=== PATIENT | female | born 1960 | race Caucasian/White ===

== ENCOUNTER 2022-07-25 07:58 | Outpatient (OUT) | payer OTHER, SELFPAY ==
--- NOTE | 2022-07-25 08:00 | VEIN_ITS ---
Patient: CLAIRE ZEE Exam Date: 07/25/2022 : 1960 Gender:F Ordering : DR NICK ARIZA . Admission #: [id number] Family : Order #: [id number] CLICK HERE TO VIEW EXAM RADIOLOGY REPORT PROCEDURE: VC EXT VENOUS REFLUX TIFFANIE LMTD COMPARISON: None. INDICATIONS: Pain due to varicose veins of bilateral legs I83.813 TECHNIQUE: Duplex imaging of the lower extremity to assess the deep and superficial venous system for the presence of deep or superficial venous incompetence and to document the location and severity of disease. The study includes evaluation of the great saphenous vein (GSV), anterior accessory saphenous vein (AASV) and small saphenous vein (SSV). Patient scanned in reverse Trendelenburg and standing. FINDINGS: RIGHT LOWER EXTREMITY: Saphenofemoral Junction Reflux: Yes 10.3mm sec GSV: Diam (mm) Reflux/ Time (sec) Proximal Thigh 5.1 Yes 0.5 Mid Thigh 3.8 No Distal Thigh 4.0 No Prox Calf 3.1 Yes 1.0 Mid Calf 2.9 No Saphenopopliteal Junction Reflux: 2.2mm No SSV: Proximal Calf 1.9 Yes 0.7 Mid Calf 1.0 No AASV: Proximal Thigh 3.7 No Mid Thigh 2.8 No Distal Thigh Thrombi: No acute or chronic thrombus visualized Compressibility: Normal Flow: Normal Preforator: Dist/med calf 1.9mm with 0s reflux. Tech Note: Multiple small varicose veins visualized. Patent varicose vein Prox/med calf 2.3mm with 0s reflux. Patent varicose vein Prox/med calf 3.2mm with 0s reflux. Patent varicose vein dist/med thigh 2.5mm with 0.6s reflux. 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 Patent varicose vein medial knee 3.0mm with 0s reflux. Patent varicose vein 3.6mm with 1.5s reflux. CONCLUSION: 1. Minimal bilateral great and small saphenous vein venous insufficiency without dilatation. 2. Mild bilateral incompetent varicose veins. Dictated by: Jeremy Smith MD on 07/25/2022 at 08:58 Approved by: Jeremy Smith MD on 07/25/2022 at 09:00
== END 2022-07-25 07:59 ==
LOC: VC 07:59
PROVIDERS: PCP Family Medicine; Visit Provider Family Medicine
DX: I86.8 Varicose veins of other specified sites (principal)
CPT/HCPCS: 93970

== ENCOUNTER 2022-08-16 12:37 | Outpatient (RCR) | payer OTHER, SELFPAY | END 2023-02-09 08:10 | disposition home or self-care (01) | LOC: OT 12:37 | PROVIDERS: PCP Family Medicine; Visit Provider Family Medicine | DX: I89.0 Lymphedema, not elsewhere classified (principal) | CPT/HCPCS: 97140; 97166; 97530 ==

== ENCOUNTER 2022-10-03 16:42 | Outpatient (OUT) | payer OTHER, SELFPAY ==
[2022-10-03 16:57] LABS: Basophils Percent Auto 0.4 % (0.2-2.0); Eosinophils Absolute Auto 0.1 10^3/uL (0.0-0.7); Eosinophils Percent Auto 1.6 % (0.9-7.0); Hematocrit 44.1 % (36.0-48.0); Hemoglobin 14.9 g/dL (12.0-16.0); Immature Granulocytes Abs Auto 0.02 10^3/uL (0.00-0.03); Immature Granulocytes Pct Auto 0.3 % (0.0-0.5); Lymphocytes Absolute Auto 2.3 10^3/uL (1.2-3.8); Lymphocytes Percent Auto 30.9 % (20.5-60.0); Mean Corpuscular HGB Conc 33.8 g/dL (29.9-35.2); Mean Corpuscular Hemoglobin 31.4 pg (26.7-34.0); Monocytes Absolute Auto 0.5 10^3/uL (0.3-0.8); Monocytes Percent Auto 6.6 % (1.7-12.0); Neutrophils Absolute Auto 4.5 10^3/uL (1.4-6.5); Neutrophils Percent Auto 60.2 % (43.0-75.0); Platelet Count 222 10^3/uL (150-450); Red Blood Count 4.74 10^6/uL (4.20-5.40); Red Cell Distribution Width 12.7 % (11.0-15.0); White Blood Count 7.5 10^3/uL (4.0-11.0)
[2022-10-03 17:25] LABS: Estimated Average Glucose 114 mg/dL; Glycohemoglobin A1C 5.6 % (4.5-6.2)
[2022-10-03 17:37] LABS: Alanine Aminotransferase 24 U/L (14-59); Albumin Globulin Ratio 1.1; Alkaline Phosphatase 67 U/L (46-116); Anion Gap 13.9; Aspartate Amino Transferase 17 U/L (15-37); BUN Creatinine Ratio 28.4; Bilirubin Total 0.7 mg/dL (0.2-1.0); Calcium 8.8 mg/dL (8.5-10.1); Carbon Dioxide 29.2 mmol/L (21.0-32.0); Chloride 107 mmol/L (98-107); Chol HDL Ratio 3.1; Cholesterol 177 mg/dL (<=200); Estimated GFR (African America >60 (>=60); Estimated GFR (Non-African Ame >60 (>=60); Free T3 2.73 pg/mL (2.18-3.98); Globulin 3.5 g/dL; Glucose 98 mg/dL (74-106); HDL Cholesterol 57 mg/dL (40-60); LDL Cholesterol Calculated 111.6 mg/dL; Potassium 4.1 mmol/L (3.5-5.1); Sodium 146 mmol/L (136-145); Thyroid Stimulating Hormone 2.606 uIU/mL (0.358-3.740); Total Protein 7.5 g/dL (6.4-8.2); Triglycerides 42 mg/dL (<=150); VLDL CHOLESTEROL 8.4 mg/dL
[2022-10-07 18:07] LABS: Occult Blood Positive
== END 2022-10-03 16:43 | disposition home or self-care (01) ==
PROVIDERS: PCP Family Medicine; Visit Provider Family Medicine
DX: Z00.00 Encounter for general adult medical examination without abnormal findings (principal)
CPT/HCPCS: 36415; 80053; 80061; 83036; 84436; 84443; 84481; 85025; G0328

== ENCOUNTER 2022-11-18 15:22 | Outpatient (OUT) | payer OTHER, SELFPAY | END 2022-11-18 15:23 | disposition home or self-care (01) | LOC: PST 15:22 | PROVIDERS: PCP Family Medicine; Visit Provider Surgery | DX: Z01.818 Encounter for other preprocedural examination (principal); R19.5 Other fecal abnormalities ==

== ENCOUNTER 2022-11-27 07:01 | Day surgery (SDC) | payer OTHER, SELFPAY ==
--- NOTE | 2022-11-27 | OP_ITS ---
OPERATION DATE: ??11/27/2022 PREOPERATIVE DIAGNOSIS:? Positive fecal occult blood. POSTOPERATIVE DIAGNOSIS:? Normal colonoscopy to cecum. PROCEDURE:? Colonoscopy to cecum. SURGEON:? Jason Claire M.D. ANESTHESIA:? Monitored anesthesia care. ESTIMATED BLOOD LOSS:? Zero. INDICATIONS AND CONSENT:? Patient is a 61-year-old female presents for evaluation of positive fecal occult blood.? Indications, risks, benefits, alternatives of proceeding with colonoscopy were explained extensively to the patient, including the risks of bleeding, colon perforation or anesthetic complications.? All of her questions were answered.? Informed consent was obtained. PROCEDURE:? Patient brought to the operating room, placed in the left lateral decubitus position.? Monitored anesthesia care was provided.? Rectal exam was performed which showed no masses or blood.? The scope was inserted into the anal canal.? Under direct visualization was advanced.? With the aid of abdominal compression, it was advanced to the cecum where cecal markings were clearly identified.? Upon withdrawal of the scope, mucosal surfaces were carefully examined.? There were no mass lesions or polyps.? No inflammatory changes or ulcerations.? No significant diverticulosis.? The scope was retroflexed in the anal canal.? There was no significant hemorrhoidal disease.? Scope was then withdrawn.? Patient tolerated procedure well, was sent to recovery room in good condition.f/u colonoscopy in 10 years CC:? James Bhandari
[2022-11-27 07:10] VITALS: BP 107/78; PULSE 90; RESP 20; TEMP 36.6; O2SAT 98; BMI 26.0
[2022-11-27] MEDS: LACTATED RINGER'S SOLUTION 1,000 ML 50 ML IV (07:40)
[2022-11-27 09:41] VITALS: BP 113/67; PULSE 66; RESP 16; TEMP 36.9; O2SAT 98
[2022-11-27 09:56] VITALS: BP 143/67; PULSE 68; RESP 16; O2SAT 96
[2022-11-27 10:11] VITALS: BP 141/81; PULSE 61; RESP 18; O2SAT 98
== END 2022-11-27 10:13 | disposition home or self-care (01) ==
PROVIDERS: PCP Family Medicine; Visit Provider Surgery
PROC: (CPT 45378; principal; 2022-11-27 08:30)
DX: R19.5 Other fecal abnormalities (principal); M79.7 Fibromyalgia; K21.9 Gastro-esophageal reflux disease without esophagitis; I10 Essential (primary) hypertension; E03.9 Hypothyroidism, unspecified; M15.9 Polyosteoarthritis, unspecified; G25.81 Restless legs syndrome; G47.33 Obstructive sleep apnea (adult) (pediatric); Z98.51 Tubal ligation status; Z79.82 Long term (current) use of aspirin; Z79.899 Other long term (current) drug therapy
CPT/HCPCS: 45378; J2704

== ENCOUNTER 2022-12-03 20:10 | Outpatient (REF) | payer OTHER, SELFPAY ==
[2022-12-11 11:10] LABS: Age Gdln ACOG Testing Note (.); HPV Aptima Negative (Negative); IGP, Aptima HPV, rfx 16/18,45 Note (.)
== END 2022-12-03 20:11 | disposition home or self-care (01) ==
LOC: LAB 20:10
PROVIDERS: PCP Family Medicine; Visit Provider Nurse Practitioner Family
DX: Z01.419 Encounter for gynecological examination (general) (routine) without abnormal findings (principal)
CPT/HCPCS: 87624; G0145

== ENCOUNTER 2022-12-13 09:28 | Outpatient (OUT) | payer OTHER, SELFPAY ==
--- NOTE | 2022-12-13 | MM_ITS ---
Patient: CLAIRE ZEE Exam Date: 12/13/2022 : 1960 Gender:F Ordering : MAULIK STANLEY [facility] Admission #: [id number] Family : DR Winston Flores . Order #: [id number] CLICK HERE TO VIEW EXAM RADIOLOGY REPORT PROCEDURE: MM TOMOSYNTHESIS SCREENING BI COMPARISON: MG MAMM SCREEN 3D TIFFANIE CAD, 11/30/2020. MG MAMM SCREEN 3D TIFFANIE CAD, 12/14/2021. INDICATIONS: Screening Calculator Name NCI Breast Cancer Risk Assessment Tool 5 Year Breast Cancer Risk 1.30% Lifetime Breast Cancer Risk 5.50% Personal Breast Cancer No Personal Ovarian Cancer No Treatments None Family Cancers Mother with leukemia cancer at age 84; Father with lung cancer at age 74. LOCATION: [facility] BREAST COMPOSITION: Extremely dense, which lowers the sensitivity of mammography. FINDINGS: DIAGNOSTIC CATEGORY 2--BENIGN FINDING. NO CHANGE FROM COMPARISON. Scattered benign-appearing nodules are present. Scattered benign-appearing lymph nodes are present. RIGHT BREAST: No significant suspicious finding. LEFT BREAST: No significant suspicious finding. RECOMMENDATIONS: ROUTINE MAMMOGRAM AND CLINICAL EVALUATION IN 12 MONTHS. PLEASE NOTE: A NORMAL MAMMOGRAM DOES NOT EXCLUDE THE POSSIBILITY OF BREAST CANCER. A CLINICALLY SUSPICIOUS PALPABLE LUMP SHOULD BE BIOPSIED. Dictated by: Jeremy Smith MD on 12/13/2022 at 13:20 Approved by: Jeremy Smith MD on 12/13/2022 at 13:21
== END 2022-12-13 09:29 | disposition home or self-care (01) ==
LOC: MAMMO 09:28
PROVIDERS: PCP Family Medicine; Visit Provider Nurse Practitioner Family
DX: Z12.31 Encounter for screening mammogram for malignant neoplasm of breast (principal); Z80.6 Family history of leukemia; Z80.1 Family history of malignant neoplasm of trachea, bronchus and lung
CPT/HCPCS: 77063; 77067

== ENCOUNTER 2022-12-24 06:52 | Outpatient (OUT) | payer OTHER, SELFPAY | END 2022-12-24 06:53 | disposition home or self-care (01) | LOC: SLEEP 06:52 | PROVIDERS: PCP Family Medicine; Visit Provider Family Medicine | DX: G47.33 Obstructive sleep apnea (adult) (pediatric) (principal); G25.81 Restless legs syndrome | CPT/HCPCS: 95811 ==

== ENCOUNTER 2023-08-08 16:35 | Outpatient (OUT) | payer OTHER, SELFPAY ==
--- OUTSIDE RECORDS SUMMARY | 2023-08-08 16:41 | XMS_ITS | CCD ---
Author Organization [facility] Care Team Providers Care Master Control Supervisor Name Role Phone Kristine Chavez Unavailable [phone] HOY ., DR ROMERO Primary Care Unavailable CHELSEA ., DEREK Attending Unavailable CHELSEA ., DEREK Consulting Unavailable CHELSEA ., DEREK Admitting Unavailable HOY ., DR ROMERO Primary Care Unavailable CHELSEA ., DEREK Attending Unavailable CHELSEA ., DEREK Consulting Unavailable CHELSEA ., DEREK Admitting Unavailable CHELSEA ., DEREK Attending Unavailable CHELSEA ., DEREK Consulting Unavailable CHELSEA ., DEREK Admitting Unavailable HOY ., DR ROMERO Primary Care Unavailable HOY ., DR ROMERO Primary Care Unavailable CHELSEA ., DEREK Attending Unavailable CHELSEA ., DEREK Admitting Unavailable NAZARIO, DR CARMONA Attending Unavailable HOY ., DR ROMERO Primary Care Unavailable MANSI, DR CARMONA Admitting Unavailable HOY ., DR ROMERO Consulting Unavailable HOY ., DR ROMERO Primary Care Unavailable HOY ., DR ROMERO Admitting Unavailable HOY ., DR ROMERO Attending Unavailable CARRIE, DR JAMIE York Consulting Unavailable HOY ., DR ROMERO Consulting Unavailable HOY ., DR ROMERO Primary Care Unavailable HOY ., DR ROMERO Admyancy Unavailable HOY ., DR ROMERO Attending Unavailable LUKE, DR ARLET Santiago Consulting Unavailable HOY ., DR ROMERO Consulting Unavailable HOY ., DR ROMERO Primary Care Unavailable HOY ., DR ROMERO Admyancy Unavailable HOY ., DR ROMERO Attending Unavailable HOY ., DR ROMERO Primary Care Unavailable HOY ., DR ROMERO Admitting Unavailable HOY ., DR ROMERO Attending Unavailable HOY ., DR ROMERO Consulting Unavailable MAULIK STANLEY Attending Unavailable HOY ., DR NICK Primary Care Unavailable MAULIK STANLEY Consulting Unavailable MAULIK STANLEY Admitting Unavailable DEREK VERGARA Attending Unavailable DEREK VERGARA Admitting Unavailable DR NICK CORONA Primary Care Unavailable MIGDALIA CORONADO Attending Unavailable STEVE SHAVER Referring Unavailable KACEY HARPER Attending Unavailable Nick Flores Referring Unavailable Jason LUNA Attending Unavailable Jason LUNA Attending Unavailable Jason LUNA Attending Unavailable Allergies Allergy Classification Reported Allergen(s) Allergy Type Date of Onset Reaction(s) Facility (2 sources) Ciprofloxacin Drug Allergy Unknown Doximity Other (2 sources) Promethazine Drug Allergy Unknown Doximity Other (2 sources) Ciprofloxacin; Translations: [Cipro] Drug Allergy 0 [facility] Repository (3 sources) Levamisole; Translations: [Phenergan] Drug Allergy 4 [facility] Repository Medications Current Medications Medication Drug Class(es) Dates Sig (Normalized) Sig (Original) Grisel Allergy 180 MG (2 sources) take 1 tablet by mouth once daily as needed Grisel Allergy 180 MG 1 tablet as needed Orally Once a day prn Active aspirin 325 mg oral tablet (2 sources) Platelet Aggregation Inhibitor, Nonsteroidal Anti-inflammatory Drug take 1 tablet by mouth once daily Aspirin Adult 325 MG 1 tablet Orally Once a day Active azelastine hydrochloride 0.137 mg/actuat metered dose nasal spray (4 sources) Histamine-1 Receptor Antagonist Start: 01-27-2019 take 2 spray(s) nasal route twice daily Azelastine HCl 137 MCG/SPRAY 2 sprays Nasally Twice a day for 90 Days Jan, Active Start: 05-25-2018 take 2 spray(s) nasa l route twice daily Azelastine HCl 0.15 % 2 spray in each nostril Nasally Twice a day for 365 Days May, Not-Taking Calcium (2 sources) Phosphate Binder, Calcium Calcium Active CPAP Machine (2 sources) CPAP Machine Act kavon esomeprazole 20 mg delayed release oral capsule (2 sources) Proton Pump Inhibitor take 1 capsule by mouth every twenty-four hours NexIUM 20 MG 1 capsule Orally Once a day Active Fish Oils (2 sources) Fish Oil Active gabapentin 300 mg oral capsule (2 sources) Anti-epileptic Agent Gabapentin 300 MG TK 2 CS PO QHS Oral for 90 Active ibuprofen 800 mg oral tablet (2 sources) Nonsteroidal Anti-inflammatory Drug take 1 tablet by mouth three times daily at mealtime as needed Ibuprofen 800 MG 1 tablet with food or milk as needed Orally Three times a day Active levothyroxine sodium 0.05 mg oral tablet (2 sources) l-Thyroxine Levothyroxine So dium 50 MCG TK 1 T PO Q DAY Oral for 90 Active meclizine hydrochloride 25 mg oral tablet (2 sources) Antiemetic take 1 tablet by mouth three times daily as needed Meclizine HCl 25 MG TAKE 1 TABLET BY MOUTH 3 TIMES A DAY NEEDED FOR VERTIGO Oral for 10 prn Active metoprolol tartrate 25 mg oral tablet (2 sources) beta-Adrenergic Scottie Metoprolol Tartrate 25 MG TK 1 T PO BID Oral for 90 Active omeprazole 20 mg oral tablet (2 sources) Proton Pump Inhibitor take 1 tablet by mouth once daily PriLOSEC OTC 20 MG 1 tablet Orally Once a day Active pantoprazole 20 mg delayed release oral tablet (2 sources) Proton Pump Inhibitor take 1 tablet by mouth every twenty-four hours Pantoprazole Sodium 20 MG 1 tablet Orally Once a day Active pramipexole dihydrochloride 0.5 mg oral tablet (2 sources) Nonergot Dopamine Agonist take 1 tablet by mouth every twenty-four hours Pramipexole Dihydrochloride 0.5 MG 1 tablet Orally Once a day Active tiZANidine 4 mg oral tablet (2 sources) Central alpha-2 Adrenergic Agonist take 1 tablet by mouth once daily at bedtime tiZANidine HCl 4 MG TAKE 1 TABLET BY MOUTH EVERYDAY AT BEDTIME Oral for 30 Active Completed/Discontinued Medications Medication Drug Class(es) Dates Sig (Normalized) Sig (Original) diazePAM 2 mg oral tablet (2 sources) Benzodiazepine take 1 tablet by mouth twice daily as needed diazePAM 2 MG (Schedule IV Drug) TAKE 1 TABLET BY MOUTH TWICE A DAY NEEDED FOR VERTIGO Oral for 14 Not-Taking montelukast 10 mg oral tablet (2 sources) Leukotriene Receptor Antagonist Start: 01-27-2019 take 1 tablet by mouth every twenty-four hours Montelukast Sodium 10 MG 1 tablet Orally Once a day for 12 months Jan, Not-Taking Problems Active Problems Problem Classification Problem Date Documented Da te Episodic/Chronic Other nervous system disorders (2 sources) Carpal tunnel syndrome; Translations: [Carpal tunnel syndrome, bilateral upper limbs] Chronic Other upper respiratory disease (2 sources) Chronic rhinitis; Translations: [Chronic rhinitis] Chronic Spondylosis; intervertebral disc disorders; other back problems (9 sources) Cervical spondylosis without myelopathy; Translations: [Spondylosis without myelopathy or radiculopathy, cervical region] Onset: 06-13-2021 Chronic Unclassified (4 sources) LOW BACK PAIN, UNSPECIFIED; Translations: [LOW BACK PAIN, UNSPECIFIED] Onset: 06-14-2021 Past or Other Problems Problem Classification Problem Date Documented Date Episodic/Chronic Acute bronchitis (2 sources) Acute bronchitis; Translations: [Acute bronchitis] Episodic Conditions associated with dizziness or vertigo (2 sources) Dizziness and giddiness Onset: 02-19-2021 Resolved: 03-05-2021 Episodic Deficiency and other anemia (1 source) Anemia, unspecified; Translations: [ANEMIA UNSPECIFIED] Onset: 10-16-2021 Episodic Diabetes mellitus without complication (1 source) Other abnormal glucose; Translations: [OTHER ABNORMAL GLUCOSE] Onset: 10-16-2021 Episodic Other connective tissue disease (2 sources) Fibromyalgia; Translations: [Fibromyalgia] Episodic Other ear and sense organ disorders (2 sources) Otalgia; Translations: [Otalgia, bilateral] Episodic Other nervous system disorders (2 sources) Nervous system symptoms; Translations: [Other abnormalities of gait and mobility] Episodic Other screening for suspected conditions (not mental disorders or infectious disease) (12 sources) Encounter for screening mammogram for malignant neoplasm of breast; Translations: [Encounter for screening for malignant neoplasm of cervix] Onset: 10-18-2021 Episodic Other upper respiratory infections (2 sources) Acute frontal sinusitis; Translations: [Acute recurrent frontal sinusitis] Episodic Otitis media and related conditions (2 sources) Otitis media; Translations: [Otitis media, unspecified, unspecified ear] Episodic Residual codes; unclassified (1 source) Family history of leukemia; Translations: [FAMILY HISTORY OF LEUKEMIA] Onset: 12-17-2021 Episodic Residual codes; unclassified (1 source) Family history of malignant neoplasm of trachea, bronchus and lung; Translations: [FAM HX MALIG NEOPLSM TRACH BRON LNG] Onset: 12-17-2021 Episodic Residual codes; unclassified (4 sources) Other amnesia; Translations: [OTHER AMNESIA] Onset: 10-23-2021 Episodic Spondylosis; intervertebral disc disorders; other back problems (5 sources) Sacrococcygeal disorders, not elsewhere classified; Translations: [SACROCOCCYGEAL DISORDERS NEC] Onset: 06-01-2021 Episodic Unclassified (1 source) LOW BACK PAIN, UNSPECIFIED; Translations: [LOW BACK PAIN, UNSPECIFIED] Onset: 07-06-2021 Results Test Name Value Interpretation Reference Range Facility Physician Referralon 024 Physician Referral [id number] [facility] Reminderson 07-28-2023 Reminders - From: Nurys Boone LPN To: [facility] - Clinical; Sent: 07/28/2023 11:21:37 EDT Show up: 10/28/2032 07:00:00 EDT Subject: colonoscopy recall Due Date/Time: 2032 07:00:00 EDT Reminder/Recall Patient due for screening colonoscopy 2032. [facility] Outside Colonoscopyon 2022 Outside Colonoscopy [id number] [facility] Insurance Correspondenceon 0 11-07-2022 Insurance Correspondence [id number]:127 [facility] Consultation Noteon 11-07-19 Consultation Note [id number]:127 [facility] Ambulatory Visit Summaryon 0 11-05-2022 Ambulatory Visit Summary JEANNA ZEE :1960 Visit Date:11/05/2022 Ambulatory Visit Instructions Your Diagnosis Fecal occult blood test positive Your Care Team Attending Physician - CHERYL TAPIA, Jason Santiago Primary Care Physician - Nick Flores MD This Is Your Medications List Contact prescribing physician if questions or concerns aspirin (aspirin 325 mg Oral EC Tab) azelastine nasal celecoxib (Celebrex 50 mg oral capsule) dantrolene (dantrolene 25 mg oral capsule) gabapentin (gabapentin 300 mg Cap) levothyroxine (levothyroxine 75 mcg (0.075 mg) Tab) meclizine (meclizine 25 mg Tab) montelukast (montelukast 10 mg Tab) pantoprazole (Pantoprazole [address] Tab) pramipexole (pramipexole 0.5 mg oral tablet) valacyclovir (valacyclovir 1 g Tab) Procedures Performed EGD - Esophagogastroduodenoscopy (07/21/2019), Cystourethroscopy with dilation of urethral stricture (02/18/2019), Colonoscopy (05/14/2013), Caesarean section, Carpal tunnel release, section, Endometrial biopsy, neck surgery ablation, Repair of left inguinal hernia, Sling procedure of bladder neck, Trigger finger, Tubal ligation. Discharge Vitals Heart Rate (Peripheral) 76 Respiratory Rate 16 Blood Pressure 126/84 Height 162.5 cm Height 64 in Weight 69 kg Weight 151.8 lb BMI 26.13 Medications What How Much When Instructions Unchanged aspirin (aspirin 325 mg Oral EC Tab) 1 Tablets By Mouth Every day Contact prescribing physician if questions or concerns Unchanged azelastine nasal Nasal Inhalation 2 times a day Contact prescribing physician if questions or concerns Unchanged celecoxib (Celebrex 50 mg oral capsule) 1 Capsules By Mouth Every day Contact prescribing physician if questions or concerns Unchanged dantrolene (dantrolene 25 mg oral capsule) 1 Capsules By Mouth At bedtime Contact prescribing physician if questions or concerns Unchanged gabapentin (gabapentin 300 mg Cap) 1 Capsules By Mouth Every day Contact prescribing physician if questions or concerns Unchanged levothyroxine (levothyroxine 75 mcg (0.075 mg) Tab) 1 Tablets By Mouth Every day Contact prescribing physician if questions or concerns Unchanged meclizine (meclizine 25 mg Tab) 1 Tablets By Mouth 4 times a day as needed for Dizziness Contact prescribing physician if questions or concerns Unchanged montelukast (montelukast 10 mg Tab) 1 Tablets By Mouth Every day Contact prescribing physician if questions or concerns Unchanged pantoprazole (Pantoprazole [address] Tab) 1 Tablets By Mouth Every day Contact prescribing physician if questions or concerns Unchanged pramipexole (pramipexole 0.5 mg oral tablet) 2 Tablets By Mouth At bedtime Contact prescribing physician if questions or concerns Unchanged valacyclovir (valacyclovir 1 g Tab) 1 Tablets By Mouth Every day Contact prescribing physician if questions or concerns Allergies Cipro (Unknown) Phenergan (Spasm) Problems Ongoing - Any problem that you are currently receiving treatment for. Antral gastritis Antral ulcer Autonomic neuropathy in diseases classified elsewhere BMI 26.0-26.9,adult Carpal tunnel syndrome Fecal occult blood test positive Fibromyalgia Gastroesophageal reflux disease Hypertension Hypothyroidism Microscopic hematuria Mixed incontinence Nocturia Overweight Primary generalized (osteo)arthritis Raised antibody titer Restless legs Sleep apnea Urethral stricture Urge incontinence Urinary frequency Urinary urgency Historical - Any problem that you are no longer receiving treatment for. Antiplatelet or antithrombotic long-term use Pain in unspecified joint Normal [facility] Physician Referralon 023 Physician Referral [id number]:127 Normal [facility] MG MAMM SCREEN 3D TIFFANIE CADon 12-14-2021 MG MAMM SCREEN 3D TIFFANIE CAD Patient: JEANNA ZEE Exam Date: 12/14/2021 : 1960 Gender:F Ordering : DR NICK FLORES . Admission #: [id number] Family : Order #: [id number] CLICK HERE TO VIEW EXAM RADIOLOGY REPORT PROCEDURE: MAMMOGRAM SCREENING 3D BILATERAL CAD COMPARISON: MG MAMM SCREEN TIFFANIE W CAD, 11/22/2019. MG MAMM SCREEN 3D TIFFANIE CAD, 11/30/2020. INDICATIONS: Screening mammography Calculator Name NCI Breast Cancer Risk Assessment Tool 5 Year Breast Cancer Risk 1.20% Lifetime Breast Cancer Risk 5.70% Personal Breast Cancer No Personal Ovarian Cancer No Treatments None Family Cancers Mother with leukemia cancer at age 84; Father with lung cancer at age 74. LOCATION: [facility] BREAST COMPOSITION: Extremely dense, which lowers the sensitivity of mammography. FINDINGS: DIAGNOSTIC CATEGORY 2--BENIGN FINDING. NO CHANGE FROM COMPARISON. Scattered benign-appearing nodules are present. Scattered benign-appearing calcifications are present. Scattered benign-appearing lymph nodes are present. RIGHT BREAST: No significant suspicious finding. LEFT BREAST: No significant suspicious finding. RECOMMENDATIONS: ROUTINE MAMMOGRAM AND CLINICAL EVALUATION IN 12 MONTHS. PLEASE NOTE: A NORMAL MAMMOGRAM DOES NOT EXCLUDE THE POSSIBILITY OF BREAST CANCER. A CLINICALLY SUSPICIOUS PALPABLE LUMP SHOULD BE BIOPSIED. Dictated by: Jamie Smith MD on 12/14/2021 at 07:59 Approved by: Jamie Smith MD on 12/14/2021 at 08:02 Normal [facility] PAP ACOG PANEL 2: 30 to 65on 12-14-2021 . . Normal [facility] Comment on above: Result Comment: Perf ormed at: WB Performed By: #### [id number] #### [facility] [address] [place] [address] Dr. Daly Gordon Age Gdln ACOG Testing 30-65 Normal [facility] Comment on above: Performed By: #### [id number] #### [facility] [address] [place] [address] Dr. Daly Gordon DIAGNOSIS: Comment Normal [facility] Comment on above: Result Comment: NEGA TIVE FOR INTRAEPITHELIAL LESION OR MALIGNANCY. CELLULAR CHANGES ASSOCIATED WITH ATROPHY ARE PRESENT. Performed at: WB Performed By: #### [id number] #### [facility] [address] [place] [address] Dr. Daly Gordon HPV Aptima Negative Normal Negative [facility] Comment on above: Result Comment: This nucleic acid amplification test detects fourteen high-risk HPV types (16,18,31,33,35,39,45,51,52,56,58,59,66,68) without differentiation. Performed at: =G Performed By: #### [id number] #### [facility] [address] [place] [address] Dr. Daly Gordon HPV Genotype Reflex Comment Normal [facility] Comment on above: Result Comment: Crit eria not met, HPV Genotype not performed. Performed at: WB Performed By: #### [id number] #### [facility] [address] [place] [address] Dr. Daly Gordon Methodology: Comment Normal [facility] Comment on above: Result Comment: This liquid based ThinPrep(R) pap test was screened with the use of an image guided system. Performed at: WB Performed By: #### [id number] #### [facility] [address] [address] [address] Daly Gordon Note: Comment Normal [facility] Comment on above: Result Comment: The Pap smear is a screening test designed to aid in the detection of premalignant and malignant conditions of the uterine cervix. It is not a diagnostic procedure and should not be used as the sole means of detecting cervical cancer. Both false-positive and false-negative reports do occur. . Performed at: WB Performed By: #### [id number] #### [facility] [address] [address] [address] Daly Gordon Performed by: Comment Normal [facility] Comment on above: Result Comment: Radha Marrero, Internet Marketing Strategist Performed at: WB Performed By: #### [id number] #### [facility] [address] [place] [address] Dr. Daly Gordon Specimen adequacy: Comment Normal [facility] Comment on above: Result Comment: Sati sfactory for evaluation. Endocervical component may not be distinguished in cases of atrophy. Performed at: WB Performed By: #### [id number] #### [facility] [address] [place] [address] Dr. Daly Gordon MRI BRAIN WO W CONon 09-14-2 022 MRI BRAIN WO W CON EXAMINATION: MRI BRA IN WO W CON HISTORY: Amnesia COMPARISON: MRI brain 11/29/2020 TECHNIQUE: A variety of imaging planes and parameters were utilized for visualization of suspected pathology. Images were performed without and with ml Dotarem contrast. FINDINGS: CEREBRUM: No edema, hemorrhage, mass, acute infarction, or inappropriate atrophy. CEREBELLUM: No edema, hemorrhage, mass, acute infarction, or inappropriate atrophy. BRAINSTEM: No edema, hemorrhage, mass, acute infarction, or inappropriate atrophy. CSF SPACES: Ventricles, cisterns, and sulci are appropriate for age. No hydrocephalus, subarachnoid hemorrhage, or mass. SKULL: No mass or other significant visible lesion. SINUSES: Limited views demonstrate no significant mucosal thickening or fluid. ORBITS: Limited views are unremarkable. OTHER: Absent versus markedly diminutive right vertebral artery; unchanged. No abnormal meningeal or parenchymal enhancement. IMPRESSION: 1. No suspicious findings to account for patient's symptoms. 2. Minimal, but age consistent chronic changes. Electronically authenticated by: ARLET BUTLER Date: 2021-10-24 07:26 Normal [facility] OCC BLD IMMUNO SCREENon OCCULT BLOOD Negative Normal NEGATIVE [facility] Comment on above: Performed By: #### O BSCRN #### [facility] [address] [address] [address] Daly Gordon INSULINon 10-17-2021 Insulin 16.8 uIU/mL Normal 2.6-24.9 [facility] Comment on above: Performed By: #### I NSULIN #### [facility] [address] [address] [address] Daly Gordon T4, T3U, FTI [facility]on 10-17 Free Thyroxine Index 3.0 Normal 1.2-4.9 [facility] Comment on above: Performed By: #### T HYLC #### [facility] [address] [address] [address] Daly Gordon T3 Uptake 41 % Critically high 24-39 [facility] Comment on above: Performed By: #### T HYLC #### [facility] [address] [address] [address] Daly Gordon T4 [Mass/Vol] 7.4 ug/dL Normal 4.5-12.0 [facility] Comment on above: Performed By: #### T HYLC #### [facility] [address] [address] [address] Daly Gordon VIT D 25-OH LABCORPon 2021 Vitamin D, 25-Hydroxy 42.7 ng/mL Normal 30.0-100.0 [facility] Comment on above: Result Comment: Ofelia min D deficiency has been defined by the [place] of Medicine and an Endocrine Society practice guideline as a level of serum 25-OH vitamin D less than 20 ng/mL (1,2). The Endocrine Society went on to further define vitamin D insufficiency as a level between 21 and 29 ng/mL (2). 1. IOM ([place] of Medicine). 2010. Dietary reference intakes for calcium and D. [place]: The National Academies Press. 2. Red ROONEY, Dae TAI, Demetrice AKERS, et al. Evaluation, treatment, and prevention of vitamin D deficiency: an Endocrine Society clinical practice guideline. JCEM. 2010; 96(7):1911-30. Performed By: #### V ITADLC #### [facility] [address] [place], [place] [address] Dr. Daly Gordon CBC AUTO DIFFon 10-13-2021 BASO # 0.1 103/ul Normal 0.0-0.1 [facility] Comment on above: Performed By: #### C BC ####[facility] [address] [id number]. Daly Gordon Basophils/100 WBC (Bld) 0.7 % Normal 0.2-2.0 [facility] Comment on above: Performed By: #### C BC ####[facility] [address] [id number] Gordon EO # 0.2 103/ul Normal 0.0-0.7 [facility] Comment on above: Performed By: #### C BC ####[facility] [address] [id number] Gordon Eosinophils/100 WBC (Bld) 2.6 % Normal 0.9-7.0 [facility] Comment on above: Performed By: #### C BC ####[facility] [address] [id number] Gordon Erythrocyte distribution width (RBC) [Ratio] 12.5 % Normal 11.0-15.0 [facility] Comment on above: Performed By: #### C BC ####[facility] [address] [id number] Gordon Hematocrit (Bld) [Volume fraction] 42.4 % Normal 36.0-48.0 [facility] Comment on above: Performed By: #### C BC ####[facility] [address] [id number] Gordon Hemoglobin (Bld) [Mass/Vol] 13.9 g/dL Normal 12.0-16.0 [facility] Comment on above: Performed By: #### C BC ####[facility] [address] [address]Dr. Daly Gordon IG # 0.01 10e3/ul Normal 0.00-0.03 [facility] Comment on above: Performed By: #### C BC ####[facility] [address] [address]Dr. Daly Gordon IG % 0.1 % Normal 0.0-0.5 [facility] Comment on above: Performed By: #### C BC ####[facility] [address] [address]Dr. Daly Gordon LYMPH # 2.2 103/ul Normal 1.2-3.8 [facility] Comment on above: Performed By: #### C BC ####[facility] [address] [place], [place] [address]Dr. Candicesharmila Gordon Lymphocytes/100 WBC (Bld) 29.4 % Normal 20.5-60.0 [facility] Comment on above: Performed By: #### C BC ####[facility] [address] [address]Dr. Daly Gordon MANUAL DIFF REQ NO Normal [facility] Comment on above: Performed By: #### C BC ####[facility] [address] [place], [place] [address]Dr. Daly Gordon MCH (RBC) [Entitic mass] 30.1 pg Normal 26.7-34.0 [facility] Comment on above: Performed By: #### C BC ####[facility] [address] [place], [place] [address]Dr. Daly Gordon MCHC (RBC) [Mass/Vol] 32.8 g/dL Normal 29.9-35.2 [facility] Comment on above: Performed By: #### C BC ####[facility] [id number] [address] [place], [place] [address]Dr. Daly Gordon MCV (RBC) [Entitic vol] 91.8 fL Normal 81.0-99.0 [facility] Comment on above: Performed By: #### C BC ####[facility] [address] [id number]. Daly Gordon MONO # 0.5 103/ul Normal 0.3-0.8 [facility] Comment on above: Performed By: #### C BC ####[facility] [address] [id number]. Daly Gordon Monocytes/100 WBC (Bld) 6.6 % Normal 1.7-12.0 [facility] Comment on above: Performed By: #### C BC ####[facility] [address] [id number]. Daly Gordon NEUT # 4.5 103/ul Normal 1.4-6.5 [facility] Comment on above: Performed By: #### C BC ####[facility] [address] [place], [place] [address]Dr. Daly Gordon Neutrophils/100 WBC (Bld) 60.6 % Normal 43.0-75.0 [facility] Comment on above: Performed By: #### C BC ####[facility] [address] [place] [address]Dr. Daly Gordon Platelet mean volume (Bld) [Entitic vol] 9.1 fL Critically low 9.5-13.5 [facility] Comment on above: Performed By: #### C BC ####[facility] [address] [place] [address]Dr. Daly Gordon PLT 236 103/ul Normal 150-450 [facility] Comment on above: Performed By: #### C BC ####[facility] [address] [place], [place] [address]Dr. Daly Gordon RBC 4.62 106/ul Normal 4.20-5.40 [facility] Comment on above: Performed By: #### C BC ####[facility] [address] [place] [address]Dr. Daly Gordon WBC 7.4 103/ul Normal 4.0-11.0 [facility] Comment on above: Performed By: #### C BC ####[facility] [address] [place] [address]Dr. Daly Gordon GLYCOHEMOGLOBIN A1Con 2021 ADA RECOMMENDATION SEE BELOW Normal [facility] Comment on above: Result Comment: ADA RECOMMENDED LIMIT 4.0 - 6.0 ADA THERAPEUTIC TARGET < 7.0 ACTION SUGGESTED > 7.0 Performed By: #### A 1C #### [facility] [address] [address] [address] Daly Gordon Glucose [Mass/Vol] 128 mg/dL Normal [facility] Comment on above: Performed By: #### A 1C #### [facility] [address] [address] [address] Daly Gordon HbA1c (Bld) [Mass fraction] 6.1 % Normal 4.5-6.2 [facility] Comment on above: Performed By: #### A 1C #### [facility] [address] [place] [address] Dr. Daly Gordon IRONon 10-13-2021 Iron [Mass/Vol] 89.0 ug/dL Normal 50.0-170.0 [facility] Comment on above: Performed By: #### B 12FOL, IRON #### [facility] [address] [address] [address] Daly Gordon LIPID PROFILEon 10-13-2021 CHOL-HDL RATIO NORM SEE BELOW Normal [facility] Comment on above: Result Comment: 3.3 - 4.4 LOW RISK 4.4 - 7.1 AVERAGE RISK 7.1 - 11.0 MODERATE RISK >11.0 HIGH RISK Performed By: #### L IPID, TSH, CMP ####[facility] [address] [place] [address]DrShea Gordon Cholesterol [Mass/Vol] 176 mg/dL Normal <=200 [facility] Comment on above: Performed By: #### L IPID, TSH, CMP ####[facility] [address] [id number] Gordon Cholesterol in HDL [Mass/Vol] 58 mg/dL Normal 40-60 [facility] Comment on above: Performed By: #### L IPID, TSH, CMP ####[facility] [address] [id number]. Daly Gordon Cholesterol in LDL [Mass/Vol] 110.4 mg/dL Normal [facility] Comment on above: Performed By: #### L IPID, TSH, CMP ####[facility] [address] [id number]. Daly Gordon Cholesterol.total/C holesterol in HDL [Mass ratio] 3.0 {ratio} Normal [facility] Comment on above: Performed By: #### L IPID, TSH, CMP ####[facility] [address] [place] [address]Dr. Daly Gordon HDL NORMAL > or = 60 mg/dl - LO W CARDIOVASCULAR RISK <40 mg/dl - HIGH CARDIOVASCULAR RISK Normal [facility] Comment on above: Performed By: #### L IPID TSH, CMP ####[facility] [address] [address]Dr. Daly Gordon LDL CALC NORMAL SEE BELOW Normal [facility] Comment on above: Result Comment: <100 mg/dl OPTIMAL 100 - 129 mg/dl NEAR OR ABOVE OPTIMAL 130 - 159 mg/dl BORDERLINE HIGH 160 - 189 mg/dl HIGH >190 mg/dl VERY HIGH Performed By: #### L IPID TSH, CMP ####[facility] [address] [place] [address]Dr. Daly Gordon Triglyceride [Mass/Vol] 38 mg/dL Normal <=150 [facility] Comment on above: Performed By: #### L IPID TSH, CMP ####[facility] [address] [place] [id number]. Daly Gordon VLDL CALC 7.6 mg/dL Normal [facility] Comment on above: Performed By: #### L IPID TSH, CMP ####[facility] [address] [place] [address]Dr. Daly Gordon PROF 14(COMP METB)on 022 Albumin [Mass/Vol] 3.7 g/dL Normal 3.4-5.0 [facility] Comment on above: Performed By: #### L IPID, TSH, CMP ####[facility] [address] [address]Dr. Candicesharmila Gordon Albumin/Globulin [Mass ratio] 1.2 {ratio} Normal [facility] Comment on above: Performed By: #### L IPID, TSH, CMP ####[facility] [address] [address]Dr. Candicesharmila Gordon ALP [Catalytic activity/Vol] 56 U/L Normal 46-116 [facility] Comment on above: Performed By: #### L IPID, TSH, CMP ####[facility] [address] [place] [address]Dr. Daly Gordon ALT [Catalytic activity/Vol] 29 U/L Normal 14-59 [facility] Comment on above: Performed By: #### L IPID, TSH, CMP ####[facility] [address] [place] [address]Dr. Daly Gordon Anion gap [Moles/Vol] 11.6 mmol/L Normal [facility] Comment on above: Performed By: #### L IPID, TSH, CMP ####[facility] [address] [place], [place] [address]Dr. Daly Gordon AST [Catalytic activity/Vol] 17 U/L Normal 15-37 [facility] Comment on above: Performed By: #### L IPID, TSH, CMP ####[facility] [address] [place], [place] [address]Dr. Daly Gordon Bilirubin [Mass/Vol] 0.4 mg/dL Normal 0.2-1.0 [facility] Comment on above: Performed By: #### L IPID, TSH, CMP ####[facility] [address] [place] [address]Dr. Daly Gordon Calcium [Mass/Vol] 8.6 mg/dL Normal 8.5-10.1 [facility] Comment on above: Performed By: #### L IPID, TSH, CMP ####[facility] [address] [place] [address]Dr. Daly Gordon Chloride [Moles/Vol] 105 mmol/L Normal 98-107 [facility] Comment on above: Performed By: #### L IPID, TSH, CMP ####[facility] [address] [place] [address]Dr. Daly Gordon CO2 [Moles/Vol] 29.6 mmol/L Normal 21.0-32.0 [facility] Comment on above: Performed By: #### L IPID, TSH, CMP ####[facility] [address] [place], [place] [address]Dr. Candicesharmila Gordon Creatinine [Mass/Vol] 0.72 mg/dL Normal 0.55-1.02 [facility] Comment on above: Performed By: #### L IPID, TSH, CMP ####[facility] [address] [place], [place] [address]Dr. Daly Gordon EGFR-AF DOMINICAN >60 Normal >=60 [facility] Comment on above: Performed By: #### L IPID, TSH, CMP ####[facility] [address] [place], [place] [address]Dr. Daly Gordon EGFR-NON AF DOMINICAN >60 Normal >=60 [facility] Comment on above: Performed By: #### L IPID, TSH, CMP ####[facility] [address] [place], [place] [address]Dr. Daly Gordon Globulin (S) [Mass/Vol] 3.2 g/dL Normal [facility] Comment on above: Performed By: #### L IPID, TSH, CMP ####[facility] [address] [place], [place] [address]Dr. Daly Gordon Glucose [Mass/Vol] 101 mg/dL Normal 74-106 [facility] Comment on above: Performed By: #### L IPID, TSH, CMP ####[facility] [address] [place], [place] [address]Dr. Daly Gordon Potassium [Moles/Vol] 4.2 mmol/L Normal 3.5-5.1 [facility] Comment on above: Performed By: #### L IPID, TSH, CMP ####[facility] [address] [place], [place] [address]Dr. Daly Gordon Protein [Mass/Vol] 6.9 g/dL Normal 6.4-8.2 [facility] Comment on above: Performed By: #### L IPID, TSH, CMP ####[facility] [address] [address]Dr. Daly Gordon Sodium [Moles/Vol] 142 mmol/L Normal 136-145 [facility] Comment on above: Performed By: #### L IPID, TSH, CMP ####[facility] [address] [address]Dr. Daly Gordon Urea nitrogen [Mass/Vol] 21.0 mg/dL Critically high 7.0-18.0 [facility] Comment on above: Performed By: #### L IPID, TSH, CMP ####[facility] [address] [address]Dr. Daly Gordon Urea nitrogen/Creatinine [Mass ratio] 29.2 mg/mg Normal [facility] Comment on above: Performed By: #### L IPID, TSH, CMP ####[facility] [address] [place] [address]Dr. Daly Gordon TSHon 10-13-2021 TSH 2.311 uIU/mL Normal 0.358-3.740 [facility] Comment on above: Performed By: #### L IPID, TSH, CMP ####[facility] [address] [place] [address]Dr. Daly Gordon VIT B12 AND FOLATEon 022 Cobalamin (Vitamin B12) [Mass/Vol] 602.0 pg/mL Normal 193.0-986.0 [facility] Comment on above: Performed By: #### B 12FOL, IRON #### [facility] [address] [address] [address] Daly Gordon FOLATE 18.70 ng/mL Normal 8.60-58.90 [facility] Comment on above: Performed By: #### B 12FOL, IRON #### [facility] [address] [address] [address] Daly Gordon US carotid doppler BIon US carotid doppler BI [facility] [place] [address] Ultrasound Report Signed Patient: Jeanna Zee MR#: [id number] : 1960 Acct:[id number] Age/Sex: 60 / F ADM Date: 03/05/21 Loc: [facility] Room: Type: [facility] Attending Dr: Kristine Chavez MD Ordering Provider: Kristine Chavez MD Date of Service: 03/05/21 US/US carotid doppler BI: [id number] Copies to: Kristine Chavez MD CAROTID DUPLEX INDICATION: Screening study after abnormal MRI interpretation PROCEDURE: Color-flow duplex scanning is used to interrogate the extracranial carotid arterial system, as well as both vertebral arteries. The proximal right internal carotid artery shows a highest peak systolic velocity of 131 cm/s with an end-diastolic velocity of 37.3 cm/s . The mid internal carotid artery measures 118 cm/s peak systolic with an end-diastolic velocity of 41.3 cm/s . The distal segment measures 76.6 cm/s peak systolic with an end diastolic velocity of 28.5 cm/s . The velocities of the right common carotid artery are 141 cm/s peak systolic and 22 cm/s end- diastolic proximally and 130 cm/s peak systolic and 29.9 cm/s end-diastolic distally. The peak systolic velocity ratio of the internal to the common carotid artery is 0.93 . The right external carotid artery measures 164 cm/s peak systolic. The right vertebral artery is patent at 55 cm/s peak systolic and with antegrade flow. The proximal left internal carotid artery shows a highest peak systolic velocity of 84.4 cm/s with an end-diastolic velocity of 30.5 cm/s . The mid internal carotid artery measures 97.3 cm/s peak systolic with an end-diastolic velocity of 32.2 cm/s . The distal segment measures 63.6 cm/s peak systolic with an end diastolic velocity of 24.4 cm/s . The velocities of the left common carotid artery are 130 cm/s peak systolic and 30.4 cm/s end-diastolic proximally and 113 cm/s peak systolic and 31.1 cm/s end-diastolic distally. The peak systolic velocity ratio of the internal to the common carotid artery is 0.75 . The left external carotid artery measures 110 cm/s peak systolic. The left vertebral artery is patent at 70.4 cm/s peak systolic with antegrade flow. US/US carotid doppler BI IMPRESSION: NO HEMODYNAMICALLY SIGNIFICANT STENOSIS OF EITHER EXTRACRANIAL INTERNAL CAROTID ARTERY. BOTH VERTEBRAL ARTERIES ARE PATENT WITH ANTEGRADE FLOW. Both of the distal internal carotid arteries were tortuous. Impression dictated by: Kristine Chavez MD03/08/2021 5:35 PM [facility]: Albina Wilcox Transcribed By: TERRY 03/08/211734 Dictated By: Kristine Chavez MD 03/08/211733 Signed By: 03/08/211734 [facility] Vital Signs Date Time Vital Sign Value Performing Clinician Facility 03-05-2021 16:30-0500 Body height 162.56 cm Kristine Chavez Other [facility] Other 03-05-2021 16:30-0500 Body mass index (BMI) [Ratio] 27.46 kg/m2 Kristine Chavez Other [facility] Other 03-05-2021 16:30-0500 Body temperature 97.3 [degF] Kristine Chavez Other [facility] Other 03-05-2021 16:30-0500 Body weight 72.58 kg Kristine Chavez Other [facility] Other 03-05-2021 16:30-0500 Diastolic blood pressure 70 mm[Hg] Kristine Chavez Other [facility] Other 03-05-2021 16:30-0500 SaO2% (BldA) [Mass fraction] 98 % Kristine Chavez Other [facility] Other 03-05-2021 16:30-0500 Systolic blood pressure 110 mm[Hg] Kristine Samsraúl Other [facility] Other 02-19-2021 16:15-0500 Body height 162.56 cm Kristine Samsraúl Other [facility] Other 02-19-2021 16:15-0500 Body mass index (BMI) [Ratio] 27.46 kg/m2 Kristine Samsraúl Other [facility] Other 02-19-2021 16:15-0500 Body weight 72.58 kg Kristine Samsraúl Other [facility] Other 02-19-2021 16:15-0500 Respiratory rate 18 /min Kristine Scott Other [facility] Other 02-19-2021 16:15-0500 SaO2% (BldA) [Mass fraction] 98 % Kristine Samsraúl Other [facility] Other Encounters Encounter Date Encounter Type Care Provider Facility Start: 08-12-2023 ambulatory Nick Flores Facility:[facility] Start: 07-23-2023 End: 07-23-2023 ambulatory KACEY HARPER Not Available Start: 02-06-2023 End: 02-06-2023 ambulatory MIGDALIA CORONADO Not Available Start: 2022 End: 2022 ambulatory Jason LUNA Facility:CD:[id number] Start: 11-05-2022 End: 11-05-2022 ambulatory Jason LUNA Facility:[facility] Start: 05-17-[address] KRISTINE Bhat ity:[facility] Start: 12-14-2021 End: 12-15-[address] NICK FLORES . Facility:[facility] Start: 12-06-2021 End: 12-10-2021 ambulatory MAULIK STANLEY Facility:[facility] Start: 11-02-[address] NICK FLORES . Facili ty:[facility] Start: 10-23-2021 End: 10-24-[address] NICK FLORES . Facility:[facility] Start: 10-18-2021 End: 10-18-[address] NICK FLORES . Facility:[facility] Start: 10-13-2021 End: 10-14-[address] NCIK FLORES . Facility:[facility] Start: 07-06-2021 End: 07-07-[address] NICK FLORES . Facility:[facility] Start: 06-22-2021 End: 06-22-[address] NICK FLORES . Facility:[facility] Start: 06-13-2021 End: 08-04-2021 ambulatory DEREK TRAN . Facility:[facility] Start: 06-01-2021 End: 06-02-2021 ambulatory DEREK TRAN . Facility:[facility] Start: 03-05-2021 End: 03-05-2021 ambulatory Kristine Chavez Other [facility] Other Start: 03-05-2021 Office outpatient visit 15 minutes Kristine Chavez [facility] Start: 02-19-2021 End: 02-19-2021 ambulatory Kristine Chavez Other [facility] Other Start: 02-19-2021 Office outpatient ne w 30 minutes Kristine Chavez [facility] Payers Date Payer Category Payer Unknown [id number] 1960 Unknown [id number] 2.16.84 [id number] 1960 Unknown [id number] 2.16.84 [id number] 1960 Unknown [id number] 2.16.84 0.1.444663.3.579.2.593 1960 Unknown [id number] 2.16.84 0.1.589399.3.579.2.593 1959 Unknown [id number] 2.16.84 0.1.407738.3.579.2.593 1960 Unknown [id number] 2.16.84 0.1.287866.3.579.2.593 1960 Unknown [id number] 2.16.84 0.1.250893.3.579.2.593 1959 Unknown [id number] 2.16.84 0.1.691004.3.579.2.593 1960 Unknown [id number] 2.16.84 0.1.188090.3.579.2.593 1959 Unknown [id number] 2.16.84 0.1.655547.3.579.2.593 1960 Unknown [id number] 2.16.84 0.1.811773.3.579.2.593 1959 Unknown [id number] 2.16.84 0.1.039762.3.579.2.1259 1959 Unknown [id number] 2.16.840 .1.559718.3.579.2.1259 1959 Unknown [id number] 2.16.8 40.1.738314.3.579.2.727 1960 Unknown [id number] 2.16.8 40.1.860344.3.579.2.727 1960 Unknown [id number] 2.16.8 40.1.470750.3.579.2.727 1960 Self-pay [id number] 1960 Unknown [id number] 2.16. [id number] Social History Date Type Detail Facility Sex Assigned At [facility] Other Clinical Note 11-05-2022 Note Date & Type Note Facility 11-05-2022 Note Chief Complaint consultation for positive occult stool HPI Staff 61 year old female presents on consultation from Dr. Flores for positive occult stool. Denies abdominal or rectal pain. Denies noting rectal bleeding or blood in stools. Reports approximately one month history of fecal urgency and loose stools. Long standing history of fecal incontinence. Denies nausea or vomiting. No unexplained weight loss. Last colonoscopy completed 05/2013 with small internal hemorrhoids. No known family history of colon cancer. History of Present Illness 61 yo female with h/o htn, hypothyroidism, fibromyalgia, LYNDON, referred for positive fecal occult blood; denies change in bms or gross blood in stools, no abd complaints; last colonoscopy 2013 with internal hemorrhoids; abd operations significant for x 2; LIHR; on regular asa daily, no NSAID use, no SBE prophylaxis, no fmhx of GI malignancy or IBD; no tobacco use. Review of Systems PHQ Score Initial Depression Screen Score: 0 ROS - Provider Constitutional: no fever, no sweats, no weight loss. Eyes: no glasses, no blurred vision, no visual loss. ENMT: no dentures, no hoarseness, no swallowing difficulties, no hearing loss, no ear infection(s), no nose bleeds. Cardiovascular: normal blood pressure, no chest pain, regular heartbeat, no heart murmur. Respiratory: no shortness of breath, no cough, no asthma, no wheezing. Gastrointestinal: no nausea, no vomiting, no diarrhea, no constipation, no blood in stool, no change in bowel habits, no abdominal pain, no hepatitis. Genitourinary: no kidney stones, no urine infection, no dysuria. Musculoskeletal: no pain, no weakness. Skin: no changing moles, no rash, no skin lumps. Neurologic: no seizures, no epilepsy, no headache. Psychiatric: no emotional or psychiatric problem. Heme/Lymph: no bleeding problems, no anemia, no blood clots, no transfusions. Allergy/Immunologic: no swollen lymph nodes/glands, no IV drug abuse. Other: Additional ROS info: Except as noted in the above Review of Systems and in the History of Present Illness, all other systems have been reviewed and are negative or noncontributory. Physical Exam Vitals & Measurements HR: 76(Peripheral) RR: 16 BP: 126/84 HT: 64 in HT: 162.5 cm WT: 69 kg WT: 151.8 lb BMI: 26.13 HEENT: normal conjunctiva, sclera clear, no scleral icterus, EOM intact, PERRLA, oral mucosa moist without lesions. Neck: trachea midline, no mass, symmetric, no thyromegaly or nodules, no adenopathy Respiratory: lungs CTA, respirations non labored. Cardiovascular: regular rate and rhythm, no murmur, no pedal edema or varicosities. Gastrointestinal: soft, non distended, no tenderness, no masses, no palpable hernias, diastasis recti no, no hepatosplenomegaly; normal bs Lymphatic: no cervical adenopathy, no supraclavicular adenopathy. Musculoskeletal: normal gait, digits and nails without infection, nodes, cyanosis, clubbing. Skin: no rashes, no lesions, no ulcers, no subcutaneous nodules, induration. Psychiatric/Neuro: oriented to time, place, person, judgement normal, affect appropriate for age, insight intact, no focal deficits. Tests: labs reviewed, review of old records completed, Discussed surgical options, risks, and possible complications with patient. Assessment/Plan 1. Fecal occult blood test positive (R19.5: Other fecal abnormalities) plan colonoscopy under anesthesia, informed consent obtained. Follow-up No qualifying data available Problem List/Past Medical History Ongoing Antral gastritis Antral ulcer Autonomic neuropathy in diseases classified elsewhere BMI 26.0-26.9,adult Carpal tunnel syndrome Fecal occult blood test positive Fibromyalgia Gastroesophageal reflux disease Hypertension Hypothyroidism Microscopic hematuria Mixed incontinence Nocturia Overweight Primary generalized (osteo)arthritis Raised antibody titer Restless legs Sleep apnea Urethral stricture Urge incontinence Urinary frequency Urinary urgency Historical Antiplatelet or antithrombotic long-term use Pain in unspecified joint Procedure/Surgical History EGD - Esophagogastroduodenoscopy (07/21/2019), Cystourethroscopy with dilation of urethral stricture (02/18/2019), Colonoscopy (05/14/2013), Caesarean section, Carpal tunnel release, section, Endometrial biopsy, neck surgery ablation, Repair of left inguinal hernia, Sling procedure of bladder neck, Trigger finger, Tubal ligation. Medications aspirin 325 mg Oral EC Tab, 325 mg= 1 tab(s), Oral, Daily azelastine nasal, Nasal, BID Celebrex 50 mg oral capsule, 50 mg= 1 cap(s), Oral, Daily dantrolene 25 mg oral capsule, 25 mg= 1 cap(s), Oral, Bedtime gabapentin 300 mg Cap, 300 mg= 1 cap(s), Oral, Daily levothyroxine 75 mcg (0.075 mg) Tab, 75 mcg= 1 tab(s), Oral, Daily meclizine 25 mg Tab, 25 mg= 1 tab(s), Oral, QID, PRN montelukast 10 mg Tab, 10 mg= 1 tab(s), Oral, Daily Pantoprazole [address] Tab, 40 mg= 1 (more content not included)... [facility] Comment on above: Result Comment: Elec tronically Signed By: CHERYL TAPIA, Jason Guzman\Date and Time Signed: 11/05/22 15:49 EDT Evaluation note 03-05-2021 Note Date & Type Note Facility 03-05-2021 Evaluation note Encounter Date Diagnosis Assessment Notes Feb, Dizziness (ICD-10 - R42) I did review the carotid duplex with the patient today. The results were normal. There is no disease identified whatsoever. I explained to the patient that an MRI is not usually utilized to evaluate arteries. An MRA could be used for arterial evaluation but not MRI. Therefore, I feel confident that her symptoms of dizziness are not related to extracranial cerebrovascular disease. I suggest that she get a second opinion from ENT. We will help arrange this for her. [facility] Other Evaluation note 02-19-2021 Note Date & Type Note Facility 02-19-2021 Evaluation note Encounter Date Diagnosis Assessment Notes Feb, Dizziness (ICD-10 - R42) Patient's primary complaint is dizziness for the last 4 years. She states that she has been thoroughly worked up. She denies ever having had a carotid duplex in the past. Recent MRI did suggest a vertebral abnormality. Therefore I am recommending we start with a carotid duplex study. We will schedule this and see her back and go over the results. She understands agrees the plan. I did caution her that only 1% of my patients end up having a surgically correctable cause of dizziness due to vertebral artery stenoses. I did not want to falsely elevate her hopes. She understands and wishes to proceed. [facility] Other History general Narrative - Reported Note Date & Type Note Facility History general Narrative - Reported Type Medical History arthritis Medical History Ear pain, bilateral Medical History Idiopathic periphera l autonomic neuropathy Medical History Cervical spondylosis with myelopathy Medical History Acute recurrent frontal sinusiti s Medical History Hypothyroidism Medical History GERD (gastroesophage al reflux disease) Medical History Obstructive sleep apnea Medical History vertigo Medical History Hypertension Medical History Depression Medical History Otitis media Medical History Pneumonia Medical History thyroid Surgical History x 2 1982, Surgical History hernia repair 1995 Surgical History carpal tunnel release 2010 Surgical History trigger finger release 2011 Surgical History bladder sling 2010 Hospitalization History see sx hx Doximity Other Summary Purpose Family History No Family History Records FoundNo Family History Records FoundNo Family History Records FoundNo Family History Records Found Advance Directives No Advanced Directives Records FoundNo Advanced Directives Records FoundNo Advanced Directives Records FoundNo Advanced Directives Records Found Additional Source Comments INFORMATION SOURCE (unrecogn ized section and content) DATE CREATED AUTHOR 03/26/2021 [facility] DATE CREATED AUTHOR AUTHOR'S ORGANIZ ATION 05/18/2022 [facility] DATE CREATED AUTHOR AUTHOR'S ORGANIZ ATION 07/25/2023 [facility] EPIC DATE CREATED AUTHOR AUTHOR'S ORGANIZ ATION 07/30/2023 [facility] REASON FOR VISIT (unrecogniz ed section and content) REF BY DR FLORES FOR ABNORMAL M RI OF HEADVASC 2 WK FOLLOW UP; CAROTID DUPLEX 3P FOR RECORDS PERTAINING TO PATIENTS WHO ARE OR HAVE BEEN ENROLLED IN A CHEMICAL DEPENDENCY/SUBSTANCEABUSE PROGRAM, SOME INFORMATION MAY BE OMITTED. This clinical summary was aggregated from multiple sources. Caution should be exercised in using it in the provision of clinical care. This summary normalizes information from multiple sources, and as a consequence, information in this document may materially change the coding, format and clinical context of patient data. In addition, data may be omitted in some cases. CLINICAL DECISIONS SHOULD BE BASED ON THE PRIMARY CLINICAL RECORDS. [employer] provides no warranty or guarantee of the accuracy or completeness of information in this document.
[2023-08-08 16:52] LABS: Basophils Percent Auto 0.5 % (0.2-2.0); Eosinophils Absolute Auto 0.2 10^3/uL (0.0-0.7); Eosinophils Percent Auto 2.4 % (0.9-7.0); Hematocrit 40.1 % (36.0-48.0); Hemoglobin 13.7 g/dL (12.0-16.0); Immature Granulocytes Abs Auto 0.01 10^3/uL (0.00-0.03); Immature Granulocytes Pct Auto 0.2 % (0.0-0.5); Lymphocytes Absolute Auto 2.1 10^3/uL (1.2-3.8); Lymphocytes Percent Auto 33.6 % (20.5-60.0); Mean Corpuscular HGB Conc 34.2 g/dL (29.9-35.2); Mean Corpuscular Hemoglobin 31.6 pg (26.7-34.0); Mean Corpuscular Volume 92.6 fL (81.0-99.0); Mean Platelet Volume 9.6 fL (9.5-13.5); Monocytes Absolute Auto 0.5 10^3/uL (0.3-0.8); Monocytes Percent Auto 7.2 % (1.7-12.0); Neutrophils Absolute Auto 3.5 10^3/uL (1.4-6.5); Neutrophils Percent Auto 56.1 % (43.0-75.0); Platelet Count 219 10^3/uL (150-450); Red Blood Count 4.33 10^6/uL (4.20-5.40); Red Cell Distribution Width 11.9 % (11.0-15.0); White Blood Count 6.3 10^3/uL (4.0-11.0)
[2023-08-08 18:00] LABS: Alanine Aminotransferase 28 U/L (14-59); Albumin Globulin Ratio 1.1; Albumin Level 3.6 g/dL (3.4-5.0); Alkaline Phosphatase 66 U/L (46-116); Anion Gap 10.2; Aspartate Amino Transferase 20 U/L (15-37); BUN Creatinine Ratio 25.8; Bilirubin Total 0.8 mg/dL (0.2-1.0); Calcium 8.4 mg/dL (8.5-10.1); Carbon Dioxide 29.4 mmol/L (21.0-32.0); Chloride 107 mmol/L (98-107); Estimated GFR (African America >60 (>=60); Estimated GFR (Non-African Ame >60 (>=60); Globulin 3.3 g/dL; Glucose 91 mg/dL (74-106); Magnesium 2.2 mg/dL (1.8-2.4); Potassium 3.6 mmol/L (3.5-5.1); Sodium 143 mmol/L (136-145); Total Protein 6.9 g/dL (6.4-8.2)
== END 2023-08-08 16:36 | disposition home or self-care (01) ==
LOC: LAB 16:39
PROVIDERS: PCP Family Medicine; Visit Provider Family Medicine
DX: Z00.00 Encounter for general adult medical examination without abnormal findings (principal)
CPT/HCPCS: 36415; 80053; 83540; 83735; 84439; 84443; 85025

== ENCOUNTER 2023-11-25 07:34 | Outpatient (OUT) | payer OTHER, SELFPAY ==
--- NOTE | 2023-11-25 | XR_ITS ---
The [address] [address] Patient Name: CLAIRE ZEE MRN: [id number] date: 1960 Sex: F Assigned Patient Location: [facility] Current Patient Location: Accession/Order Number: [id number] Exam Date: 11/25/2023 07:51 Report Date: 11/26/2023 07:15 At the request of: VARSHA HAQUE Procedure: XR foot RT min 3V PROCEDURE: XR foot RT min 3V COMPARISON: 03/22/2020 HISTORY: RIGHT FOOT PAIN FINDINGS: BONES:No acute fracture or dislocation. Mild hallux valgus. Mild degenerative changes with joint space narrowing and marginal osteophyte formation. SOFT TISSUES:Negative. No visible soft tissue swelling. EFFUSION:None visible. OTHER: Negative. XR/XR foot RT min 3V IMPRESSION: Osteoarthritis Mild hallux valgus Electronically authenticated by: JAMIE BUTLER Date: 11/26/2023 07:15
--- OUTSIDE RECORDS SUMMARY | 2023-11-25 07:36 | XMS_ITS | CCD ---
Author Organization [facility] Care Team Providers Care Horticultural Services Supervisor Name Role Phone Kristine Chavez Unavailable HOY ., DR ROMERO Primary Care [...] HOY ., DR ROMERO Primary Care Unavailable NAZARIO, DR CARMONA Admitting Unavailable HOY ., DR ROMERO Consulting Unavailable HOY ., DR ROMERO Primary Care Unavailable HOY ., DR ROMERO Admitting Unavailable HOY ., DR ROMERO Attending Unavailable FERNANDINA BEACH, DR JAMIE [place] Consulting Unavailable HOY ., [...] DR ROMERO Attending Unavailable HOY ., DR ROMEOR Primary Care Unavailable HOY ., DR ROMERO Admyancy Unavailable HOY ., DR ROMERO Attending Unavailable HOY ., DR ROMERO Consulting Unavailable MAULIK STANLEY Attending Unavailable HOY ., DR ROMERO Primary Care Unavailable JADEN, MAULIK Consulting Unavailable MAULIK STANLEY Admitting Unavailable DEREK VERGARA Attending Unavailable DEREK VERGARA Admitting Unavailable DR NICK CORONA Primary Care Unavailable MIGDALIA JOYCE Attending Unavailable STEVE SHAVER Referring Unavailable KACEY HARPER Attending Unavailable Nick Flores Primary Care Physician [phone] Jason LUNA Attending Unavailable Nick Flores Referring Unavailable Jason LUNA Attending Unavailable Jason LUNA Attending Unavailable Nick Flores MD Primary Care Provider Kell Del Cid DO Unavailable Allergies Allergy Classification Reported Allergen(s) Allergy Type Date of Onset Reaction(s) Facility Promethazine (1 source) Promethazine; Translations: [promethazine] Drug Allergy Spasm (finding) [facility] [place] Quinolones (antibiotic) (1 source) Ciprofloxacin; Translations: [ciprofloxacin] Drug Allergy Unknown (qualifier value) [facility] (3 sources) Ciprofloxacin Drug Allergy 3 Unknown [facility] (3 sources) Promethazine Drug Allergy 4 Unknown [facility] (2 sources) Ciprofloxacin; Translations: [Cipro] Drug Allergy 0 [facility] Repository (3 sources) Levamisole; Translations: [Phenergan] Drug Allergy 4 [facility] Repository Medications Current Medications Medication Drug Class(es) Dates Sig (Normalized) Sig (Original) Grisel Allergy 180 MG (2 sources) take 1 tablet by mouth once daily as needed Grisel Allergy 180 MG 1 tablet as needed Orally Once a day prn Active aspirin 81 mg delayed release oral tablet (3 sources) Platelet Aggregation Inhibitor, Nonsteroidal Anti-inflammatory Drug take 1 tablet by mouth in the morning aspirin 81 MG EC tablet Take 81 mg by mouth in the morning. Active take 1 tablet by mouth once gurdeep y Aspirin Adult 325 MG 1 tablet Orally Once a day Active azelastine hydrochloride 0.137 mg/actuat metered dose nasal spray (6 sources) Histamine-1 Receptor Antagonist Start: 09-09-2022 take 1 spray(s) nasal route twice daily Azelastine HCl 137 MCG/SPRAY solution Indications: Chronic rhinitis SPRAY ONE SPRAY IN EACH NOSTRIL TWICE DAILY 30 mL 11 09/09/2022 Active Start: 02-09-2019 azelastine bee al Nasal, BID, Refill(s) 0 Start Date: 02/09/19 Status: Ordered Start: 01-27-2019 take 2 spray(s) nasa l route twice daily Azelastine HCl 137 MCG/SPRAY 2 sprays Nasally Twice a day for 90 Days Jan, Active Start: 05-25-2018 take 2 spray(s) nasa l route twice daily Azelastine HCl 0.15 % 2 spray in each nostril Nasally Twice a day for 365 Days May, Not-Taking Calcium (2 sources) Phosphate Binder, Calcium Calcium Active celecoxib 50 mg oral capsule (2 sources) Nonsteroidal Anti-inflammatory Drug Start: 3 take 1 capsule by mouth once daily as needed for pain Celebrex 50 mg oral capsule 50 mg = 1 cap(s), Oral, Daily, PRN as needed for pain, Refills(s) 0 Start Date: 10/28/22 Status: Ordered CPAP Machine (2 sources) CPAP Machine Active esomeprazole 20 mg delayed release oral capsule (2 sources) Proton Pump Inhibitor take 1 capsule by mouth every twenty-four hours NexIUM 20 MG 1 capsule Orally Once a day Active Fish Oils (2 sources) Fish Oil Active gabapentin 300 mg oral capsule (4 sources) Anti-epileptic Agent Start: 9 take 1 capsule by mouth once daily gabapentin 300 mg Cap 300 mg = 1 cap(s), Oral, Daily Start Date: 02/09/19 Status: Ordered Gabapentin 300 M G TK 2 CS PO QHS Oral for 90 Active ibuprofen 800 mg oral tablet (3 sources) Nonsteroidal Anti-inflammatory Drug ibuprofen 800 MG tab let Take 400 mg by mouth every 6 (six) hours if needed for mild pain. Active take 1 tablet by sabiha th three times daily at mealtime as needed Ibuprofen 800 MG 1 tablet with food or milk as needed Orally Three times a day Active Magnesium glycinate (1 source) Start: 07-28-2023 take 1 tablet by mouth twice daily magnesium glycinate = 1 tab(s), Oral, BID, Refills(s) 0 Start Date: 07/28/23 Status: Ordered meclizine hydrochloride 25 mg oral tablet (4 sources) Antiemetic Start: 10-28-2022 take 1 tablet by mouth four times daily as needed for dizziness meclizine 25 mg Tab 25 mg = 1 tab(s), Oral, QID, PRN Dizziness, Refills(s) 0 Start Date: 10/28/22 Status: Ordered take 1 tablet by sabiha th three times daily as needed for dizziness meclizine (Antivert) 25 MG tablet Take 2 5 mg by mouth 3 (three) times a day as needed for dizziness. Active metoprolol tartrate 25 mg oral tablet (2 sources) beta-Adrenergic Scottie Metoprol ol Tartrate 25 MG TK 1 T PO BID Oral for 90 Active montelukast 10 mg oral tablet (3 sources) Leukotriene Receptor Antagonist Start: 01-28-20 take 1 tablet by mouth once daily montelukast 10 mg Tab 10 mg = 1 tab(s), Oral, Daily Start Date: 02/09/19 Status: Ordered omeprazole 20 mg oral tablet (2 sources) Proton Pump Inhibitor take 1 tablet by mouth once daily PriLOSEC OTC 20 MG 1 tablet Orally Once a day Active pantoprazole 40 mg delayed release oral tablet (4 sources) Proton Pump Inhibitor Start: 04-13-19 take 1 tablet by mouth once daily Pantoprazole [address] Tab 40 mg = 1 tab(s), Oral, Daily Start Date: 04/13/19 Status: Ordered take 1 tablet by sabiha th every twenty-four hours Pantoprazole Sodium 20 MG 1 tablet Orall y Once a day Active pramipexole dihydrochloride 0.5 mg oral tablet (4 sources) Nonergot Dopamine Agonist Start: 10-28-2022 take 3 tablets by mouth at bedtime pramipexole 0.5 mg oral tablet 1.5 mg = 3 tab(s), Oral, Bedtime, Refills(s) 0 Start Date: 10/28/22 Status: Ordered take 1 tablet by sabiha th in the morning, then take 1 tablet by mouth in the evening, then take 1 tablet by mouth at bedtime pramipexole (Mirapex) 0.5 MG tablet Take 0.5 mg by mouth in the morning and 0.5 mg in the evening and 0.5 mg before bedtime. Active tiZANidine 4 mg oral tablet (3 sources) Central alpha-2 Adrenergic Agonist Start: 07-28-2023 tiZANidine 4 mg Tab as directed, Refills(s) 0 Start Date: 07/28/23 Status: Ordered take 1 tablet by sabiha th once daily at bedtime tiZANidine HCl 4 MG TAKE 1 TABLET BY SABIHA TH EVERYDAY AT BEDTIME Oral for 30 Active traMADol hydrochloride 50 mg oral tablet (1 source) Opioid Agonist traMADol (Ultram ) 50 MG tablet Take by mouth. Active valACYclovir 1000 mg oral tablet (2 sources) Herpesvirus Nucleoside Analog DNA Polymerase Inhibitor, Herpes Simplex Virus Nucleoside Analog DNA Polymerase Inhibitor, Herpes Zoster Virus Nucleoside Analog DNA Polymerase Inhibitor Start: 3 take 1 tablet by mouth once daily valacyclovir 1 g Tab 1 gm = 1 tab(s), Oral, Daily, Refills(s) 0 Start Date: 10/28/22 Status: Ordered valACYclovir (Va ltrex) 500 MG tablet Take by mouth. Active Completed/Discontinued Medications Medication Drug Class(es) Dates Sig (Normalized) Sig (Original) diazePAM 2 mg oral tablet (2 sources) Benzodiazepine take 1 tablet by mouth twice daily as needed diazePAM 2 MG (Schedule IV Drug) TAKE 1 TABLET BY MOUTH TWICE A DAY NEEDED FOR VERTIGO Oral for 14 Not-Taking levothyroxine sodium 0.075 mg oral tablet (4 sources) l-Thyroxine Start: 02-09-2019 take 1 tablet by mouth once daily levothyroxine 75 mcg (0.075 mg) Tab 75 microgram = 1 tab(s), Oral, Daily Start Date: 02/09/19 Status: Ordered levothyroxine (S ynthroid, Levoxyl) 75 MCG tablet Take by mouth Daily before meals. Active Levothyroxine So dium 50 MCG TK 1 T PO Q DAY Oral for 90 Active Problems Active Problems Problem Classification Problem Date Documented Da te Episodic/Chronic Esophageal disorders (2 sources) Gastroesophageal reflux disease; Translations: [Gastro-esophageal reflux disease without esophagitis] Onset: 4 06-24-2019 Chronic Essential hypertension (1 source) Hypertensive disorder 02-09-2019 Chronic Gastritis and duodenitis (1 source) Gastritis 07-29-2019 Episodic Gastroduodenal ulcer (except hemorrhage) (1 source) Antral ulcer 07-29-2019 Chronic Genitourinary symptoms and ill-defined conditions (2 sources) Incontinence; Translations: [Urge incontinence of urine] 01-20-2020 Chronic Genitourinary symptoms and ill-defined conditions (4 sources) Increased frequency of urination; Translations: [Microscopic hematuria] 11-23-2019 Episodic Immunizations and screening for infectious disease (1 source) High antibody titer 02-09-2019 Episodic Mood disorders (1 source) Depressive disorder 07-28-2023 Chronic Osteoarthritis (1 source) Osteoarthritis 02-09-2019 Chronic Other connective tissue disease (3 sources) Fibromyalgia; Translations: [Fibromyalgia] 10-28-2022 Episodic Other diseases of bladder and urethra (1 source) 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-20-2020 Episodic Other gastrointestinal disorders (1 source) Occult blood in stools 11-05-2022 Episodic Other hereditary and degenerative nervous system conditions (2 sources) Restless legs; Translations: [Restless legs syndrome] Onset: 4 10-28-2022 Chronic Other nervous system disorders (3 sources) Carpal tunnel syndrome; Translations: [Carpal tunnel syndrome, bilateral upper limbs] 02-09-2019 Chronic Other nervous system disorders (1 source) Autonomic neuropathy 02-09-2019 Chronic Other nervous system disorders (1 source) 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 type; Translations: [Circadian rhythm sleep disorder, shift work type] Onset: 4 07-23-2023 Chronic Other non-traumatic joint disorders (1 source) Joint pain 10-28-2022 Episodic Other nutritional; endocrine; and metabolic disorders (1 source) Overweight 11-05-2022 Episodic Other nutritional; endocrine; and metabolic disorders (1 source) Overweight in adulthood with body mass index of 25 or more but less than 30 11-05-2022 Episodic Other skin disorders (1 source) Disorder of skin; Translations: [Disorder of the skin and subcutaneous tissue, unspecified] Onset: 4 Episodic Other skin disorders (1 source) Skin lesion 08-12-2023 Episodic Other upper respiratory disease (3 sources) Chronic rhinitis; Translations: [Chronic rhinitis] 11-06-2023 Chronic Other upper respiratory disease (1 source) Vasomotor rhinitis; Translations: [Vasomotor rhinitis] Onset: 3 09-09-2022 Chronic Residual codes; unclassified (1 source) Sleep apnea 02-09-2019 Chronic Residual codes; unclassified (1 source) Obstructive sleep apnea syndrome; Translations: [Obstructive sleep apnea (adult) (pediatric)] Onset: 4 07-23-2023 Chronic Residual codes; unclassified (1 source) Daytime somnolence; Translations: [Other hypersomnia] Onset: 4 07-23-2023 Chronic Spondylosis; intervertebral disc disorders; other back problems (9 sources) Cervical spondylosis without myelopathy; Translations: [Spondylosis without myelopathy or radiculopathy, cervical region] Onset: 2 Chronic Spondylosis; intervertebral disc disorders; other back problems (6 sources) Sacrococcygeal disorders, not elsewhere classified; Translations: [Lumbar radiculopathy] Onset: 2 Episodic Thyroid disorders (1 source) Hypothyroidism 02-09-2019 Chronic Unclassified (4 sources) LOW BACK PAIN, UNSPECIFIED; Translations: [LOW BACK PAIN, UNSPECIFIED] Onset: 2 Past or Other Problems Problem Classification Problem [...] [OTHER ABNORMAL GLUCOSE] Onset: 10-16-2021 Episodic Other ear and sense organ disorders (2 sources) Otalgia; Translations: [Otalgia, bilateral] Episodic Other lower respiratory disease (1 source) Snoring; Translations: [Snoring] Onset: 07-23-2023 07-23-2023 Episodic Other nervous system disorders (2 sources) [...] amnesia; Translations: [OTHER AMNESIA] Onset: 10-23-2021 Episodic Residual codes; unclassified (1 source) Insomnia; Translations: [Insomnia, unspecified] Onset: 07-23-2023 07-23-2023 Episodic Unclassified (1 source) LOW BACK PAIN, UNSPECIFIED; Translations: [LOW BACK PAIN, UNSPECIFIED] Onset: 07-06-2021 Unclassified (1 source) Patient encounter status 11-05-2022 Results Test Name Value Interpretation Reference Range Facility Ambulatory Visit Summaryon 0 08-12-2023 Ambulatory Visit Summary Ambulatory Visit Summary JEANNA ZEE :1960 Visit Date:08/12/2023 Ambulatory Visit Instructions Your Care Team Attending Physician - Jason LUNA MD Primary Care Physician - Nick Flores MD Referring Physician - Nick Flores MD This Is Your Medications List azelastine nasal celecoxib (Celebrex 50 mg oral capsule) gabapentin (gabapentin 300 mg Cap) levothyroxine (levothyroxine 75 mcg (0.075 mg) Tab) magnesium glycinate meclizine (meclizine 25 mg Tab) montelukast (montelukast 10 mg Tab) pantoprazole (Pantoprazole [address] Tab) pramipexole (pramipexole 0.5 mg oral tablet) tizanidine (tiZANidine 4 mg Tab) valacyclovir (valacyclovir 1 g Tab) Procedures Performed Colonoscopy (2022), EGD - Esophagogastroduodenoscopy (07/21/2019), Cystourethroscopy with dilation of urethral stricture (02/18/2019), Colonoscopy (05/14/2013), Caesarean section, Carpal tunnel release, section, Endometrial biopsy, neck surgery ablation, Repair of left inguinal hernia, Sling procedure of bladder neck, Trigger finger, Tubal ligation. Discharge Vitals Heart Rate (Peripheral) 72 Respiratory Rate 16 Blood Pressure 114/72 Height 162.5 cm Height 64 in Weight 69 kg Weight 151.8 lb BMI 26.13 Medications What How Much When Instructions Unchanged azelastine nasal Nasal Inhalation 2 times a day Unchanged celecoxib (Celebrex 50 mg oral capsule) 1 Capsules By Mouth Every day as needed for as needed for pain Unchanged gabapentin (gabapentin 300 mg Cap) 1 Capsules By Mouth Every day Unchanged levothyroxine (levothyroxine 75 mcg (0.075 mg) Tab) 1 Tablets By Mouth Every day Unchanged magnesium glycinate 1 Tablets By Mouth 2 times a day Unchanged meclizine (meclizine 25 mg Tab) 1 Tablets By Mouth 4 times a day as needed for Dizziness Unchanged montelukast (montelukast 10 mg Tab) 1 Tablets By Mouth Every day Unchanged pantoprazole (Pantoprazole [address] Tab) 1 Tablets By Mouth Every day Unchanged pramipexole (pramipexole 0.5 mg oral tablet) 3 Tablets By Mouth At bedtime Unchanged tizanidine (tiZANidine 4 mg Tab) as directed Unchanged valacyclovir (valacyclovir 1 g Tab) 1 Tablets By Mouth Every day Allergies Cipro (Unknown) Phenergan (Spasm) Problems Ongoing - Any problem that you are currently receiving treatment for. Antral gastritis Antral ulcer Autonomic neuropathy in diseases classified elsewhere BMI 26.0-26.9,adult Carpal tunnel syndrome Depression Fecal occult blood test positive Fibromyalgia Gastroesophageal reflux disease Hypertension Hypothyroidism Lumbar radiculopathy Microscopic hematuria Mixed incontinence Nocturia Overweight Primary generalized (osteo)arthritis Raised antibody titer Restless legs Sleep apnea Urethral stricture Urge incontinence Urinary frequency Urinary urgency Historical - Any problem that you are no longer receiving treatment for. Antiplatelet or antithrombotic long-term use Pain in unspecified joint Patient Survey You may receive a survey via text or e-mail asking about your office visit. Please share your experience with us by completing your survey. We appreciate your feedback and thank you for choosing us for your care. [facility] Physician Referralon 024 Physician Referral [id number] [facility] Reminderson 07-28-2023 Reminders - From: Nurys Boone LPN To: N - Clinical; Sent: 07/28/2023 11:21:37 EDT Show up: 10/28/2032 07:00:00 EDT Subject: colonoscopy recall Due Date/Time: 2032 07:00:00 EDT Reminder/Recall Patient due for screening colonoscopy 2032. Normal [facility] Outside Colonoscopyon 2022 Outside Colonoscopy [id number] [facility] Insurance Correspondenceon 0 11-07-2022 Insurance Correspondence [id number]:127 [facility] Consultation Noteon 11-07-19 Consultation Note [id number]:127 [facility] Ambulatory Visit Summaryon 0 11-05-2022 Ambulatory Visit [...] long-term use Pain in unspecified joint Normal [facility] Physician Referralon 023 Physician Referral [id number]:127 Normal [facility] MG MAMM SCREEN 3D TIFFANIE CADon 12-14-2021 MG MAMM SCREEN 3D TIFFANIE CAD Patient: JEANNA ZEE Exam Date: 12/14/2021 : 1960 Gender:F Ordering : DR NICK FLORES . Admission #: [id number] Family : Order #: [id number] CLICK HERE TO VIEW EXAM RADIOLOGY REPORT [...] lung cancer at age 73. LOCATION: [facility] BREAST COMPOSITION: Extremely dense, which lowers the [...] Smith MD on 12/14/2021 at 08:02 Normal [facility] PAP ACOG PANEL 2: 30 to 65on 12-14-2021 . . Normal [facility] Comment on above: Result Comment: Perf ormed at: WB Performed By: #### [id number] #### [facility] Laboratory [address] [place] [address] Dr. Daly Gordon Age Gdln ACOG Testing 30-65 Normal [facility] Comment on above: Performed By: #### [id number] #### [facility] [address] [place] [address] Dr. Daly Gordon DIAGNOSIS: Comment Normal [facility] Comment on above: Result Comment: NEGA TIVE FOR INTRAEPITHELIAL LESION OR MALIGNANCY. CELLULAR CHANGES ASSOCIATED WITH ATROPHY ARE PRESENT. Performed at: WB Performed By: #### [id number] #### [facility] [address] [place] [address] Dr. Daly Gordon HPV Aptima Negative Normal Negative [facility] Comment on above: Result Comment: This nucleic acid amplification test detects fourteen high-risk HPV types (16,18,31,33,35,39,45,51,52,56,58,59,66,68) without differentiation. Performed at: =G Performed By: #### [id number] #### [facility] [address] [place] [address] Dr. Daly Gordon HPV Genotype Reflex Comment Normal [facility] Comment on above: Result Comment: Crit eria not met, HPV Genotype not performed. Performed at: WB Performed By: #### [id number] #### [facility] [address] [place] [address] Dr. Daly Gordon Methodology: Comment Normal [facility] Comment on above: Result Comment: This liquid based ThinPrep(R) pap test was screened with the use of an image guided system. Performed at: WB Performed By: #### [id number] #### [facility] [address] [place] [address] Dr. Daly Gordon Note: Comment Normal [facility] Comment on above: Result Comment: The Pap smear is a screening test designed to aid in the detection of premalignant and malignant conditions of the uterine cervix. It is not a diagnostic procedure and should not be used as the sole means of detecting cervical cancer. Both false-positive and false-negative reports do occur. . Performed at: WB Performed By: #### [id number] #### [facility] [address] [place] [address] Dr. Daly Gordon Performed by: Comment Normal [facility] Comment on above: Result Comment: Radha Marrero, Wheel Assembler Performed at: WB Performed By: #### [id number] #### [facility] [address] [address] [address] Daly Gordon Specimen adequacy: Comment Normal [facility] Comment on above: Result Comment: Sati sfactory for evaluation. Endocervical component may not be distinguished in cases of atrophy. Performed at: WB Performed By: #### [id number] #### [facility] [address] [address] [address] Daly Gordon MRI BRAIN WO W CONon 022 MRI BRAIN WO W CON EXAMINATION: [...] ARLET BUTLER Date: 2021-10-24 07:26 Normal [facility] OCC BLD IMMUNO SCREENon -0 OCCULT BLOOD Negative Normal NEGATIVE [facility] Comment on above: Performed By: #### O BSCRN #### [facility] [id number] Daly Gordon INSULINon 10-17-2021 Insulin 16.8 uIU/mL Normal 2.6-24.9 [facility] Comment on above: Performed By: #### I NSULIN #### [facility] [address] [id number] Daly Gordon T4, T3U, FTI [facility] 10-17 Free Thyroxine Index 3.0 Normal 1.2-4.9 [facility] Comment on above: Performed By: #### T HYLC #### [facility] [address] [address] [address] Daly Gordon T3 Uptake 41 % Critically high 24-39 [facility] Comment on above: Performed By: #### T HYLC #### [facility] [id number] Daly Gordon T4 [Mass/Vol] 7.4 ug/dL Normal 4.5-12.0 [facility] Comment on above: Performed By: #### T HYLC #### [facility] [address] [address] [address] Daly Gordon VIT D 25-OH [facility] 2021 Vitamin D, 25-Hydroxy 42.7 ng/mL Normal 30.0-100.0 [facility] Comment on above: Result Comment: Ofelia min D deficiency has been defined by the [place] [employer] and an Endocrine Society practice guideline as a level of serum 25-OH vitamin D less than 20 ng/mL (1,2). The Endocrine Society went on to further define vitamin D insufficiency as a level between 21 and 29 ng/mL (2). 1. IOM ([place] [employer]). 2010. Dietary reference intakes for calcium and D. [place]: The National Academies Press. 2. Red MF, Dae NC, Demetrice AKERS, et al. Evaluation, treatment, and prevention of vitamin D deficiency: an Endocrine Society clinical practice guideline. JCEM. 2010; 96(7):1911-30. Performed By: #### V ITADLC #### [facility] [id number] Daly Gordon CBC AUTO DIFFon 10-13-2021 BASO # 0.1 103/ul Normal 0.0-0.1 [facility] Comment on above: Performed By: #### C BC ####[facility] [id number] [place], [place] [address]IoDr. Daly Gordon Basophils/100 WBC (Bld) 0.7 % Normal 0.2-2.0 [facility] Comment on above: Performed By: #### C BC ####[facility] [id number] [place], [place] [address]Dr. Daly Gordon EO # 0.2 103/ul Normal 0.0-0.7 [facility] Comment on above: Performed By: #### C BC ####[facility] [id number] [place], [place] [address]Dr. Candicesharmila Gordon Eosinophils/100 WBC (Bld) 2.6 % Normal 0.9-7.0 [facility] Comment on above: Performed By: #### C BC ####[facility] [id number] [place], [place] [address]Dr. Candicesahrmila Gordon Erythrocyte distribution width (RBC) [Ratio] 12.5 % Normal 11.0-15.0 [facility] Comment on above: Performed By: #### C BC ####[facility] [address] [place], [place] [address]DrShea Candicesharmila Gordon Hematocrit (Bld) [Volume fraction] 42.4 % Normal 36.0-48.0 [facility] Comment on above: Performed By: #### C BC ####[facility] [address] [place], [place] [address]Dr. Daly Gordon Hemoglobin (Bld) [Mass/Vol] 13.9 g/dL Normal 12.0-16.0 [facility] Comment on above: Performed By: #### C BC ####[facility] Zw[address]yz[address] [place], [place] [address]Dr. Candicesharmila Gordon IG # 0.01 10e3/ul Normal 0.00-0.03 [facility] Comment on above: Performed By: #### C BC ####[facility] [address] [place], [place] [address]Dr. Candicesharmila Gordon IG % 0.1 % Normal 0.0-0.5 [facility] Comment on above: Performed By: #### C BC ####[facility] K[address] [place], [place] [address]DrShea Gordon LYMPH # 2.2 103/ul Normal 1.2-3.8 [facility] Comment on above: Performed By: #### C BC ####[facility] [address] [place] [address]Dr. Daly Gordon Lymphocytes/100 WBC (Bld) 29.4 % Normal 20.5-60.0 [facility] Comment on above: Performed By: #### C BC ####[facility] [address] [place] [phone] Gordon MANUAL DIFF REQ NO Normal The [facility] Comment on above: Performed By: #### C BC ####[facility] [address]drncy[address] [place] [phone]. Daly Gordon MCH (RBC) [Entitic mass] 30.1 pg Normal 26.7-34.0 [facility] Comment on above: Performed By: #### C BC ####[facility] Idxbexglhx[address] [place], [place] [address]Dr. Daly Gordon MCHC (RBC) [Mass/Vol] 32.8 g/dL Normal 29.9-35.2 [facility] Comment on above: Performed By: #### C BC ####[facility] [address] [place], [place] [id number] Gordon MCV (RBC) [Entitic vol] 91.8 fL Normal 81.0-99.0 [facility] Comment on above: Performed By: #### C BC ####[facility] Md[address] [place], [place] [address]Dr. Daly Gordon MONO # 0.5 103/ul Normal 0.3-0.8 [facility] Comment on above: Performed By: #### C BC ####[facility] [address] [place], [place] [id number] Gordon Monocytes/100 WBC (Bld) 6.6 % Normal 1.7-12.0 [facility] Comment on above: Performed By: #### C BC ####[facility] [address] [place], [place] [phone] Gordon NEUT # 4.5 103/ul Normal 1.4-6.5 [facility] Comment on above: Performed By: #### C BC ####[facility] [address] [place] [phone]. Daly Gordon Neutrophils/100 WBC (Bld) 60.6 % Normal 43.0-75.0 [facility] Comment on above: Performed By: #### C BC ####[facility] [address] [place] [phone] Gordon Platelet mean volume (Bld) [Entitic vol] 9.1 fL Critically low 9.5-13.5 [facility] Comment on above: Performed By: #### C BC ####[facility] [address] [place] [phone]. Daly Gordon PLT 236 103/ul Normal 150-450 [facility] Comment on above: Performed By: #### C BC ####[facility] [address] [place] [phone]. Daly Gordon RBC 4.62 106/ul Normal 4.20-5.40 [facility] Comment on above: Performed By: #### C BC ####[facility] [address] [place] [phone] Gordon WBC 7.4 103/ul Normal 4.0-11.0 [facility] Comment on above: Performed By: #### C BC ####[facility] [address]alcim[address] [place] [phone] Gordon GLYCOHEMOGLOBIN A1Con 2021 ADA RECOMMENDATION SEE BELOW Normal The [facility] Comment on above: Result Comment: ADA RECOMMENDED LIMIT 4.0 - 6.0 ADA THERAPEUTIC TARGET < 7.0 ACTION SUGGESTED > 7.0 Performed By: #### A 1C #### [facility] Laboratory [address] [address] [address] Daly Gordon Glucose [Mass/Vol] 128 mg/dL Normal [facility] Comment on above: Performed By: #### A 1C #### [facility] Laboratory [address] [address] [address] Daly Gordon HbA1c (Bld) [Mass fraction] 6.1 % Normal 4.5-6.2 [facility] Comment on above: Performed By: #### A 1C #### [facility] Laboratory [address] [address] [address] Daly Gordon IRONon 10-13-2021 Iron [Mass/Vol] 89.0 ug/dL Normal 50.0-170.0 [facility] Comment on above: Performed By: #### B 12FOL, IRON #### [facility] Laboratory [address] [phone] Daly Gordon LIPID PROFILEon 10-13-2021 CHOL-HDL RATIO NORM SEE BELOW Normal [facility] Comment on above: Result Comment: 3.3 - 4.4 LOW RISK 4.4 - 7.1 AVERAGE RISK 7.1 - 11.0 MODERATE RISK >11.0 HIGH RISK Performed By: #### L IPID, TSH, CMP ####[facility] [address] [place] [phone]. Daly Gordon Cholesterol [Mass/Vol] 176 mg/dL Normal <=200 [facility] Comment on above: Performed By: #### L IPID, TSH, CMP ####[facility] [address]whrc[address] [place] [phone] Gordon Cholesterol in HDL [Mass/Vol] 58 mg/dL Normal 40-60 [facility] Comment on above: Performed By: #### L IPID, TSH, CMP ####[facility] [address] [place] [phone]. Daly Gordon Cholesterol in LDL [Mass/Vol] 110.4 mg/dL Normal The [facility] Comment on above: Performed By: #### L IPID, TSH, CMP ####[facility] [address] [place] [phone] Gordon Cholesterol.total/C holesterol in HDL [Mass ratio] 3.0 {ratio} Normal [facility] Comment on above: Performed By: #### L IPID, TSH, CMP ####[facility] [address] [place] [phone]. Daly Gordon HDL NORMAL > or = 60 mg/dl - LO W CARDIOVASCULAR RISK <40 mg/dl - HIGH CARDIOVASCULAR RISK Normal The [facility] Comment on above: Performed By: #### L IPID, TSH, CMP ####[facility] [address]apone[address] [place] [address]Dr. Daly Gordon LDL CALC NORMAL SEE BELOW Normal [facility] Comment on above: Result Comment: <100 mg/dl OPTIMAL 100 - 129 mg/dl NEAR OR ABOVE OPTIMAL 130 - 159 mg/dl BORDERLINE HIGH 160 - 189 mg/dl HIGH >190 mg/dl VERY HIGH Performed By: #### L IPID, TSH, CMP ####[facility] [address] [place] [address]Dr. Daly Gordon Triglyceride [Mass/Vol] 38 mg/dL Normal <=150 The [facility] Comment on above: Performed By: #### L IPID, TSH, CMP ####[facility] [address] [place] [address]Dr. Daly Gordon VLDL CALC 7.6 mg/dL Normal The [facility] Comment on above: Performed By: #### L IPID, TSH, CMP ####[facility] [address] [place] [address]Dr. Daly Gordon PROF 14(COMP METB)on 022 Albumin [Mass/Vol] 3.7 g/dL Normal 3.4-5.0 [facility] Comment on above: Performed By: #### L IPID, TSH, CMP ####[facility] [address] [place] [address]Dr. Daly Gordon Albumin/Globulin [Mass ratio] 1.2 {ratio} Normal The [facility] Comment on above: Performed By: #### L IPID, TSH, CMP ####[facility] [address] [place] [address]Dr. Daly Gordon ALP [Catalytic activity/Vol] 56 U/L Normal 46-116 [facility] Comment on above: Performed By: #### L IPID, TSH, CMP ####[facility] [address] [place] [address]Dr. Daly Gordon ALT [Catalytic activity/Vol] 29 U/L Normal 14-59 [facility] Comment on above: Performed By: #### L IPID, TSH, CMP ####[facility] [address]hm[address] [place] [address]Dr. Daly Gordon Anion gap [Moles/Vol] 11.6 mmol/L Normal [facility] Comment on above: Performed By: #### L IPID, TSH, CMP ####[facility] [address] [place], [place] [address]Dr. Daly Gordon AST [Catalytic activity/Vol] 17 U/L Normal 15-37 [facility] Comment on above: Performed By: #### L IPID, TSH, CMP ####[facility] W[address]fkgtms[address] [place], [place] [address]Dr. Daly Gordon Bilirubin [Mass/Vol] 0.4 mg/dL Normal 0.2-1.0 [facility] Comment on above: Performed By: #### L IPID, TSH, CMP ####[facility] Z[address] [place], [place] [address]Dr. Daly Gordon Calcium [Mass/Vol] 8.6 mg/dL Normal 8.5-10.1 [facility] Comment on above: Performed By: #### L IPID, TSH, CMP ####[facility] F[address]zz[address] [place], [place] [address]Dr. Daly Gordon Chloride [Moles/Vol] 105 mmol/L Normal 98-107 The [facility] Comment on above: Performed By: #### L IPID, TSH, CMP ####[facility] [address] [place], [place] [address]Dr. Daly Gordon CO2 [Moles/Vol] 29.6 mmol/L Normal 21.0-32.0 [facility] Comment on above: Performed By: #### L IPID, TSH, CMP ####[facility] [address]pg[address] [place], [place] [address]Dr. Daly Gordon Creatinine [Mass/Vol] 0.72 mg/dL Normal 0.55-1.02 [facility] Comment on above: Performed By: #### L IPID, TSH, CMP ####[facility] [address]lp[address] [place] [phone]. Daly Gordon EGFR-AF MEXICAN >60 Normal >=60 The [facility] Comment on above: Performed By: #### L IPID, TSH, CMP ####[facility] [address]xsbsvn[address] [place] [phone]. Daly Gordon EGFR-NON AF MEXICAN >60 Normal >=60 The [facility] Comment on above: Performed By: #### L IPID, TSH, CMP ####[facility] K[address]jhw[address] [place] [address]Dr. Daly Gordon Globulin (S) [Mass/Vol] 3.2 g/dL Normal The [facility] Comment on above: Performed By: #### L IPID, TSH, CMP ####[facility] K[address]jlq[address] [place] [address]Dr. Daly Gordon Glucose [Mass/Vol] 101 mg/dL Normal 74-106 [facility] Comment on above: Performed By: #### L IPID, TSH, CMP ####[facility] I[address]kyhof[address] [place], [place] [address]Dr. Daly Gordon Potassium [Moles/Vol] 4.2 mmol/L Normal 3.5-5.1 [facility] Comment on above: Performed By: #### L IPID, TSH, CMP ####[facility] [address] [place] [address]Dr. Candicelan Gordon Protein [Mass/Vol] 6.9 g/dL Normal 6.4-8.2 [facility] Comment on above: Performed By: #### L IPID, TSH, CMP ####[facility] [address] [place] [address]Dr. Candicelan Gordon Sodium [Moles/Vol] 142 mmol/L Normal 136-145 [facility] Comment on above: Performed By: #### L IPID, TSH, CMP ####[facility] [address]kl[address] [place] [address]Dr. Candicelan Gordon Urea nitrogen [Mass/Vol] 21.0 mg/dL Critically high 7.0-18.0 The [facility] Comment on above: Performed By: #### L IPID, TSH, CMP ####[facility] [address] [place] [phone]. Daly Gordon Urea nitrogen/Creatinine [Mass ratio] 29.2 mg/mg Normal [facility] Comment on above: Performed By: #### L IPID, TSH, CMP ####[facility] [address] [place] [phone] Gordon TSHon 10-13-2021 TSH 2.311 uIU/mL Normal 0.358-3.740 [facility] Comment on above: Performed By: #### L IPID, TSH, CMP ####[facility] [address] [place] [phone] Gordon VIT B12 AND FOLATEon 022 Cobalamin (Vitamin B12) [Mass/Vol] 602.0 pg/mL Normal 193.0-986.0 [facility] Comment on above: Performed By: #### B 12FOL, IRON #### [facility] Laboratory [address] [address] [address] Daly Gordon FOLATE 18.70 ng/mL Normal 8.60-58.90 [facility] Comment on above: Performed By: #### B 12FOL, IRON #### [facility] Laboratory [address] [address] [address] Daly Gordon US carotid doppler BIon 02-11 US carotid doppler BI [facility] [place] [address] [place] [address] Ultrasound Report Signed Patient: Jeanna Zee MR#: [id number] : 1960 Acct:[id number] Age/Sex: 60 / F ADM Date: 03/05/21 Loc: [facility] Room: Type: [facility] CLI Attending Dr: Kristine Chavez MD Ordering Provider: [...] Kristine Chavez MD03/08/2021 5:35 PM Dictation Location: [place] [address] Tech: Albina Wilcox Transcribed By: TERRY 03/08/211734 Dictated By: Kristine Chavez MD 03/08/211733 Signed By: 03/08/21 1731 [facility] Vital Signs Date Time Vital Sign Value Performing Clinician Facility 08-12-2023 15:52-0400 Blood Pressure Location Jason CLARKL [employer] [facility] 08-12-2023 15:52-0400 Diastolic blood pressure 72 mm[Hg] Jason CLARKL [employer] [facility] 08-12-2023 15:52-0400 Heart rate 72 /min [facility] 08-12-2023 15:52-0400 Respiratory rate 16 /min Jason CL[facility]Starteed [facility] 08-12-2023 15:52-0400 Systolic blood pressure 114 mm[Hg] Jason CLARKStarteed [facility] 03-05-2021 16:30-0500 Body height 162.56 cm Kristine Chavez Other [facility] Other 03-05-2021 16:30-0500 Body mass index (BMI) [Ratio] 27.46 kg/m2 Kristine Chavez Other [facility] Other 03-05-2021 16:30-0500 Body temperature 97.3 [degF] Kristine Chavez Other [facility] Other 03-05-2021 16:30-0500 Body weight 72.58 kg Kristine Chavez Other [facility] Other 03-05-2021 16:30-0500 Diastolic blood pressure 70 mm[Hg] Kristine Chavez Other [facility] Other 03-05-2021 16:30-0500 SaO2% (BldA) [Mass fraction] 98 % Kristine Samsraúl Other [facility] Other 03-05-2021 16:30-0500 Systolic blood pressure 110 mm[Hg] Kristine Samsraúl Other [facility] Other 02-19-2021 16:15-0500 Body height 162.56 cm Kristine Samsraúl Other [facility] Other 02-19-2021 16:15-0500 Body mass index (BMI) [Ratio] 27.46 kg/m2 Kristine Samsraúl Other [facility] Other 02-19-2021 16:15-0500 Body weight 72.58 kg Kristine Samsraúl Other [facility] Other 02-19-2021 16:15-0500 Respiratory rate 18 /min Kristine Samsrúal Other [facility] Other 02-19-2021 16:15-0500 SaO2% (BldA) [Mass fraction] 98 % Kristine Samsraúl Other [facility] Other Encounters Encounter Date Encounter Type Care Provider Facility Start: 11-06-2023 End: 11-12-2023 Praful Gomez MD Work Phone: [facility] Comment on above: Chronic rhinitis Start: 08-12-2023 End: 08-12-2023 ambulatory Jason LUNA Facility:[facility] Start: 08-12-2023 End: 08-12-2023 Patient encounter procedure Jason ULNA [facility] [place] Start: 07-23-2023 End: 07-23-2023 ambulatory KACEY HARPER Not Available Start: 02-06-2023 End: 02-06-2023 ambulatory MIGDALIA JOYCE Not Available Start: 2022 End: 2022 ambulatory Jason Santiago CHERYL Facility:CD:[id number] Start: 11-05-2022 End: 11-05-2022 ambulatory Jason Santiago CHERYL Facility:[facility] Start: 05-17-[address] KRISTINE NAZARIO Facil ity:[facility] Start: 12-14-2021 End: 12-15-[address] NICK FLORES . Facility:[facility] Start: 12-06-2021 End: 12-10-2021 ambulatory MAULIK STANLEY Facility:[facility] Start: 11-02-[address] NICK FLORES . Facili ty:[facility] Start: 10-23-2021 End: 10-24-[address] NICK FLORES . Facility:[facility] Start: 10-18-2021 End: 10-18-[address] NICK FLORES . Facility:[facility] Start: 10-13-2021 End: 10-14-[address] NICK FLORES . Facility:[facility] Start: 07-06-2021 End: 07-07-[address] NICK FLORES . Facility:[facility] Start: 06-22-2021 End: 06-22-[address] NICK FLORES . Facility:[facility] Start: 06-13-2021 End: 08-04-2021 ambulatory DEREK TRAN . Facility:[facility] Start: 06-01-2021 End: 06-02-2021 ambulatory DEREK TRAN . Facility:[facility] Start: 03-05-2021 End: 03-05-2021 ambulatory Kristine Chavez Other [facility] Other Start: 03-05-2021 Office outpatient visit 15 minutes Kristine Chavez [facility] Start: 02-19-2021 End: 02-19-2021 ambulatory Kristine Chavez Other [facility] Other Start: 02-19-2021 Office outpatient ne w 30 minutes Kristine Chavez [facility] Procedures Date Procedure Procedure Detail Performing Clinician Start: 2022 Colonoscopy Byron Gomez MD Work Phone: Start: 2022 Colonoscopy Jason CLARKL Start: 07-21-2019 Esophagogastroduodenoscopy Jason NILL Start: 02-18-2019 Cystourethroscopy with dilation of urethral stricture Jason NILL Start: 05-14-2013 Colonoscopy Jason NILL Acquired trigger finger (disorder) Jason NILL Comment on above: right section Jason NIL L section Jason NIL L Decompression of median nerve Jason NILL Endometrial biopsy Jason JOINER Ligation of fallopian tube Luz CLARKL neck surgery ablation Rosalio sexton NILL Repair of left inguinal hernia Jason LCARKNitza Repair of stress inc ontinence by suprapubic sling Jason LUNA Plan of Treatment Date Care Activity Detail Author Start: 2032 Screening for malign ant neoplasm of colon [facility] Start: 2023 End: 2023 Patient encounter procedure 2023 8:15 AM EDT Consult [facility] [address] [place] [address] Migdalia Joyce MD [address] [place] [address] [facility] Start: 10-12-2023 Influenza vaccination Influenza Vacc ine (#1) [facility] Start: 1999 Screening for malign ant neoplasm of breast Mammogram [facility] Start: 11-26-1989 Screening for malign ant neoplasm of cervix [facility] Start: 11-26-1980 Screening for malign ant neoplasm of cervix Pap Smear [facility] Start: 1959 Screening for malign ant neoplasm of colon [facility] Immunizations Immunization Date Immunization Notes Care Provider Khurram tamez 02-07-2022 SARS-CoV-2 (COVID-19 ) [id number] Jason LUNA [facility] 12-07-2021 influenza virus vaccine, unspecified formulation Byron Gomez MD Work Phone: [facility] 01-03-2021 SARS-CoV-2 (COVID-19 ) mRNA-1273 vaccine Jason CLARKL [facility] Comment on above: Result Comment: 2022: [id number] 05-26-2020 SARS-CoV-2 (COVID-19 ) mRNA-1273 vaccine Jason CLARKL [facility] 04-28-2020 SARS-CoV-2 (COVID-19 ) mRNA-1273 vaccine Jason CLARKL [facility] 11-10-2018 influenza virus vaccine, live, attenuated, for intranasal use Jason LUNA [facility] Payers Date Payer Category Payer Unknown [employer] [id number] 2022-Present [phone] [address] [address] [place] [address] [id number] 2022 Unknown [id number] 1960 Unknown [id number] 2.16.840.1.320579.3.579.2.59 3 1959 Unknown [id number] 2.16.840.1.940660.3.579.2.59 3 1959 Unknown [id number] 2.16.840.1.238603.3.579.2.59 3 1959 Unknown [id number] 2.16.840.1.812941.3.579.2.59 3 1959 Unknown [id number] 2.16.840.1.933099.3.579.2.59 3 1959 Unknown [id number] 2.16.840.1.435796.3.579.2.59 3 1959 Unknown [id number] 2.16.840.1.258025.3.579.2.59 3 1959 Unknown [id number] 2.16.840.1.249506.3.579.2.59 3 1959 Unknown [id number] 2.16.840.1.085291.3.579.2.59 3 1959 Unknown [id number] 2.16.840.1.191040.3.579.2.59 3 1959 Unknown [id number] 2.16.840.1.714422.3.579.2.59 3 1959 Unknown [id number] 2.16.840.1.016275.3.579.2.12 59 1959 Unknown [id number] 2.16.840.1.935148.3.579.2.12 59 1959 Unknown [id number] 2.16.840.1.361142.3.579.2.72 7 1959 Unknown [id number] 2.16.840.1.679665.3.579.2.72 7 1959 Unknown [id number] 2.16.840.1.695315.3.579.2.72 7 1960 Self-pay [id number] 1960 Unknown [id number] 2.16.840.1.646969.19 Social History Date Type Detail Facility Start: 07-23-2023 Sex Assigned At [facility] Start: 09-09-2022 End: 08-12-2023 Tobacco smoking status Never smoked tobacco (finding) [facility] Start: 09-09-2022 Tobacco use and exposure Smokeless tobacco non-user [facility] Start: 07-23-2023 Alcoholic beverage intake Lifetime non-drinker (finding) [facility] Start: 07-23-2023 History of Social function [facility] Start: 09-09-2022 Alcohol Comment Caffeine intak e: 1-2 cups per day [facility] Healthcare Start: 1960 Sex assigned at Not on file N [facility] Functional Status Date Assessment Result Facility 08-12-2023 Functional Status N/A [facility] Clinical Notes 02-19-2021 to 11-12-2023 Telephone Encounter - Theodore Das - 11/12/2023 9:26 AM EDTTelephone Encounter - Theodoremitul Das - 11/12/2023 9:26 AM EDTTelephone Encounter - Byron Gomez MD - 11/10/2023 4:57 PM EDT Note Date & Type Note Facility 11-12-2023 Telephone encounter Note L/m again for pt to make an appt 11/12/23 [facility] 11-12-2023 Miscellaneous Notes L/m again for pt to make an appt 11/12/23 Needs appt documented in this encounter [facility] 11-10-2023 Telephone encounter Note Needs appt [facility] 08-12-2023 Note General Surgery Offi ce/Clinic Note Chief Complaint consultation for nevus HPI Staff 62 year old female presents on consultation from Dr. Flores for nonhealing lesion x posterior neck. Reports lesions have been present for 2-3 months. Reports intermittent soreness. Denies bleeding or drainage. History of Present Illness 62 yo female with h/o htn, hypothyroidism, osteoarthritis, fibromyalgia, GERD, lumbar radiculopathy, referred by Dr Flores for posterior neck skin lesion, initially raised and red, though it was a bug bite; no drainage; decreased in size, then formed a scab; no scab is gone, has been using healing Band-aids on the area. Review of Systems PHQ Score Initial Depression Screen Score: 0 SCORE ROS - Provider Constitutional: no fever, no [...] weakness. Skin: no changing moles, no rash, yes skin lumps. Neurologic: no seizures, no epilepsy, [...] noncontributory. Physical Exam Vitals & Measurements HR: 72(Peripheral) RR: 16 BP: 114/72 HT: 64 in HT: 162.5 cm WT: 69 kg WT: 151.8 lb BMI: 26.13 skin: 2 mm red scar, no scab or open areas; no drainage or fluctuance, nontender; no raised component. Assessment/Plan 1. Skin lesion of neck (L98.9: Disorder of the skin and subcutaneous tissue, unspecified) resolved, just small scar; call if recurs, or with problems/questions. Follow-up No qualifying data available Problem List/Past Medical History Ongoing Antral gastritis Antral ulcer Autonomic neuropathy in diseases classified elsewhere BMI 26.0-26.9,adult Carpal tunnel syndrome Depression Fecal occult blood test positive Fibromyalgia Gastroesophageal reflux disease Hypertension Hypothyroidism Lumbar radiculopathy Microscopic hematuria Mixed incontinence Nocturia Overweight Primary generalized (osteo)arthritis Raised antibody titer Restless legs Skin lesion of neck Sleep apnea Urethral stricture Urge incontinence Urinary frequency Urinary urgency Historical Antiplatelet or antithrombotic long-term use Pain in unspecified joint Procedure/Surgical History Colonoscopy (2022), EGD - Esophagogastroduodenoscopy (07/21/2019), Cystourethroscopy with dilation of urethral stricture (02/18/2019), Colonoscopy (05/14/2013), Caesarean section, Carpal tunnel release, section, Endometrial biopsy, neck surgery ablation, Repair of left inguinal hernia, Sling procedure of bladder neck, Trigger finger, Tubal ligation. Medications azelastine nasal, Nasal, BID Celebrex 50 mg oral capsule, 50 mg= 1 cap(s), Oral, Daily, PRN gabapentin 300 mg Cap, 300 mg= 1 cap(s), Oral, Daily levothyroxine 75 mcg (0.075 mg) Tab, 75 mcg= 1 tab(s), Oral, Daily magnesium glycinate, 1 tab(s), Oral, BID meclizine 25 mg Tab, 25 mg= 1 tab(s), Oral, QID, PRN montelukast 10 mg Tab, 10 mg= 1 tab(s), Oral, Daily Pantoprazole [address] Tab, 40 mg= 1 tab(s), Oral, Daily pramipexole 0.5 mg oral tablet, 1.5 mg= 3 tab(s), Oral, Bedtime tiZANidine 4 mg Tab valacyclovir 1 g Tab, 1 gm= 1 tab(s), Oral, Daily Allergies Cipro (Unknown) Phenergan (Spasm) Social History Alcohol - Denies Alcohol Use, 04/13/2019 Substance Abuse - Denies Substance Abuse, 06/24/2019 Tobacco Never (less than 100 in lifetime) Tobacco Use:. Never Smokeless Tobacco Use:., 08/12/2023 Family History Heart disease: Mother. Hodgkin's disease: Negative: Mother. Hypertension: Mother and Father. Leukemia: Mother. Lymphoma: Brother. Primary malignant neoplasm of lung: Father. Varicose veins: Mother. Immunizations Vaccine Date Status Comments SARS-CoV-2 (COVID-19) [id number] 02/07/2022 Recorded SARS-CoV-2 (COVID-19) mRNA-1273 vaccine 01/03/2021 Recorded 2022-10-28: [id number] SARS-CoV-2 (COVID-19) mRNA-1273 vaccine 05/26/2020 Recorded SARS-CoV-2 (COVID-19) mRNA-1273 vaccine 04/28/2020 Recorded influenza virus vaccine, live, trivalent 11/10/2018 Recorded [facility] Comment on above: Result Comment: Elec tronically Signed By: CHERYL TAPIA, Jason Guzman\Date and Time Signed: 08/12/23 16:36 EDT 11-05-2022 Note Chief Complaint consultation for positive [...] 40 mg= 1 (more content not included)... [facility] Comment on above: Result Comment: Elec tronically Signed By: CHERYL TAPIA, Jason Guzman\Date and Time Signed: 11/05/22 15:49 EDT 03-05-2021 Evaluation note Encounter Date Diagnosis Assessment [...] We will help arrange this for her. [employer] Other 01-10-2022 Evaluation note* Encounter Date Diagnosis Assessment Notes Treatment Notes Treatment Clinical Notes Feb, Dizziness (ICD-10 - R42) Patient's [...] hopes. She understands and wishes to proceed. [employer] Other Evaluation + Plan note No data available for this section [facility] [employer] Evaluation note* Diagnosis Chronic rhinitis documented in this encounter [facility] N[facility] - Reported* Type Description Date Medical History arthritis Medical History Ear pain, bilateral Medical History Idiopathic peripheral autonomic neuropathy Medical History Cervical spondylosis with myelop athy Medical History Acute recurrent frontal sinusiti s Medical History Hypothyroidism Medical History GERD (gastroesophageal reflux di sease) Medical History Obstructive sleep apnea Medical History vertigo Medical History Hypertension Medical History Depression Medical History Otitis media Medical History Pneumonia Medical History thyroid Surgical History x 2 1982, Surgical History hernia repair 1995 Surgical History carpal tunnel release 2010 Surgical History trigger finger release 2011 Surgical History bladder sling 2010 Hospitalization History see sx hx [employer] Other Hospital Discharge instructions No data available for this section [facility] [employer] note No data available for this section [facility] [employer] Summary Purpose Family History No Family History Records FoundNo Family History Records FoundNo Family History Records Found No data available for this section No Family History Records Found Advance Directives No Advanced Directives Records FoundNo Advanced Directives Records FoundNo Advanced Directives Records FoundNo Advanced Directives Records Found Additional Source Comments INFORMATION SOURCE (unrecogn ized section and content) DATE CREATED AUTHOR 03/26/2021 [facility] DATE CREATED AUTHOR AUTHOR'S ORGANIZ ATION 05/18/2022 [facility] DATE CREATED AUTHOR AUTHOR'S ORGANIZ ATION 07/25/2023 [facility] EPIC DATE CREATED AUTHOR AUTHOR'S ORGANIZ ATION 08/14/2023 [facility] REASON FOR VISIT (unrecogniz ed section and content) Reason Comments Med Refill Patient Care team informatio n (unrecognized section and content) [employer] Supervisor Relationship Specialty Start Date End Date Nick Flores MD [address] [place] [address] PCP - General Family Medicine 02/06/23 Kell Del Cid DO [address] [place], [place] [id number] Referring Physician Neurology 04/30/23 FOR RECORDS PERTAINING TO PATIENTS WHO ARE [...] BE BASED ON THE PRIMARY CLINICAL RECORDS. [facility] [employer] [facility] provides no warranty or guarantee of the accuracy or completeness of information in this document.
== END 2023-11-25 07:35 | disposition home or self-care (01) ==
LOC: RAD 07:34
PROVIDERS: PCP Family Medicine; Visit Provider Podiatrist Foot & Ankle Surgery
DX: M79.671 Pain in right foot (principal); M19.071 Primary osteoarthritis, right ankle and foot; M20.11 Hallux valgus (acquired), right foot
CPT/HCPCS: 73630

== ENCOUNTER 2023-12-04 11:56 | Outpatient (REF) | payer OTHER, SELFPAY ==
--- OUTSIDE RECORDS SUMMARY | 2023-12-04 11:59 | XMS_ITS | CCD ---
Author Organization [facility] Care Team Providers Care Paper Cone Machine Tender Name Role Phone Kristine Chavez Unavailable [phone] HOY ., DR ROMERO Primary Care [...] Unavailable HOY ., DR ROMERO Attending Unavailable [place], DR JAMIE York Consulting Unavailable HOY ., [...] STANLEY Admitting Unavailable DEREK VERGARA Attending Unavailable CHELSEA .DEREK Admitting Unavailable DR NICK CORONA Primary Care Unavailable Nick Flores Primary Care Physician Jason LUNA Attending Unavailable Nick Flores Referring Unavailable Jason LUNA Attending Unavailable Jason LUNA Attending Unavailable Nick Flores MD Primary Care Provider [phone] Kell Del Cid DO Unavailable MIGDALIA JOYCE Attending Unavailable STEVE BALLESTEROS Referring Unavailable KACEY HARPER Attending Unavailable MIGDALIA JOYCE Attending Unavailable Allergies Allergy Classification Reported Allergen(s) Allergy Type Date of Onset Reaction(s) Facility Promethazine (1 source) Promethazine; Translations: [promethazine] Drug Allergy Spasm (finding) [facility] Sod Quinolones (antibiotic) (1 source) Ciprofloxacin; Translations: [ciprofloxacin] Drug Allergy Unknown (qualifier value) [facility] (5 sources) Ciprofloxacin Drug Allergy 3 Unknown [facility] (5 sources) Promethazine Drug Allergy 4 Unknown [facility] (2 sources) Ciprofloxacin; Translations: [Cipro] Drug Allergy 0 [facility] (3 sources) Levamisole; Translations: [Phenergan] Drug Allergy 4 [facility] Medications Current Medications Medication Drug Class(es) Dates Sig (Normalized) Sig (Original) Grisel Allergy 180 MG (2 sources) take 1 tablet by mouth once daily as needed Grisel Allergy 180 MG 1 tablet as needed Orally Once a day prn Active aspirin 81 mg delayed release oral tablet (5 sources) Platelet Aggregation Inhibitor, Nonsteroidal Anti-inflammatory Drug take 1 tablet by mouth in the morning aspirin 81 MG EC tablet Take 81 mg by mouth in the morning. Active take 1 tablet by mouth once gurdeep y Aspirin Adult 325 MG 1 tablet Orally Once a day Active azelastine hydrochloride 0.137 mg/actuat metered dose nasal spray (8 sources) Histamine-1 Receptor Antagonist Start: 09-09-2022 take [...] Calcium Active celecoxib 50 mg oral capsule (4 sources) Nonsteroidal Anti-inflammatory Drug Start: 3 take [...] Oil Active gabapentin 300 mg oral capsule (6 sources) Anti-epileptic Agent Start: 9 take 1 capsule by mouth once daily gabapentin 300 mg Cap 300 mg = 1 cap(s), Oral, Daily Start Date: 02/09/19 Status: Ordered Gabapentin 300 M G TK 2 CS PO QHS Oral for 90 Active ibuprofen 800 mg oral tablet (5 sources) Nonsteroidal Anti-inflammatory Drug ibuprofen 800 MG [...] Ordered meclizine hydrochloride 25 mg oral tablet (6 sources) Antiemetic Start: 10-28-2022 take 1 tablet [...] 90 Active montelukast 10 mg oral tablet (5 sources) Leukotriene Receptor Antagonist Start: 01-28-20 19 take 1 tablet by mouth at bedtime montelukast (Singulair) 10 MG tablet Indications: Chronic rhinitis Take 1 tablet (10 mg) by mouth at bedtime. 30 tablet 11 09/09/2022 Active omeprazole 20 mg oral tablet (2 sources) Proton Pump Inhibitor take 1 tablet by mouth once daily PriLOSEC OTC 20 MG 1 tablet Orally Once a day Active pantoprazole 40 mg delayed release oral tablet (6 sources) Proton Pump Inhibitor Start: 04-13-19 20 take 1 tablet by mouth once daily Pantoprazole [address] Tab 40 mg = 1 tab(s), Oral, Daily Start Date: 04/13/19 Status: Ordered take 1 tablet by sabiha th every twenty-four hours Pantoprazole Sodium 20 MG 1 tablet Orall y Once a day Active pramipexole dihydrochloride 0.5 mg oral tablet (6 sources) Nonergot Dopamine Agonist Start: 10-28-2022 take [...] Active traMADol hydrochloride 50 mg oral tablet (3 sources) Opioid Agonist traMADol (Ultram ) 50 MG tablet Take by mouth. Active valACYclovir 1000 mg oral tablet (4 sources) Herpesvirus Nucleoside Analog DNA Polymerase Inhibitor, [...] Not-Taking levothyroxine sodium 0.075 mg oral tablet (6 sources) l-Thyroxine Start: 02-09-2019 take 1 tablet [...] Classification Problem Date Documented Da te Episodic/Chronic Blindness and vision defects (1 source) Visual field defect; Translations: [Unspecified visual field defects] 2023 Episodic Cataract (1 source) Bilateral cortical age-related cataract eyes; Translations: [Cortical age-related cataract, bilateral] 2023 Chronic Esophageal disorders (4 sources) Gastroesophageal reflux disease; Translations: [Gastro-esophageal reflux [...] source) 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-20-2020 Episodic Other eye disorders (1 source) Ptosis of eyebrow; Translations: [Brow ptosis, unspecified] 2023 Episodic Other gastrointestinal disorders (1 source) Occult blood in stools 11-05-2022 Episodic Other hereditary and degenerative nervous system conditions (4 sources) Restless legs; Translations: [Restless legs syndrome] Onset: 4 10-28-2022 Chronic Other nervous system disorders (3 sources) Carpal tunnel syndrome; Translations: [Carpal tunnel syndrome, bilateral upper limbs] 02-09-2019 Chronic Other nervous system disorders (1 source) Autonomic neuropathy 02-09-2019 Chronic Other nervous system disorders (3 sources) 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 [...] rhinitis] 11-06-2023 Chronic Other upper respiratory disease (3 sources) Vasomotor rhinitis; Translations: [Vasomotor rhinitis] Onset: 3 09-09-2022 Chronic Residual codes; unclassified (1 source) Sleep apnea 02-09-2019 Chronic Residual codes; unclassified (3 sources) Obstructive sleep apnea syndrome; Translations: [Obstructive sleep apnea (adult) (pediatric)] Onset: 4 07-23-2023 Chronic Residual codes; unclassified (3 sources) Daytime somnolence; Translations: [Other hypersomnia] Onset: 4 [...] [Otalgia, bilateral] Episodic Other lower respiratory disease (3 sources) Snoring; Translations: [Snoring] Onset: 07-23-2023 07-23-2023 Episodic [...] AMNESIA] Onset: 10-23-2021 Episodic Residual codes; unclassified (3 sources) Insomnia; Translations: [Insomnia, unspecified] Onset: 07-23-2023 07-23-2023 Episodic Unclassified (1 source) LOW BACK PAIN, UNSPECIFIED; Translations: [LOW BACK PAIN, UNSPECIFIED] Onset: 07-06-2021 Unclassified (1 source) Patient encounter status 11-05-2022 Results Test Name Value Interpretation Reference Range Facility Ambulatory Visit Summaryon 0 08-12-2023 Ambulatory Visit Summary Ambulatory Visit Summary JEANNA ZEE :1960 Visit Date:08/12/2023 Ambulatory Visit Instructions Your Care Team Attending Physician - CHERYL TAPIA, Jason Santiago Primary Care Physician - Sandra TAPIA, Nick Referring Physician - Nick Flores MD This [...] you for choosing us for your care. [facility] Physician Referralon 024 Physician Referral [id number] [facility] Reminderson 07-28-2023 Reminders - From: Nurys Boone LPN To: [facility] - Clinical; Sent: 07/28/2023 11:21:37 EDT Show up: 10/28/2032 07:00:00 EDT Subject: colonoscopy recall Due Date/Time: 2032 07:00:00 EDT Reminder/Recall Patient due for screening colonoscopy 2032. [facility] Outside Colonoscopyon 2022 Outside Colonoscopy [id number]#[id number] [facility] Insurance Correspondenceon 0 11-07-2022 Insurance Correspondence [id number]:127 [facility] Consultation Noteon 11-07-19 Consultation Note [id number]:127 [facility] Ambulatory Visit Summaryon 0 11-05-2022 Ambulatory Visit [...] long-term use Pain in unspecified joint Normal [facility] Physician Referralon 023 Physician Referral [id number]:127 Normal [facility] MG MAMM SCREEN 3D TIFFANIE CADon 12-14-2021 MG MAMM SCREEN 3D TIFFANIE CAD Patient: JEANNA ZEE Exam Date: 12/14/2021 : 1960 Gender:F Ordering : DR NICK FLORES . Admission #: [id number] Family : Order #: [id number] CLICK HERE TO VIEW EXAM RADIOLOGY REPORT [...] lung cancer at age 73. LOCATION: [facility] BREAST COMPOSITION: Extremely dense, which lowers the [...] Smith MD on 12/14/2021 at 08:02 Normal [facility] PAP ACOG PANEL 2: 30 to 65on 12-14-2021 . . Normal [facility] Comment on above: Result Comment: Perf ormed at: WB Performed By: #### [id number] #### [facility] [address] [address] [address] Daly Gordon Age Gdln ACOG Testing 30-65 Normal [facility] Comment on above: Performed By: #### 4 [id number] #### [facility] [address] [address] [address] Daly Gordon DIAGNOSIS: Comment Normal [facility] Comment on above: Result Comment: NEGA TIVE FOR INTRAEPITHELIAL LESION OR MALIGNANCY. CELLULAR CHANGES ASSOCIATED WITH ATROPHY ARE PRESENT. Performed at: WB Performed By: #### 4 [id number] #### [facility] [address] [address] [address] Daly Gordon HPV Aptima Negative Normal Negative [facility] Comment on above: Result Comment: This nucleic acid amplification test detects fourteen high-risk HPV types (16,18,31,33,35,39,45,51,52,56,58,59,66,68) without differentiation. Performed at: =G Performed By: #### 4 [id number] #### [facility] [address] [address] [address] Daly Gordon HPV Genotype Reflex Comment Normal [facility] Comment on above: Result Comment: Crit eria not met, HPV Genotype not performed. Performed at: WB Performed By: #### 4 [id number] #### [facility] [address] [address] [address] Daly Gordon Methodology: Comment Normal [facility] Comment on above: Result Comment: This liquid based ThinPrep(R) pap test was screened with the use of an image guided system. Performed at: WB Performed By: #### 4 [id number] #### [facility] [address] [place] [address] Dr. Daly Gordon Note: Comment Normal [facility] Comment on above: Result Comment: The Pap smear is a screening test designed to aid in the detection of premalignant and malignant conditions of the uterine cervix. It is not a diagnostic procedure and should not be used as the sole means of detecting cervical cancer. Both false-positive and false-negative reports do occur. . Performed at: WB Performed By: #### 4 [id number] #### [facility] [address] [place] [address] Dr. Daly Gordon Performed by: Comment Normal [facility] Comment on above: Result Comment: Radha Marrero, Police Officer Performed at: WB Performed By: #### 4 [id number] #### [facility] [address] [place] [address] Dr. Daly Gordon Specimen adequacy: Comment Normal [facility] Comment on above: Result Comment: Sati sfactory for evaluation. Endocervical component may not be distinguished in cases of atrophy. Performed at: WB Performed By: #### 4 [id number] #### [facility] [address] [place] [address] Dr. Daly Gordon MRI BRAIN WO W [...] ARLET BUTLER Date: 2021-10-24 07:26 Normal [facility] OCC BLD IMMUNO SCREENon 09-0 OCCULT BLOOD Negative Normal NEGATIVE [facility] Comment on above: Performed By: #### O BSCRN #### [facility] [address] [address] [address] Daly Gordon INSULINon 10-17-2021 Insulin 16.8 uIU/mL Normal 2.6-24.9 [facility] Comment on above: Performed By: #### I NSULIN #### [facility] [address] [address] [address] Daly Gordon T4, T3U, FTI [facility]on 10-17 Free Thyroxine Index 3.0 Normal 1.2-4.9 [facility] Comment on above: Performed By: #### T HYLC #### [facility] [address] [address] [address] Daly Gordon T3 Uptake 41 % Critically high 24-39 [facility] Comment on above: Performed By: #### T HYLC #### [facility] [address] [address] [address] Daly Gordon T4 [Mass/Vol] 7.4 ug/dL Normal 4.5-12.0 [facility] Comment on above: Performed By: #### T HYLC #### [facility] [address] [address] [address] Daly Gordon VIT D 25-OH LABCORPon 2021 Vitamin D, 25-Hydroxy 42.7 ng/mL Normal 30.0-100.0 [facility] Comment on above: Result Comment: [place] min D deficiency has been defined by the [place] of [employer] and an Endocrine Society practice guideline as a level of serum 25-OH vitamin D less than 20 ng/mL (1,2). The Endocrine Society went on to further define vitamin D insufficiency as a level between 21 and 29 ng/mL (2). 1. IOM ([place] of [employer]). 2010. Dietary reference intakes for calcium and D. [place]: The National Academies Press. 2. Red ROONEY, Dae TAI, Demetrice AKERS, et al. Evaluation, treatment, and prevention of vitamin D deficiency: an Endocrine Society clinical practice guideline. JCEM. 2010; 96(7):1911-30. Performed By: #### V ITADLC #### [facility] [address] [id number] [address]Shea Gordon CBC AUTO DIFFon 10-13-2021 BASO # 0.1 103/ul Normal 0.0-0.1 [facility] Comment on above: Performed By: #### C BC ####[facility] [address] [id number]. Daly Gordon Basophils/100 WBC (Bld) 0.7 % Normal 0.2-2.0 [facility] Comment on above: Performed By: #### C BC ####[facility] [address] [address]Dr. Daly Gordon EO # 0.2 103/ul Normal 0.0-0.7 [facility] Comment on above: Performed By: #### C BC ####[facility] [address] [place], [place] [address]Dr. Daly Gordon Eosinophils/100 WBC (Bld) 2.6 % Normal 0.9-7.0 [facility] Comment on above: Performed By: #### C BC ####[facility] [address] [place], [place] [address]Dr. Daly Gordon Erythrocyte distribution width (RBC) [Ratio] 12.5 % Normal 11.0-15.0 [facility] Comment on above: Performed By: #### C BC ####[facility] [address] [place], [place] [address]Dr. Daly Gordon Hematocrit (Bld) [Volume fraction] 42.4 % Normal 36.0-48.0 [facility] Comment on above: Performed By: #### C BC ####[facility] [address] [place], [place] [address]Dr. Daly Gordon Hemoglobin (Bld) [Mass/Vol] 13.9 g/dL Normal 12.0-16.0 [facility] Comment on above: Performed By: #### C BC ####[facility] [address] [place], [place] [address]DrShea Gordon IG # 0.01 10e3/ul Normal 0.00-0.03 [facility] Comment on above: Performed By: #### C BC ####[facility] [address] [address]Dr. Daly Gordon IG % 0.1 % Normal 0.0-0.5 [facility] Comment on above: Performed By: #### C BC ####[facility] [address] [address]Dr. Daly Gordon LYMPH # 2.2 103/ul Normal 1.2-3.8 [facility] Comment on above: Performed By: #### C BC ####[facility] [address] [place], [place] [address]Dr. Daly Evan Lymphocytes/100 WBC (Bld) 29.4 % Normal 20.5-60.0 [facility] Comment on above: Performed By: #### C BC ####[facility] [address] [place], [place] [address]Dr. Daly Gordon MANUAL DIFF REQ NO Normal [facility] Comment on above: Performed By: #### C BC ####[facility] [address] [place], [place] [address]Dr. Daly Gordon MCH (RBC) [Entitic mass] 30.1 pg Normal 26.7-34.0 [facility] Comment on above: Performed By: #### C BC ####[facility] [address] [place], [place] [address]Dr. Daly Gordon MCHC (RBC) [Mass/Vol] 32.8 g/dL Normal 29.9-35.2 [facility] Comment on above: Performed By: #### C BC ####[facility] [address] [place], [place] [address]Dr. Daly Gordon MCV (RBC) [Entitic vol] 91.8 fL Normal 81.0-99.0 [facility] Comment on above: Performed By: #### C BC ####[facility] [address] [place], [place] [address]Dr. Daly Evan MONO # 0.5 103/ul Normal 0.3-0.8 [facility] Comment on above: Performed By: #### C BC ####[facility] [address] [address]Dr. Daly Gordon Monocytes/100 WBC (Bld) 6.6 % Normal 1.7-12.0 [facility] Comment on above: Performed By: #### C BC ####[facility] [address] [address]Dr. Daly Gordon NEUT # 4.5 103/ul Normal 1.4-6.5 [facility] Comment on above: Performed By: #### C BC ####[facility] [address] [address]Dr. Daly Gordon Neutrophils/100 WBC (Bld) 60.6 % Normal 43.0-75.0 [facility] Comment on above: Performed By: #### C BC ####[facility] [address] [address]Dr. Daly Gordon Platelet mean volume (Bld) [Entitic vol] 9.1 fL Critically low 9.5-13.5 [facility] Comment on above: Performed By: #### C BC ####[facility] [address] [address]Dr. Daly Gordon PLT 236 103/ul Normal 150-450 [facility] Comment on above: Performed By: #### C BC ####[facility] [address] [address]Dr. Daly Gordon RBC 4.62 106/ul Normal 4.20-5.40 [facility] Comment on above: Performed By: #### C BC ####[facility] [address] [address]Dr. Daly Gordon WBC 7.4 103/ul Normal 4.0-11.0 [facility] Comment on above: Performed By: #### C BC ####[facility] [address] [address]Dr. Daly Gordon GLYCOHEMOGLOBIN A1Con 2021 ADA RECOMMENDATION SEE BELOW Normal [facility] Comment on above: Result Comment: ADA RECOMMENDED LIMIT 4.0 - 6.0 ADA THERAPEUTIC TARGET < 7.0 ACTION SUGGESTED > 7.0 Performed By: #### A 1C #### [facility] [address] [address] [address] Daly Gordon Glucose [Mass/Vol] 128 mg/dL Normal [facility] Comment on above: Performed By: #### A 1C #### [facility] [address] [address] [address] Daly Gordon HbA1c (Bld) [Mass fraction] 6.1 % Normal 4.5-6.2 [facility] Comment on above: Performed By: #### A 1C #### [facility] [address] [address] [address] Daly Gordon IRONon 10-13-2021 Iron [Mass/Vol] 89.0 ug/dL Normal 50.0-170.0 [facility] Comment on above: Performed By: #### B 12FOL, IRON #### [facility] [address] [address] [address] Daly Gordon LIPID PROFILEon 10-13-2021 CHOL-HDL RATIO NORM SEE BELOW Normal [facility] Comment on above: Result Comment: 3.3 - 4.4 LOW RISK 4.4 - 7.1 AVERAGE RISK 7.1 - 11.0 MODERATE RISK >11.0 HIGH RISK Performed By: #### L IPID, TSH, CMP ####[facility] [address] [address]DrShea Gordon Cholesterol [Mass/Vol] 176 mg/dL Normal <=200 [facility] Comment on above: Performed By: #### L IPID, TSH, CMP ####[facility] [address] [address]DrShea Gordon Cholesterol in HDL [Mass/Vol] 58 mg/dL Normal 40-60 [facility] Comment on above: Performed By: #### L IPID, TSH, CMP ####[facility] [address] [address]DrShea Gordon Cholesterol in LDL [Mass/Vol] 110.4 mg/dL Normal [facility] Comment on above: Performed By: #### L IPID, TSH, CMP ####[facility] [address] [address]Dr. Daly Gordon Cholesterol.total/C holesterol in HDL [Mass ratio] 3.0 {ratio} Normal [facility] Comment on above: Performed By: #### L IPID, TSH, CMP ####[facility] [address] [address]Dr. Daly Gordon HDL NORMAL > or = 60 mg/dl - LO W CARDIOVASCULAR RISK <40 mg/dl - HIGH CARDIOVASCULAR RISK Normal [facility] Comment on above: Performed By: #### L IPID, TSH, CMP ####[facility] [address] [place], [place] [address]Dr. Daly Gordon LDL CALC NORMAL SEE BELOW Normal [facility] Comment on above: Result Comment: <100 mg/dl OPTIMAL 100 - 129 mg/dl NEAR OR ABOVE OPTIMAL 130 - 159 mg/dl BORDERLINE HIGH 160 - 189 mg/dl HIGH >190 mg/dl VERY HIGH Performed By: #### L IPID, TSH, CMP ####[facility] [address] [place], [place] [address]Dr. Daly Gordon Triglyceride [Mass/Vol] 38 mg/dL Normal <=150 [facility] Comment on above: Performed By: #### L IPID, TSH, CMP ####[facility] [address] [place], [place] [address]Dr. Daly Gordon VLDL CALC 7.6 mg/dL Normal [facility] Comment on above: Performed By: #### L IPID, TSH, CMP ####[facility] [address] [place], [place] [address]Dr. Daly Gordon PROF 14(COMP METB)on 022 Albumin [Mass/Vol] 3.7 g/dL Normal 3.4-5.0 [facility] Comment on above: Performed By: #### L IPID, TSH, CMP ####[facility] [address] [place], [place] [address]Dr. Daly Gordon Albumin/Globulin [Mass ratio] 1.2 {ratio} Normal [facility] Comment on above: Performed By: #### L IPID, TSH, CMP ####[facility] [address] [address]Dr. Daly Gordon ALP [Catalytic activity/Vol] 56 U/L Normal 46-116 [facility] Comment on above: Performed By: #### L IPID, TSH, CMP ####[facility] [address] [address]Dr. Daly Gordon ALT [Catalytic activity/Vol] 29 U/L Normal 14-59 [facility] Comment on above: Performed By: #### L IPID, TSH, CMP ####[facility] [address] [place], [place] [address]Dr. Daly Gordon Anion gap [Moles/Vol] 11.6 mmol/L Normal [facility] Comment on above: Performed By: #### L IPID, TSH, CMP ####[facility] [address] [place], [place] [address]Dr. Daly Gordon AST [Catalytic activity/Vol] 17 U/L Normal 15-37 [facility] Comment on above: Performed By: #### L IPID, TSH, CMP ####[facility] [address] [place], [place] [address]Dr. Daly Gordon Bilirubin [Mass/Vol] 0.4 mg/dL Normal 0.2-1.0 [facility] Comment on above: Performed By: #### L IPID, TSH, CMP ####[facility] [address] [place], [place] [address]Dr. Daly Gordon Calcium [Mass/Vol] 8.6 mg/dL Normal 8.5-10.1 [facility] Comment on above: Performed By: #### L IPID, TSH, CMP ####[facility] [address] [place], [place] [address]Dr. Daly Gordon Chloride [Moles/Vol] 105 mmol/L Normal 98-107 [facility] Comment on above: Performed By: #### L IPID, TSH, CMP ####[facility] [address] [place], [place] [address]Dr. Daly Gordon CO2 [Moles/Vol] 29.6 mmol/L Normal 21.0-32.0 [facility] Comment on above: Performed By: #### L IPID, TSH, CMP ####[facility] [address] [address]Dr. Daly Gordon Creatinine [Mass/Vol] 0.72 mg/dL Normal 0.55-1.02 [facility] Comment on above: Performed By: #### L IPID, TSH, CMP ####[facility] [address] [address]Dr. Daly Gordon EGFR-AF TOGOLESE >60 Normal >=60 [facility] Comment on above: Performed By: #### L IPID, TSH, CMP ####[facility] [address] [place], [place] [address]Dr. Daly Evan EGFR-NON AF TOGOLESE >60 Normal >=60 [facility] Comment on above: Performed By: #### L IPID, TSH, CMP ####[facility] [address] [place], [place] [address]Dr. Daly Evan Globulin (S) [Mass/Vol] 3.2 g/dL Normal [facility] Comment on above: Performed By: #### L IPID, TSH, CMP ####[facility] [address] [place], [place] [address]Dr. Daly Evan Glucose [Mass/Vol] 101 mg/dL Normal 74-106 [facility] Comment on above: Performed By: #### L IPID, TSH, CMP ####[facility] [address] [address]Dr. Daly Gordon Potassium [Moles/Vol] 4.2 mmol/L Normal 3.5-5.1 [facility] Comment on above: Performed By: #### L IPID, TSH, CMP ####[facility] [address] [place], [place] [address]Dr. Candicesharmila Gordon Protein [Mass/Vol] 6.9 g/dL Normal 6.4-8.2 [facility] Comment on above: Performed By: #### L IPID, TSH, CMP ####[facility] [address] [id number]. Daly Gordon Sodium [Moles/Vol] 142 mmol/L Normal 136-145 [facility] Comment on above: Performed By: #### L IPID, TSH, CMP ####[facility] [address] [id number]. Daly Gordon Urea nitrogen [Mass/Vol] 21.0 mg/dL Critically high 7.0-18.0 [facility] Comment on above: Performed By: #### L IPID, TSH, CMP ####[facility] [address] [id number]. Daly Gordon Urea nitrogen/Creatinine [Mass ratio] 29.2 mg/mg Normal [facility] Comment on above: Performed By: #### L IPID, TSH, CMP ####[facility] [address] [id number]. Daly Gordon TSHon 10-13-2021 TSH 2.311 uIU/mL Normal 0.358-3.740 [facility] Comment on above: Performed By: #### L IPID, TSH, CMP ####[facility] [address] [address]Dr. Daly Gordon VIT B12 AND FOLATEon 022 Cobalamin (Vitamin B12) [Mass/Vol] 602.0 pg/mL Normal 193.0-986.0 [facility] Comment on above: Performed By: #### B 12FOL, IRON #### [facility] [address] [address] [address] Daly Gordon FOLATE 18.70 ng/mL Normal 8.60-58.90 [facility] Comment on above: Performed By: #### B 12FONitza, IRON #### [facility] [id number] Daly Gordon US carotid doppler BIon - US carotid doppler [facility] [place] [address] Ultrasound Report Signed Patient: Jeanna Zee MR#: [id number] : 1960 Acct:[id number] Age/Sex: 60 / F ADM Date: 03/05/21 Loc: [facility] Room: Type: [facility] Attending Dr: Kristine Chavez MD Ordering Provider: [...] Kristine Chavez MD03/08/2021 5:35 PM [facility]ation [facility] Tech: Albina Brenden Transcribed By: [facility] 03/08/211734 Dictated By: Kristine Chavez MD 03/08/211733 Signed By: 03/08/211734 [facility] Vital Signs Date Time Vital Sign Value Performing Clinician Facility 08-12-2023 15:52-0400 Blood Pressure Location [facility] 08-12-2023 15:52-0400 Diastolic blood pressure 72 mm[Hg] [facility] 08-12-2023 15:52-0400 Heart rate 72 /min [facility] 08-12-2023 15:52-0400 Respiratory rate 16 /min [facility] 08-12-2023 15:52-0400 Systolic blood pressure 114 mm[Hg] [facility] 03-05-2021 16:30-0500 Body height 162.56 cm Kristine Chavez Other [facility] Other 03-05-2021 16:30-0500 Body mass index (BMI) [Ratio] 27.46 kg/m2 Kristine Chavez Other [facility] Other 03-05-2021 16:30-0500 Body temperature 97.3 [degF] Kristine Chavez Other [facility] Other 03-05-2021 16:30-0500 Body weight 72.58 kg Kristine Chavez Other [facility] Other 03-05-2021 16:30-0500 Diastolic blood pressure 70 mm[Hg] Kristine Chavez Other [facility] Other 03-05-2021 16:30-0500 SaO2% (BldA) [Mass fraction] 98 % Kristine Chavez Other [facility] Other 03-05-2021 16:30-0500 Systolic blood pressure 110 mm[Hg] Kristine Chavez Other [facility] Other 02-19-2021 16:15-0500 Body height 162.56 cm Kristine Chavez Other [facility] Other 02-19-2021 16:15-0500 Body mass index (BMI) [Ratio] 27.46 kg/m2 Kristine Chavez Other [facility] Other 02-19-2021 16:15-0500 Body weight 72.58 kg Kristine Chavez Other [facility] Other 02-19-2021 16:15-0500 Respiratory rate 18 /min Kristine Chavez Other [facility] Other 02-19-2021 16:15-0500 SaO2% (BldA) [Mass fraction] 98 % Kristine Chavez Other [facility] Other Encounters Encounter Date Encounter Type Care Provider Facility Start: 2023 End: 2023 Sumeet Joyce MD Work Phone: [facility] Start: 2023 End: 2023 Bamboo flowsheet Migdalia Joyce MD Work Phone: [facility] Start: 2023 End: 2023 Office outpatient visit 25 minutes Migdalia Joyce MD Work Phone: [facility] Comment on above: Brow ptosis (Primary Dx); Visual field loss; Cortical age-related cataract of both eyes Start: 2023 End: 2023 ambulatory MIGDALIA JOYCE Not Available Start: 11-06-2023 End: 11-12-2023 Refill Byron Gomez MD Work Phone: [facility] Comment on above: Chronic rhinitis Start: 08-12-2023 End: 08-12-2023 ambulatory Jason LUNA Facility:[facility] Start: 08-12-2023 End: 08-12-2023 Patient encounter procedure Jason LUNA [facility] [place] Start: 07-23-2023 End: 07-23-2023 ambulatory KACEY MEREDITH Not Available Start: 02-06-2023 End: 02-06-2023 ambulatory MIGDALIA JOYCE Not Available Start: 2022 End: 2022 ambulatory Jason LUNA Facility:CD:[id number] Start: 11-05-2022 End: 11-05-2022 ambulatory Jason LUNA Facility:[facility] Start: 05-17-[address] KRISTINE NAZARIO Facil ity:[facility] Start: 12-14-2021 End: 12-15-[address] NICK FLORES . Facility:[facility] Start: 12-06-2021 End: 12-10-2021 ambulatory MAULIK STANLEY Facility:[facility] Start: 11-02-[address] NICK Valdivia Facili ty:[facility] Start: 10-23-2021 End: 10-24-[address] NICK FLORES . Facility:[facility] Start: 10-18-2021 End: 10-18-[address] NICK FLORES . Facility:[facility] Start: 10-13-2021 End: 10-14-[address] NICK FLORES . Facility:[facility] Start: 07-06-2021 End: 07-07-[address] NICK FLORES . Facility:[facility] Start: 06-22-2021 End: 06-22-[address] NICK FLORES . Facility:[facility] Start: 06-13-2021 End: 08-04-2021 ambulatory DEREK CHELSEA . Facility:[facility] Start: 06-01-2021 End: 06-02-2021 ambulatory DEREK CHELSEA . Facility:[facility] Start: 03-05-2021 End: 03-05-2021 ambulatory Kristine Chavez Other [facility] Other Start: 03-05-2021 Office outpatient visit 15 minutes Kristine Chavez [facility] Start: 02-19-2021 End: 02-19-2021 ambulatory Kristien Chavez Other [facility] Other Start: 02-19-2021 Office outpatient ne w 30 minutes Kristine Chavez [facility] Procedures Date Procedure Procedure Detail Performing Clinician Start: 2022 Colonoscopy Byron Gomez MD Work Phone: Start: 2022 Colonoscopy Jason LUNA Start: 07-21-2019 Esophagogastroduodenoscopy Jason LUNA Start: 02-18-2019 Cystourethroscopy with dilation of urethral stricture Jason LUNA Start: 05-14-2013 Colonoscopy Jason LUNA Acquired trigger finger (disorder) Jason LUNA Comment on above: right section Jason Sexton section Jason Sexton Decompression of median nerve Jason LUNA Endometrial biopsy Jason JOINER Ligation of fallopian tube Luz LUNA neck surgery ablation Rosalio sexton AMBERL Repair of left inguinal hernia Jason CHERYL Repair of stress inc ontinence by suprapubic sling Jason CHERYL Plan of Treatment Date Care Activity Detail Author Start: 2032 Screening for malign ant neoplasm of colon [facility] Start: 2023 End: 2023 Patient encounter procedure [facility] Comment on above: Arrived Start: 10-12-2023 Influenza vaccination Influenza Vacc ine (#1) [facility] Start: 1999 Screening for malign ant neoplasm of breast Mammogram [facility] Start: 11-26-1989 Screening for malign ant neoplasm of cervix [facility] Start: 11-26-1980 Screening for malign ant neoplasm of cervix Pap Smear [facility] Start: 1959 Screening for malign ant neoplasm of colon [facility] Immunizations Immunization Date Immunization Notes Care Provider Fa [facility] 02-07-2022 SARS-CoV-2 (COVID-19 ) [id number] Jason CHERYL [facility] 12-07-2021 influenza virus vaccine, unspecified formulation Byron Gomez MD Work Phone: [facility] 01-03-2021 SARS-CoV-2 (COVID-19 ) mRNA-1273 vaccine Jason LUNA [facility] Comment on above: Result Comment: 2022: [id number] 05-26-2020 SARS-CoV-2 (COVID-19 ) mRNA-1273 vaccine Jason AMBERL [facility] 04-28-2020 SARS-CoV-2 (COVID-19 ) mRNA-1273 vaccine Jason CLARKL [facility] 11-10-2018 influenza virus vaccine, live, attenuated, for intranasal use Jason LUNA [facility] Payers Date Payer Category Payer Private Health Insurance [employer] [id number] 2022 Unknown [employer] [id number] 2022-Present [phone] [address] [address] [place] [address] [id number] 2022 Unknown [id number] 1960 Unknown [id number] 2.16.840.1.479386.3.579. 2.593 1959 Unknown [id number] 2.16.840.1.848788.3.579. 2.593 1959 Unknown [id number] 2.16.840.1.549341.3.579. 2.593 1959 Unknown [id number] 2.16.840.1.091084.3.579. 2.593 1959 Unknown [id number] 2.16.840.1.558383.3.579. 2.593 1959 Unknown [id number] 2.16.840.1.277355.3.579. 2.593 1959 Unknown [id number] 2.16.840.1.042347.3.579. 2.593 1959 Unknown [id number] 2.16.840.1.279602.3.579. 2.593 1959 Unknown [id number] 2.16.840.1.361402.3.579. 2.593 1959 Unknown [id number] 2.16.840.1.875222.3.579. 2.593 1959 Unknown [id number] 2.16.840.1.739377.3.579. 2.593 1959 Unknown [id number] 2.16.840.1.892392.3.579. 2.727 1959 Unknown [id number] 2.16.840.1.066259.3.579. 2.727 1959 Unknown [id number] 2.16.840.1.340716.3.579. 2.727 1959 Unknown [id number] 2.16.840.1.558465.3.579. 2.1259 1959 Unknown [id number] 2.16.840.1.593287.3.579. 2.1259 1959 Unknown [id number] 2.16.840.1.338368.3.579. 2.1259 1960 Self-pay [id number] 1960 Unknown [id number] 2.16.840.1.990151.19 Social History Date Type Detail Facility Start: 07-23-2023 Sex Assigned At [facility] Start: 09-09-2022 End: 08-12-2023 Tobacco smoking status [facility] smoked tobacco (finding) [facility] Tobacco smoking status Never [facility] Start: 09-09-2022 Tobacco use and exposure Smokeless tobacco non-user [facility] Start: 07-23-2023 Alcoholic beverage intake Lifetime non-drinker (finding) [facility] Start: 07-23-2023 History of Social function [facility] Start: 09-09-2022 Alcohol Comment Caffeine intak e: 1-2 cups per day [facility] Start: 1960 Sex assigned at Not on file [facility] Functional Status Date Assessment Result Facility 08-12-2023 Functional Status N/A [facility] [place] Clinical Notes 02-19-2021 to 2023 Migdalia Joyce MD - 2023 8:15 AM EDTTelephone Encounter - Theodore Das - 11/12/2023 9:26 AM EDTTelephone Encounter - Theodore Das - 11/12/2023 9:26 AM EDT Note Date & Type Note Facility 2023 History of Present illness Narrative Assessment/Plan brow ptosis od Symptomatic Rba explained including scarring Visually Significant Cataract, OU: I discussed the risks, benefits, alternatives, and expectations of cataract surgery. A complete ophthalmic exam was performed and it was determined that the cataracts were a primary source of vision decline, affecting activities of daily living, necessitating removal. Limited vision post-surgery may occur with pre-existing conditions affecting other areas of the eye or the brain was explained and the patient displayed an understanding. The overall objective is to improve ADLs, not eliminate glasses or restore vision to 20/20. Tests were reviewed - the different lens options were explained including the axp-xj-ulsela fees for any upgrades. Intraocular lens (IOL) selection may be altered either prior to or during the procedure based on the doctor's discretion including reverting to a traditional intraocular lens (IOL). They understood that there will exist the potential of glasses prescription need post surgery for near, distance or possibly both. The patient stated a full understanding and a desire to proceed with the procedure. The patient received cataract measurements and had any additional questions answered. - A complete exam was performed including a physical exam: General: AAOx3 and NAD, Lungs: Clear, Heart: RRR, Abdomen: S/NT/ND, Extremities: no pitting edema. documented in this encounter [facility] 11-12-2023 Telephone encounter Note L/m again for pt to make an appt 11/12/23 [facility] 11-12-2023 Miscellaneous Notes L/m again for pt to make an appt 11/12/23 Needs appt documented in this encounter [facility] 11-10-2023 Telephone encounter Note Needs appt [facility] 08-12-2023 Note General Surgery Offi ce/Clinic Note [...] Immunizations Vaccine Date Status Comments SARS-CoV-2 (COVID-19) mRNAMUL.[id number] 02/07/2022 Recorded SARS-CoV-2 (COVID-19) mRNA-1273 vaccine 01/03/2021 Recorded 2022-10-28: [id number] SARS-CoV-2 (COVID-19) mRNA-1273 vaccine 05/26/2020 Recorded SARS-CoV-2 (COVID-19) mRNA-1273 vaccine 04/28/2020 Recorded influenza virus vaccine, live, trivalent 11/10/2018 Recorded [facility] Comment on above: Result Comment: Elec tronically [...] 40 mg= 1 (more content not included)... [facility] Comment on above: Result Comment: Elec tronically [...] We will help arrange this for her. [facility] Other 01-10-2022 Evaluation note* Encounter Date Diagnosis [...] hopes. She understands and wishes to proceed. [facility] Other Evaluation + Plan note No data available for this section [facility] [place] Evaluation note* Diagnosis Chronic rhinitis [facility] Brow ptosis- Primary Visual field loss Cortical age-related cataract of both eyes [facility] this [facility] [...] History thyroid Surgical History x 2 1982, 84 Surgical History hernia repair 1995 Surgical History carpal tunnel release 2010 Surgical History trigger finger release 2011 Surgical History bladder sling 2010 Hospitalization History see sx hx [facility] Other Hospital Discharge instructions No data available for this section [facility] [place] Progress note No data available for this section [facility] [place] Summary Purpose Family History No Family History Records FoundNo Family History Records Found No data available for this section No Family History Records FoundNo Family History Records Found Advance Directives No Advanced Directives Records FoundNo Advanced Directives Records FoundNo Advanced Directives Records FoundNo Advanced Directives Records Found Additional Source Comments INFORMATION SOURCE (unrecogn ized section and content) DATE CREATED AUTHOR 03/26/2021 [facility] DATE CREATED AUTHOR AUTHOR'S ORGANIZ ATION 05/18/2022 [facility] [place] DATE CREATED AUTHOR AUTHOR'S ORGANIZ ATION 08/14/2023 [facility] DATE CREATED AUTHOR AUTHOR'S ORGANIZ ATION 11/29/2023 [facility] d[facility] Specialists EPIC REASON FOR VISIT (unrecogniz ed section and content) Reason Comments Med Refill Reason Comments Ptosis Blurred Vision Patient Care team informatio n (unrecognized section and content) [employer] Relationship Specialty Start Date End Date Nick Flores MD [address] [place] [address] PCP - General Family Medicine 02/06/23 Kell Del Cid DO [address] [place] [address] Referring Physician Neurology 04/30/23 [employer] Relationship Specialty Start Date End Date Nick Flores MD [address] [place] [id number] PCP - General Family Medicine 02/06/23 Kell Del Cid DO [address] [place] [address] Referring Physician Neurology 04/30/23 [employer] Relationship Specialty Start Date End Date Nick Flores MD [address] [facility] [place] [address] PCP - General Family Medicine 02/06/23 Kell Del Cid DO [address] [place] [address] Referring Physician Neurology 04/30/23 FOR RECORDS PERTAINING [...] BE BASED ON THE PRIMARY CLINICAL RECORDS. [employer] [facility]. provides no warranty or guarantee of the accuracy or completeness of information in this document.
[2023-12-11 16:10] LABS: Age Gdln ACOG Testing Note (.); HPV Aptima Negative (Negative); IGP, Aptima HPV, rfx 16/18,45 Note (.)
== END 2023-12-04 11:57 | disposition home or self-care (01) ==
LOC: LAB 11:56
PROVIDERS: PCP Family Medicine; Visit Provider Nurse Practitioner Family
DX: Z01.419 Encounter for gynecological examination (general) (routine) without abnormal findings (principal)
CPT/HCPCS: 87624; 88175

== ENCOUNTER 2023-12-19 08:53 | Outpatient (OUT) | payer OTHER, SELFPAY ==
--- NOTE | 2023-12-19 09:00 | MM_ITS ---
Patient Name: CLAIRE ZEE MR#: [id number] : 1960 Exam Date: 12/19/2023 Ordering Doctor: MAULIK STANLEY CNP RADIOLOGY REPORT PROCEDURE: MM TOMOSYNTHESIS SCREENING BI COMPARISON: MM TOMOSYNTHESIS SCREENING BI, 12/13/2022. MG MAMM SCREEN 3D TIFFANIE CAD, 12/14/2021. MG MAMM SCREEN 3D TIFFANIE CAD, 11/30/2020. MG MAMM TIFFANIE SCRN W CAD DIG, 12/01/2012. INDICATIONS: Screening Calculator Name NCI Breast Cancer Risk Assessment Tool 5 Year Breast Cancer Risk 1.30% Lifetime Breast Cancer Risk 5.30% Personal Breast Cancer No Personal Ovarian Cancer No Treatments None Family Cancers Mother with leukemia cancer at age 84; Father with lung cancer at age 74. LOCATION: [facility] BREAST COMPOSITION: The breasts are extremely dense, which lowers the sensitivity of mammography. FINDINGS: DIAGNOSTIC CATEGORY 1--NEGATIVE. RIGHT BREAST: No significant suspicious finding. No significant change has occurred. LEFT BREAST: No significant suspicious finding. No significant change has occurred. RECOMMENDATIONS: ROUTINE MAMMOGRAM AND CLINICAL EVALUATION IN 12 MONTHS. PLEASE NOTE: A NORMAL MAMMOGRAM DOES NOT EXCLUDE THE POSSIBILITY OF BREAST CANCER. A CLINICALLY SUSPICIOUS PALPABLE LUMP SHOULD BE BIOPSIED. Dictated by: Tenzin Coe M.D. on 12/19/2023 at 12:02 Approved by: Tenzin Coe M.D. on 12/19/2023 at 12:04
--- OUTSIDE RECORDS SUMMARY | 2023-12-19 09:10 | XMS_ITS | CCD ---
Author Organization [facility] Care Team Providers Care Outsole Rounder Name Role Phone Kristine Chavez Unavailable HOY [...] Unavailable HOY ., DR ROMERO Attending Unavailable [place], DR JAMIE York Consulting Unavailable HOY ., [...] MAULIK Consulting Unavailable MAULIK STANLEY Admitting Unavailable CHELSEA .DEREK Attending Unavailable CHELSEA .DEREK Admitting Unavailable SANDRA .DR ROMERO Primary Care Unavailable Nick Flores Primary Care Physician Jason LUNA Attending Unavailable Nick Flores Referring Unavailable Jason LUNA Attending Unavailable Jason LUNA Attending Unavailable Nick Flores MD Primary Care Provider [phone] Nehemias SCHMID Kell Unavailable MIGDALIA JOYCE Attending Unavailable STEVE BALLESTEROS Referring Unavailable KACEY HARPER Attending Unavailable MIGDALIA JOYCE Attending Unavailable PHOEBE CEE Attending Unavailable Allergies Allergy Classification Reported Allergen(s) Allergy Type Date of Onset Reaction(s) Facility Promethazine (1 source) Promethazine; Translations: [promethazine] Drug Allergy Spasm (finding) [facility] Quinolones (antibiotic) (1 source) Ciprofloxacin; Translations: [ciprofloxacin] Drug Allergy Unknown (qualifier value) [facility] (7 sources) Ciprofloxacin Drug Allergy 3 Unknown [facility] (7 sources) Promethazine Drug Allergy 4 Unknown [facility] (2 sources) Ciprofloxacin; Translations: [Cipro] Drug Allergy 0 [facility] (3 sources) Levamisole; Translations: [Phenergan] Drug Allergy 4 [facility] Medications Current Medications Medication Drug Class(es) Dates Sig (Normalized) Sig (Original) Grisel Allergy 180 MG (2 sources) take 1 tablet by mouth once daily as needed Grisel Allergy 180 MG 1 tablet as needed Orally Once a day prn Active amoxicillin 875 mg / clavulanate 125 mg oral tablet (2 sources) Penicillin-class Antibacterial Start: 12-16-2023 End: 12-26-2023 take 1 tablet by mouth in the morning amoxicillin-clav ulanate (Augmentin) 875-125 MG tablet Indications: Dog bite of right lower leg, initial encounter Take 1 tablet (875 mg) by mouth in the morning and 1 tablet (875 mg) before bedtime. Do all this for 10 days. 20 tablet 12/16/2023 12/26/2023 Active aspirin 81 mg delayed release oral tablet (7 sources) Platelet Aggregation Inhibitor, Nonsteroidal Anti-inflammatory Drug take 1 tablet by mouth in the morning aspirin 81 MG EC tablet Take 81 mg by mouth in the morning. Active take 1 tablet by mouth once gurdeep y Aspirin Adult 325 MG 1 tablet Orally Once a day Active azelastine hydrochloride 0.137 mg/actuat metered dose nasal spray (10 sources) Histamine-1 Receptor Antagonist Start: 09-09-2022 take [...] Calcium Active celecoxib 50 mg oral capsule (6 sources) Nonsteroidal Anti-inflammatory Drug Start: 3 take [...] Oil Active gabapentin 300 mg oral capsule (8 sources) Anti-epileptic Agent Start: 9 take 1 capsule by mouth once daily gabapentin 300 mg Cap 300 mg = 1 cap(s), Oral, Daily Start Date: 02/09/19 Status: Ordered Gabapentin 300 M G TK 2 CS PO QHS Oral for 90 Active Magnesium glycinate (1 source) Start: 07-28-2023 take 1 tablet by mouth twice daily magnesium glycinate = 1 tab(s), Oral, BID, Refills(s) 0 Start Date: 07/28/23 Status: Ordered meclizine hydrochloride 25 mg oral tablet (8 sources) Antiemetic Start: 10-28-2022 take 1 tablet [...] 90 Active montelukast 10 mg oral tablet (7 sources) Leukotriene Receptor Antagonist Start: 01-28-20 19 [...] pantoprazole 40 mg delayed release oral tablet (8 sources) Proton Pump Inhibitor Start: 04-13-19 20 take 1 tablet by mouth once daily Pantoprazole [address] Tab 40 mg = 1 tab(s), Oral, Daily Start Date: 04/13/19 Status: Ordered take 1 tablet by sabiha th every twenty-four hours Pantoprazole Sodium 20 MG 1 tablet Orall y Once a day Active pramipexole dihydrochloride 0.5 mg oral tablet (8 sources) Nonergot Dopamine Agonist Start: 10-28-2022 take [...] bedtime. Active tiZANidine 4 mg oral tablet (5 sources) Central alpha-2 Adrenergic Agonist Start: 07-28-2023 tiZANidine 4 mg Tab as directed, Refills(s) 0 Start Date: 07/28/23 Status: Ordered take 1 capsule by mo ut in the morning, then take 1 capsule by mouth in the evening, then take 1 capsule by mouth at bedtime tiZANidine (Zanaflex) 4 MG capsule Take 4 mg by mouth in the morning and 4 mg in the evening and 4 mg before bedtime. Active take 1 tablet by sabiha th once daily at bedtime tiZANidine HCl 4 MG TAKE 1 TABLET BY SABIHA TH EVERYDAY AT BEDTIME Oral for 30 Active valACYclovir 1000 mg oral tablet (8 sources) Herpesvirus Nucleoside Analog DNA Polymerase Inhibitor, Herpes Simplex Virus Nucleoside Analog DNA Polymerase Inhibitor, Herpes Zoster Virus Nucleoside Analog DNA Polymerase Inhibitor Start: 11-28-2023 valACYclovir (Valtr ex) 1 g tablet 11/28/2023 Active Start: 10-28-2022 take 1 tablet by sabiha th once daily valacyclovir 1 g Tab 1 [...] NEEDED FOR VERTIGO Oral for 14 Not-Taking ibuprofen 800 mg oral tablet (7 sources) Nonsteroidal Anti-inflammatory Drug End: 12-16-2023 ibuprofen 800 MG tablet Take 400 mg by mouth every 6 (six) hours if needed for mild pain. 12/16/2023 Discontinued take 1 tablet by sabiha th three times daily at mealtime as needed Ibuprofen 800 MG 1 tablet with food or milk as needed Orally Three times a day Active levothyroxine sodium 0.075 mg oral tablet (10 sources) l-Thyroxine Start: 02-09-2019 take 1 tablet by mouth once daily levothyroxine 75 mcg (0.075 mg) Tab 75 microgram = 1 tab(s), Oral, Daily Start Date: 02/09/19 Status: Ordered take 1 tablet by mouth before me altime levothyroxine (Synthroid, Levoxyl) 100 MCG tablet Take 100 mcg by mouth in the morning. Take before meals. Active levothyroxine (S ynthroid, Levoxyl) 75 MCG tablet Take by mouth Daily before meals. Active Levothyroxine So dium 50 MCG TK 1 T PO Q DAY Oral for 90 Active traMADol hydrochloride 50 mg oral tablet (5 sources) Opioid Agonist End: 12-16-2023 traMADol (Ultram) 50 MG tablet Take by mouth. 12/16/2023 Discontinued Problems Active Problems Problem Classification Problem Date Documented Da te Episodic/Chronic Blindness and vision defects (1 source) Visual field defect; Translations: [Unspecified visual field defects] 2023 Episodic Cataract (1 source) Bilateral cortical age-related cataract eyes; Translations: [Cortical age-related cataract, bilateral] 2023 Chronic Esophageal disorders (6 sources) Gastroesophageal reflux disease; Translations: [Gastro-esophageal reflux [...] disorders (1 source) Depressive disorder 07-28-2023 Chronic Open wounds of extremities (2 sources) Dog bite of lower leg; Translations: [Open bite, right lower leg, initial encounter] 12-16-2023 Episodic Osteoarthritis (1 source) Osteoarthritis 02-09-2019 Chronic Other connective tissue disease (3 sources) Fibromyalgia; Translations: [Fibromyalgia] 10-28-2022 Episodic Other diseases of bladder and urethra (1 source) 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-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 Episodic Other eye disorders (1 source) Ptosis of eyebrow; Translations: [Brow ptosis, unspecified] 2023 Episodic Other gastrointestinal disorders (1 source) Occult blood in stools 11-05-2022 Episodic Other hereditary and degenerative nervous system conditions (6 sources) Restless legs; Translations: [Restless legs syndrome] Onset: 4 10-28-2022 Chronic Other nervous system disorders (3 sources) Carpal tunnel syndrome; Translations: [Carpal tunnel syndrome, bilateral upper limbs] 02-09-2019 Chronic Other nervous system disorders (1 source) Autonomic neuropathy 02-09-2019 Chronic Other nervous system disorders (5 sources) Circadian rhythm sleep disorder of shift [...] rhinitis] 11-06-2023 Chronic Other upper respiratory disease (5 sources) Vasomotor rhinitis; Translations: [Vasomotor rhinitis] Onset: 3 09-09-2022 Chronic Residual codes; unclassified (1 source) Sleep apnea 02-09-2019 Chronic Residual codes; unclassified (5 sources) Obstructive sleep apnea syndrome; Translations: [Obstructive sleep apnea (adult) (pediatric)] Onset: 4 07-23-2023 Chronic Residual codes; unclassified (5 sources) Daytime somnolence; Translations: [Other hypersomnia] Onset: [...] [Otalgia, bilateral] Episodic Other lower respiratory disease (5 sources) Snoring; Translations: [Snoring] Onset: 07-23-2023 07-23-2023 [...] AMNESIA] Onset: 10-23-2021 Episodic Residual codes; unclassified (5 sources) Insomnia; Translations: [Insomnia, unspecified] Onset: 07-23-2023 [...] you for choosing us for your care. [facility] Physician Referralon 024 Physician Referral [id number] [facility] Reminderson 07-28-2023 Reminders - From: uNrys Boone LPN To: N - Clinical; Sent: 07/28/2023 11:21:37 EDT Show up: 10/28/2032 07:00:00 EDT Subject: colonoscopy recall Due Date/Time: 2032 07:00:00 EDT Reminder/Recall Patient due for screening colonoscopy 2032. [facility] Outside Colonoscopyon 2022 Outside Colonoscopy [id number] [facility] Insurance Correspondenceon 0 11-07-2022 Insurance Correspondence [id number]:127 [facility] Consultation Noteon 11-07-19 Consultation Note [id number]#[id number]:127 [facility] Ambulatory Visit Summaryon 0 11-05-2022 Ambulatory [...] long-term use Pain in unspecified joint Normal [facility] Physician Referralon 023 Physician Referral [id number]:127 Normal [facility] MG MAMM SCREEN 3D TIFFANIE CADon 12-14-2021 MG MAMM SCREEN 3D TIFFANIE CAD Patient: JEANNA ZEE Exam Date: 12/14/2021 : 1960 Gender:F Ordering : DR NICK FLORES . Admission #: [id number] Family : Order #: [id number] CLICK HERE TO VIEW EXAM RADIOLOGY REPORT [...] lung cancer at age 73. LOCATION: [facility] BREAST COMPOSITION: Extremely dense, which lowers the [...] Jamie Smith MD on 12/14/2021 at 08:02 [facility] PAP ACOG PANEL 2: 30 to 65on 12-14-2021 . . Normal [facility] Comment on above: Result Comment: Perf ormed at: WB Performed By: #### [id number] #### [facility] [address] [address] [address] Daly Gordon Age Gdln ACOG Testing 30-65 Normal [facility] Comment on above: Performed By: #### 4 [id number] #### [facility] [address] [address] [address] Daly Gordon DIAGNOSIS: Comment Normal [facility] Comment on above: Result Comment: NEGA TIVE FOR INTRAEPITHELIAL LESION OR MALIGNANCY. CELLULAR CHANGES ASSOCIATED WITH ATROPHY ARE PRESENT. Performed at: WB Performed By: #### 4 [id number] #### [facility] [address] [place] [address] Dr. Daly Gordon HPV Aptima Negative Normal Negative [facility] Comment on above: Result Comment: This nucleic acid amplification test detects fourteen high-risk HPV types (16,18,31,33,35,39,45,51,52,56,58,59,66,68) without differentiation. Performed at: =G Performed By: #### 4 [id number] #### [facility] [address] [place] [address] Dr. Daly Gordon HPV Genotype Reflex Comment Normal [facility] Comment on above: Result Comment: Crit eria not met, HPV Genotype not performed. Performed at: WB Performed By: #### 4 [id number] #### [facility] [address] [place] [address] Dr. Daly Gordon Methodology: Comment Normal [facility] Comment on above: Result Comment: This liquid based ThinPrep(R) pap test was screened with the use of an image guided system. Performed at: WB Performed By: #### 4 [id number] #### [facility] [address] [place] [address] Dr. Daly Gordon Note: Comment Normal [facility] Comment on above: Result Comment: The Pap smear is a screening test designed to aid in the detection of premalignant and malignant conditions of the uterine cervix. It is not a diagnostic procedure and should not be used as the sole means of detecting cervical cancer. Both false-positive and false-negative reports do occur. . Performed at: WB Performed By: #### 4 [id number] #### [facility] [address] [place] [address] Dr. Daly Gordon Performed by: Comment Normal [facility] Comment on above: Result Comment: Radha Marrero, Quality Technician Performed at: WB Performed By: #### 4 [id number] #### [facility] [address] [place] [address] Dr. Daly Gordon Specimen adequacy: Comment Normal [facility] Comment on above: Result Comment: Sati sfactory for evaluation. Endocervical component may not be distinguished in cases of atrophy. Performed at: WB Performed By: #### 4 [id number] #### [facility] [address] [address] [address] Daly Gordon MRI BRAIN WO W CONon 022 MRI BRAIN W CON EXAMINATION: MRI BRA IN WO [...] ARLET BUTLER Date: 2021-10-24 07:26 Normal [facility] OCC BLD IMMUNO SCREENon OCCULT BLOOD Negative Normal NEGATIVE [facility] Comment on above: Performed By: #### O BSCRN #### [facility] [address] [address] [address] Daly Gordon INSULINon 10-17-2021 Insulin 16.8 uIU/mL Normal 2.6-24.9 [facility] Comment on above: Performed By: #### I NSULIN #### [facility] [address] [address] [address] Daly Gordon T4, T3U, FTI LABCORPon 10-17 Free Thyroxine Index 3.0 Normal 1.2-4.9 [facility] Comment on above: Performed By: #### T HYLC #### [facility] [address] [address] [address] Daly Gordon T3 Uptake 41 % Critically high 24-39 [facility] Comment on above: Performed By: #### T HYLC #### [facility] [address] [address] [address] Daly Gordon T4 [Mass/Vol] 7.4 ug/dL Normal 4.5-12.0 [facility] Comment on above: Performed By: #### T HYLC #### [facility] [address] [address] [address] Daly Gordon VIT D 25-OH LABCORPon 2021 Vitamin D, 25-Hydroxy 42.7 ng/mL Normal 30.0-100.0 [facility] Comment on above: Result Comment: Ofelia min D deficiency has been defined by the [place] of [employer] and an Endocrine Society practice guideline as a level of serum 25-OH vitamin D less than 20 ng/mL (1,2). The Endocrine Society went on to further define vitamin D insufficiency as a level between 21 and 29 ng/mL (2). 1. IOM ([place] of [employer]). 2010. Dietary reference intakes for calcium and D. [place]: The National Academies Press. 2. Red MF, Dae NC, Demetrice AKERS, et al. Evaluation, treatment, and prevention of vitamin D deficiency: an Endocrine Society clinical practice guideline. JCEM. 2010; 96(7):1911-30. Performed By: #### V ITADLC #### [facility] [address] [address] [address] Daly Gordon CBC AUTO DIFFon 10-13-2021 BASO # 0.1 103/ul Normal 0.0-0.1 [facility] Comment on above: Performed By: #### C BC ####[facility] [address] [address]Dr. Daly Gordon Basophils/100 WBC (Bld) 0.7 % Normal 0.2-2.0 [facility] Comment on above: Performed By: #### C BC ####[facility] [address] [address]DrShea Gordon EO # 0.2 103/ul Normal 0.0-0.7 [facility] Comment on above: Performed By: #### C BC ####[facility] [address] [address]Dr. Daly Gordon Eosinophils/100 WBC (Bld) 2.6 % Normal 0.9-7.0 [facility] Comment on above: Performed By: #### C BC ####[facility] [address] [place], [place] [address]Dr. Daly Gordon Erythrocyte distribution width (RBC) [Ratio] 12.5 % Normal 11.0-15.0 [facility] Comment on above: Performed By: #### C BC ####[facility] [address] [place], [place] [address]Dr. Daly Gordon Hematocrit (Bld) [Volume fraction] 42.4 % Normal 36.0-48.0 [facility] Comment on above: Performed By: #### C BC ####[facility] [address] [place], [place] [address]Dr. Daly Gordon Hemoglobin (Bld) [Mass/Vol] 13.9 g/dL Normal 12.0-16.0 [facility] Comment on above: Performed By: #### C BC ####[facility] [address] [place], [place] [address]Dr. Daly Gordon IG # 0.01 10e3/ul Normal 0.00-0.03 [facility] Comment on above: Performed By: #### C BC ####[facility] [address] [place], [place] [address]Dr. Daly Gordon IG % 0.1 % Normal 0.0-0.5 [facility] Comment on above: Performed By: #### C BC ####[facility] [address] [place], [place] [address]Dr. Daly Gordon LYMPH # 2.2 103/ul Normal 1.2-3.8 [facility] Comment on above: Performed By: #### C BC ####[facility] [address] [place], [place] [address]Dr. Daly Gordon Lymphocytes/100 WBC (Bld) 29.4 % Normal 20.5-60.0 [facility] Comment on above: Performed By: #### C BC ####[facility] [address] [address]Dr. Daly Gordon MANUAL DIFF REQ NO Normal [facility] Comment on above: Performed By: #### C BC ####[facility] [address] [address]Dr. Daly Gordon MCH (RBC) [Entitic mass] 30.1 pg Normal 26.7-34.0 [facility] Comment on above: Performed By: #### C BC ####[facility] [address] [address]Dr. Daly Gordon MCHC (RBC) [Mass/Vol] 32.8 g/dL Normal 29.9-35.2 [facility] Comment on above: Performed By: #### C BC ####[facility] [address] [place], [place] [address]Dr. Daly Gordon MCV (RBC) [Entitic vol] 91.8 fL Normal 81.0-99.0 [facility] Comment on above: Performed By: #### C BC ####[facility] [address] [place], [place] [address]Dr. Daly Gordon MONO # 0.5 103/ul Normal 0.3-0.8 [facility] Comment on above: Performed By: #### C BC ####[facility] [address] [place], [place] [address]Dr. Daly Gordon Monocytes/100 WBC (Bld) 6.6 % Normal 1.7-12.0 [facility] Comment on above: Performed By: #### C BC ####[facility] [address] [place], [place] [address]Dr. Daly Gordon NEUT # 4.5 103/ul Normal 1.4-6.5 [facility] Comment on above: Performed By: #### C BC ####[facility] [address] [place], [place] [address]Dr. Daly Gordon Neutrophils/100 WBC (Bld) 60.6 % Normal 43.0-75.0 [facility] Comment on above: Performed By: #### C BC ####[facility] [address] [address]Dr. Daly Gordon Platelet mean volume (Bld) [Entitic vol] 9.1 fL Critically low 9.5-13.5 [facility] Comment on above: Performed By: #### C BC ####[facility] [address] [address]Dr. Daly Gordon PLT 236 103/ul Normal 150-450 [facility] Comment on above: Performed By: #### C BC ####[facility] [address] [address]Dr. Daly Gordon RBC 4.62 106/ul Normal 4.20-5.40 [facility] Comment on above: Performed By: #### C BC ####[facility] [address] [address]Dr. Daly Gordon WBC 7.4 103/ul Normal 4.0-11.0 [facility] Comment on above: Performed By: #### C BC ####[facility] [address] [address]DrShea Gordon GLYCOHEMOGLOBIN A1Con 2021 ADA RECOMMENDATION SEE BELOW Normal [facility] Comment on above: Result Comment: ADA RECOMMENDED LIMIT 4.0 - 6.0 ADA THERAPEUTIC TARGET < 7.0 ACTION SUGGESTED > 7.0 Performed By: #### A 1C #### [facility] [address] [address] [address] Daly Gordon Glucose [Mass/Vol] 128 mg/dL Normal [facility] Comment on above: Performed By: #### A 1C #### [facility] [address] [address] [address] Daly Gordon HbA1c (Bld) [Mass fraction] 6.1 % Normal 4.5-6.2 [facility] Comment on above: Performed By: #### A 1C #### [facility] [address] [address] [address] Daly Gordon IRONon 10-13-2021 Iron [Mass/Vol] 89.0 ug/dL Normal 50.0-170.0 [facility] Comment on above: Performed By: #### B 12FOL, IRON #### [facility] [address] [place], [place] [address] Dr. Daly Gordon LIPID PROFILEon 10-13-2021 CHOL-HDL RATIO NORM SEE BELOW Normal [facility] Comment on above: Result Comment: 3.3 - 4.4 LOW RISK 4.4 - 7.1 AVERAGE RISK 7.1 - 11.0 MODERATE RISK >11.0 HIGH RISK Performed By: #### L IPID, TSH, CMP ####[facility] [address] [place], [place] [address]Ft. Daly Gordon Cholesterol [Mass/Vol] 176 mg/dL Normal <=200 [facility] Comment on above: Performed By: #### L IPID, TSH, CMP ####[facility] [address] [place], [place] [address]ZvShea Gordon Cholesterol in HDL [Mass/Vol] 58 mg/dL Normal 40-60 [facility] Comment on above: Performed By: #### L IPID, TSH, CMP ####[facility] [address] [place], [place] [address]JiShea Gordon Cholesterol in LDL [Mass/Vol] 110.4 mg/dL Normal [facility] Comment on above: Performed By: #### L IPID, TSH, CMP ####[facility] [address] [place], [place] [address]GiShea Gordon Cholesterol.total/C holesterol in HDL [Mass ratio] 3.0 {ratio} Normal [facility] Comment on above: Performed By: #### L IPID, TSH, CMP ####[facility] [address] [place], [place] [address]Ap. Daly Gordon HDL NORMAL > or = 60 mg/dl - LO W CARDIOVASCULAR RISK <40 mg/dl - HIGH CARDIOVASCULAR RISK Normal [facility] Comment on above: Performed By: #### L IPID, TSH, CMP ####[facility] [address] [place], [place] [address]No. Daly Gordon LDL CALC NORMAL SEE BELOW Normal [facility] Comment on above: Result Comment: <100 mg/dl OPTIMAL 100 - 129 mg/dl NEAR OR ABOVE OPTIMAL 130 - 159 mg/dl BORDERLINE HIGH 160 - 189 mg/dl HIGH >190 mg/dl VERY HIGH Performed By: #### L IPID, TSH, CMP ####[facility] [address] [address]Dr. Daly Gordon Triglyceride [Mass/Vol] 38 mg/dL Normal <=150 [facility] Comment on above: Performed By: #### L IPID, TSH, CMP ####[facility] [address] [address]Dr. Daly Gordon VLDL CALC 7.6 mg/dL Normal [facility] Comment on above: Performed By: #### L IPID, TSH, CMP ####[facility] [address] [address]Dr. Dlay Gordon PROF 14(COMP METB)on 022 Albumin [Mass/Vol] 3.7 g/dL Normal 3.4-5.0 [facility] Comment on above: Performed By: #### L IPID, TSH, CMP ####[facility] [address] [address]Dr. Daly Gordon Albumin/Globulin [Mass ratio] 1.2 {ratio} Normal [facility] Comment on above: Performed By: #### L IPID, TSH, CMP ####[facility] [address] [address]Dr. Daly Gordon ALP [Catalytic activity/Vol] 56 U/L Normal 46-116 [facility] Comment on above: Performed By: #### L IPID, TSH, CMP ####[facility] [address] [address]Dr. Daly Gordon ALT [Catalytic activity/Vol] 29 U/L Normal 14-59 [facility] Comment on above: Performed By: #### L IPID, TSH, CMP ####[facility] [address] [address]Dr. Daly Gordon Anion gap [Moles/Vol] 11.6 mmol/L Normal [facility] Comment on above: Performed By: #### L IPID, TSH, CMP ####[facility] [address] [place], [place] [address]Dr. Daly Gordon AST [Catalytic activity/Vol] 17 U/L Normal 15-37 [facility] Comment on above: Performed By: #### L IPID, TSH, CMP ####[facility] [address] [place], [place] [address]Dr. Daly Gordon Bilirubin [Mass/Vol] 0.4 mg/dL Normal 0.2-1.0 [facility] Comment on above: Performed By: #### L IPID, TSH, CMP ####[facility] [address] [place], [place] [address]Dr. Daly Gordon Calcium [Mass/Vol] 8.6 mg/dL Normal 8.5-10.1 [facility] Comment on above: Performed By: #### L IPID, TSH, CMP ####[facility] [address] [place], [place] [address]Dr. Daly Gordon Chloride [Moles/Vol] 105 mmol/L Normal 98-107 [facility] Comment on above: Performed By: #### L IPID, TSH, CMP ####[facility] [address] [place], [place] [address]Dr. Daly Gordon CO2 [Moles/Vol] 29.6 mmol/L Normal 21.0-32.0 [facility] Comment on above: Performed By: #### L IPID, TSH, CMP ####[facility] [address] [place], [place] [address]Dr. Daly Gordon Creatinine [Mass/Vol] 0.72 mg/dL Normal 0.55-1.02 [facility] Comment on above: Performed By: #### L IPID, TSH, CMP ####[facility] [address] [place], [place] [address]Dr. Daly Gordon EGFR-AF BELIZEAN >60 Normal >=60 [facility] Comment on above: Performed By: #### L IPID, TSH, CMP ####[facility] [address] [place] [address]Dr. Daly Gordon EGFR-NON AF BELIZEAN >60 Normal >=60 [facility] Comment on above: Performed By: #### L IPID, TSH, CMP ####[facility] [address] [place] [address]Dr. Daly Gordon Globulin (S) [Mass/Vol] 3.2 g/dL Normal [facility] Comment on above: Performed By: #### L IPID, TSH, CMP ####[facility] [address] [place] [address]Dr. Daly Gordon Glucose [Mass/Vol] 101 mg/dL Normal 74-106 [facility] Comment on above: Performed By: #### L IPID, TSH, CMP ####[facility] [address] [place], [place] [address]Dr. Daly Gordon Potassium [Moles/Vol] 4.2 mmol/L Normal 3.5-5.1 [facility] Comment on above: Performed By: #### L IPID, TSH, CMP ####[facility] [address] [place], [place] [address]Dr. Daly Gordon Protein [Mass/Vol] 6.9 g/dL Normal 6.4-8.2 [facility] Comment on above: Performed By: #### L IPID, TSH, CMP ####[facility] [address] [place], [place] [address]Dr. Daly Gordon Sodium [Moles/Vol] 142 mmol/L Normal 136-145 [facility] Comment on above: Performed By: #### L IPID, TSH, CMP ####[facility] [address] [place], [place] [address]Dr. Daly Gordon Urea nitrogen [Mass/Vol] 21.0 mg/dL Critically high 7.0-18.0 [facility] Comment on above: Performed By: #### L IPID, TSH, CMP ####[facility] [address] [place] [address]Dr. Daly Gordon Urea nitrogen/Creatinine [Mass ratio] 29.2 mg/mg Normal [facility] Comment on above: Performed By: #### L IPID, TSH, CMP ####[facility] [address] [place], [place] [address]AqDr. Daly Gordon TSHon 10-13-2021 TSH 2.311 uIU/mL Normal 0.358-3.740 [facility] Comment on above: Performed By: #### L IPID, TSH, CMP ####[facility] [address] [place] [id number]. Daly Gordon VIT B12 AND FOLATEon 022 Cobalamin (Vitamin B12) [Mass/Vol] 602.0 pg/mL Normal 193.0-986.0 [facility] Comment on above: Performed By: #### B 12FOL, IRON #### [facility] [address] [place], [place] [address] Dr. Daly Gordon FOLATE 18.70 ng/mL Normal 8.60-58.90 [facility] Comment on above: Performed By: #### B 12FOL, IRON #### [facility] [address] [place], [place] [address] Dr. Daly Gordon US carotid doppler BIon 02-11 US carotid doppler BI [facility] [place] [address] Ultrasound Report Signed Patient: Jeanna Zee MR#: [id number] : 1960 Acct:[id number] Age/Sex: 60 / F ADM Date: 03/05/21 Loc: [facility] Room: Type: [facility] Attending Dr: Kristine Chavez MD Ordering [...] Kristine Chavez MD03/08/2021 5:35 PM Dictation Location: [facility]04 Tech: Albina Wilcox Transcribed By: TERRY 03/08/211734 Dictated By: Kristine Chavez MD 03/08/211733 Signed By: 03/08/211734 [facility] Vital Signs Date Time Vital Sign Value Performing Clinician Facility 12-16-2023 18:29-0500 Body mass index (BMI) [Ratio] 26.09 kg/m2 Phoebe Cee NP Work Phone: [facility] 12-16-2023 18:29-0500 Body temperature 97.39 [degF] Phoebe Neilt NETWORKER Work Phone: [facility] 12-16-2023 18:29-0500 Body weight 68.95 kg Phoebe Neilt NETWORKER Work Phone: [facility] 12-16-2023 18:29-0500 Diastolic blood pressure 80 mm[Hg] Phoebe Pedroepert NETWORKER Work Phone: [facility] 12-16-2023 18:29-0500 Heart rate 81 /min Phoebe Vasquezepert NETWORKER Work Phone: [facility] 12-16-2023 18:29-0500 SaO2% (BldA) [Mass fraction] 95 % Phoebe Neilt NETWORKER Work Phone: [facility] 12-16-2023 18:29-0500 Systolic blood pressure 122 mm[Hg] Phoebe Vasquezepert NETWORKER Work Phone: [facility] 08-12-2023 15:52-0400 Blood Pressure Location Jason NILL [facility] 08-12-2023 15:52-0400 Diastolic blood pressure 72 mm[Hg] Jason NILL [facility] 08-12-2023 15:52-0400 Heart rate 72 /min Jason NILL [facility] 08-12-2023 15:52-0400 Respiratory rate 16 /min Jason NILL [facility] 08-12-2023 15:52-0400 Systolic blood pressure 114 mm[Hg] Jason NILL [facility] 03-05-2021 16:30-0500 Body height 162.56 cm Kristine Chavez Other [employer] Other 03-05-2021 16:30-0500 Body mass index (BMI) [Ratio] 27.46 kg/m2 Kristine Scott Other [employer] Other 03-05-2021 16:30-0500 Body temperature 97.3 [degF] Kristine Scott Other [employer] Other 03-05-2021 16:30-0500 Body weight 72.58 kg Kristine Scott Other [employer] Other 03-05-2021 16:30-0500 Diastolic blood pressure 70 mm[Hg] Kristine Chavez Other [employer] Other 03-05-2021 16:30-0500 SaO2% (BldA) [Mass fraction] 98 % Kristine Chavez Other [employer] Other 03-05-2021 16:30-0500 Systolic blood pressure 110 mm[Hg] Kristine Chavez Other [employer] Other 02-19-2021 16:15-0500 Body height 162.56 cm Kristine Chavez Other [employer] Other 02-19-2021 16:15-0500 Body mass index (BMI) [Ratio] 27.46 kg/m2 Kristine Scott Other [employer] Other 02-19-2021 16:15-0500 Body weight 72.58 kg Kristine Chavez Other [employer] Other 02-19-2021 16:15-0500 Respiratory rate 18 /min Kristine Chavez Other [employer] Other 02-19-2021 16:150500 SaO2% (BldA) [Mass fraction] 98 % Kristine Chavez Other [facility] [employer] Other Encounters Encounter Date Encounter Type Care Provider Facility Start: 12-16-2023 End: 12-16-2023 Office outpatient visit 15 minutes Phoebe A Kiepert NETWORKER Work Phone: [facility] Comment on above: Dog bite of right lo wer leg, initial encounter (Primary Dx) Start: 12-16-2023 End: 12-16-2023 ambulatory PHOEBE A KIEPERT Not Available Start: 2023 End: 2023 Bamboo flowsheet Migdalia [...] 11-12-2023 Refill Byron Gomez MD Work Phone: [facility] Comment on above: Chronic rhinitis Start: 08-12-2023 End: 08-12-2023 ambulatory Jason LUNA Facility:[facility] Start: 08-12-2023 End: 08-12-2023 Patient encounter procedure Jason LUNA [facility] General Surgery Altha Start: 07-23-2023 End: 07-23-2023 ambulatory KACEY HARPER Not Available Start: 02-06-2023 End: 02-06-2023 ambulatory MIGDALIA JOYCE Not Available Start: 2022 End: 2022 ambulatory Jason LUNA Facility:CD:[id number] Start: 11-05-2022 End: 11-05-2022 ambulatory Jason LUNA Facility:[facility] Start: 05-17-[address] KRISTINE [...] 03-05-2021 End: 03-05-2021 ambulatory Kristine Chavez Other [employer] Other Start: 03-05-2021 Office outpatient visit 15 minutes Kristine Chavez [facility] Start: 02-19-2021 End: 02-19-2021 ambulatory Kristine Chavez Other [employer] Other Start: 02-19-2021 Office outpatient ne w 30 minutes Kristine Chavez [facility] Procedures Date Procedure Procedure Detail Performing Clinician Start: 2022 Colonoscopy Byorn Gomez MD Work Phone: Start: 2022 Colonoscopy Jason LUNA Start: 07-21-2019 Esophagogastroduodenoscopy Jason LUNA Start: 02-18-2019 Cystourethroscopy with dilation of urethral stricture Jason LUNA Start: 05-14-2013 Colonoscopy Jason LUNA Acquired trigger finger (disorder) Jason CLARKL Comment on above: right section Jason NIL Nitza section Jason CLARK L Decompression of median nerve Jason NILL Endometrial biopsy Jason JOINER Ligation of fallopian tube Luz LUNA neck surgery ablation Rosalio LUNA Repair of left inguinal hernia Jason LUNA Repair of stress inc ontinence by suprapubic sling Jason LUNA Plan of Treatment Date Care Activity Detail Author Start: 2032 Screening for malign ant neoplasm of colon [facility] Start: 01-22-2024 End: 01-22-2024 Patient encounter procedure 01/22/2024 3:00 PM EST Procedure Visit [facility] [address] [place] [address] Migdalia Joyce MD [address] [place] [address] [facility] Start: 12-25-2023 End: 12-25-2023 Patient encounter procedure 12/25/2023 3:20 PM EST Office Visit [facility] [address] [facility] [address] [place] [address] Cong Zamarripa DPM [address] [facility] [address] [place] [address] [facility] Start: 2023 End: 2023 Patient encounter procedure [facility] Comment on above: Arrived Start: 10-12-2023 Influenza vaccination Influenza Vacc ine (#1) [facility] Start: 1999 Screening for malign ant neoplasm of breast Mammogram [facility] Start: 11-26-1989 Screening for malign ant neoplasm of cervix [facility] Start: 11-26-1980 Screening for malign ant neoplasm of cervix Pap Smear [facility] Start: 1959 Screening for malign ant neoplasm of colon [facility] Immunizations Immunization Date Immunization Notes Care Provider Fa cility 12-16-2023 tetanus toxoid, redu abena diphtheria toxoid, and acellular pertussis vaccine, adsorbed Phoebe Kiepert NETWORKER Work Phone: [facility] 06-29-2022 zoster vaccine recombinant Phoebe Kiepert NETWORKER Work Phone: [facility] 04-27-2022 zoster vaccine recombinant Phoebe Kiepert NETWORKER Work Phone: [facility] 02-07-2022 SARS-CoV-2 (COVID-19 ) mRNAMUL.[id number] Jason LUNA [facility] 12-07-2021 Influenza, injectabl e, Madin Judit Canine Kidney, preservative free, quadrivalent Phoebe Kiepert NETWORKER Work Phone: [facility] 12-07-2021 influenza virus vaccine, unspecified formulation Byron Gomez MD Work Phone: [facility] 01-03-2021 SARS-CoV-2 (COVID-19 ) mRNA-1273 vaccine Jason LUNA [facility] Comment on above: Result Comment: 2022: [id number] 12-21-2020 Influenza, injectabl e, Madin [place] Canine Kidney, preservative free, quadrivalent Phoebe Kiepert NETWORKER Work Phone: [facility] 05-26-2020 SARS-CoV-2 (COVID-19 ) mRNA-1273 vaccine Jason LUNA [facility] 04-28-2020 SARS-CoV-2 (COVID-19 ) mRNA-1273 vaccine Jason LUNA [facility] 11-23-2019 influenza, injectabl e, quadrivalent, preservative free Phoebe Kiepert NETWORKER Work Phone: [facility] 11-10-2018 influenza virus vaccine, live, attenuated, for intranasal use Jason LUNA [facility] 01-31-2014 zoster vaccine, live Phoebe Kiepert NETWORKER Work Phone: [facility] 01-26-2014 zoster vaccine, live Phoebe Kiepert NETWORKER Work Phone: [facility] 03-29-2009 novel [id number], preservative-free, injectable Phoebe Kiepert NETWORKER Work Phone: [facility] Payers Date Payer Category Payer [facility] Health Insurance [facility] [id number] 2022 Unknown [employer] [id number] 2022-Present [phone] [address] [address] [place] [address] [id number] 2022 Unknown [id number] 1960 Unknown [id number] 2.16.840.1.333611.3.579. 2.593 1959 Unknown [id number] 2.16.840.1.593837.3.579. 2.593 1959 Unknown [id number] 2.16.840.1.284066.3.579. 2.593 1959 Unknown [id number] 2.16.840.1.028904.3.579. 2.593 1959 Unknown [id number] 2.16.840.1.858100.3.579. 2.593 1959 Unknown [id number] 2.16.840.1.603851.3.579. 2.593 1959 Unknown [id number] 2.16.840.1.585198.3.579. 2.593 1959 Unknown [id number] 2.16.840.1.163936.3.579. 2.593 1959 Unknown [id number] 2.16.840.1.786607.3.579. 2.593 1959 Unknown [id number] 2.16.840.1.015996.3.579. 2.593 1959 Unknown [id number] 2.16.840.1.709750.3.579. 2.593 1959 Unknown [id number] 2.16.840.1.157523.3.579. 2.727 1959 Unknown [id number] 2.16.840.1.215129.3.579. 2.727 1959 Unknown [id number] 2.16.840.1.235066.3.579. 2.727 1959 Unknown [id number] 2.16.840.1.113559.3.579. 2.1259 1959 Unknown [id number] 2.16.840.1.432757.3.579. 2.1259 1959 Unknown [id number] 2.16.840.1.477878.3.579. 2.1259 1959 Unknown [id number] 2.16.840.1.239231.3.579. 2.1259 1960 Self-pay [id number] 1960 Unknown [id number] 2.16.840.1.336178.19 Social History Date Type Detail Facility Start: 07-23-2023 Sex Assigned At F [facility] Start: 09-09-2022 End: 08-12-2023 Tobacco smoking status Never smoked tobacco (finding) [facility] Tobacco smoking status Never [facility] Start: 09-09-2022 Tobacco use and exposure Smokeless tobacco non-user [facility] Start: 07-23-2023 End: 12-16-2023 Alcoholic beverage intake Lifetime non-drinker (finding) [facility] Start: 07-23-2023 History of Social function [facility] Start: 09-09-2022 Alcohol Comment Caffeine intak e: 1-2 cups per day [facility] Start: 1960 Sex assigned at Not on file [facility] Functional Status Date Assessment Result Facility 08-12-2023 Functional Status N/A [facility] Clinical Notes 02-19-2021 to 12-16-2023 Phoebe Cee NP - 12/16/2023 6:10 PM Ann-Marie Joyce MD - 2023 8:15 AM EDTTelephone Encounter - Theodore Das - 11/12/2023 9:26 AM EDT Note Date & Type Note Facility 12-16-2023 History of Present illness Narrative Historian of HPI: patient Jeanna Zee is a 63 y.o. female who presents today to the Urgent Care with the following complaints and denials which occurred around 4:30- 5pm today C/O Denies Symptom Comments [x] [] Animal bite Caused by: dog [x] [] Location of bite Legs, right [x] [] Pain [x] [] Erythema [x] [] Swelling [] [x] Loss of sensation [x] [] Last Known Tetanus unknown Additional Comments: pt has not taken any OTC medications Physical Exam Vitals and nursing note reviewed. Constitutional: Appearance: Normal appearance. HENT: Head: Normocephalic and atraumatic. Cardiovascular: Pulses: Normal pulses. Heart sounds: Normal heart sounds. Pulmonary: Effort: Pulmonary effort is normal. Breath sounds: Normal breath sounds. Abdominal: General: Bowel sounds are normal. Palpations: Abdomen is soft. Skin: General: Skin is dry. Neurological: Mental Status: She is alert. Psychiatric: Mood and Affect: Mood normal. Skin: Two 1 cm punctures noted on right lower leg. 2.5 cm x 2.5 cm ecchymosis noted. 1. Dog bite of right lower leg, initial encounter (Primary) New medication as directed. Push fluids. Wash area with mild soap and water. Discussed s/s that require immediate evaluation. - amoxicillin-clavulanate (Augmentin) 875-125 MG tablet; Take 1 tablet (875 mg) by mouth in the morning and 1 tablet (875 mg) before bedtime. Do all this for 10 days. Dispense: 20 tablet; Refill: 0 documented in this encounter [facility] 2023 History of Present illness Narrative Assessment/Plan [...] different lens options were explained including the [id number] fees for any upgrades. Intraocular lens (IOL) [...] no pitting edema. documented in this encounter [facility] 11-12-2023 Telephone encounter Note L/m again for pt to make an appt 11/12/23 [facility] 11-12-2023 Miscellaneous Notes L/m again for pt to make an appt 11/12/23 Needs appt documented in this encounter [facility] 11-10-2023 Telephone encounter Note Needs appt [facility] 08-12-2023 Note General Surgery Offi ce/Clinic [...] Immunizations Vaccine Date Status Comments SARS-CoV-2 (COVID-19) mRNAMUL.[id number] 02/07/2022 Recorded SARS-CoV-2 (COVID-19) mRNA-1273 vaccine 01/03/2021 Recorded 2022-10-28: TPV60 SARS-CoV-2 (COVID-19) mRNA-1273 vaccine 05/26/2020 Recorded SARS-CoV-2 (COVID-19) mRNA-1273 vaccine 04/28/2020 Recorded influenza virus vaccine, live, trivalent 11/10/2018 Recorded [facility] Comment on above: Result Comment: Elec brendonally Signed By: CHERYL TAPIA, Jason Guzman\Date and [...] yo female with h/o htn, hypothyroidism, fibromyalgia, LYDNON, referred for positive fecal occult blood; denies [...] 40 mg= 1 (more content not included)... [facility] Comment on above: Result Comment: Elec [...] We will help arrange this for her. [employer] Other 01-10-2022 Evaluation note* Encounter Date Diagnosis [...] hopes. She understands and wishes to proceed. [employer] Other Evaluation + Plan note No data available for this section [facility]* Diagnosis Chronic rhinitis [facility] Diagnosis Brow ptosis- Primary Visual field loss Cortical age-related cataract of both eyes [facility] Diagnosis Dog bite of right lower leg, initial encounter- Primary documented [facility] N[facility]ative - Reported* Type Description [...] sling 2010 Hospitalization History see sx hx [employer] Other Hospital Discharge instructions No data available for this section [facility] Progress note No data available for this section [facility] Summary Purpose Family History No Family History Records FoundNo Family History Records Found No data available for this section No Family History Records FoundNo Family History Records Found Advance Directives No Advanced Directives Records FoundNo Advanced Directives Records FoundNo Advanced Directives Records FoundNo Advanced Directives Records Found Additional Source Comments INFORMATION SOURCE (unrecogn ized section and content) DATE CREATED AUTHOR 03/26/2021 [facility] DATE CREATED AUTHOR AUTHOR'S ORGANIZ ATION 05/18/2022 [facility] DATE CREATED AUTHOR AUTHOR'S ORGANIZ ATION 08/14/2023 [facility] DATE CREATED AUTHOR AUTHOR'S ORGANIZ ATION 12/18/2023 [facility] EPIC REASON FOR VISIT (unrecogniz ed section and content) Reason Comments Med Refill Reason Comments Ptosis Blurred Vision Patient Care team informatio n (unrecognized section and content) Outsole Rounder Relationship Specialty Start Date End Date Nick Flores MD [address] [place] [address] PCP - General Family Medicine 02/06/23 Kell Del Cid DO [address] [place] [address] Referring Physician Neurology 04/30/23 Outsole Rounder Relationship Specialty Start Date End Date Nick Flores MD [address] [place] [address] PCP - General Family Medicine 02/06/23 Kell Del Cid DO [address] [place] [id number] Referring Physician Neurology 04/30/23 Outsole Rounder Relationship Specialty Start Date End Date Nick Flores MD [address] [place] [address] PCP - General Family Medicine 02/06/23 Kell Del Cid DO [address] [place] [address] Referring Physician Neurology 04/30/23 Outsole Rounder Relationship Specialty Start Date End Date Nick Flores MD [address] [place] [address] PCP - General Family Medicine 02/06/23 Kell Del Cid DO [address] [place] [address] Referring Physician Neurology 04/30/23 FOR RECORDS PERTAINING [...] BE BASED ON THE PRIMARY CLINICAL RECORDS. [facility]. provides no warranty or guarantee of the accuracy or completeness of information in this document.
== END 2023-12-19 08:54 | disposition home or self-care (01) ==
LOC: MAMMO 08:53
PROVIDERS: PCP Family Medicine; Visit Provider Nurse Practitioner Family
DX: Z12.31 Encounter for screening mammogram for malignant neoplasm of breast (principal); Z80.6 Family history of leukemia; Z80.1 Family history of malignant neoplasm of trachea, bronchus and lung
CPT/HCPCS: 77063; 77067

== ENCOUNTER 2024-02-02 14:20 | Outpatient (OUT) | payer OTHER, SELFPAY ==
--- NOTE | 2024-02-02 14:28 | ECG_ITS ---
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
[2024-02-02 18:42] LABS: Basophils Absolute Auto 0.1 10^3/uL (0.0-0.1); Basophils Percent Auto 0.8 % (0.2-2.0); Eosinophils Absolute Auto 0.1 10^3/uL (0.0-0.7); Eosinophils Percent Auto 2.3 % (0.9-7.0); Hematocrit 42.5 % (36.0-48.0); Hemoglobin 14.1 g/dL (12.0-16.0); Immature Granulocytes Abs Auto 0.01 10^3/uL (0.00-0.03); Immature Granulocytes Pct Auto 0.2 % (0.0-0.5); Lymphocytes Absolute Auto 1.9 10^3/uL (1.2-3.8); Mean Corpuscular HGB Conc 33.2 g/dL (29.9-35.2); Mean Corpuscular Volume 96.4 fL (81.0-99.0); Mean Platelet Volume 10.8 fL (9.5-13.5); Monocytes Absolute Auto 0.4 10^3/uL (0.3-0.8); Monocytes Percent Auto 6.3 % (1.7-12.0); Neutrophils Absolute Auto 3.6 10^3/uL (1.4-6.5); Neutrophils Percent Auto 59.4 % (43.0-75.0); Platelet Count 224 10^3/uL (150-450); Red Blood Count 4.41 10^6/uL (4.20-5.40)
[2024-02-02 18:57] LABS: Anion Gap 12.1; BUN Creatinine Ratio 23.5; Carbon Dioxide 30.8 mmol/L (21.0-32.0); Chloride 108 mmol/L (98-107); Estimated GFR (African America >60 (>=60 mL/min/1.73m^2); Estimated GFR (Non-African Ame >60 (>=60 mL/min/1.73m^2); Glucose 78 mg/dL (74-106); Potassium 3.9 mmol/L (3.5-5.1); Sodium 147 mmol/L (136-145)
== END 2024-02-02 14:21 | disposition home or self-care (01) ==
LOC: CARD 14:21
PROVIDERS: PCP Family Medicine
DX: Z01.818 Encounter for other preprocedural examination (principal); Z01.810 Encounter for preprocedural cardiovascular examination
CPT/HCPCS: 36415; 80048; 85025; 93005

== ENCOUNTER 2024-06-17 16:26 | Outpatient (OUT) | payer OTHER, SELFPAY ==
--- NOTE | 2024-06-17 16:35 | XR_ITS ---
The [address] [address] Patient Name: CLAIRE ZEE MRN: [id number] date: 1960 Sex: F Assigned Patient Location: [facility] Current Patient Location: Accession/Order Number: [id number] Exam Date: 06/18/2024 09:49 Report Date: 06/18/2024 09:52 At the request of: NICK ARIZA MD Procedure: XR lumbar spine min 4V LUMBAR SPINE - 5 views CLINICAL HISTORY: VERTIGO R42 COMPARISON: None. FINDINGS: Vertebral body and disc space heights appear maintained. Endplate and facet joint degenerative changes. XR/XR lumbar spine min 4V IMPRESSION: ENDPLATE AND FACET JOINT DEGENERATIVE CHANGES. NO SIGNIFICANT DISC HEIGHT LOSS. Impression dictated by: Bassem Dorsey Jr., D.O. 06/18/2024 9:52 AM Dictation Location: [place] [address] Electronically authenticated by: [id number] Y Date: 06/18/2024 09:52
== END 2024-06-17 16:27 | disposition home or self-care (01) ==
LOC: RAD 16:28
PROVIDERS: PCP Family Medicine; Visit Provider Family Medicine
DX: R53.1 Weakness (principal); G25.81 Restless legs syndrome; R42 Dizziness and giddiness; R51.9 Headache, unspecified; M51.369 Other intervertebral disc degeneration, lumbar region without mention of lumbar back pain or lower extremity pain
CPT/HCPCS: 72110

== ENCOUNTER 2024-06-28 06:16 | Emergency (ER) | payer OTHER, SELFPAY ==
[2024-06-28] VITALS (17 sets, daily range): BP systolic 127–160; BP diastolic 70–100; PULSE 70; TEMP 36.6; O2SAT 95–99; BMI 25.7
--- OUTSIDE RECORDS SUMMARY | 2024-06-28 06:27 | XMS_ITS | CCD ---
Author Organization [facility] Care Team Providers Care Geology Technician Name Role Phone Kristine Chavez Unavailable HOY [...] Unavailable HOY ., DR ROMERO Attending Unavailable WARREN, DR JAMIE York Consulting Unavailable HOY ., [...] Consulting Unavailable MAULIK STANLEY Admitting Unavailable CHELSEA ., DEREK Attending Unavailable CHELSEA ., DEREK Admitting Unavailable TO ., DR ROMERO Primary Care Unavailable Nick Flores Primary Care Physician Jason LUNA Attending Unavailable Nick Flores Referring Unavailable Jason LUNA Attending Unavailable Jason LUNA Attending Unavailable Nick Flores MD Primary Care Provider [phone] Kell Del Cid DO Unavailable CONG ZAMARRIPA Attending Unavailable BROWNANUPCONG A Attending Unavailable BROWN, CONG A Referring Unavailable BROWN, CONG A Attending Unavailable BROWN, CONG A Attending Unavailable BROWN, CONG A Attending Unavailable KACEY HARPER Attending Unavailable MIGDALIA JOYCE Attending Unavailable PHOEBE CEE Attending Unavailable DALLIN, CONG A Attending Unavailable DALLIN, CONG A Referring Unavailable ANUP ZAMARRIPAOLAS A Attending Unavailable TAWNY ZAMARRIPAS A Attending Unavailable MIGDALIA JOYCE Attending Unavailable CONG ZAMARRIPA A Attending Unavailable MIGDALIA JOYCE Attending Unavailable DALLIN CONG A Attending Unavailable BROWN CONG A Referring Unavailable Allergies Allergy Classification Reported Allergen(s) Allergy Type Date of Onset Reaction(s) Facility Promethazine (1 source) Promethazine; Translations: [promethazine] Drug Allergy Spasm (finding) [facility] [place] Quinolones (antibiotic) (1 source) Ciprofloxacin; Translations: [ciprofloxacin] Drug Allergy Unknown (qualifier value) [facility] (20 sources) Ciprofloxacin Drug Allergy 3 Unknown [facility] (20 sources) Promethazine Drug Allergy 4 Unknown [facility] (2 sources) Ciprofloxacin; Translations: [Cipro] Drug Allergy 0 [facility] (3 sources) Levamisole; Translations: [Phenergan] Drug Allergy 4 [facility] Medications Current Medications Medication Drug Class(es) Dates Sig (Normalized) Sig (Original) acetaminophen 325 mg / HYDROcodone bitartrate 5 mg oral tablet (6 sources) Opioid Agonist Start: 02-19-2024 End: 02-24-2024 take 1 tablet by mouth every eight hours as needed for pain HYDROcodone-aceta minophen (Lyman) 5-325 MG tablet Indications: Pain Take 1 tablet by mouth every 8 (eight) hours if needed for moderate pain (PRN pain) for up to 5 days 15 tablet 02/19/2024 02/24/2024 Active Start: 01-29-2024 End: 02-03-2024 take 1 tablet by mouth every eight hours as needed for pain HYDROcodone-acetaminophen (Lyman) 5-325 MG tablet Indications: Pain Take 1 tablet by mouth every 8 (eight) hours if needed for moderate pain (PRN pain) for up to 5 days 15 tablet 01/29/2024 02/03/2024 Active Grisel Allergy 180 MG (2 sources) take 1 tablet by mouth once daily as needed Grisel Allergy 180 MG 1 tablet as needed Orally Once a day prn Active amoxicillin 875 mg / clavulanate 125 mg oral tablet (10 sources) Penicillin-class Antibacterial Start: End: take 1 tablet by mouth in the morning amoxicillin-clavul anate (Augmentin) 875-125 MG tablet Indications: Dog bite of right lower leg, initial encounter Take 1 tablet (875 mg) by mouth in the morning and 1 tablet (875 mg) before bedtime. Do all this for 10 days. 20 tablet 12/25/2023 01/04/2024 Active aspirin 81 mg delayed release oral tablet (20 sources) Platelet Aggregation Inhibitor, Nonsteroidal Anti-inflammatory Drug take 1 tablet by mouth in the morning aspirin 81 MG EC tablet Take 81 mg by mouth in the morning. Active take 1 tablet by mouth once gurdeep y Aspirin Adult 325 MG 1 tablet Orally Once a day Active azelastine hydrochloride 0.137 mg/actuat metered dose nasal spray (20 sources) Histamine-1 Receptor Antagonist Start: 09-09-2022 take [...] Calcium Active celecoxib 50 mg oral capsule (20 sources) Nonsteroidal Anti-inflammatory Drug Start: 3 take [...] Oil Active gabapentin 300 mg oral capsule (20 sources) Anti-epileptic Agent Start: 9 take 1 [...] Ordered meclizine hydrochloride 25 mg oral tablet (20 sources) Antiemetic Start: 10-28-2022 take 1 tablet [...] 90 Active montelukast 10 mg oral tablet (20 sources) Leukotriene Receptor Antagonist Start: 01-28-20 19 [...] pantoprazole 40 mg delayed release oral tablet (20 sources) Proton Pump Inhibitor Start: 04-13-19 20 take 1 tablet by mouth once daily Pantoprazole [address] Tab 40 mg = 1 tab(s), Oral, Daily Start Date: 04/13/19 Status: Ordered take 1 tablet by sabiha th every twenty-four hours Pantoprazole Sodium 20 MG 1 tablet Orall y Once a day Active pramipexole dihydrochloride 0.5 mg oral tablet (20 sources) Nonergot Dopamine Agonist Start: 10-28-2022 take [...] bedtime. Active tiZANidine 4 mg oral tablet (20 sources) Central alpha-2 Adrenergic Agonist Start: 07-28-2023 [...] 30 Active valACYclovir 1000 mg oral tablet (20 sources) Herpesvirus Nucleoside Analog DNA Polymerase Inhibitor, [...] Active levothyroxine sodium 0.075 mg oral tablet (20 sources) l-Thyroxine Start: 02-09-2019 take 1 tablet [...] Classification Problem Date Documented Da te Episodic/Chronic Acquired foot deformities (19 sources) Hallux valgus (acquired), right foot; Translations: [Hallux valgus (acquired)] 01-01-2024 Chronic Acquired foot deformities (19 sources) Acquired deformity of toe of right foot; Translations: [Acquired deformities of toe(s), unspecified, right foot] 01-01-2024 Episodic Blindness and vision defects (1 source) Visual field defect; Translations: [Unspecified visual field defects] 2023 Episodic Cataract (1 source) Bilateral cortical age-related cataract eyes; Translations: [Cortical age-related cataract, bilateral] 2023 Chronic Esophageal disorders (20 sources) Gastroesophageal reflux disease; Translations: [Gastro-esophageal reflux [...] disorder 07-28-2023 Chronic Open wounds of extremities (6 sources) Dog bite of lower leg; Translations: [Open bite, right lower leg, initial encounter] 12-16-2023 Episodic Osteoarthritis (1 source) Osteoarthritis 02-09-2019 Chronic Other acquired deformities (6 sources) Contracture of joint of right ankle; Translations: [Contracture, right ankle] 12-25-2023 Chronic Other acquired deformities (2 sources) Contracture of joint of left ankle; Translations: [Contracture, left ankle] 01-29-2024 Chronic Other aftercare (1 source) Surgical follow-up; Translations: [Encounter for surgical aftercare following surgery on the sense organs] 02-02-2024 Episodic Other connective tissue disease (3 sources) Fibromyalgia; Translations: [Fibromyalgia] 10-28-2022 Episodic Other connective tissue disease (17 sources) Plantar fasciitis; Translations: [Plantar fascial fibromatosis] 12-25-2023 Episodic Other diseases of bladder and urethra (1 source) 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-20-2020 Episodic Other eye disorders (2 sources) Ptosis of eyebrow; Translations: [Brow ptosis, unspecified] 2023 Episodic Other gastrointestinal disorders (1 source) Occult blood in stools 11-05-2022 Episodic Other hereditary and degenerative nervous system conditions (20 sources) Restless legs; Translations: [Restless legs syndrome] Onset: 4 10-28-2022 Chronic Other nervous system disorders (3 sources) Carpal tunnel syndrome; Translations: [Carpal tunnel syndrome, bilateral upper limbs] 02-09-2019 Chronic Other nervous system disorders (1 source) Autonomic neuropathy 02-09-2019 Chronic Other nervous system disorders (20 sources) Circadian rhythm sleep disorder of shift [...] the skin and subcutaneous tissue, unspecified] Onset: Episodic Other skin disorders (1 source) Skin lesion 08-12-2023 Episodic Other upper respiratory disease (3 sources) Chronic rhinitis; Translations: [Chronic rhinitis] 11-06-2023 Chronic Other upper respiratory disease (20 sources) Vasomotor rhinitis; Translations: [Vasomotor rhinitis] Onset: 3 09-09-2022 Chronic Residual codes; unclassified (1 source) Sleep apnea 02-09-2019 Chronic Residual codes; unclassified (20 sources) Obstructive sleep apnea syndrome; Translations: [Obstructive sleep apnea (adult) (pediatric)] Onset: 4 07-23-2023 Chronic Residual codes; unclassified (20 sources) Daytime somnolence; Translations: [Other hypersomnia] Onset: 4 07-23-2023 Chronic Spondylosis; intervertebral disc disorders; other back problems (9 sources) Cervical spondylosis without myelopathy; Translations: [Spondylosis without myelopathy or radiculopathy, cervical region] Onset: 2 Chronic Spondylosis; intervertebral disc disorders; other back problems (6 sources) Sacrococcygeal disorders, not elsewhere classified; Translations: [Lumbar radiculopathy] Onset: 2 Episodic Superficial injury; contusion (6 sources) Hematoma of right lower leg; Translations: [Contusion of right lower leg, initial encounter] 01-01-2024 Episodic Thyroid disorders (1 source) Hypothyroidism 02-09-2019 [...] [Otalgia, bilateral] Episodic Other lower respiratory disease (20 sources) Snoring; Translations: [Snoring] Onset: 07-23-2023 07-23-2023 [...] AMNESIA] Onset: 10-23-2021 Episodic Residual codes; unclassified (20 sources) Insomnia; Translations: [Insomnia, unspecified] Onset: 07-23-2023 07-23-2023 Episodic Unclassified (1 source) LOW BACK PAIN, UNSPECIFIED; Translations: [LOW BACK PAIN, UNSPECIFIED] Onset: 07-06-2021 Unclassified (1 source) Patient encounter status 11-05-2022 Unclassified (2 sources) Hav (hallux abducto valgus), right 01-15-2024 Results Test Name Value Interpretation Reference Range Facility XR Foot - right 3 [facility] Result: Notable screw fixation intact with rectus great toe and negative movement of osteotomy site with good correction noted [facility] Radiology Study observation (narrative) [facility] XR Foot - right 3 [facility] Radiology Study observation (narrative) [facility] Ambulatory Visit Summaryon 0 08-12-2023 Ambulatory Visit [...] you for choosing us for your care. [facility] Physician Referralon 024 Physician Referral [id number] [facility] Reminderson 07-28-2023 Reminders - From: Nurys Boone LPN To: N - Clinical; Sent: 07/28/2023 11:21:37 EDT Show up: 10/28/2032 07:00:00 EDT Subject: colonoscopy recall Due Date/Time: 2032 07:00:00 EDT Reminder/Recall Patient due for screening colonoscopy 2032. [facility] Outside Colonoscopyon 2022 Outside Colonoscopy [id number] [facility] Insurance Correspondenceon 0 11-07-2022 Insurance Correspondence [id number]:127 [facility] Consultation Noteon 11-07-19 Consultation Note [id number]:127 [facility] Ambulatory Visit Summaryon 0 11-05-2022 Ambulatory Visit [...] long-term use Pain in unspecified joint Normal [facility] Physician Referralon 023 Physician Referral [id number]:127 Normal [facility] MG MAMM SCREEN 3D TIFFANIE CADon 12-14-2021 MG MAMM SCREEN 3D TIFFANIE CAD Patient: JEANNA ZEE Exam Date: 12/14/2021 : 1960 Gender:F Ordering : DR NICK FLORES . Admission #: [id number] Family : Order #: [id number] CLICK HERE TO VIEW EXAM RADIOLOGY REPORT [...] lung cancer at age 73. LOCATION: [facility] BREAST COMPOSITION: Extremely dense, which [...] Smith MD on 12/14/2021 at 08:02 Normal [facility] PAP ACOG PANEL 2: 30 to 65on 12-14-2021 . . Normal [facility] Comment on above: Result Comment: Perf ormed at: WB Performed By: #### [id number] #### [facility] [address] [place] [address] Dr. Daly Gordon Age Gdln ACOG Testing 30-65 Normal [facility] Comment on above: Performed By: #### [id number] #### [facility] [address] [place] [address] Dr. Daly Gordon DIAGNOSIS: Comment Normal [facility] Comment on above: Result Comment: NEGA TIVE FOR INTRAEPITHELIAL LESION OR MALIGNANCY. CELLULAR CHANGES ASSOCIATED WITH ATROPHY ARE PRESENT. Performed at: WB Performed By: #### 4 [id number] #### [facility] [address] [place] [address] Dr. Daly Gordon HPV Aptima Negative Normal Negative [facility] Comment on above: Result Comment: This nucleic acid amplification test detects fourteen high-risk HPV types (16,18,31,33,35,39,45,51,52,56,58,59,66,68) without differentiation. Performed at: =G Performed By: #### 4 [id number] #### [facility] [address] [place] [address] Dr. Daly Gordon HPV Genotype Reflex Comment Normal [facility] Comment on above: Result Comment: Crit eria not met, HPV Genotype not performed. Performed at: WB Performed By: #### [id number] #### [facility] [address] [place] [address] Dr. Daly Gordon Methodology: Comment Normal [facility] Comment on above: Result Comment: This liquid based ThinPrep(R) pap test was screened with the use of an image guided system. Performed at: WB Performed By: #### 4 [id number] #### [facility] [address] [place] [address] Dr. Daly Gordon Note: Comment Normal [facility] Comment on above: Result Comment: The Pap smear is a screening test designed to aid in the detection of premalignant and malignant conditions of the uterine cervix. It is not a diagnostic procedure and should not be used as the sole means of detecting cervical cancer. Both false-positive and false-negative reports do occur. . Performed at: WB Performed By: #### 4 [id number] #### [facility] [address] [address] [address] Daly Gordon Performed by: Comment Normal [facility] Comment on above: Result Comment: Radha Marrero, Gambling Box Person Performed at: WB Performed By: #### 4 [id number] #### [facility] [address] [address] [address] Daly Gordon Specimen adequacy: Comment Normal [facility] Comment on above: Result Comment: Sati sfactory for evaluation. Endocervical component may not be distinguished in cases of atrophy. Performed at: WB Performed By: #### 4 [id number] #### [facility] [address] [address] [address] Daly Gordon MRI BRAIN WO W [...] ARLET BUTLER Date: 2021-10-24 07:26 Normal [facility] OCC BLD IMMUNO SCREENon - OCCULT BLOOD Negative Normal NEGATIVE [facility] Comment on above: Performed By: #### O BSCRN #### [facility] [address] [address] [address] Daly Gordon INSULINon 09-07-2022 Insulin 16.8 uIU/mL Normal 2.6-24.9 [facility] Comment on above: Performed By: #### I NSULIN #### [facility] [address] [address] [address] Daly Gordon T4, T3U, FTI [facility] 10-17 Free Thyroxine Index 3.0 Normal 1.2-4.9 [facility] Comment on above: Performed By: #### T HYLC #### [facility] [address] [address] [address] Daly Gordon T3 Uptake 41 % Critically high 24-39 [facility] Comment on above: Performed By: #### T HYLC #### [facility] [address] [address] [address] Daly Gordon T4 [Mass/Vol] 7.4 ug/dL Normal 4.5-12.0 [facility] Comment on above: Performed By: #### T HYLC #### [facility] [address] [address] [address] Daly Gordon VIT D 25-OH [facility]on 2021 Vitamin D, 25-Hydroxy 42.7 ng/mL Normal 30.0-100.0 [facility] Comment on above: Result Comment: Ofelia min D deficiency has been defined by the [place] of Medicine and an Endocrine Society practice guideline as a level of serum 25-OH vitamin D less than 20 ng/mL (1,2). The Endocrine Society went on to further define vitamin D insufficiency as a level between 21 and 29 ng/mL (2). 1. IOM ([place] of Medicine). 2010. Dietary reference intakes for calcium and D. [place]: The National Academies Press. 2. Red MF, Dae NC, Demetrice AKERS, et al. Evaluation, treatment, and prevention of vitamin D deficiency: an Endocrine Society clinical practice guideline. JCEM. 2010; 96(7):1911-30. Performed By: #### V ITADLC #### [facility] [address] [address] [address] Daly Gordon CBC AUTO DIFFon 10-13-2021 BASO # 0.1 103/ul Normal 0.0-0.1 [facility] Comment on above: Performed By: #### C BC ####[facility] [address] [place], [place] [address]Dr. Daly Gordon Basophils/100 WBC (Bld) 0.7 % Normal 0.2-2.0 [facility] Comment on above: Performed By: #### C BC ####[facility] [address] [place], [place] [address]Dr. Daly Gordon EO # 0.2 103/ul Normal 0.0-0.7 [facility] Comment on above: Performed By: #### C BC ####[facility] [address] [place], [place] [address]Dr. Daly Gordon Eosinophils/100 WBC (Bld) 2.6 % Normal 0.9-7.0 [facility] Comment on above: Performed By: #### C BC ####[facility] [address] [place], [place] [address]Dr. Daly Gordon Erythrocyte distribution width (RBC) [Ratio] 12.5 % Normal 11.0-15.0 [facility] Comment on above: Performed By: #### C BC ####[facility] [address] [place], [place] [address]Dr. Daly Gordon Hematocrit (Bld) [Volume fraction] 42.4 % Normal 36.0-48.0 [facility] Comment on above: Performed By: #### C BC ####[facility] [address] [place], [place] [address]Dr. Daly Gordon Hemoglobin (Bld) [Mass/Vol] 13.9 g/dL Normal 12.0-16.0 [facility] Comment on above: Performed By: #### C BC ####[facility] [address] [place], [place] [address]Dr. Daly Gordon IG # 0.01 10e3/ul Normal 0.00-0.03 [facility] Comment on above: Performed By: #### C BC ####[facility] [address] [place], [place] [address]Dr. Daly Gordon IG % 0.1 % Normal 0.0-0.5 [facility] Comment on above: Performed By: #### C BC ####[facility] [address] [address]DrShea Candicesharmila Gordon LYMPH # 2.2 103/ul Normal 1.2-3.8 [facility] Comment on above: Performed By: #### C BC ####[facility] [address] [id number] Candicesharmila Gordon Lymphocytes/100 WBC (Bld) 29.4 % Normal 20.5-60.0 [facility] Comment on above: Performed By: #### C BC ####[facility] [address] [place], [place] [address]DrShea Candicesharmila Gordon MANUAL DIFF REQ NO Normal [facility] Comment on above: Performed By: #### C BC ####[facility] [address] [place], [place] [id number] Candicesharmila Gordon MCH (RBC) [Entitic mass] 30.1 pg Normal 26.7-34.0 [facility] Comment on above: Performed By: #### C BC ####[facility] [address] [place], [place] [id number]. Daly Evan MCHC (RBC) [Mass/Vol] 32.8 g/dL Normal 29.9-35.2 [facility] Comment on above: Performed By: #### C BC ####[facility] [address] [place], [place] [id number] Candicesahrmila Gordon MCV (RBC) [Entitic vol] 91.8 fL Normal 81.0-99.0 [facility] Comment on above: Performed By: #### C BC ####[facility] [address] [place], [place] [id number] Gordon MONO # 0.5 103/ul Normal 0.3-0.8 [facility] Comment on above: Performed By: #### C BC ####[facility] [address] [place], [place] [id number] Gordon Monocytes/100 WBC (Bld) 6.6 % Normal 1.7-12.0 [facility] Comment on above: Performed By: #### C BC ####[facility] [address] [address]Dr. Daly Gordon NEUT # 4.5 103/ul Normal 1.4-6.5 [facility] Comment on above: Performed By: #### C BC ####[facility] [address] [address]Dr. Daly Gordon Neutrophils/100 WBC (Bld) 60.6 % Normal 43.0-75.0 [facility] Comment on above: Performed By: #### C BC ####[facility] [address] [address]DrShea Daly Gordon Platelet mean volume (Bld) [Entitic vol] 9.1 fL Critically low 9.5-13.5 [facility] Comment on above: Performed By: #### C BC ####[facility] [address] [address]Dr. Daly Gordon PLT 236 103/ul Normal 150-450 [facility] Comment on above: Performed By: #### C BC ####[facility] [address] [address]Dr. Daly Gordon RBC 4.62 106/ul Normal 4.20-5.40 [facility] Comment on above: Performed By: #### C BC ####[facility] [address] [id number] Daly Evan WBC 7.4 103/ul Normal 4.0-11.0 [facility] Comment on above: Performed By: #### C BC ####[facility] [address] [id number] Daly Gordon GLYCOHEMOGLOBIN A1Con 2021 ADA RECOMMENDATION SEE BELOW Normal [facility] Comment on above: Result Comment: ADA RECOMMENDED LIMIT 4.0 - 6.0 ADA THERAPEUTIC TARGET < 7.0 ACTION SUGGESTED > 7.0 Performed By: #### A 1C #### [facility] [address] [address] [address] Daly Gordon Glucose [Mass/Vol] 128 mg/dL Normal [facility] Comment on above: Performed By: #### A 1C #### [facility] [address] [address] [address] Daly Gordon HbA1c (Bld) [Mass fraction] 6.1 % Normal 4.5-6.2 [facility] Comment on above: Performed By: #### A 1C #### [facility] [address] [address] [address] Daly Gordon IRONon 10-13-2021 Iron [Mass/Vol] 89.0 ug/dL Normal 50.0-170.0 [facility] Comment on above: Performed By: #### B 12FOL, IRON #### [facility] [address] [address] [address] Daly Gordon LIPID PROFILEon 10-13-2021 CHOL-HDL RATIO NORM SEE BELOW Normal [facility] Comment on above: Result Comment: 3.3 - 4.4 LOW RISK 4.4 - 7.1 AVERAGE RISK 7.1 - 11.0 MODERATE RISK >11.0 HIGH RISK Performed By: #### L IPID, TSH, CMP ####[facility] [address] [address]DrShea Gordon Cholesterol [Mass/Vol] 176 mg/dL Normal <=200 [facility] Comment on above: Performed By: #### L IPID, TSH, CMP ####[facility] [address] [address]DrShea Gordon Cholesterol in HDL [Mass/Vol] 58 mg/dL Normal 40-60 [facility] Comment on above: Performed By: #### L IPID, TSH, CMP ####[facility] [address] [id number] Gordon Cholesterol in LDL [Mass/Vol] 110.4 mg/dL Normal [facility] Comment on above: Performed By: #### L IPID, TSH, CMP ####[facility] [address] [id number] Gordon Cholesterol.total/ Cholesterol in HDL [Mass ratio] 3.0 {ratio} Normal [facility] Comment on above: Performed By: #### L IPID, TSH, CMP ####[facility] [address] [address]Dr. Daly Gordon HDL NORMAL > or = 60 mg/dl - LO W CARDIOVASCULAR RISK <40 mg/dl - HIGH CARDIOVASCULAR RISK Normal [facility] Comment on above: Performed By: #### L IPID, TSH, CMP ####[facility] [address] [place] [address]Dr. Daly Gordon LDL CALC NORMAL SEE BELOW Normal [facility] Comment on above: Result Comment: <100 mg/dl OPTIMAL 100 - 129 mg/dl NEAR OR ABOVE OPTIMAL 130 - 159 mg/dl BORDERLINE HIGH 160 - 189 mg/dl HIGH >190 mg/dl VERY HIGH Performed By: #### L IPID, TSH, CMP ####[facility] [address] [place] [address]Dr. Daly Gordon Triglyceride [Mass/Vol] 38 mg/dL Normal <=150 [facility] Comment on above: Performed By: #### L IPID, TSH, CMP ####[facility] [address] [place], [place] [address]Dr. Daly Gordon VLDL CALC 7.6 mg/dL Normal [facility] Comment on above: Performed By: #### L IPID, TSH, CMP ####[facility] [address] [place] [address]Dr. Daly Gordon PROF 14(COMP METB)on 022 Albumin [Mass/Vol] 3.7 g/dL Normal 3.4-5.0 [facility] Comment on above: Performed By: #### L IPID, TSH, CMP ####[facility] [address] [place] [address]Dr. Daly Gordon Albumin/Globulin [Mass ratio] 1.2 {ratio} Normal [facility] Comment on above: Performed By: #### L IPID, TSH, CMP ####[facility] [address] [place] [address]Dr. Daly Gordon ALP [Catalytic activity/Vol] 56 U/L Normal 46-116 [facility] Comment on above: Performed By: #### L IPID, TSH, CMP ####[facility] [address] [place] [address]Dr. Daly Gordon ALT [Catalytic activity/Vol] 29 U/L Normal 14-59 [facility] Comment on above: Performed By: #### L IPID, TSH, CMP ####[facility] [address] [place] [address]Dr. Daly Gordon Anion gap [Moles/Vol] 11.6 mmol/L Normal [facility] Comment on above: Performed By: #### L IPID, TSH, CMP ####[facility] [address] [place], [place] [address]Dr. Daly Gordon AST [Catalytic activity/Vol] 17 U/L Normal 15-37 [facility] Comment on above: Performed By: #### L IPID, TSH, CMP ####[facility] [address] [place], [place] [address]Dr. Daly Gordon Bilirubin [Mass/Vol] 0.4 mg/dL Normal 0.2-1.0 [facility] Comment on above: Performed By: #### L IPID, TSH, CMP ####[facility] [address] [place], [place] [address]Dr. Daly Gordon Calcium [Mass/Vol] 8.6 mg/dL Normal 8.5-10.1 [facility] Comment on above: Performed By: #### L IPID, TSH, CMP ####[facility] [address] [place], [place] [address]Dr. Daly Gordon Chloride [Moles/Vol] 105 mmol/L Normal 98-107 [facility] Comment on above: Performed By: #### L IPID, TSH, CMP ####[facility] [address] [place] [address]Dr. Daly Gordon CO2 [Moles/Vol] 29.6 mmol/L Normal 21.0-32.0 [facility] Comment on above: Performed By: #### L IPID, TSH, CMP ####[facility] [address] [place] [id number]. Daly Gordon Creatinine [Mass/Vol] 0.72 mg/dL Normal 0.55-1.02 [facility] Comment on above: Performed By: #### L IPID, TSH, CMP ####[facility] [address] [place] [phone]. Daly Gordon EGFR-AF ROMANIAN >60 Normal >=60 [facility] Comment on above: Performed By: #### L IPID, TSH, CMP ####[facility] [address] [place] [phone]. Daly Gordon EGFR-NON AF ROMANIAN >60 Normal >=60 [facility] Comment on above: Performed By: #### L IPID, TSH, CMP ####[facility] [address] [place] [address]Dr. Daly Evan Globulin (S) [Mass/Vol] 3.2 g/dL Normal [facility] Comment on above: Performed By: #### L IPID, TSH, CMP ####[facility] [address] [place] [address]Dr. Daly Gordon Glucose [Mass/Vol] 101 mg/dL Normal 74-106 [facility] Comment on above: Performed By: #### L IPID, TSH, CMP ####[facility] [address] [place], [place] [address]Dr. Daly Gordon Potassium [Moles/Vol] 4.2 mmol/L Normal 3.5-5.1 [facility] Comment on above: Performed By: #### L IPID, TSH, CMP ####[facility] [address] [place] [phone]. Daly Gordon Protein [Mass/Vol] 6.9 g/dL Normal 6.4-8.2 [facility] Comment on above: Performed By: #### L IPID, TSH, CMP ####[facility] [address] [place] [phone]. Daly Gordon Sodium [Moles/Vol] 142 mmol/L Normal 136-145 [facility] Comment on above: Performed By: #### L IPID, TSH, CMP ####[facility] [address] [place] [address]Dr. Daly Gordon Urea nitrogen [Mass/Vol] 21.0 mg/dL Critically high 7.0-18.0 [facility] Comment on above: Performed By: #### L IPID, TSH, CMP ####[facility] [address] [place] [phone]. Daly Gordon Urea nitrogen/Creatinin e [Mass ratio] 29.2 mg/mg Normal [facility] Comment on above: Performed By: #### L IPID, TSH, CMP ####[facility] [address] [place] [address]Dr. Daly Gordon TSHon 10-13-2021 TSH 2.311 uIU/mL Normal 0.358-3.740 [facility] Comment on above: Performed By: #### L IPID, TSH, CMP ####[facility] [address] [place] [address]Dr. Daly Gordon VIT B12 AND FOLATEon 022 Cobalamin (Vitamin B12) [Mass/Vol] 602.0 pg/mL Normal 193.0-986.0 [facility] Comment on above: Performed By: #### B 12FOL, IRON #### [facility] [address] [address] [address] Daly Gordon FOLATE 18.70 ng/mL Normal 8.60-58.90 [facility] Comment on above: Performed By: #### B 12FOL, IRON #### [facility] [address] [address] [address] Daly Gordon US carotid doppler BIon 02-11 US carotid doppler [facility] [place] [address] Ultrasound Report Signed Patient: Jeanna Zee MR#: [id number] : 1960 Acct:[id number] Age/Sex: 60 / F ADM Date: 03/05/21 Loc: [facility] Room: Type: [facility] Attending Dr: Kristine Chavez MD Ordering Provider: [...] Kristine Chavez MD03/08/2021 5:35 PM Dictation Location: [place] [address] Tech: Albina Wilcox Transcribed By: [facility] 03/08/211734 Dictated By: Kristine Chavez MD 03/08/211733 Signed By: 03/08/211734 [facility] Vital Signs Date Time Vital Sign Value Performing Clinician Facility 04-22-2024 09:04-0400 Body height 162.6 cm Cong Brown DPM Work Phone: [facility] 04-22-2024 09:04-0400 Body mass index (BMI) [Ratio] 26.09 kg/m2 Cong Brown DPM Work Phone: [facility] 04-22-2024 09:04-0400 Body weight 68.95 kg Cong Brown DPM Work Phone: [facility] 04-22-2024 09:04-0400 Respiratory rate 18 /min Cong Brown DPM Work Phone: [facility] 04-15-2024 09:28-0500 Body height 162.6 cm Cong Brown DPM Work Phone: [facility] 04-15-2024 09:28-0500 Body mass index (BMI) [Ratio] 26.09 kg/m2 Cong Brown DPM Work Phone: [facility] 04-15-2024 09:28-0500 Body weight 68.95 kg Cong Brown DPM Work Phone: [facility] 04-15-2024 09:28-0500 Respiratory rate 16 /min Cong Brown DPM Work Phone: [facility] 04-01-2024 11:06-0500 Body height 162.6 cm Cong Brown DPM Work Phone: [facility] 04-01-2024 11:06-0500 Body mass index (BMI) [Ratio] 26.09 kg/m2 Cong Brown DPM Work Phone: [facility] 04-01-2024 11:06-0500 Body weight 68.95 kg Cong Brown DPM Work Phone: [facility] 04-01-2024 11:06-0500 Respiratory rate 18 /min Cong Zamarripa DPM Work Phone: [facility] 03-18-2024 11:07-0500 Body height 162.6 cm Cong Dallin DPM Work Phone: [facility] 03-18-2024 11:07-0500 Body mass index (BMI) [Ratio] 26.09 kg/m2 Cong Brown DPM Work Phone: [facility] 03-18-2024 11:07-0500 Body weight 68.95 kg Cong Brown DPM Work Phone: [facility] 03-18-2024 11:07-0500 Diastolic blood pressure 77 mm[Hg] Cong Brown DPM Work Phone: [facility] 03-18-2024 11:07-0500 Heart rate 76 /min Cong Brown DPM Work Phone: [facility] 03-18-2024 11:07-0500 Systolic blood pressure 132 mm[Hg] Cong Brown DPM Work Phone: [facility] 03-04-2024 09:27-0500 Body height 162.6 cm Cong Dallin DPM Work Phone: [facility] 03-04-2024 09:27-0500 Body mass index (BMI) [Ratio] 26.09 kg/m2 Cong Brown DPM Work Phone: [facility] 03-04-2024 09:27-0500 Body weight 68.95 kg Cong Brown DPM Work Phone: [facility] 03-04-2024 09:27-0500 Respiratory rate 18 /min Cong Brown DPM Work Phone: [facility] 02-19-2024 10:55-0500 Body height 162.6 cm Cong Brown DPM Work Phone: [facility] 02-19-2024 10:55-0500 Body mass index (BMI) [Ratio] 26.09 kg/m2 Cong Brown DPM Work Phone: [facility] 02-19-2024 10:55-0500 Body weight 68.95 kg Cong Brown DPM Work Phone: [facility] 02-19-2024 10:55-0500 Respiratory rate 18 /min Cong Brown DPM Work Phone: [facility] 01-29-2024 16:34-0500 Body height 162.6 cm Cong Brown DPM Work Phone: [facility] 01-29-2024 16:34-0500 Body mass index (BMI) [Ratio] 26.09 kg/m2 Cong Brown DPM Work Phone: [facility] 01-29-2024 16:34-0500 Body weight 68.95 kg Cong Brown DPM Work Phone: [facility] 01-29-2024 16:34-0500 Respiratory rate 16 /min Cong Brown DPM Work Phone: [facility] 01-15-2024 16:18-0500 Body height 162.6 cm Cong Brown DPM Work Phone: [facility] 01-15-2024 16:18-0500 Body mass index (BMI) [Ratio] 26.09 kg/m2 Cong Brown DPM Work Phone: [facility] 01-15-2024 16:18-0500 Body weight 68.95 kg Cong Brown DPM Work Phone: [facility] 01-15-2024 16:18-0500 Respiratory rate 18 /min Cong Brown DPM Work Phone: [facility] 01-01-2024 16:36-0500 Body height 162.6 cm Cong Zamarripa DPM Work Phone: [facility] 01-01-2024 16:36-0500 Body mass index (BMI) [Ratio] 26.09 kg/m2 Cong Brown DPM Work Phone: [facility] 01-01-2024 16:36-0500 Body weight 68.95 kg Cong Zamarripa DPM Work Phone: [facility] 01-01-2024 16:36-0500 Respiratory rate 18 /min Cong Zamarripa DPM Work Phone: [facility] 12-25-2023 15:09-0500 Body height 162.6 cm Cong Zamarripa DPM Work Phone: [facility] 12-25-2023 15:09-0500 Body mass index (BMI) [Ratio] 26.09 kg/m2 Cong Zamarripa DPM Work Phone: [facility] 12-25-2023 15:09-0500 Body weight 68.95 kg Cong Zamarripa DPM Work Phone: [facility] 12-25-2023 15:09-0500 Diastolic blood pressure 75 mm[Hg] Cong Zamarripa DPM Work Phone: [facility] 12-25-2023 15:09-0500 Heart rate 83 /min Cong Zamraripa DPM Work Phone: [facility] 12-25-2023 15:09-0500 Systolic blood pressure 131 mm[Hg] Cong Brown DPM Work Phone: [facility] 12-16-2023 18:29-0500 Body mass index (BMI) [Ratio] 26.09 kg/m2 Phoebe Kiepert PILOT Work Phone: [facility] 12-16-2023 18:29-0500 Body temperature 97.39 [degF] Phoebe Kiepert PILOT Work Phone: [facility] 12-16-2023 18:29-0500 Body weight 68.95 kg Phoebe Neilt [facility] Work Phone: [facility] 12-16-2023 18:29-0500 Diastolic blood pressure 80 mm[Hg] Phoebe Pedroepert PILOT Work Phone: [facility] 12-16-2023 18:29-0500 Heart rate 81 /min Phoebe Kiepert PILOT Work Phone: [facility] 12-16-2023 18:29-0500 SaO2% (BldA) [Mass fraction] 95 % Phoebe Vasquezepert PILOT Work Phone: [facility] 12-16-2023 18:29-0500 Systolic blood pressure 122 mm[Hg] Phoebe Vasquezepert PILOT Work Phone: [facility] 08-12-2023 15:52-0400 Blood Pressure Location Jason NILL [facility] 08-12-2023 15:52-0400 Diastolic blood pressure 72 mm[Hg] Jason NILL [facility] 08-12-2023 15:52-0400 Heart rate 72 /min Jason NILL [facility] 08-12-2023 15:52-0400 Respiratory rate 16 /min Jason NILL [facility] 08-12-2023 15:52-0400 Systolic blood pressure 114 mm[Hg] Jason NILL [facility] 03-05-2021 16:30-0500 Body height 162.56 cm Kristine Chavez Other [facility] Other 03-05-2021 16:30-0500 Body mass index (BMI) [Ratio] 27.46 kg/m2 Kristine Chavez Other [facility] Other 03-05-2021 16:30-0500 Body temperature 97.3 [degF] Kristine Scott Other [facility] Other 03-05-2021 16:30-0500 Body weight 72.58 kg Kristine Scott Other [facility] Other 03-05-2021 16:30-0500 Diastolic blood pressure 70 mm[Hg] Kristine Chavez Other [facility] Other 03-05-2021 16:30-0500 SaO2% (BldA) [Mass fraction] 98 % Kristnie Scott Other [facility] Other 03-05-2021 16:30-0500 Systolic blood pressure 110 mm[Hg] Kristine Chavez Other [facility] Other 02-19-2021 16:15-0500 Body height 162.56 cm Kristine Scott Other [facility] Other 02-19-2021 16:15-0500 Body mass index (BMI) [Ratio] 27.46 kg/m2 Kristine Chavez Other [facility] Other 02-19-2021 16:15-0500 Body weight 72.58 kg Kristine Scott Other [facility] Other 02-19-2021 16:15-0500 Respiratory rate 18 /min Kristine Chavez Other [facility] Other 02-19-2021 16:15-0500 SaO2% (BldA) [Mass fraction] 98 % Kristine Chvaez Other [facility] Other Encounters Encounter Date Encounter Type Care Provider Facility Start: 04-22-2024 End: 04-22-2024 Bamboo flowsmilton Zamarripa DPM Work Phone: [facility] Start: 04-22-2024 End: 04-22-2024 Bamboo flowsheet Cong Zamarripa DPM Work Phone: [facility] Start: 04-22-2024 End: 04-22-2024 Postop follow up visit related to original px Cong Esperanza Dallin DPM Work Phone: [facility] Comment on above: Hav (hallux abducto valgus), right (Primary Dx); Acquired deformity of right toe; Plantar fasciitis Start: 04-22-2024 End: 04-22-2024 ambulatory CONG ZAMARRIPA Not Available Start: 04-15-2024 End: 04-15-2024 Bamboo flowsmilton Zamarripa DPM Work Phone: [facility] Start: 04-15-2024 End: 04-15-2024 Bamboo flowsheet Cong Zamarripa DPM Work Phone: [facility] Start: 04-15-2024 End: 04-15-2024 Postop follow up visit related to original px Cong Esperanza Dallin DPM Work Phone: [facility] Comment on above: Hav (hallux abducto valgus), right (Primary Dx); Acquired deformity of right toe; Plantar fasciitis Start: 04-15-2024 End: 04-15-2024 ambulatory CONG ZAMARRIPA Not Available Start: 04-01-2024 End: 04-01-2024 Bamboo flowsmilton Zamarripa DPM Work Phone: [facility] Start: 04-01-2024 End: 04-01-2024 Bamboo flowsheet Cong Zamarripa DPM Work Phone: [facility] Start: 04-01-2024 End: 04-01-2024 Postop follow up visit related to original px Cong Zamarripa DPM Work Phone: [facility] Comment on above: Hav (hallux abducto valgus), right (Primary Dx); Acquired deformity of right toe; Plantar fasciitis Start: 04-01-2024 End: 04-01-2024 ambulatory CONG Mata DALLIN Not Available Start: 03-18-2024 End: 03-18-2024 Bamboo flowsheet Cong Zamarripa DPM Work Phone: [facility] Start: 03-18-2024 End: 03-18-2024 Bamboo flowsheet Cong Zamarripa DPM Work Phone: [facility] Start: 03-18-2024 End: 03-18-2024 ambulatory CONG Esperanza DALLIN Not Available Start: 03-18-2024 End: 03-18-2024 Postop follow up visit related to original px Cong Zamarripa DPM Work Phone: [facility] Comment on above: Hav (hallux abducto valgus), right (Primary Dx); Acquired deformity of right toe; Plantar fasciitis Start: 03-04-2024 End: 03-04-2024 Bamboo flowsheet Cong Zamarripa DPM Work Phone: [facility] Start: 03-04-2024 End: 03-04-2024 Bamboo flowsheet Cong Zamarripa DPM Work Phone: [facility] Start: 03-04-2024 End: 03-04-2024 ambulatory CONG Mata DALLIN Not Available Start: 03-04-2024 End: 03-04-2024 Postop follow up visit related to original px Cong Zamarripa DPM Work Phone: [facility] Comment on above: Hav (hallux abducto valgus), right (Primary Dx); Acquired deformity of right toe; Plantar fasciitis Start: 02-19-2024 End: 02-19-2024 Bamboo flowsheet Cong Zamarripa DPM Work Phone: [facility] Start: 02-19-2024 End: 02-19-2024 Bamboo flowsheet Cong Zamarripa DPM Work Phone: [facility] Start: 02-19-2024 End: 02-19-2024 Postop follow up visit related to original px Cong Esperanza Dallin DPM Work Phone: [facility] Comment on above: Plantar fasciitis; Acquired deformity of right toe; Hav (hallux abducto valgus), right; Contracture of right ankle Start: 02-19-2024 End: 02-19-2024 ambulatory CONG ZAMARRIPA Not Available Start: 02-02-2024 End: 02-02-2024 Bamboo flowsheet Migdalia Joyce MD Work Phone: [facility] Start: 02-02-2024 End: 02-02-2024 Bamboo flowsheet Migdalia Joyce MD Work Phone: [facility] Start: 02-02-2024 End: 02-02-2024 Postop follow up visit related to original px Migdalia Joyce MD Work Phone: [facility] Comment on above: Postoperative care f or cataract (Primary Dx) Start: 02-02-2024 End: 02-02-2024 ambulatory MIGDALIA JOYCE Not Available Start: 01-29-2024 End: 01-29-2024 ambulatory CONG ZAMARRIPA Not Available Start: 01-29-2024 End: 01-29-2024 Office outpatient visit 25 minutes Cong Zamarripa DPM Work Phone: [facility] Comment on above: Plantar fasciitis (P rimary Dx); Contracture of right ankle; Acquired deformity of right toe; Hav (hallux abducto valgus), right; Contracture of left ankle Start: 01-29-2024 End: 01-29-2024 Bamboo flowsheet Cong Zamarripa DPM Work Phone: [facility] Start: 01-29-2024 End: 01-29-2024 Bamboo flowsheet Cong Zamarripa DPM Work Phone: [facility] Start: 01-22-2024 End: 01-22-2024 Patient encounter procedure Migdalia Joyce MD Work Phone: [facility] Comment on above: Brow ptosis (Primary Dx) Start: 01-22-2024 End: 01-22-2024 ambulatory MIGDALIA JOYCE Not Available Start: 01-15-2024 End: 01-15-2024 Office outpatient visit 15 minutes Cong Zamarripa DPM Work Phone: [facility] Comment on above: Plantar fasciitis (P rimary Dx); Hematoma of right lower leg; Hav (hallux abducto valgus), right; Acquired deformity of right toe Start: 01-15-2024 End: 01-15-2024 ambulatory CONG ZAMARRIPA Not Available Start: 01-01-2024 End: 01-01-2024 ambulatory CONG ZAMARRIPA Not Available Start: 01-01-2024 End: 01-01-2024 Office outpatient visit 15 minutes Cong Zamarripa DPM Work Phone: [facility] Comment on above: Hav (hallux abducto valgus), right (Primary Dx); Hematoma of right lower leg; Acquired deformity of right toe; Dog bite of right lower leg, initial encounter Start: 01-01-2024 End: 01-01-2024 Bamboo flowsheet Cong Zamarripa DPM Work Phone: [facility] Start: 01-01-2024 End: 01-01-2024 Bamboo flowsheet Cong Zamarripa DPM Work Phone: [facility] Start: 12-25-2023 End: 12-25-2023 Office outpatient new 60 minutes Cong Zamarripa DPM Work Phone: [facility] Comment on above: Hematoma of right lo wer leg (Primary Dx); Hav (hallux abducto valgus), right; Acquired deformity of right toe; Plantar fasciitis; Contracture of right ankle; Dog bite of right lower leg, initial encounter Start: 12-25-2023 End: 12-25-2023 ambulatory CONG ZAMARRIPA Not Available Start: 12-25-2023 End: 12-25-2023 Bamboo flowsheet Cong Zamarripa DPM Work Phone: [facility] Start: 12-25-2023 End: 12-25-2023 Bamboo flowsheet Cong Zamarripa DPM Work Phone: [facility] Start: 12-16-2023 End: 12-16-2023 Office outpatient visit 15 minutes Phoebe A Kiepert PILOT Work Phone: [facility] Comment on above: Dog bite of right lo wer leg, initial encounter (Primary Dx) Start: 12-16-2023 End: 12-16-2023 ambulatory PHOEBE A KIEPERT Not Available Start: 2023 End: 2023 Bamboo flowsheet Migdalia Joyce MD Work Phone: [facility] Start: 2023 End: 2023 Bamboo flowsheet Migdalia Joyce MD Work Phone: [facility] Start: 2023 End: 2023 Office outpatient visit 25 minutes Migdalia Joyce MD Work Phone: [facility] Comment on above: Brow ptosis (Primary Dx); Visual field loss; Cortical age-related cataract of both eyes Start: 2023 End: 2023 ambulatory MIGDALIA JOYCE Not Available Start: 11-06-2023 End: 11-12-2023 Refill Byron Gomez MD Work Phone: [facility] Comment on above: Chronic rhinitis Start: 08-12-2023 End: 08-12-2023 ambulatory Jason LUNA Facility: [facility] Start: 08-12-2023 End: 08-12-2023 Patient encounter procedure Jason LUNA [facility] [place] Start: 07-23-2023 End: 07-23-2023 ambulatory KACEY HARPER Not Available Start: 2022 End: 2022 ambulatory Jason LUNA Facility:[id number] Start: 11-05-2022 End: 11-05-2022 ambulatory Jason LUNA Facility: [facility] Start: 05-17-[address] KRISTINE NAZARIO [...] 03-05-2021 End: 03-05-2021 ambulatory Kristine Chavez Other [facility] Other Start: 03-05-2021 Office outpatient vi sit 15 minutes Kristine Chavez [facility] Start: 02-19-2021 End: 02-19-2021 ambulatory Kristine Chavez Other [facility] Other Start: 02-19-2021 Office outpatient ne w 30 minutes Kristine Chavez [facility] Procedures Date Procedure Procedure Detail Performing Clinician Start: 03-18-2024 Radex foot complete minimum 3 views Cong Zamarripa DPM Work Phone: Start: 02-19-2024 Radex foot complete minimum 3 views Cong Zamarripa DPM Work Phone: Start: 2022 Colonoscopy Byron Gomez MD Work Phone: Start: 2022 Colonoscopy Jason NILL Start: 07-21-2019 Esophagogastroduodenoscopy Jason NILL Start: 02-18-2019 Cystourethroscopy with dilation of urethral stricture Jason NILL Start: 05-14-2013 Colonoscopy Jason NILL Acquired trigger finger (disorder) Jason NILL Comment on above: right section Jason NIL L section Jason NIL L Decompression of median nerve Jason NILL Endometrial biopsy Jason JOINER Ligation of fallopian tube Luz conde NILL neck surgery ablation Rosalio darshan NILL Repair of left inguinal hernia Jason NILL Repair of stress inc ontinence by suprapubic sling Jason NILL Plan of Treatment Date Care Activity Detail Author Start: 2032 Screening for malign ant neoplasm of colon [facility] Start: 04-22-2024 End: 04-22-2024 Patient encounter procedure 04/22/2024 9:00 AM EDT Office Visit [facility] [address] [place] [address] Cong Zamarripa DPM [address] [address] Hav (hallux abducto valgus), right (Primary Dx); Acquired deformity of right toe; Plantar fasciitis [facility] Comment on above: Hav (hallux abducto valgus), right (Primary Dx); Acquired deformity of right toe; Plantar fasciitis Start: 04-15-2024 End: 04-15-2024 Patient encounter procedure 04/15/2024 9:20 AM EST Office Visit [facility] [address] [address] Cong Zamarripa DPM [address] [address] [facility] Start: 04-01-2024 End: 04-01-2024 Patient encounter procedure [facility] Comment on above: Hav (hallux abducto valgus), right (Primary Dx); Acquired deformity of right toe; Plantar fasciitis Start: 03-18-2024 End: 03-18-2024 Patient encounter procedure 03/18/2024 9:10 AM EST Office Visit [facility] [address] [address] Cong Zamarripa DPM [address] [address] [facility] [facility] Start: 02-19-2024 End: 02-19-2024 Patient encounter procedure [facility] Comment on above: Plantar fasciitis (P rimary Dx); Acquired deformity of right toe; Hav (hallux abducto valgus), right; Contracture of right ankle Start: 02-02-2024 End: 02-02-2024 Patient encounter procedure [facility] Comment on above: Arrived Start: 01-29-2024 End: 01-29-2024 Patient encounter procedure 01/29/2024 4:30 PM EST Office Visit [facility] [address] [place] [address] Cong Zamarripa DPM [address] [address] [facility] Start: 01-23-2024 End: 01-23-2024 ambulatory 01/23/2024 1:00 PM EST Treatment [facility] [address] [place] [address] Parvin Melo, PT [facility] Start: 01-22-2024 End: 01-22-2024 Patient encounter procedure 01/22/2024 3:00 PM EST Procedure Visit [facility] [address] [place] [id number] Migdalia Joyce MD [address] [place] [address] [facility] Start: 01-15-2024 End: 01-15-2024 Patient encounter procedure 01/15/2024 4:00 PM EST Office Visit [facility] [address] [place] [address] Cong Zamarripa DPM [address] [address] [facility] Start: 12-25-2023 End: 12-25-2023 Patient encounter procedure 12/25/2023 3:20 PM EST Office Visit [facility] [address] [place] [address] Cong Zamarripa DPM [address] [address] [facility] Start: 2023 End: 2023 Patient encounter procedure [facility] Comment on above: Arrived Start: 10-12-2023 Influenza vaccination Influenza Vacc ine (#1) [facility] Start: 1999 Screening for malign ant neoplasm of breast Mammogram [facility] Start: 11-26-1989 Screening for malign ant neoplasm of cervix [facility] Start: 11-26-1980 Screening for malign ant neoplasm of cervix Pap Smear [facility] Start: 1959 Screening for malign ant neoplasm of colon [facility] XR Foot - right 3 Views XR foot 3+ views right Imaging Routine Hematoma of right lower leg 12/25/2023 3:56 PM EST [facility] Work Phone: Immunizations Immunization Date Immunization Notes Care Provider Fa [facility] 12-16-2023 tetanus toxoid, redu abena diphtheria toxoid, and acellular pertussis vaccine, adsorbed Phoebe Kiepert PILOT Work Phone: [facility] 06-29-2022 zoster vaccine recombinant Phoebe Kiepert PILOT Work Phone: [facility] 04-27-2022 zoster vaccine recombinant Phoebe Kiepert PILOT Work Phone: [facility] 02-07-2022 SARS-CoV-2 (COVID-19 ) [id number] Jason LUNA [facility] 12-07-2021 Influenza, injectabl e, Madin Judit Canine Kidney, preservative free, quadrivalent Phoebe Kiepert PILOT Work Phone: [facility] 12-07-2021 influenza virus vaccine, unspecified formulation Byron Gomez MD Work Phone: [facility] 01-03-2021 SARS-CoV-2 (COVID-19 ) mRNA-1273 vaccine Jason LUNA [facility] Comment on above: Result Comment: 2022: [id number] 12-21-2020 Influenza, injectabl e, Madin Lima Canine Kidney, preservative free, quadrivalent Phoebe Kiepert PILOT Work Phone: [facility] 05-26-2020 SARS-CoV-2 (COVID-19 ) mRNA-1273 vaccine Jason LUNA [facility] 04-28-2020 SARS-CoV-2 (COVID-19 ) mRNA-1273 vaccine Jason LUNA [facility] 11-23-2019 influenza, injectabl e, quadrivalent, preservative free Phoebe Kiepert PILOT Work Phone: [facility] 11-10-2018 influenza virus vaccine, live, attenuated, for intranasal use Jason LUNA [facility] 01-31-2014 zoster vaccine, live Phoebe Kiepert PILOT Work Phone: [facility] 01-26-2014 zoster vaccine, live Phoebe Kiepert PILOT Work Phone: [facility] 03-29-2009 novel [id number], preservative-free, injectable Phoebe Kiepert PILOT Work Phone: [facility] Payers Date Payer Category Payer Private Health Insurance [facility] [id number] 2022 Unknown [employer] [id number] 2022-Present [phone] [address] [address] [place] [address] [id number] 2022 Unknown [id number] 1959 Unknown [id number] 2.16.840.1.349917.3.579. 2.593 1959 Unknown [id number] 2.16.840.1.026628.3.579. 2.593 1959 Unknown [id number] 2.16.840.1.778256.3.579. 2.593 1959 Unknown [id number] 2.16.840.1.154373.3.579. 2.593 1959 Unknown [id number] 2.16.840.1.734376.3.579. 2.593 1959 Unknown [id number] 2.16.840.1.862987.3.579. 2.593 1959 Unknown [id number] 2.16.840.1.554119.3.579. 2.593 1959 Unknown [id number] 2.16.840.1.928394.3.579. 2.593 1959 Unknown [id number] 2.16.840.1.056698.3.579. 2.593 1959 Unknown [id number] 2.16.840.1.405394.3.579. 2.593 1959 Unknown [id number] 2.16.840.1.749699.3.579. 2.593 1959 Unknown [id number] 2.16.840.1.331702.3.579. 2.727 1959 Unknown [id number] 2.16.840.1.220238.3.579. 2.727 1959 Unknown [id number] 2.16.840.1.719702.3.579. 2.727 1959 Unknown [id number] 2.16.840.1.129898.3.579. 2.1259 1959 Unknown [id number] 2.16.840.1.845771.3.579. 2.9 1959 Unknown [id number] 2.16.840.1.909455.3.579. 2.1258 1959 Unknown [id number] 2.16.840.1.513056.3.579. 2.1258 1959 Unknown [id number] 2.16.840.1.731366.3.579. 2.1258 1959 Unknown [id number] 2.16.840.1.374976.3.579. 2.1258 1959 Unknown [id number] 2.16.840.1.860747.3.579. 2.1258 1959 Unknown [id number] 2.16.840.1.825808.3.579. 2.1258 1959 Unknown [id number] 2.16.840.1.740029.3.579. 2.1258 1959 Unknown [id number] 2.16.840.1.341674.3.579. 2.1258 1959 Unknown [id number] 2.16.840.1.568072.3.579. 2.1258 1959 Unknown [id number] 2.16.840.1.935023.3.579. 2.1258 1959 Unknown [id number] 2.16.840.1.641558.3.579. 2.1258 1959 Unknown [id number] 2.16.840.1.131528.3.579. 2.1258 1959 Unknown [id number] 2.16.840.1.672496.3.579. 2.1258 1959 Unknown [id number] 2.16.840.1.521867.3.579. 2.9 1959 Unknown [id number] 2.16.840.1.479251.3.579. 2.1259 1959 Unknown [id number] 2.16.840.1.178066.3.579. 2.1259 1959 Self-pay [id number] 1959 Unknown [id number] 2.16.840.1.827611.19 Social History Date Type Detail Facility Start: 07-23-2023 End: 04-15-2024 Sex Assigned At [facility] Start: 09-09-2022 End: 08-12-2023 Tobacco smoking status Never smoked tobacco (finding) [facility] Tobacco smoking status Never [facility] Start: 09-09-2022 Tobacco use and exposure Smokeless tobacco non-user [facility] Start: 07-23-2023 End: 04-15-2024 Alcoholic beverage intake Lifetime non-drinker (finding) [facility] Start: 07-23-2023 End: 04-15-2024 History of Social function [facility] Start: 09-09-2022 Alcohol Comment Caffeine intak e: 1-2 cups per day [facility] Start: 1960 Sex assigned at Not on file [facility] Functional Status Date Assessment Result Facility 08-12-2023 Functional Status N/A [facility] Clinical Notes 02-19-2021 to 04-22-2024 Cong Zamarripa, [facility] - 04/22/2024 9:00 AM Sam Zamarripa, [facility] - 04/15/2024 9:20 AM Bri Zamarripa, [facility] - 04/01/2024 11:10 AM Bri Zamarripa, [facility] - 03/18/2024 9:10 AM EST Note Date & Type Note Facility 04-22-2024 History of Present illness Narrative Patient: Jeanna Zee : 1960 PCP: Nick Flores MD SUBJECTIVE This is a 63 y.o. female that presents today 10 wks s/p right Markus bunionectomy with right 2nd hammertoe repair and right plantar fasciotomy Pt denies n/f/v/c and has minimal pain to post op site. Pt states that they have been WB in normal tennis shoe . Pt presents today for follow up. Allergies: Allergies Allergen Reactions Ciprofloxacin Promethazine Unknown Other Reaction(s): jumpy, Spasm Past Medical History: Past Medical History: Diagnosis Date Acute recurrent frontal sinusitis Arthritis Cervical spondylosis with myelopathy Depression (CMS/HCC) Ear pain, bilateral GERD (gastroesophageal reflux disease) History of medical problems TMJ Hypertension (CMS/HCC) Hypothyroidism (CMS/HCC) Idiopathic peripheral autonomic neuropathy Obstructive sleep apnea Otitis media Pneumonia Vertigo Medications: Current Outpatient Medications: aspirin 81 MG EC tablet, Take 81 mg by mouth in the morning., Disp: , Rfl: Azelastine HCl 137 MCG/SPRAY solution, SPRAY ONE SPRAY IN EACH NOSTRIL TWICE DAILY, Disp: 30 mL, Rfl: 11 celecoxib (CeleBREX) 50 MG capsule, Take 50 mg by mouth in the morning and 50 mg before bedtime., Disp: , Rfl: gabapentin (Neurontin) 300 MG capsule, Take 300 mg by mouth in the morning and 300 mg in the evening and 300 mg before bedtime., Disp: , Rfl: levothyroxine (Synthroid, Levoxyl) 100 MCG tablet, Take 100 mcg by mouth in the morning. Take before meals., Disp: , Rfl: levothyroxine (Synthroid, Levoxyl) 75 MCG tablet, Take by mouth Daily before meals., Disp: , Rfl: meclizine (Antivert) 25 MG tablet, Take 25 mg by mouth 3 (three) times a day as needed for dizziness., Disp: , Rfl: montelukast (Singulair) 10 MG tablet, Take 1 tablet (10 mg) by mouth at bedtime., Disp: 30 tablet, Rfl: 11 pantoprazole (ProtoNix) 40 MG EC tablet, Take 40 mg by mouth in the morning. Take before meals. Do not crush, chew, or split. ., Disp: , Rfl: pramipexole (Mirapex) 0.5 MG tablet, Take 0.5 mg by mouth in the morning and 0.5 mg in the evening and 0.5 mg before bedtime., Disp: , Rfl: tiZANidine (Zanaflex) 4 MG capsule, Take 4 mg by mouth in the morning and 4 mg in the evening and 4 mg before bedtime., Disp: , Rfl: valACYclovir (Valtrex) 1 g tablet, , Disp: , Rfl: valACYclovir (Valtrex) 500 MG tablet, Take by mouth., Disp: , Rfl: ROS: General: denies fever, chills, fatigue, malaise OBJECTIVE LE EXAM: Derm: Skin intact to right foot with negative erythema, negative drainage, minimal edema with negative clinical signs of infection. Vascular: Palpable pedal pulses to right foot Neuro: Gross sensation intact to right foot. Musculoskeletal: Negative pain on palpation to right calf. Ortho: Ankle range of motion less than 10 degrees of dorsiflexion at right ankle joint. Rectus hallux with rectus right 2nd digit X-ray: ASSESSMENT 10 wks s/p right Markus bunionectomy with right 2nd hammertoe repair and right plantar fasciotomy 1. Hav (hallux abducto valgus), right 2. Acquired deformity of right toe 3. Plantar fasciitis PLAN Patient to continue with oral anti - inflammatories as needed for pain and recommended OTC medications such as tylenol or Ibuprofen Patient may continue with compression stockings and note for return full work duty today Cong Zamarripa DPM documented in this encounter [facility] 04-15-2024 History of Present illness Narrative Patient: Jeanna Zee : 1960 PCP: Nick Flores MD SUBJECTIVE This is a 63 y.o. female that presents today 9 wks s/p right Markus bunionectomy with right 2nd hammertoe repair and right plantar fasciotomy Pt denies n/f/v/c and has minimal pain to post op site. Pt states that they have been WB in walking boot. Pt presents today for follow up. Allergies: Allergies Allergen Reactions Ciprofloxacin Promethazine Unknown Other Reaction(s): jumpy, Spasm Past Medical History: Past Medical History: Diagnosis Date Acute recurrent frontal sinusitis Arthritis Cervical spondylosis with myelopathy Depression (CMS/HCC) Ear pain, bilateral GERD (gastroesophageal reflux disease) History of medical problems TMJ Hypertension (CMS/HCC) Hypothyroidism (CMS/HCC) Idiopathic peripheral autonomic neuropathy Obstructive sleep apnea Otitis media Pneumonia Vertigo Medications: Current Outpatient Medications: aspirin 81 MG EC tablet, Take 81 mg by mouth in the morning., Disp: , Rfl: Azelastine HCl 137 MCG/SPRAY solution, SPRAY ONE SPRAY IN EACH NOSTRIL TWICE DAILY, Disp: 30 mL, Rfl: 11 celecoxib (CeleBREX) 50 MG capsule, Take 50 mg by mouth in the morning and 50 mg before bedtime., Disp: , Rfl: gabapentin (Neurontin) 300 MG capsule, Take 300 mg by mouth in the morning and 300 mg in the evening and 300 mg before bedtime., Disp: , Rfl: levothyroxine (Synthroid, Levoxyl) 100 MCG tablet, Take 100 mcg by mouth in the morning. Take before meals., Disp: , Rfl: levothyroxine (Synthroid, Levoxyl) 75 MCG tablet, Take by mouth Daily before meals., Disp: , Rfl: meclizine (Antivert) 25 MG tablet, Take 25 mg by mouth 3 (three) times a day as needed for dizziness., Disp: , Rfl: montelukast (Singulair) 10 MG tablet, Take 1 tablet (10 mg) by mouth at bedtime., Disp: 30 tablet, Rfl: 11 pantoprazole (ProtoNix) 40 MG EC tablet, Take 40 mg by mouth in the morning. Take before meals. Do not crush, chew, or split. ., Disp: , Rfl: pramipexole (Mirapex) 0.5 MG tablet, Take 0.5 mg by mouth in the morning and 0.5 mg in the evening and 0.5 mg before bedtime., Disp: , Rfl: tiZANidine (Zanaflex) 4 MG capsule, Take 4 mg by mouth in the morning and 4 mg in the evening and 4 mg before bedtime., Disp: , Rfl: valACYclovir (Valtrex) 1 g tablet, , Disp: , Rfl: valACYclovir (Valtrex) 500 MG tablet, Take by mouth., Disp: , Rfl: ROS: General: denies fever, chills, fatigue, malaise OBJECTIVE LE EXAM: Derm: Skin intact to right foot with negative erythema, negative drainage, minimal edema with negative clinical signs of infection. Vascular: Palpable pedal pulses to right foot Neuro: Gross sensation intact to right foot. Musculoskeletal: Negative pain on palpation to right calf. Ortho: Ankle range of motion less than 10 degrees of dorsiflexion at right ankle joint. Rectus hallux with rectus right 2nd digit X-ray: ASSESSMENT 9 wks s/p right Markus bunionectomy with right 2nd hammertoe repair and right plantar fasciotomy 1. Hav (hallux abducto valgus), right 2. Acquired deformity of right toe 3. Plantar fasciitis PLAN Patient is able to wear tennis shoe although was unable to wear work shoe at this time and is going to try to move into the work shoes over the next week with follow up to reassess Cong Zamarripa DPM documented in this encounter [facility] 04-01-2024 History of Present illness Narrative Patient: Jeanna Zee : 1960 PCP: Nick Flores MD SUBJECTIVE This is a 63 y.o. female that presents today 7 wks s/p right Markus bunionectomy with right 2nd hammertoe repair and right plantar fasciotomy Pt denies n/f/v/c and has minimal pain to post op site. Pt states that they have been WB in walking boot. Pt presents today for follow up. Allergies: Allergies Allergen Reactions Ciprofloxacin Promethazine Unknown Other Reaction(s): jumpy, Spasm Past Medical History: Past Medical History: Diagnosis Date Acute recurrent frontal sinusitis Arthritis Cervical spondylosis with myelopathy Depression (CMS/HCC) Ear pain, bilateral GERD (gastroesophageal reflux disease) History of medical problems TMJ Hypertension (CMS/HCC) Hypothyroidism (CMS/HCC) Idiopathic peripheral autonomic neuropathy Obstructive sleep apnea Otitis media Pneumonia Vertigo Medications: Current Outpatient Medications: aspirin 81 MG EC tablet, Take 81 mg by mouth in the morning., Disp: , Rfl: Azelastine HCl 137 MCG/SPRAY solution, SPRAY ONE SPRAY IN EACH NOSTRIL TWICE DAILY, Disp: 30 mL, Rfl: 11 celecoxib (CeleBREX) 50 MG capsule, Take 50 mg by mouth in the morning and 50 mg before bedtime., Disp: , Rfl: gabapentin (Neurontin) 300 MG capsule, Take 300 mg by mouth in the morning and 300 mg in the evening and 300 mg before bedtime., Disp: , Rfl: levothyroxine (Synthroid, Levoxyl) 100 MCG tablet, Take 100 mcg by mouth in the morning. Take before meals., Disp: , Rfl: levothyroxine (Synthroid, Levoxyl) 75 MCG tablet, Take by mouth Daily before meals., Disp: , Rfl: meclizine (Antivert) 25 MG tablet, Take 25 mg by mouth 3 (three) times a day as needed for dizziness., Disp: , Rfl: montelukast (Singulair) 10 MG tablet, Take 1 tablet (10 mg) by mouth at bedtime., Disp: 30 tablet, Rfl: 11 pantoprazole (ProtoNix) 40 MG EC tablet, Take 40 mg by mouth in the morning. Take before meals. Do not crush, chew, or split. ., Disp: , Rfl: pramipexole (Mirapex) 0.5 MG tablet, Take 0.5 mg by mouth in the morning and 0.5 mg in the evening and 0.5 mg before bedtime., Disp: , Rfl: tiZANidine (Zanaflex) 4 MG capsule, Take 4 mg by mouth in the morning and 4 mg in the evening and 4 mg before bedtime., Disp: , Rfl: valACYclovir (Valtrex) 1 g tablet, , Disp: , Rfl: valACYclovir (Valtrex) 500 MG tablet, Take by mouth., Disp: , Rfl: ROS: General: denies fever, chills, fatigue, malaise OBJECTIVE LE EXAM: Derm: Skin intact to right foot with negative erythema, negative drainage, minimal edema with negative clinical signs of infection. Vascular: Palpable pedal pulses to right foot Neuro: Gross sensation intact to right foot. Musculoskeletal: Negative pain on palpation to right calf. Ortho: Ankle range of motion less than 10 degrees of dorsiflexion at right ankle joint. Rectus hallux with rectus right 2nd digit X-ray: ASSESSMENT 7 wks s/p right Markus bunionectomy with right 2nd hammertoe repair and right plantar fasciotomy 1. Hav (hallux abducto valgus), right 2. Acquired deformity of right toe 3. Plantar fasciitis PLAN Pt to take nsaids as needed PRN pain Patient continue with walking boot for the next week and then progress into shoe gear and have additional week off work Cong Zamarripa DPM documented in this encounter [facility] 03-18-2024 History of Present illness Narrative Patient: Jeanna Zee : 1960 PCP: Nick Flores MD SUBJECTIVE This is a 63 y.o. female that presents today 5 wks s/p right Markus bunionectomy with right 2nd hammertoe repair and right plantar fasciotomy Pt denies n/f/v/c and has minimal pain to post op site. Pt states that they have been WB in walking boot. Pt presents today for follow up. Allergies: Allergies Allergen Reactions Ciprofloxacin Promethazine Unknown Other Reaction(s): jumpy, Spasm Past Medical History: Past Medical History: Diagnosis Date Acute recurrent frontal sinusitis Arthritis Cervical spondylosis with myelopathy Depression (CMS/HCC) Ear pain, bilateral GERD (gastroesophageal reflux disease) History of medical problems TMJ Hypertension (CMS/HCC) Hypothyroidism (CMS/HCC) Idiopathic peripheral autonomic neuropathy Obstructive sleep apnea Otitis media Pneumonia Vertigo Medications: Current Outpatient Medications: aspirin 81 MG EC tablet, Take 81 mg by mouth in the morning., Disp: , Rfl: Azelastine HCl 137 MCG/SPRAY solution, SPRAY ONE SPRAY IN EACH NOSTRIL TWICE DAILY, Disp: 30 mL, Rfl: 11 celecoxib (CeleBREX) 50 MG capsule, Take 50 mg by mouth in the morning and 50 mg before bedtime., Disp: , Rfl: gabapentin (Neurontin) 300 MG capsule, Take 300 mg by mouth in the morning and 300 mg in the evening and 300 mg before bedtime., Disp: , Rfl: levothyroxine (Synthroid, Levoxyl) 100 MCG tablet, Take 100 mcg by mouth in the morning. Take before meals., Disp: , Rfl: levothyroxine (Synthroid, Levoxyl) 75 MCG tablet, Take by mouth Daily before meals., Disp: , Rfl: meclizine (Antivert) 25 MG tablet, Take 25 mg by mouth 3 (three) times a day as needed for dizziness., Disp: , Rfl: montelukast (Singulair) 10 MG tablet, Take 1 tablet (10 mg) by mouth at bedtime., Disp: 30 tablet, Rfl: 11 pantoprazole (ProtoNix) 40 MG EC tablet, Take 40 mg by mouth in the morning. Take before meals. Do not crush, chew, or split. ., Disp: , Rfl: pramipexole (Mirapex) 0.5 MG tablet, Take 0.5 mg by mouth in the morning and 0.5 mg in the evening and 0.5 mg before bedtime., Disp: , Rfl: tiZANidine (Zanaflex) 4 MG capsule, Take 4 mg by mouth in the morning and 4 mg in the evening and 4 mg before bedtime., Disp: , Rfl: valACYclovir (Valtrex) 1 g tablet, , Disp: , Rfl: valACYclovir (Valtrex) 500 MG tablet, Take by mouth., Disp: , Rfl: ROS: General: denies fever, chills, fatigue, malaise OBJECTIVE LE EXAM: Derm: Skin intact to right foot with negative erythema, negative drainage, minimal edema with negative clinical signs of infection. Vascular: Palpable pedal pulses to right foot Neuro: Gross sensation intact to right foot. Musculoskeletal: Negative pain on palpation to right calf. Ortho: Ankle range of motion less than 10 degrees of dorsiflexion at right ankle joint. Rectus hallux with rectus right 2nd digit X-ray: XR foot 3+ views right Imaging Result: Notable screw fixation intact with rectus great toe and negative movement of osteotomy site with good correction noted ASSESSMENT 5 wks s/p right Markus bunionectomy with right 2nd hammertoe repair and right plantar fasciotomy 1. Hav (hallux abducto valgus), right 2. Acquired deformity of right toe 3. Plantar fasciitis PLAN Pt to take nsaids as needed PRN pain Continue with walking boot. Recommended to apply ice to affected areas for 20 minutes, twice daily. Ice should not be applied directly to skin. Continue with compression wrap as needed p.r.n. Cong Zamarripa DPM documented in this encounter [facility] 03-04-2024 History of Present illness Narrative Patient: Jeanna Zee : 1960 PCP: Nick Flores MD SUBJECTIVE This is a 63 y.o. female that presents today 23 days s/p right Markus bunionectomy with right 2nd hammertoe repair with K-wire and right plantar fasciotomy Pt denies n/f/v/c and has minimal pain to post op site. Pt states that they have been keeping dressing dry and intact and have been mostly non weightbearing to post op foot with walking boot Pt presents today for follow up. Allergies: Allergies Allergen Reactions Ciprofloxacin Promethazine Unknown Other Reaction(s): jumpy, Spasm Past Medical History: Past Medical History: Diagnosis Date Acute recurrent frontal sinusitis Arthritis Cervical spondylosis with myelopathy Depression (CMS/HCC) Ear pain, bilateral GERD (gastroesophageal reflux disease) History of medical problems TMJ Hypertension (CMS/HCC) Hypothyroidism (CMS/HCC) Idiopathic peripheral autonomic neuropathy Obstructive sleep apnea Otitis media Pneumonia Vertigo Medications: Current Outpatient Medications: aspirin 81 MG EC tablet, Take 81 mg by mouth in the morning., Disp: , Rfl: Azelastine HCl 137 MCG/SPRAY solution, SPRAY ONE SPRAY IN EACH NOSTRIL TWICE DAILY, Disp: 30 mL, Rfl: 11 celecoxib (CeleBREX) 50 MG capsule, Take 50 mg by mouth in the morning and 50 mg before bedtime., Disp: , Rfl: gabapentin (Neurontin) 300 MG capsule, Take 300 mg by mouth in the morning and 300 mg in the evening and 300 mg before bedtime., Disp: , Rfl: levothyroxine (Synthroid, Levoxyl) 100 MCG tablet, Take 100 mcg by mouth in the morning. Take before meals., Disp: , Rfl: levothyroxine (Synthroid, Levoxyl) 75 MCG tablet, Take by mouth Daily before meals., Disp: , Rfl: meclizine (Antivert) 25 MG tablet, Take 25 mg by mouth 3 (three) times a day as needed for dizziness., Disp: , Rfl: montelukast (Singulair) 10 MG tablet, Take 1 tablet (10 mg) by mouth at bedtime., Disp: 30 tablet, Rfl: 11 pantoprazole (ProtoNix) 40 MG EC tablet, Take 40 mg by mouth in the morning. Take before meals. Do not crush, chew, or split. ., Disp: , Rfl: pramipexole (Mirapex) 0.5 MG tablet, Take 0.5 mg by mouth in the morning and 0.5 mg in the evening and 0.5 mg before bedtime., Disp: , Rfl: tiZANidine (Zanaflex) 4 MG capsule, Take 4 mg by mouth in the morning and 4 mg in the evening and 4 mg before bedtime., Disp: , Rfl: valACYclovir (Valtrex) 1 g tablet, , Disp: , Rfl: valACYclovir (Valtrex) 500 MG tablet, Take by mouth., Disp: , Rfl: ROS: General: denies fever, chills, fatigue, malaise OBJECTIVE LE EXAM: Derm: Sutures intact to right foot with negative erythema, negative drainage, minimal edema with negative clinical signs of infection. K-wire intact to right 2nd digit Vascular: Palpable pedal pulses to right foot Neuro: Gross sensation intact to right foot. Musculoskeletal: Negative pain on palpation to right calf. Ortho: Ankle range of motion less than 10 degrees of dorsiflexion at right ankle joint. Rectus hallux with rectus right 2nd digit X-ray: ASSESSMENT 23 days s/p right Markus bunionectomy with right 2nd hammertoe repair with K-wire and right plantar fasciotomy 1. Hav (hallux abducto valgus), right 2. Acquired deformity of right toe 3. Plantar fasciitis PLAN Removal K-wire today under sterile conditions Sutures were removed today to the foot and patient in now able to get foot wet. Continue with walking boot daily Cong Zamarripa DPM documented in this encounter [facility] 02-19-2024 Note Imaging Result: Notable Freedman arthroplasty bunionectomy procedure to the right foot with notable 2nd hammertoe repair with K-wire intact [facility] 02-19-2024 History of Present illness Narrative Patient: Jeanna Zee : 1960 PCP: Nick Flores MD SUBJECTIVE This is a 63 y.o. female that presents today 9 days s/p right Markus bunionectomy with right 2nd hammertoe repair with K-wire and right plantar fasciotomy Pt denies n/f/v/c and has minimal pain to post op site. Pt states that they have been keeping dressing dry and intact and have been nonweightbearing to post op foot Pt presents today for follow up. Allergies: Allergies Allergen Reactions Ciprofloxacin Promethazine Unknown Other Reaction(s): jumpy, Spasm Past Medical History: Past Medical History: Diagnosis Date Acute recurrent frontal sinusitis Arthritis Cervical spondylosis with myelopathy Depression (CMS/HCC) Ear pain, bilateral GERD (gastroesophageal reflux disease) History of medical problems TMJ Hypertension (CMS/HCC) Hypothyroidism (CMS/HCC) Idiopathic peripheral autonomic neuropathy Obstructive sleep apnea Otitis media Pneumonia Vertigo Medications: Current Outpatient Medications: aspirin 81 MG EC tablet, Take 81 mg by mouth in the morning., Disp: , Rfl: Azelastine HCl 137 MCG/SPRAY solution, SPRAY ONE SPRAY IN EACH NOSTRIL TWICE DAILY, Disp: 30 mL, Rfl: 11 celecoxib (CeleBREX) 50 MG capsule, Take 50 mg by mouth in the morning and 50 mg before bedtime., Disp: , Rfl: gabapentin (Neurontin) 300 MG capsule, Take 300 mg by mouth in the morning and 300 mg in the evening and 300 mg before bedtime., Disp: , Rfl: levothyroxine (Synthroid, Levoxyl) 100 MCG tablet, Take 100 mcg by mouth in the morning. Take before meals., Disp: , Rfl: levothyroxine (Synthroid, Levoxyl) 75 MCG tablet, Take by mouth Daily before meals., Disp: , Rfl: meclizine (Antivert) 25 MG tablet, Take 25 mg by mouth 3 (three) times a day as needed for dizziness., Disp: , Rfl: montelukast (Singulair) 10 MG tablet, Take 1 tablet (10 mg) by mouth at bedtime., Disp: 30 tablet, Rfl: 11 pantoprazole (ProtoNix) 40 MG EC tablet, Take 40 mg by mouth in the morning. Take before meals. Do not crush, chew, or split. ., Disp: , Rfl: pramipexole (Mirapex) 0.5 MG tablet, Take 0.5 mg by mouth in the morning and 0.5 mg in the evening and 0.5 mg before bedtime., Disp: , Rfl: tiZANidine (Zanaflex) 4 MG capsule, Take 4 mg by mouth in the morning and 4 mg in the evening and 4 mg before bedtime., Disp: , Rfl: valACYclovir (Valtrex) 1 g tablet, , Disp: , Rfl: valACYclovir (Valtrex) 500 MG tablet, Take by mouth., Disp: , Rfl: ROS: General: denies fever, chills, fatigue, malaise OBJECTIVE LE EXAM: Derm: Sutures intact to right foot with negative erythema, negative drainage, minimal edema with negative clinical signs of infection. K-wire intact to right 2nd digit Vascular: Palpable pedal pulses to right foot Neuro: Gross sensation intact to right foot. Musculoskeletal: Negative pain on palpation to right calf. Ortho: Ankle range of motion less than 10 degrees of dorsiflexion at right ankle joint. Rectus hallux with rectus right 2nd digit XRAY: XR foot 3+ views right Imaging Result: Notable Freedman arthroplasty bunionectomy procedure to the right foot with notable 2nd hammertoe repair with K-wire intact ASSESSMENT 9 days s/p right Markus bunionectomy with right 2nd hammertoe repair with K-wire and right plantar fasciotomy 1. Plantar fasciitis 2. Acquired deformity of right toe 3. Hav (hallux abducto valgus), right 4. Contracture of right ankle PLAN Reviewed x-rays today with patient Patient to keep dry sterile dressing intact and keep dressing dry with partial weightbearing. Patient may take anti-inflammatories as needed for pain. May continue with ice to foot as needed p.r.n. Follow up in 2 weeks Cong Zaamrripa DPM documented in this encounter [facility] 02-02-2024 History of Present illness Narrative Assessment/Plan documented in this encounter [facility] 01-29-2024 History of Present illness Narrative Patient: Jeanna Zee : 1960 PCP: Nick Flores MD SUBJECTIVE This is a 63 y.o. female that presents today for a follow up of right hss . States pain with 1st steps in the morning and sharp in nature with treatments consisting of anti-inflammatories and shoe gear modifications with negative relief and presents today for treatment. 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 She is scheduled for a right markus bunionectomy with right 2nd PIPJ arthrodesis with kwire and right plantar fasciotomy. Allergies: Allergies Allergen Reactions Ciprofloxacin Promethazine Unknown Other Reaction(s): jumpy, Spasm Past Medical History: Past Medical History: Diagnosis Date Acute recurrent frontal sinusitis Arthritis Cervical spondylosis with myelopathy Depression (CMS/HCC) Ear pain, bilateral GERD (gastroesophageal reflux disease) History of medical problems TMJ Hypertension (CMS/HCC) Hypothyroidism (CMS/HCC) Idiopathic peripheral autonomic neuropathy Obstructive sleep apnea Otitis media Pneumonia Vertigo Medications: Current Outpatient Medications: aspirin 81 MG EC tablet, Take 81 mg by mouth in the morning., Disp: , Rfl: Azelastine HCl 137 MCG/SPRAY solution, SPRAY ONE SPRAY IN EACH NOSTRIL TWICE DAILY, Disp: 30 mL, Rfl: 11 celecoxib (CeleBREX) 50 MG capsule, Take 50 mg by mouth in the morning and 50 mg before bedtime., Disp: , Rfl: gabapentin (Neurontin) 300 MG capsule, Take 300 mg by mouth in the morning and 300 mg in the evening and 300 mg before bedtime., Disp: , Rfl: levothyroxine (Synthroid, Levoxyl) 100 MCG tablet, Take 100 mcg by mouth in the morning. Take before meals., Disp: , Rfl: levothyroxine (Synthroid, Levoxyl) 75 MCG tablet, Take by mouth Daily before meals., Disp: , Rfl: meclizine (Antivert) 25 MG tablet, Take 25 mg by mouth 3 (three) times a day as needed for dizziness., Disp: , Rfl: montelukast (Singulair) 10 MG tablet, Take 1 tablet (10 mg) by mouth at bedtime., Disp: 30 tablet, Rfl: 11 pantoprazole (ProtoNix) 40 MG EC tablet, Take 40 mg by mouth in the morning. Take before meals. Do not crush, chew, or split. ., Disp: , Rfl: pramipexole (Mirapex) 0.5 MG tablet, Take 0.5 mg by mouth in the morning and 0.5 mg in the evening and 0.5 mg before bedtime., Disp: , Rfl: tiZANidine (Zanaflex) 4 MG capsule, Take 4 mg by mouth in the morning and 4 mg in the evening and 4 mg before bedtime., Disp: , Rfl: valACYclovir (Valtrex) 1 g tablet, , Disp: , Rfl: valACYclovir (Valtrex) 500 MG tablet, Take by mouth., Disp: , Rfl: Social History: Social History Socioeconomic History Marital status: Spouse name: Not on file Number of children: Not on file Years of education: Not on file Highest education level: Not on file Occupational History Not on file Tobacco Use Smoking status: Never Smokeless tobacco: Never Substance and Sexual Activity Alcohol use: Never Comment: Caffeine intake: 1-2 cups per day Drug use: Not on file Sexual activity: Not on file Other Topics Concern Not on file Social History Narrative Not on file Social Drivers of Health Financial Resource Strain: Not on file Food Insecurity: Not on file Transportation Needs: Not on file Physical Activity: Not on file Stress: Not on file Social Connections: Not on file Intimate Partner Violence: Not on file Housing Stability: Not on file ROS: GI: denies loose or watery stool on antibiotic. Denies abdominal pain or cramping Musculoskeletal: Positive generalized arthritis to joints and denies loss of strength. Positive history of back pain Cardiovascular: denies CP, palpitations, irregular rhythms OBJECTIVE LE EXAM: DERM: Positive hair growth to b/l feet with good skin turgor noted. Negative openings in skin. Rubor to dorsal medial eminence of the 1st metatarsal right as well as PIPJ region of the right 2nd digit lateral right leg with negative erythema negative edema VASC: Palpable pedal pulsed b/l with warm to cool tibia to toes b/l NEURO: Gross sensation intact digits 1-10 and b/l feet ORTHO: 20 degrees inversion and 10 degrees eversion STJ b/l. Ankle ROM less than 10 degrees b/l. Positive pain on palpation to right medial calcaneal tubercle Minimal pain on palpation to the lateral right leg HAV deformity right that is reducible Second digit flexion deformity of right 2nd toe that is non reducible XRAY: Verbal order today for x-rays be taken by staff in past AP/Oblique/Lateral 3 view radiographs today of the right foot demonstrated the following: Notable HAV deformity with intermetatarsal angle of 13 degrees with notable right 2nd digital deformity noted and small calcaneal enthesophyte noted to the right plantar calcaneus ASSESSMENT 1. Plantar fasciitis 2. Contracture of right ankle 3. Acquired deformity of right toe 4. Hav (hallux abducto valgus), right 5. Contracture of left ankle PLAN Pt was fitted for custom made orthotics today. Orthotics were deemed to fit appropriately and patient was informed of proper break in of devices. Patient education on break in of device. ABN signed and in chart if warranted. Pt was dispensed a pneumatic CAM walker ([id number]) today to maintain 90 degree foot to ankle position. Pt informed to only remove walker when at rest or bathing. ABN signed and in chart for device if warranted. The boot was assembled and adjusted liner and straps and pneumatically inflated for proper custom fitting by Cong Zamarripa DPM and staff. A verbal order was given for dispensing of device. The patient is ambulatory and may benefit functionally from this device. It may be used for the following conditions as noted per medical diagnosis. Patient given prescription for pain medication to be taken postoperatively. Decision for surgery today and patient medically cleared from a podiatric standpoint for surgery and to proceed with surgery. Pt to have pre op H/P per PCP for medical clearance for surgery and will be reviewed along with labs prior to surgery. Pt scheduled for a right markus bunionectomy with right 2nd PIPJ arthrodesis with kwire and right plantar fasciotomy. Discussed with the patient the nature of condition and operative vs nonoperative care. The surgical plans, risks, alternatives, benefits, post op complications and intermediate project manager expectations were discussed including but not limited to: infection,bone infection,wound dehiscence hardware failure and irritation,wound dehiscence,delay union/mal union/non union of bone. RSDS,neuroma,duty limitations,DVT/PE, IA,nerve damage, scar, loss of sensation, swelling. Pt understands the proposed sx in detail and has agreed with proposed surgery. No guarantees were given or implied. Pt willingly consents to procedure and to have surgical procedure. Pt also understands risks including COVID-19 current risk in a surgical setting. Pt is a low acceptable risk for outpatient surgery from a podiatric standpoint with an ASA of a 2. Cong Zamarripa DPM, FACFAS H&P up to date and current (date) Date: January 29, 2024 Cong Zamarripa DPM documented in this encounter [facility] 01-22-2024 History of Present illness Narrative Assessment/Plan TSURGEON: Migdalia Joyce MD PREOPERATIVE BROW PTOSIS POSTOPERATIVE DIAGNOSIS: Same ANESTHESIA: Local PROCEDURE: Brow lift upper lid, right eye The patient was brought to the out-patient operating room and given a local anesthetic injection of 2% lidocaine with epinephrine. Approximately 1.5cc was injected across the breadth of the lid at the level of the superior tarsal margin AND into the superior orbital notch. 15 minutes was allowed to elapse for hemostasis purposes. The eyes were then prepped and draped in the usual sterile fashion. A curvilinear angela was placed 6mm superior to the lid margin. The excess skin was measured using forceps and this was also marked. A number 15 blade was then used to open the skin and orbicularis muscle. A skin muscle flap was developed and using sharp dissection technique the flap was cut away from the underlying tissue. The brow ptosis was addressed by dissecting superiorly above the orbital rim bluntly with first a cotton tip swab then cutting bovie to the level of the occipito-frontalis fascia. A 4-0 mersilene suture was then anchored through the fascia and attached to the orbicularis to elevate the lateral brow. Complete hemostasis was achieved with bipolar cauterization. The skin and orbicularis muscle were then closed using running 6-0 prolene suture. A ice compress was applied for ten minutes. The patient left the OR in good condition with instruction to rest at home the remainder of the day with intermittant icing of the wound. Migdalia Joyce MD documented in this encounter [facility] 01-15-2024 History of Present illness Narrative Patient: Jeanna Zee : 1960 PCP: Nick Flores MD SUBJECTIVE This is a 63 y.o. female that presents today for a follow up of right hss . States pain with 1st steps in the morning and sharp in nature with treatments consisting of anti-inflammatories and shoe gear modifications with negative relief and presents today for treatment. 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 Patient denies n/f/v/c. Patient also has complaints of the right 2nd digital deformity that is rubbing against her 2nd toe and also her shoes and is painful with ambulation has tried different shoes with minimal improvement with notable bunion deformity that is painful in shoe gear and presents today for possible treatment options Allergies: Allergies Allergen Reactions Ciprofloxacin Promethazine Unknown Other Reaction(s): jumpy, Spasm Past Medical History: Past Medical History: Diagnosis Date Acute recurrent frontal sinusitis Arthritis Cervical spondylosis with myelopathy Depression (CMS/HCC) Ear pain, bilateral GERD (gastroesophageal reflux disease) History of medical problems TMJ Hypertension (CMS/HCC) Hypothyroidism (CMS/HCC) Idiopathic peripheral autonomic neuropathy Obstructive sleep apnea Otitis media Pneumonia Vertigo Medications: Current Outpatient Medications: aspirin 81 MG EC tablet, Take 81 mg by mouth in the morning., Disp: , Rfl: Azelastine HCl 137 MCG/SPRAY solution, SPRAY ONE SPRAY IN EACH NOSTRIL TWICE DAILY, Disp: 30 mL, Rfl: 11 celecoxib (CeleBREX) 50 MG capsule, Take 50 mg by mouth in the morning and 50 mg before bedtime., Disp: , Rfl: gabapentin (Neurontin) 300 MG capsule, Take 300 mg by mouth in the morning and 300 mg in the evening and 300 mg before bedtime., Disp: , Rfl: levothyroxine (Synthroid, Levoxyl) 100 MCG tablet, Take 100 mcg by mouth in the morning. Take before meals., Disp: , Rfl: levothyroxine (Synthroid, Levoxyl) 75 MCG tablet, Take by mouth Daily before meals., Disp: , Rfl: meclizine (Antivert) 25 MG tablet, Take 25 mg by mouth 3 (three) times a day as needed for dizziness., Disp: , Rfl: montelukast (Singulair) 10 MG tablet, Take 1 tablet (10 mg) by mouth at bedtime., Disp: 30 tablet, Rfl: 11 pantoprazole (ProtoNix) 40 MG EC tablet, Take 40 mg by mouth in the morning. Take before meals. Do not crush, chew, or split. ., Disp: , Rfl: pramipexole (Mirapex) 0.5 MG tablet, Take 0.5 mg by mouth in the morning and 0.5 mg in the evening and 0.5 mg before bedtime., Disp: , Rfl: tiZANidine (Zanaflex) 4 MG capsule, Take 4 mg by mouth in the morning and 4 mg in the evening and 4 mg before bedtime., Disp: , Rfl: valACYclovir (Valtrex) 1 g tablet, , Disp: , Rfl: valACYclovir (Valtrex) 500 MG tablet, Take by mouth., Disp: , Rfl: Social History: Social History Socioeconomic History Marital status: Spouse name: Not on file Number of children: Not on file Years of education: Not on file Highest education level: Not on file Occupational History Not on file Tobacco Use Smoking status: Never Smokeless tobacco: Never Substance and Sexual Activity Alcohol use: Never Comment: Caffeine intake: 1-2 cups per day Drug use: Not on file Sexual activity: Not on file Other Topics Concern Not on file Social History Narrative Not on file Social Drivers of Health Financial Resource Strain: Not on file Food Insecurity: Not on file Transportation Needs: Not on file Physical Activity: Not on file Stress: Not on file Social Connections: Not on file Intimate Partner Violence: Not on file Housing Stability: Not on file ROS: GI: denies loose or watery stool on antibiotic. Denies abdominal pain or cramping Musculoskeletal: Positive generalized arthritis to joints and denies loss of strength. Positive history of back pain Cardiovascular: denies CP, palpitations, irregular rhythms OBJECTIVE LE EXAM: DERM: Positive hair growth to b/l feet with good skin turgor noted. Negative openings in skin. Rubor to dorsal medial eminence of the 1st metatarsal right as well as PIPJ region of the right 2nd digit Sutures intact to lateral right leg with negative erythema negative edema VASC: Palpable pedal pulsed b/l with warm to cool tibia to toes b/l NEURO: Gross sensation intact digits 1-10 and b/l feet ORTHO: 20 degrees inversion and 10 degrees eversion STJ b/l. Ankle ROM less than 10 degrees b/l. Positive pain on palpation to right medial calcaneal tubercle Minimal pain on palpation to the lateral right leg HAV deformity right that is reducible Second digit flexion deformity of right 2nd toe that is non reducible XRAY: Verbal order today for x-rays be taken by staff in past AP/Oblique/Lateral 3 view radiographs today of the right foot demonstrated the following: Notable HAV deformity with intermetatarsal angle of 13 degrees with notable right 2nd digital deformity noted and small calcaneal enthesophyte noted to the right plantar calcaneus ASSESSMENT 1. Plantar fasciitis 2. Hematoma of right lower leg 3. Hav (hallux abducto valgus), right 4. Acquired deformity of right toe PLAN Patient to continue with oral anti - inflammatories as needed for pain and recommended OTC medications such as tylenol or Ibuprofen Patient is to continue with stretching excercizes daily with patient to continue with night stretching splint or manual stretching. Sutures were removed today to the foot and patient in now able to get foot wet. Also discuss patient may likely will have right Markus bunionectomy in the near future with right 2nd hammertoe repair as well as right plantar fasciotomy and will most likely have preoperative visit in the near future if patient like to have [facility] for postoperative pain and PCP is Dr. Corcoran. Patient like between the [facility] and day time. Will attempt to scheduled for surgery and will schedule preoperative visit in the near future and would like [facility] for postop pain and has crutches and knee crutch trained as well as knee scooter Cong Zamarripa DPM documented in this encounter [facility] 01-01-2024 History of Present illness Narrative Patient: Jeanna Zee : 1960 PCP: Nick Flores MD SUBJECTIVE This is a 63 y.o. female that presents today for a 7d follow up of right hss . States pain with 1st steps in the morning and sharp in nature with treatments consisting of anti-inflammatories and shoe gear modifications with negative relief and presents today for treatment. 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 She has been on Augmentin and states some improvement but still has pain to the area and denies any nausea vomiting chills or drainage from the leg wound. Presents today for follow up of warm compresses and abx due to suspected hematoma and cellulitis. Patient denies n/f/v/c. Patient also has complaints of the right 2nd digital deformity that is rubbing against her 2nd toe and also her shoes and is painful with ambulation has tried different shoes with minimal improvement with notable bunion deformity that is painful in shoe gear and presents today for possible treatment options Allergies: Allergies Allergen Reactions Ciprofloxacin Promethazine Unknown Other Reaction(s): jumpy, Spasm Past Medical History: Past Medical History: Diagnosis Date Acute recurrent frontal sinusitis Arthritis Cervical spondylosis with myelopathy Depression (CMS/HCC) Ear pain, bilateral GERD (gastroesophageal reflux disease) History of medical problems TMJ Hypertension (CMS/HCC) Hypothyroidism (CMS/HCC) Idiopathic peripheral autonomic neuropathy Obstructive sleep apnea Otitis media Pneumonia Vertigo Medications: Current Outpatient Medications: amoxicillin-clavulanate (Augmentin) 875-125 MG tablet, Take 1 tablet (875 mg) by mouth in the morning and 1 tablet (875 mg) before bedtime. Do all this for 10 days., Disp: 20 tablet, Rfl: 0 aspirin 81 MG EC tablet, Take 81 mg by mouth in the morning., Disp: , Rfl: Azelastine HCl 137 MCG/SPRAY solution, SPRAY ONE SPRAY IN EACH NOSTRIL TWICE DAILY, Disp: 30 mL, Rfl: 11 celecoxib (CeleBREX) 50 MG capsule, Take 50 mg by mouth in the morning and 50 mg before bedtime., Disp: , Rfl: gabapentin (Neurontin) 300 MG capsule, Take 300 mg by mouth in the morning and 300 mg in the evening and 300 mg before bedtime., Disp: , Rfl: levothyroxine (Synthroid, Levoxyl) 100 MCG tablet, Take 100 mcg by mouth in the morning. Take before meals., Disp: , Rfl: levothyroxine (Synthroid, Levoxyl) 75 MCG tablet, Take by mouth Daily before meals., Disp: , Rfl: meclizine (Antivert) 25 MG tablet, Take 25 mg by mouth 3 (three) times a day as needed for dizziness., Disp: , Rfl: montelukast (Singulair) 10 MG tablet, Take 1 tablet (10 mg) by mouth at bedtime., Disp: 30 tablet, Rfl: 11 pantoprazole (ProtoNix) 40 MG EC tablet, Take 40 mg by mouth in the morning. Take before meals. Do not crush, chew, or split. ., Disp: , Rfl: pramipexole (Mirapex) 0.5 MG tablet, Take 0.5 mg by mouth in the morning and 0.5 mg in the evening and 0.5 mg before bedtime., Disp: , Rfl: tiZANidine (Zanaflex) 4 MG capsule, Take 4 mg by mouth in the morning and 4 mg in the evening and 4 mg before bedtime., Disp: , Rfl: valACYclovir (Valtrex) 1 g tablet, , Disp: , Rfl: valACYclovir (Valtrex) 500 MG tablet, Take by mouth., Disp: , Rfl: Social History: Social History Socioeconomic History Marital status: Spouse name: Not on file Number of children: Not on file Years of education: Not on file Highest education level: Not on file Occupational History Not on file Tobacco Use Smoking status: Never Smokeless tobacco: Never Substance and Sexual Activity Alcohol use: Never Comment: Caffeine intake: 1-2 cups per day Drug use: Not on file Sexual activity: Not on file Other Topics Concern Not on file Social History Narrative Not on file Social Drivers of Health Financial Resource Strain: Not on file Food Insecurity: Not on file Transportation Needs: Not on file Physical Activity: Not on file Stress: Not on file Social Connections: Not on file Intimate Partner Violence: Not on file Housing Stability: Not on file ROS: GI: denies loose or watery stool on antibiotic Musculoskeletal: Positive generalized arthritis to joints and denies loss of strength. Cardiovascular: denies CP, palpitations, irregular rhythms OBJECTIVE LE EXAM: DERM: Positive hair growth to b/l feet with good skin turgor noted. Negative openings in skin. Rubor to dorsal medial eminence of the 1st metatarsal right as well as PIPJ region of the right 2nd digit Notable fluctuance to the lateral right leg area of bite with negative gross erythema and negative drainage noted VASC: Palpable pedal pulsed b/l with warm to cool tibia to toes b/l NEURO: Gross sensation intact digits 1-10 and b/l feet ORTHO: 20 degrees inversion and 10 degrees eversion STJ b/l. Ankle ROM less than 10 degrees b/l. Positive pain on palpation to right medial calcaneal tubercle Positive pain on palpation to the lateral right leg and area suspected hematoma and cellulitis possible to right leg with negative streaking noted HAV deformity right that is reducible Second digit flexion deformity of right 2nd toe that is non reducible XRAY: Verbal order today for x-rays be taken by staff. AP/Oblique/Lateral 3 view radiographs today of the right foot demonstrated the following: Notable HAV deformity with intermetatarsal angle of 13 degrees with notable right 2nd digital deformity noted and small calcaneal enthesophyte noted to the right plantar calcaneus DIAGNOSTIC ULTRASOUND REPORT: Verbal order for ultrasound today The mass of the right lateral leg was examined with a 12 MHz linear probe in the transverse and sagital planes, concentrating on the mass. Images were obtained. FINDINGS: Ultrasound exam demonstrates a well defined/ multi lobular hypoechoic signal at the right lateral leg on a series of sagittal and transverse images and appears fluid filled. T. IMPRESSION: Ultrasound findings indicated soft tissue mass/most likely hematoma but less likely any abscess. Correlate with clinical findings. ASSESSMENT 1. Hematoma of right lower leg 2. Hav (hallux abducto valgus), right 3. Acquired deformity of right toe 4. Dog bite of right lower leg, initial encounter PLAN Patient to continue with oral anti - inflammatories as needed for pain and recommended OTC medications such as tylenol or Ibuprofen Patient is to continue with stretching excercizes daily with patient to continue with night stretching splint or manual stretching. Reviewed x-rays today with patient Diagnosis: hematoma - Location: Lateral right leg mid calf region lateral aspect Procedure: Incision & drainage with evacuation of hematoma Informed consent: Discussed risks (permanent loss of nail, permanent irregular growth of nail, infection, pain, bleeding, bruising, numbness, and recurrence of the condition) and benefits of the procedure, as well as the alternatives. Informed consent was obtained. Anesthesia: A total of 4 CC 2 percent lidocaine plain Type: total The area was prepared and draped in a standard fashion. The lesion was multiloculated. In his excision of the proximally 1.5 cm was made over the area of he fluctuant hematoma with mass and hemostat was utilized to separate tissue down to area of hematoma with minimal blood loss noted. Notable venous blood was expressed with multiple areas of loculated hematoma was present. Wound was then flushed with normal sterile saline 4-0 Prolene was utilized interrupted suture technique for closure Dry sterile dressing of 4x4s Kerlix and Coban was applied Patient instructed to keep dressing dry and intact to the weekend apply dry sterile dressing and contact Podiatry if any further issues with follow up in 2 weeks Condition was unrelated to prior procedures The patient tolerated the procedure well. The patient was instructed on post-op care. She is to continue with oral antibiotic until finished Also discuss patient may likely will have right Markus bunionectomy in the near future with right 2nd hammertoe repair as well as right plantar fasciotomy and will most likely have preoperative visit in the near future if no improvement Cong Zamarripa DPM documented in this encounter [facility] 12-25-2023 History of Present illness Narrative Patient: Jeanna Zee : 1960 PCP: Nick Flores MD SUBJECTIVE This is a 63 y.o. female that presents today for a CC of right heel pain . States pain with 1st steps in the morning and sharp in nature with treatments consisting of anti-inflammatories and shoe gear modifications with negative relief and presents today for treatment. 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 She has been on Augmentin and states some improvement but still has pain to the area and denies any nausea vomiting chills or drainage from the leg wound Patient also has complaints of the right 2nd digital deformity that is rubbing against her 2nd toe and also her shoes and is painful with ambulation has tried different shoes with minimal improvement with notable bunion deformity that is painful in shoe gear and presents today for possible treatment options Allergies: Allergies Allergen Reactions Ciprofloxacin Promethazine Unknown Other Reaction(s): jumpy, Spasm Past Medical History: Past Medical History: Diagnosis Date Acute recurrent frontal sinusitis Arthritis Cervical spondylosis with myelopathy Depression (CMS/HCC) Ear pain, bilateral GERD (gastroesophageal reflux disease) History of medical problems TMJ Hypertension (CMS/HCC) Hypothyroidism (CMS/HCC) Idiopathic peripheral autonomic neuropathy Obstructive sleep apnea Otitis media Pneumonia Vertigo Medications: Current Outpatient Medications: amoxicillin-clavulanate (Augmentin) 875-125 MG tablet, Take 1 tablet (875 mg) by mouth in the morning and 1 tablet (875 mg) before bedtime. Do all this for 10 days., Disp: 20 tablet, Rfl: 0 aspirin 81 MG EC tablet, Take 81 mg by mouth in the morning., Disp: , Rfl: Azelastine HCl 137 MCG/SPRAY solution, SPRAY ONE SPRAY IN EACH NOSTRIL TWICE DAILY, Disp: 30 mL, Rfl: 11 celecoxib (CeleBREX) 50 MG capsule, Take 50 mg by mouth in the morning and 50 mg before bedtime., Disp: , Rfl: gabapentin (Neurontin) 300 MG capsule, Take 300 mg by mouth in the morning and 300 mg in the evening and 300 mg before bedtime., Disp: , Rfl: levothyroxine (Synthroid, Levoxyl) 100 MCG tablet, Take 100 mcg by mouth in the morning. Take before meals., Disp: , Rfl: levothyroxine (Synthroid, Levoxyl) 75 MCG tablet, Take by mouth Daily before meals., Disp: , Rfl: meclizine (Antivert) 25 MG tablet, Take 25 mg by mouth 3 (three) times a day as needed for dizziness., Disp: , Rfl: montelukast (Singulair) 10 MG tablet, Take 1 tablet (10 mg) by mouth at bedtime., Disp: 30 tablet, Rfl: 11 pantoprazole (ProtoNix) 40 MG EC tablet, Take 40 mg by mouth in the morning. Take before meals. Do not crush, chew, or split. ., Disp: , Rfl: pramipexole (Mirapex) 0.5 MG tablet, Take 0.5 mg by mouth in the morning and 0.5 mg in the evening and 0.5 mg before bedtime., Disp: , Rfl: tiZANidine (Zanaflex) 4 MG capsule, Take 4 mg by mouth in the morning and 4 mg in the evening and 4 mg before bedtime., Disp: , Rfl: valACYclovir (Valtrex) 1 g tablet, , Disp: , Rfl: valACYclovir (Valtrex) 500 MG tablet, Take by mouth., Disp: , Rfl: Social History: Social History Socioeconomic History Marital status: Spouse name: Not on file Number of children: Not on file Years of education: Not on file Highest education level: Not on file Occupational History Not on file Tobacco Use Smoking status: Never Smokeless tobacco: Never Substance and Sexual Activity Alcohol use: Never Comment: Caffeine intake: 1-2 cups per day Drug use: Not on file Sexual activity: Not on file Other Topics Concern Not on file Social History Narrative Not on file Social Drivers of Health Financial Resource Strain: Not on file Food Insecurity: Not on file Transportation Needs: Not on file Physical Activity: Not on file Stress: Not on file Social Connections: Not on file Intimate Partner Violence: Not on file Housing Stability: Not on file ROS: Gastrointestinal: denies abdominal pain, ulcers, or changes in appetite or bowel habits Musculoskeletal: Positive generalized arthritis to joints and denies loss of strength. Cardiovascular: denies CP, palpitations, irregular rhythms OBJECTIVE LE EXAM: DERM: Positive hair growth to b/l feet with good skin turgor noted. Negative openings in skin. Rubor to dorsal medial eminence of the 1st metatarsal right as well as PIPJ region of the right 2nd digit Notable fluctuance to the lateral right leg area of bite with negative gross erythema and negative drainage noted VASC: Palpable pedal pulsed b/l with warm to cool tibia to toes b/l NEURO: Gross sensation intact digits 1-10 and b/l feet ORTHO: 20 degrees inversion and 10 degrees eversion STJ b/l. Ankle ROM less than 10 degrees b/l. Positive pain on palpation to right medial calcaneal tubercle Positive pain on palpation to the lateral right leg and area suspected hematoma and cellulitis possible to right leg with negative streaking noted HAV deformity right that is reducible Second digit flexion deformity of right 2nd toe that is non reducible XRAY: Verbal order today for x-rays be taken by staff. AP/Oblique/Lateral 3 view radiographs today of the right foot demonstrated the following: Notable HAV deformity with intermetatarsal angle of 13 degrees with notable right 2nd digital deformity noted and small calcaneal enthesophyte noted to the right plantar calcaneus US: DIAGNOSTIC US REPORT - Verbal order today for imaging today The plantar arch and heel of the right foot were scanned today using a 12MHz linear probe in the transverse and sagittal planes, concerning the plantar fascia. Images were obtained. FINDINGS - US exam demonstrates hypo-echoic thickening of plantar fascia with its origin at the medial plantar tuberosity of the calcaneus. The area of thickening and inflammation is greater than 4mm (norm = 4 mm). Small enthesophyte noted to the right calcaneus plantarly IMPRESSION - Right heel plantar fasciitis with heel spur right DIAGNOSTIC ULTRASOUND REPORT: Verbal order for ultrasound today The mass of the right lateral leg was examined with a 12 MHz linear probe in the transverse and sagital planes, concentrating on the mass. Images were obtained. FINDINGS: Ultrasound exam demonstrates a well defined/ multi lobular hypoechoic signal at the right lateral leg on a series of sagittal and transverse images and appears fluid filled. T. IMPRESSION: Ultrasound findings indicated soft tissue mass/most likely hematoma but less likely any abscess. Correlate with clinical findings. ASSESSMENT 1. Hematoma of right lower leg 2. Hav (hallux abducto valgus), right 3. Acquired deformity of right toe 4. Plantar fasciitis 5. Contracture of right ankle 6. Dog bite of right lower leg, initial encounter PLAN Patient to continue with oral anti - inflammatories as needed for pain and recommended OTC medications such as tylenol or Ibuprofen Reviewed ultrasounds today with patient Patient is to continue with stretching excercizes daily with patient to continue with night stretching splint or manual stretching. Reviewed x-rays today with patient Pt given steroid injection to right medial calcaneal tubercle under US guidance with visualization of injected fluid into area of concern per imaging. Injection of 1cc kenalog 10 and 2cc xylocaine 2% plain. Informed patient of risks and benefits of injection including non resolution of symptoms,steroid flare, tendon damage or rupture. Pt consents to proceed. 1st injection. Total of 6 in the past Discussed conservative and surgical treatment options for patient today including postoperative time frame and surgical procedure in detail. Patient may continue with conservative treatments including [id number] anti-inflammatories and other treatments suggested today. Patient may want to be scheduled for surgical intervention in the near future. Discussed possible surgical excision of hematoma and evacuation but did advise warm compresses and placed on oral antibiotics for the next 10 days as she is currently running out in the next 24 hours for prophylaxis Discussed possible right Markus bunionectomy with right 2nd digit PIPJ arthro diastasis with K-wire. Did also discuss right instep plantar fasciotomy for chronic plantar fasciitis if no improvement in the near future. Patient to follow up in 1 week for unrelated procedure of steroid injection for the suspected hematoma to the lateral right leg Cong Zamarripa DPM documented in this encounter [facility] 12-16-2023 History of Present illness Narrative Historian [...] tablet; Refill: 0 documented in this encounter [facility] 2023 History of Present illness Narrative Assessment/Plan [...] different lens options were explained including the [id number] fees for any upgrades. Intraocular lens (IOL) [...] no pitting edema. documented in this encounter [facility] 11-12-2023 Telephone encounter Note L/m again for pt to make an appt 11/12/23 [facility] 11-12-2023 Miscellaneous Notes L/m again for pt to make an appt 11/12/23 Needs appt documented in this encounter [facility] 11-10-2023 Telephone encounter Note Needs appt [facility] 08-12-2023 Note General Surgery Offi ce/Clinic [...] Immunizations Vaccine Date Status Comments SARS-CoV-2 (COVID-19) [id number].[id number] 02/07/2022 Recorded SARS-CoV-2 (COVID-19) mRNA-1273 vaccine 01/03/2021 Recorded 2022-10-28: [id number] SARS-CoV-2 (COVID-19) mRNA-1273 vaccine 05/26/2020 Recorded SARS-CoV-2 (COVID-19) mRNA-1273 vaccine 04/28/2020 Recorded influenza virus vaccine, live, trivalent 11/10/2018 Recorded [facility] Comment on above: Result Comment: Elec [...] 40 mg= 1 (more content not included)... [facility] Comment on above: Result Comment: Elec [...] We will help arrange this for her. [facility] Other 01-10-2022 Evaluation note* Encounter Date Diagnosis [...] hopes. She understands and wishes to proceed. [facility] Other Evaluation + Plan note No data available for this section [facility] [place] Evaluation note* Diagnosis Chronic rhinitis [facility] Diagnosis Brow ptosis- Primary Visual field loss Cortical age-related cataract of both eyes [facility] Diagnosis Dog bite of right lower leg, initial encounter- Primary [facility] Diagnosis Hav (hallux abducto valgus), right- Primary Hematoma of right lower leg Acquired deformity of right toe Dog bite of right lower leg, initial encounter [facility] Diagnosis Hematoma of right lower leg- Primary Hav (hallux abducto valgus), right Acquired deformity of right toe Plantar fasciitis Plantar fascial fibromatosis Contracture of right ankle Dog bite of right lower leg, initial encounter [facility] Diagnosis Plantar fasciitis- Primary Plantar fascial fibromatosis Hematoma of right lower leg Hav (hallux abducto valgus), right Acquired deformity of right toe documented in this encounter [facility]* Diagnosis Brow ptosis- Primary documented in this encounter [facility]* Diagnosis Plantar fasciitis- Primary Plantar fascial fibromatosis Contracture of right ankle 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), right Contracture of left ankle documented in this encounter [facility]* Diagnosis Postoperative care for cataract- Primary Follow-up examination, following other surgery documented in this encounter [facility]* Diagnosis Plantar fasciitis Plantar fascial fibromatosis 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), right Contracture of right ankle documented in this encounter [facility]* Diagnosis Hav (hallux abducto valgus), right- Primary Acquired deformity of right toe Plantar fasciitis Plantar fascial fibromatosis documented in this encounter [facility]* Diagnosis Hav (hallux abducto valgus), right- Primary Acquired deformity of right toe Plantar fasciitis Plantar fascial fibromatosis documented in this encounter [facility]* Diagnosis Hav (hallux abducto valgus), right- Primary Acquired deformity of right toe Plantar fasciitis Plantar fascial fibromatosis [facility] - [facility]* Type Description Date [...] sling 2010 Hospitalization History see sx hx [facility] Other Hospital Discharge instructions No data available for this section [facility] Progress note No data available for this section [facility] Summary Purpose Family History No Family History Records FoundNo Family History Records Found No data available for this section No Family History Records FoundNo Family History Records Found Advance Directives No Advanced Directives Records FoundNo Advanced Directives Records FoundNo Advanced Directives Records FoundNo Advanced Directives Records Found Additional Source Comments INFORMATION SOURCE (unrecogn ized section and content) DATE CREATED AUTHOR 03/26/2021 [facility] DATE CREATED AUTHOR AUTHOR'S ORGANIZ ATION 05/18/2022 [facility] DATE CREATED AUTHOR AUTHOR'S ORGANIZ ATION 08/14/[address] [facility] DATE CREATED AUTHOR AUTHOR'S ORGANIZ ATION 04/25/2024 [facility] EPIC REASON FOR VISIT (unrecogniz ed section and content) Reason Comments Med Refill Reason Comments Ptosis Blurred Vision Reason Comments Follow-up Pf inj Reason Comments Hammer Toe Rt ft hammer toe/ bu nion Reason Comments Follow-up 2wk- suture removal Reason Comments Procedure Reason Comments Consent Or Instructions Pre op/ orthotic pick pulling machine tender Reason Comments Follow-up Reason Comments Post-op 9d s/p rt Reason Comments Post-op 23d s/p rt markus bu nionectomyK wire rmovalpfa Reason Comments Foot/ankle Post-op WK 5 post op Reason Comments Post-op RT IGNACIO BUNIONECTO MY Reason Comments Post-op 9wk s/p rt bunionect anson and hammertoe Reason Comments Post-op 9wk s/p Patient Care team informatio n (unrecognized section and content) Geology Technician Relationship Specialty Start Date End Date Nick Flores MD [address] [place] [address] PCP - General Family Medicine 02/06/23 Kell Del Cid DO [address] [place] [address] Referring Physician Neurology 04/30/23 Geology Technician Relationship Specialty Start Date End Date Nick Flores MD [address] [place] [address] PCP - General Family Medicine 02/06/23 Kell Del Cid DO [address] [place] [address] Referring Physician Neurology 04/30/23 Geology Technician Relationship Specialty Start Date End Date Nick Flores MD [address] [place] [address] PCP - General Family Medicine 02/06/23 Kell Del Cid DO [address] [place] [address] Referring Physician Neurology 04/30/23 Geology Technician Relationship Specialty Start Date End Date Nick Flores MD [address] [place] [address] PCP - General Family Medicine 02/06/23 Kell Del Cid DO [address] [place] [address] Referring Physician Neurology 04/30/23 Geology Technician Relationship Specialty Start Date End Date Nick Flores MD [address] [place] [address] PCP - General Family Medicine 02/06/23 Kell Del Cid DO [address] [place] [address] Referring Physician Neurology 04/30/23 Geology Technician Relationship Specialty Start Date End Date Nick Flores MD [address] [place] [address] PCP - General Family Medicine 02/06/23 Kell Del Cid DO [address] [place] [address] Referring Physician Neurology 04/30/23 Geology Technician Relationship Specialty Start Date End Date Nick Flores MD [address] [place] [facility] [place] [address] PCP - General Family Medicine 02/06/23 Kell Del Cid DO [address] [place] [address] Referring Physician Neurology 04/30/23 Geology Technician Relationship Specialty Start Date End Date Nick Flores MD [address] [place] [facility] [place] [address] PCP - General Family Medicine 02/06/23 Kell Del Cid DO [address] [place] [address] Referring Physician Neurology 04/30/23 Geology Technician Relationship Specialty Start Date End Date Nick Flores MD [address] [place] [facility] [place] [address] PCP - General Family Medicine 02/06/23 Kell Del Cid DO [address] [place] [address] Referring Physician Neurology 04/30/23 Geology Technician Relationship Specialty Start Date End Date Nick Flores MD [address] [place] [facility] [place] [address] PCP - General Family Medicine 02/06/23 Kell Del Cid DO [address] [place] [address] Referring Physician Neurology 04/30/23 Geology Technician Relationship Specialty Start Date End Date Nick Flores MD [address] [place] [facility] [place] [address] PCP - General Family Medicine 02/06/23 Kell Del Cid DO [address] [place] [address] Referring Physician Neurology 04/30/23 Geology Technician Relationship Specialty Start Date End Date Nick Flores MD [address] [place] [facility] [place] [address] PCP - General Family Medicine 02/06/23 Kell Del Cid DO [address] [place] [address] Referring Physician Neurology 04/30/23 Geology Technician Relationship Specialty Start Date End Date Nick Flores MD [address] [place] [facility] [place] [address] PCP - General Family Medicine 02/06/23 Kell Del Cid DO [address] [place] [address] Referring Physician Neurology 04/30/23 Geology Technician Relationship Specialty Start Date End Date Nick Flores MD [address] [place] [facility] [place] [address] PCP - General Family Medicine 02/06/23 Kell Del Cid DO [address] [place] [address] Referring Physician Neurology 04/30/23 Geology Technician Relationship Specialty Start Date End Date Nick Flores MD [address] [place] [address] PCP - General Family Medicine 02/06/23 Kell Del Cid DO [address] [facility] [place] [address] Referring Physician Neurology 04/30/23 Geology Technician Relationship Specialty Start Date End Date Nick Flores MD [address] [place] [address] PCP - General Family Medicine 02/06/23 Kell Del Cid DO [address] [place] [address] Referring Physician Neurology 04/30/23 Geology Technician Relationship Specialty Start Date End Date Nick Flores MD [facility] [place] [address] PCP - General Family Medicine 02/06/23 Kell Del Cid DO [address] [place] [address] Referring Physician Neurology 04/30/23 Geology Technician Relationship Specialty Start Date End Date Nick Flores MD [address] [place] [facility] [place] [address] PCP - General Family Medicine 02/06/23 Kell Del Cid DO [address] [place] [address] Referring Physician Neurology 04/30/23 FOR RECORDS PERTAINING [...] BE BASED ON THE PRIMARY CLINICAL RECORDS. [facility]. provides no warranty or guarantee of the accuracy or completeness of information in this document.
--- NOTE | 2024-06-28 06:35 | ED.DIZZY1 ---
Documented by User: Patrick Beltre MD 06/28/24 06:41 HPI - Dizziness General Chief Complaint: Dizziness Stated Complaint: DIZZY, ONGOING VERTIGO Time Seen by Provider: 06/28/24 06:28 Source: patient Mode of arrival: walk-in Limitations: no limitations History of Present Illness HPI Narrative: past history of vertigo for many years. States she can normally takes Antivert and it helps. 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 Vertigo started around 5:30AM this AM. Took antivert without improvement. She now presents for evaluation. Does have a headache which is not something she typically will get with her vertigo. No chest pain or extremity weakness. No fever. She does wearing hearing aids at work Related Data Home Medications ?Medication ?Instructions ?Recorded ?Confirmed aspirin 325 mg capsule 325 mg PO DAILY 11/18/22 06/28/24 azelastine 137 mcg (0.1 %) nasal 2 spray intranasal Q12H 11/18/22 06/28/24 spray gabapentin 300 mg capsule 900 mg PO QPM 11/18/22 06/28/24 levothyroxine 75 mcg tablet 75 mcg PO QDAY 11/18/22 06/28/24 meclizine 25 mg tablet 25 mg PO QID PRN dizziness 11/18/22 06/28/24 montelukast 10 mg tablet 10 mg PO QDAY 11/18/22 06/28/24 pantoprazole 40 mg tablet,delayed 40 mg PO QDAY 11/18/22 06/28/24 release valacyclovir 1 gram tablet 1,000 mg PO QDAY 11/18/22 06/28/24 Allergies Allergy/AdvReac Type Severity Reaction Status Date / Time ciprofloxacin (From Cipro) Allergy Insomnia Verified 11/18/22 15:02 promethazine (From Phenergan) Allergy muscle Verified 11/18/22 15:02 spasm Review of Systems ROS Status of ROS 10 or more systems reviewed and unremarkable except as noted in history and below [facility] Medical History (Updated 06/28/24 @ 06:42 by Patrick Beltre MD) History of endometrial biopsy ?Z92.89 - Personal history of other medical treatment (ICD-10) Urinary urgency ?R39.15 - Urgency of urination (ICD-10) Urinary frequency ?R35.0 - Frequency of micturition (ICD-10) Urge incontinence ?N39.41 - Urge incontinence (ICD-10) Other urethral stricture, female ?N35.82 - Other urethral stricture, female (ICD-10) Sleep apnea ?G47.30 - Sleep apnea, unspecified (ICD-10) RLS (restless legs syndrome) ?G25.81 - Restless legs syndrome (ICD-10) Osteoarthritis ?M19.90 - Unspecified osteoarthritis, unspecified site (ICD-10) Nocturia ?R35.1 - Nocturia (ICD-10) Mixed incontinence ?N39.46 - Mixed incontinence (ICD-10) Microscopic hematuria ?R31.29 - Other microscopic hematuria (ICD-10) Hypothyroid ?E03.9 - Hypothyroidism, unspecified (ICD-10) Hypertension ?I10 - Essential (primary) hypertension (ICD-10) GERD (gastroesophageal reflux disease) ?K21.9 - Gastro-esophageal reflux disease without esophagitis (ICD-10) Fibromyalgia ?M79.7 - Fibromyalgia (ICD-10) Occult blood positive stool ?R19.5 - Other fecal abnormalities (ICD-10) Carpal tunnel syndrome ?G56.00 - Carpal tunnel syndrome, unspecified upper limb (ICD-10) Autonomic neuropathy ?G90.9 - Disorder of the autonomic nervous system, unspecified (ICD-10) Antral ulcer ?K25.9 - Gastric ulcer, unspecified as acute or chronic, without hemorrhage or perforation (ICD-10) Antral gastritis ?K29.50 - Unspecified chronic gastritis without bleeding (ICD-10) Positive colorectal cancer screening using Cologuard test ?R19.5 - Other fecal abnormalities (ICD-10) Surgical History (Updated 11/18/22 @ 14:54 by Maricruz Albright NP) H/O tubal ligation ?Z98.51 - Tubal ligation status (ICD-10) H/O hand surgery ?Z98.890 - Other specified postprocedural states (ICD-10) History of bladder surgery ?Z98.890 - Other specified postprocedural states (ICD-10) H/O inguinal hernia repair ?Z98.890 - Other specified postprocedural states (ICD-10) ?Z87.19 - Personal history of other diseases of the digestive system (ICD-10) H/O cervical spine surgery ?Z98.890 - Other specified postprocedural states (ICD-10) History of carpal tunnel surgery ?Z98.890 - Other specified postprocedural states (ICD-10) H/O colonoscopy ?Z98.890 - Other specified postprocedural states (ICD-10) S/P cystourethroscopy with dilation of urethral stricture ?Z98.890 - Other specified postprocedural states (ICD-10) History of esophagogastroduodenoscopy (EGD) ?Z98.890 - Other specified postprocedural states (ICD-10) Family History (Updated 11/18/22 @ 15:09 by Maricruz Albright NP) Other Family history of heart disease Family history of hypertension Family history of lung cancer Hodgkin disease Leukemia Lymphoma Social History (Updated 11/27/22 @ 07:25 by Daniela Aguilera RN) Within the past year, how often did you have a drink containing alcohol: never Score interpretation: A score less than 3 is consistent with normal alcohol consumption. Smoking status: Never smoker Second hand tobacco smoke exposure: No Non-prescribed substance use: denies use Previous occupational history: [employer] Known occupational exposures/hazards: No Highest level of school completed/degree received: high school graduate Little interest or pleasure in doing things: not at all Feeling down, depressed, or hopeless: not at all Exam Constitutional Vital Signs, click to edit/add: Last Vital Signs Temp 98 F 06/28/24 06:21 Pulse 70 06/28/24 06:21 Resp 16 06/28/24 06:21 BP 143/87 H 06/28/24 08:54 Pulse Ox 98 06/28/24 08:03 O2 Del Method Room Air 06/28/24 06:21 Common normals: no apparent distress, average body habitus, oriented x3, no limitations, healthy appearing, alert and well nourished [facility] Common normals: normocephalic and head/scalp atraumatic Other: left TM obstructed with wax Eye Common normals: PERRL, EOMs intact bilaterally and conjunctivae normal Respiratory Common normals: normal respiratory effort, no retractions, no use of accessory muscles and clear to auscultation bilaterally Cardio Common normals: regular rate, regular rhythm, S1 normal heart sound and S2 normal heart sound GI Common normals: Normal to inspection, nondistended, normoactive bowel sounds present, soft to palpation and non-tender Extremity Common normals: normal to inspection and full ROM Neuro Common normals: oriented x3, CN's II-XII intact bilaterally, moves all extremities and no focal motor deficits Psych Appearance: grossly normal Course Vital Signs Vital signs: Vital Signs Temperature 98 F 06/28/24 06:21 Pulse Rate 70 06/28/24 06:21 Respiratory Rate 16 06/28/24 06:21 Blood Pressure 136/85 06/28/24 06:21 Pulse Oximetry 95 06/28/24 06:21 Oxygen Delivery Method Room Air 06/28/24 06:21 Temperature 98 F 06/28/24 06:21 Pulse Rate 70 06/28/24 06:21 Respiratory Rate 16 06/28/24 06:21 Blood Pressure 143/87 H 06/28/24 08:54 Pulse Oximetry 98 06/28/24 08:03 Oxygen Delivery Method Room Air 06/28/24 06:21 MDM - Dizziness MDM Narrative Medical decision making narrative: patient presents with vertigo. Has a history of vertigo and usually able to improve her symptoms with antivert. Antivert did not work this time. On exam she does have impacted wax left ear and ear irrigation ordered along with Ativan and labs. Care transferred to oncoming physician at change of shift Lab Data Labs: Lab Results 06/28/24 Range/Units 06:50 WBC 8.5 (4.0-11.0) 10^3/uL RBC 4.43 (4.20-5.40) 10^6/uL Hgb 14.3 (12.0-16.0) g/dL Hct 41.7 (36.0-48.0) % MCV 94.1 (81.0-99.0) fL MCH 32.3 (26.7-34.0) pg MCHC 34.3 (29.9-35.2) g/dL RDW 12.0 (11.0-15.0) % Plt Count 223 (150-450) 10^3/uL MPV 9.6 (9.5-13.5) fL Neut % (Auto) 54.2 (43.0-75.0) % Lymph % (Auto) 35.7 (20.5-60.0) % [place] % (Auto) 7.6 (1.7-12.0) % Eos % (Auto) 1.8 (0.9-7.0) % Baso % (Auto) 0.5 (0.2-2.0) % Neut # (Auto) 4.6 (1.4-6.5) 10^3/uL Lymph # (Auto) 3.0 (1.2-3.8) 10^3/uL [place] # (Auto) 0.6 (0.3-0.8) 10^3/uL Eos # (Auto) 0.2 (0.0-0.7) 10^3/uL Baso # (Auto) 0.0 (0.0-0.1) 10^3/uL Abs Immat Gran (auto) 0.02 (0.00-0.03) 10^3/uL Imm/Tot Granulo (auto) 0.2 (0.0-0.5) % Sodium 142 (136-145) mmol/L Potassium 3.7 (3.5-5.1) mmol/L Chloride 104 (98-107) mmol/L Carbon Dioxide 30.2 (21.0-32.0) mmol/L Anion Gap 11.5 BUN 21.0 H (7.0-18.0) mg/dL Creatinine 0.77 (0.55-1.02) mg/dL Est GFR ( Amer) >60 (>=60 mL/min/1.73m^2) Est GFR (Non-Af Amer) >60 (>=60 mL/min/1.73m^2) BUN/Creatinine Ratio 27.3 Glucose 88 (74-106) mg/dL Calcium 8.9 (8.5-10.1) mg/dL Discharge Plan Discharge Chief Complaint: Dizziness Clinical Impression: Benign paroxysmal positional vertigo Patient Disposition: Home, Self-Care Time of Disposition Decision: 08:36 Condition: Good Prescriptions / Home Meds: No Action azelastine 137 mcg (0.1 %) aerosol,spray 2 spray INTRANASAL Q12H gabapentin 300 mg capsule 900 mg PO QPM levothyroxine 75 mcg tablet 75 mcg PO QDAY meclizine 25 mg tablet 25 mg PO QID PRN (Reason: dizziness) montelukast 10 mg tablet 10 mg PO QDAY pantoprazole 40 mg tablet,delayed release (DR/EC) 40 mg PO QDAY valacyclovir 1 gram tablet 1,000 mg PO QDAY aspirin 325 mg capsule 325 mg PO DAILY Print Language: Slovak Instructions: Vertigo (DC) Referrals: Winston Flores MD [Primary Care Provider, Family Practice] - 1 week Discharge Date/Time: 06/28/24 08:55 Documented by User: Nichole Ivey MD 06/28/24 09:36 HPI - Dizziness General Chief Complaint: Dizziness Stated Complaint: DIZZY, ONGOING VERTIGO Time Seen by Provider: 06/28/24 06:28 Related Data Home Medications ?Medication ?Instructions ?Recorded ?Confirmed aspirin 325 mg capsule 325 mg PO DAILY 11/18/22 06/28/24 azelastine 137 mcg (0.1 %) nasal 2 spray intranasal Q12H 11/18/22 06/28/24 spray gabapentin 300 mg capsule 900 mg PO QPM 11/18/22 06/28/24 levothyroxine 75 mcg tablet 75 mcg PO QDAY 11/18/22 06/28/24 meclizine 25 mg tablet 25 mg PO QID PRN dizziness 11/18/22 06/28/24 montelukast 10 mg tablet 10 mg PO QDAY 11/18/22 06/28/24 pantoprazole 40 mg tablet,delayed 40 mg PO QDAY 11/18/22 06/28/24 release valacyclovir 1 gram tablet 1,000 mg PO QDAY 11/18/22 06/28/24 Allergies Allergy/AdvReac Type Severity Reaction Status Date / Time ciprofloxacin (From Cipro) Allergy Insomnia Verified 11/18/22 15:02 promethazine (From Phenergan) Allergy muscle Verified 11/18/22 15:02 spasm [facility] Medical History (Updated 06/28/24 @ 06:42 by Patrick Beltre MD) History of endometrial biopsy ?Z92.89 - Personal history of other medical treatment (ICD-10) Urinary urgency ?R39.15 - Urgency of urination (ICD-10) Urinary frequency ?R35.0 - Frequency of micturition (ICD-10) Urge incontinence ?N39.41 - Urge incontinence (ICD-10) Other urethral stricture, female ?N35.82 - Other urethral stricture, female (ICD-10) Sleep apnea ?G47.30 - Sleep apnea, unspecified (ICD-10) RLS (restless legs syndrome) ?G25.81 - Restless legs syndrome (ICD-10) Osteoarthritis ?M19.90 - Unspecified osteoarthritis, unspecified site (ICD-10) Nocturia ?R35.1 - Nocturia (ICD-10) Mixed incontinence ?N39.46 - Mixed incontinence (ICD-10) Microscopic hematuria ?R31.29 - Other microscopic hematuria (ICD-10) Hypothyroid ?E03.9 - Hypothyroidism, unspecified (ICD-10) Hypertension ?I10 - Essential (primary) hypertension (ICD-10) GERD (gastroesophageal reflux disease) ?K21.9 - Gastro-esophageal reflux disease without esophagitis (ICD-10) Fibromyalgia ?M79.7 - Fibromyalgia (ICD-10) Occult blood positive stool ?R19.5 - Other fecal abnormalities (ICD-10) Carpal tunnel syndrome ?G56.00 - Carpal tunnel syndrome, unspecified upper limb (ICD-10) Autonomic neuropathy ?G90.9 - Disorder of the autonomic nervous system, unspecified (ICD-10) Antral ulcer ?K25.9 - Gastric ulcer, unspecified as acute or chronic, without hemorrhage or perforation (ICD-10) Antral gastritis ?K29.50 - Unspecified chronic gastritis without bleeding (ICD-10) Positive colorectal cancer screening using Cologuard test ?R19.5 - Other fecal abnormalities (ICD-10) Surgical History (Updated 11/18/22 @ 14:54 by Maricruz Albright NP) H/O tubal ligation ?Z98.51 - Tubal ligation status (ICD-10) H/O hand surgery ?Z98.890 - Other specified postprocedural states (ICD-10) History of bladder surgery ?Z98.890 - Other specified postprocedural states (ICD-10) H/O inguinal hernia repair ?Z98.890 - Other specified postprocedural states (ICD-10) ?Z87.19 - Personal history of other diseases of the digestive system (ICD-10) H/O cervical spine surgery ?Z98.890 - Other specified postprocedural states (ICD-10) History of carpal tunnel surgery ?Z98.890 - Other specified postprocedural states (ICD-10) H/O colonoscopy ?Z98.890 - Other specified postprocedural states (ICD-10) S/P cystourethroscopy with dilation of urethral stricture ?Z98.890 - Other specified postprocedural states (ICD-10) History of esophagogastroduodenoscopy (EGD) ?Z98.890 - Other specified postprocedural states (ICD-10) Family History (Updated 11/18/22 @ 15:09 by Maricruz Albright NP) Other Family history of heart disease Family history of hypertension Family history of lung cancer Hodgkin disease Leukemia Lymphoma Social History (Updated 11/27/22 @ 07:25 by Daniela Aguilera RN) Within the past year, how often did you have a drink containing alcohol: never Score interpretation: A score less than 3 is consistent with normal alcohol consumption. Smoking status: Never smoker Second hand tobacco smoke exposure: No Non-prescribed substance use: denies use Previous occupational history: [employer] Known occupational exposures/hazards: No Highest level of school completed/degree received: high school graduate Little interest or pleasure in doing things: not at all Feeling down, depressed, or hopeless: not at all Exam Constitutional Vital Signs, click to edit/add: Last Vital Signs Temp 98 F 06/28/24 06:21 Pulse 70 06/28/24 06:21 Resp 16 06/28/24 06:21 BP 143/87 H 06/28/24 08:54 Pulse Ox 98 06/28/24 08:03 O2 Del Method Room Air 06/28/24 06:21 Course Vital Signs Vital signs: Vital Signs Temperature 98 F 06/28/24 06:21 Pulse Rate 70 06/28/24 06:21 Respiratory Rate 16 06/28/24 06:21 Blood Pressure 136/85 06/28/24 06:21 Pulse Oximetry 95 06/28/24 06:21 Oxygen Delivery Method Room Air 06/28/24 06:21 Temperature 98 F 06/28/24 06:21 Pulse Rate 70 06/28/24 06:21 Respiratory Rate 16 06/28/24 06:21 Blood Pressure 143/87 H 06/28/24 08:54 Pulse Oximetry 98 06/28/24 08:03 Oxygen Delivery Method Room Air 06/28/24 06:21 MDM - Dizziness MDM Narrative Medical decision making narrative: patient presents with vertigo. Has a history of vertigo and usually able to improve her symptoms with antivert. Antivert did not work this time. On exam she does have impacted wax left ear and ear irrigation ordered along with Ativan and labs. Care transferred to oncoming physician at change of shift The patient care transferred to de at 7 AM The patient is feeling much better after initial treatment with Ativan CBC and chemistry showed no acute pathology She will just continue the meclizine at home and resting she was given a work excuse for the next 2 days The patient is to follow up with primary care physician in next 2-3 days or to return to the emergency department should any of the signs or symptoms worsen or new symptoms develop. The patient agrees with the following Diagnosis and Treatment plan and the patient will be discharged home. Lab Data Labs: Lab Results 06/28/24 Range/Units 06:50 WBC 8.5 (4.0-11.0) 10^3/uL RBC 4.43 (4.20-5.40) 10^6/uL Hgb 14.3 (12.0-16.0) g/dL Hct 41.7 (36.0-48.0) % MCV 94.1 (81.0-99.0) fL MCH 32.3 (26.7-34.0) pg MCHC 34.3 (29.9-35.2) g/dL RDW 12.0 (11.0-15.0) % Plt Count 223 (150-450) 10^3/uL MPV 9.6 (9.5-13.5) fL Neut % (Auto) 54.2 (43.0-75.0) % Lymph % (Auto) 35.7 (20.5-60.0) % [place] % (Auto) 7.6 (1.7-12.0) % Eos % (Auto) 1.8 (0.9-7.0) % Baso % (Auto) 0.5 (0.2-2.0) % Neut # (Auto) 4.6 (1.4-6.5) 10^3/uL Lymph # (Auto) 3.0 (1.2-3.8) 10^3/uL [place] # (Auto) 0.6 (0.3-0.8) 10^3/uL Eos # (Auto) 0.2 (0.0-0.7) 10^3/uL Baso # (Auto) 0.0 (0.0-0.1) 10^3/uL Abs Immat Gran (auto) 0.02 (0.00-0.03) 10^3/uL Imm/Tot Granulo (auto) 0.2 (0.0-0.5) % Sodium 142 (136-145) mmol/L Potassium 3.7 (3.5-5.1) mmol/L Chloride 104 (98-107) mmol/L Carbon Dioxide 30.2 (21.0-32.0) mmol/L Anion Gap 11.5 BUN 21.0 H (7.0-18.0) mg/dL Creatinine 0.77 (0.55-1.02) mg/dL Est GFR ( Amer) >60 (>=60 mL/min/1.73m^2) Est GFR (Non-Af Amer) >60 (>=60 mL/min/1.73m^2) BUN/Creatinine Ratio 27.3 Glucose 88 (74-106) mg/dL Calcium 8.9 (8.5-10.1) mg/dL Discharge Plan Discharge Chief Complaint: Dizziness Clinical Impression: Benign paroxysmal positional vertigo Patient Disposition: Home, Self-Care Time of Disposition Decision: 08:36 Condition: Good Prescriptions / Home Meds: No Action azelastine 137 mcg (0.1 %) aerosol,spray 2 spray INTRANASAL Q12H gabapentin 300 mg capsule 900 mg PO QPM levothyroxine 75 mcg tablet 75 mcg PO QDAY meclizine 25 mg tablet 25 mg PO QID PRN (Reason: dizziness) montelukast 10 mg tablet 10 mg PO QDAY pantoprazole 40 mg tablet,delayed release (DR/EC) 40 mg PO QDAY valacyclovir 1 gram tablet 1,000 mg PO QDAY aspirin 325 mg capsule 325 mg PO DAILY Print Language: Slovak Instructions: Vertigo (DC) Referrals: Winston Flores MD [Primary Care Provider, Family Practice] - 1 week Discharge Date/Time: 06/28/24 08:55
[2024-06-28 07:05] LABS: Basophils Percent Auto 0.5 % (0.2-2.0); Eosinophils Absolute Auto 0.2 10^3/uL (0.0-0.7); Eosinophils Percent Auto 1.8 % (0.9-7.0); Hematocrit 41.7 % (36.0-48.0); Hemoglobin 14.3 g/dL (12.0-16.0); Immature Granulocytes Abs Auto 0.02 10^3/uL (0.00-0.03); Immature Granulocytes Pct Auto 0.2 % (0.0-0.5); Lymphocytes Percent Auto 35.7 % (20.5-60.0); Mean Corpuscular HGB Conc 34.3 g/dL (29.9-35.2); Mean Corpuscular Hemoglobin 32.3 pg (26.7-34.0); Mean Corpuscular Volume 94.1 fL (81.0-99.0); Mean Platelet Volume 9.6 fL (9.5-13.5); Monocytes Absolute Auto 0.6 10^3/uL (0.3-0.8); Monocytes Percent Auto 7.6 % (1.7-12.0); Neutrophils Absolute Auto 4.6 10^3/uL (1.4-6.5); Neutrophils Percent Auto 54.2 % (43.0-75.0); Platelet Count 223 10^3/uL (150-450); Red Blood Count 4.43 10^6/uL (4.20-5.40); White Blood Count 8.5 10^3/uL (4.0-11.0)
[2024-06-28 07:16] LABS: Anion Gap 11.5; BUN Creatinine Ratio 27.3; Calcium 8.9 mg/dL (8.5-10.1); Carbon Dioxide 30.2 mmol/L (21.0-32.0); Chloride 104 mmol/L (98-107); Estimated GFR (African America >60 (>=60 mL/min/1.73m^2); Estimated GFR (Non-African Ame >60 (>=60 mL/min/1.73m^2); Glucose 88 mg/dL (74-106); Potassium 3.7 mmol/L (3.5-5.1); Sodium 142 mmol/L (136-145)
[2024-06-28] MEDS: LORAZEPAM 2 MG/ML VIAL 0.5 MG IV (07:19)
[2024-06-28] MEDS: 0.9 % SODIUM CHLORIDE 1,000 ML 999 ML IV (07:19)
== END 2024-06-28 08:55 | disposition home or self-care (01) ==
PROVIDERS: Emergency Provider Internal Medicine; PCP Family Medicine
DX: H81.10 Benign paroxysmal vertigo, unspecified ear (principal); H61.22 Impacted cerumen, left ear; Z98.51 Tubal ligation status
CPT/HCPCS: 36415; 80048; 85025; 96374; 99284; J2060

== ENCOUNTER 2024-07-07 08:36 | Outpatient (RCR) | payer OTHER, SELFPAY | END 2024-08-25 07:49 | disposition home or self-care (01) | LOC: PT 08:36 | PROVIDERS: PCP Family Medicine; Visit Provider Family Medicine | DX: R42 Dizziness and giddiness (principal) | CPT/HCPCS: 97012; 97110; 97140; 97162 ==

== ENCOUNTER 2024-07-08 08:19 | Outpatient (OUT) | payer OTHER, SELFPAY ==
--- OUTSIDE RECORDS SUMMARY | 2024-06-25 05:08 | XMS_ITS ---
Author Organization [facility] [place] Address [address] [place] [address] Care Team Providers Care Roving Can Tender Name Role Phone LAUREL FLORES MD Primary Care Provider Laurel Flores Unavailable [phone] REASON FOR VISIT update Encounters Encounter Location Date Provider Diagnosis [facility] [address] [facility] [place] [address] 06/25/2024 Laurel Flores Plan Of Treatment No Information Progress Notes * Jeanna ZEE SDOB:1960 (63 yo F)Acc No.[id number]:06/25/2024 Patient: Nabor JIMMIE Jeanna Eli :1960 A ge:63 Y S ex:Female Address:[address] [place] [phone] * true * Date: Generated for Rosemaryi sky/Faaramisg/eTransmitting on: 0 07/08/2024 08:21 AM EDT
--- OUTSIDE RECORDS SUMMARY | 2024-06-30 11:30 | XMS_ITS ---
Author Organization [facility] in [place] Address [address] [place] [address] Care Team Providers Care Neck Fitter Name Role Phone LAUREL FLORES MD Primary Care Provider [phone] Laurel Flores Unavailable [phone] Allergies Allergen (clinical drug ingredient) Drug/Non Drug Allergy documented on EMR Reaction Allergy Type Onset Date Status promethazine Phenergan Unknown Drug Allergy Acti ve ciprofloxacin Ciprofloxacin Unknown Drug Allergy Active REASON FOR VISIT f/u hospital vertigo Medications Medication SIG (Take, Route, Frequency, Duration) Notes Start Date End Date Status Meclizine HCl 25 MG TAKE ONE TABLET BY M OUTH FOUR TIMES A DAY NEEDED for 8 days Active rOPINIRole HCl 2 MG 1 tablet 1 to 3 hour s before bedtime Orally Once a day for 30 day(s) 06/17/2024 Active Pantoprazole Sodium 40 MG TAKE 1 TABLET BY MOUTH DAILY for 90 Active Multivitamin - 1 tablet Orally Once a day Active Montelukast Sodium 10 MG 1 tablet Orally Once a day for 30 days 11/12/2023 Active Gabapentin 300 MG TAKE THREE CAPSULES BY MOUTH EVERY NIGHT AT BEDTIME for 30 Active Valium 2 MG 1 tablet as needed Orally tid for 7 days 06/30/2024 Active Magnesium Glycinate BID Active Levothyroxine Sodium 100 MCG 1 tablet in the morning on an empty stomach Orally Once a day for 30 days 12/22/2023 Active Ibuprofen 800 MG 1 tablet with food o r milk as needed Orally every 8 hrs 02/27/2024 Active Azelastine HCl 137 MCG/SPRAY Nasal for 30 Days Active Aspirin 81 81 MG 1 tablet Orally Once a day Active Fish Oil 1000 MG 1 capsule Orally daily Active CeleBREX 50 MG 1 capsule Orally Onc e a day for 30 days 11/12/2023 Active Calcium 600 MG 1 tablet with meals Orally Twice a day 1200mg Active valACYclovir HCl 1 GM TAKE 1 TABLET BY M OUTH DAILY START AFTER SHORT TERM RX IS DONE (7 DAYS) for 30 Active tiZANidine HCl 4 MG 2 tabs Orally qhs fo r 30 days Active Social History Tobacco Use: Social History Observation Description Date Details (start date - stop date) Never Smoker NA - NA Tobacco Use/Smoking Question Answer Notes Patient is a nonsmoker Vital Signs Height 64 in 06/30/2024 Weight 153.0 lbs 06/30/2024 BMI 26.26 kg/m2 06/30/2024 Encounters Encounter Location Date Provider Diagnosis [id number] [place] [address] 06/30/2024 Laurel Flores Vertigo R42 Assessments Encounter Date Diagnosis (ICD Code) Assessment Notes Treatment Notes Treatment Clinical Notes Section Notes 06/30/2024 Vertigo (ICD-10 - R42) Plan Of Treatment Medication Medication Name Sig Start Date Stop Date Notes Valium 2 MG 1 tablet as needed Orally tid for 7 days 06/30 Progress Notes * Jeanna ZEE SDOB:1960 (63 yo F)Acc No.[id number]:06/30/2024 UNLOCKED PROGRESS NOTE Progress Note Patient: Jeanna SALAZAR Provider: Dayday Flores (TTC)MD :1960 A ge:63 Y S ex:Female Date:06/30/2024 Address:[address] [place], [place] [id number] Pcp:LAUREL FLORES MD Check In:03:34 PM ESTCheck O ut:04:22 PM EST Subjective: * Chief Complaints: * 1 . F/u hospital vertigo. * HPI: G eneral: Vertigo def spinning -. * Medical History: L umbar Radiculopathy, Knee Pain, Left, Vertigo, Antral Ulcere, Gastro-esophageal disease without esophagitis, Palpitations. * Surgical History: C olonoscopy , EGD , C Section X 2 , Hernia Repair , Bladder Sling , Carpal Tunnel Release- Right , Trigger Finger- Middle Digit on Right Hand , Colonoscopy- normal- Dr. Claire 2022. * Hospitalization/Major Diagno stic Procedure: D enies Past Hospitalization. * Family History: F ather: 74 yrs, Lung cancer, diagnosed with Other malignant neoplasm of unspecified site. M other: 86 yrs, leukemia, diagnosed with Other malignant neoplasm of unspecified site. B rother(s): , Non Hodgkins lymphoma. S ister(s): alive. S on(s): alive.?4 brother(s) , 3 sister(s) . 2 son(s) - healthy. . Brothers: 1 , 3 Living. * Social History: T obacco Use: T obacco Use/Smoking P atient is a n onsmoker * Medications: T aking Aspirin 81(Aspirin) 81 MG Tablet Delayed Release 1 tablet Orally Once a day , Taking Azelastine HCl 137 MCG/SPRAY Solution Nasal , Taking Calcium 600 MG Tablet 1 tablet with meals Orally Twice a day 1200mg, Taking CeleBREX(Celecoxib) 50 MG Capsule 1 capsule Orally Once a day , Taking Fish Oil 1000 MG Capsule 1 capsule Orally daily , Taking Gabapentin 300 MG Capsule TAKE THREE CAPSULES BY MOUTH EVERY NIGHT AT BEDTIME , Taking Ibuprofen 800 MG Tablet 1 tablet with food or milk as needed Orally every 8 hrs , Taking Levothyroxine Sodium 100 MCG Tablet 1 tablet in the morning on an empty stomach Orally Once a day , Taking Magnesium Glycinate , Notes to Pharmacist: BID, Taking Meclizine HCl 25 MG Tablet TAKE ONE TABLET BY MOUTH FOUR TIMES A DAY NEEDED , Taking Montelukast Sodium 10 MG Tablet 1 tablet Orally Once a day , Taking Multivitamin(Multiple Vitamin) - Tablet 1 tablet Orally Once a day , Taking Pantoprazole Sodium 40 MG Tablet Delayed Release TAKE 1 TABLET BY MOUTH DAILY , Taking rOPINIRole HCl 2 MG Tablet 1 tablet 1 to 3 hours before bedtime Orally Once a day , Taking tiZANidine HCl 4 MG Tablet 2 tabs Orally qhs , Taking valACYclovir HCl 1 GM Tablet TAKE 1 TABLET BY MOUTH DAILY START AFTER SHORT TERM RX IS DONE (7 DAYS) , Medication List reviewed and reconciled with the patient * Allergies: P henergan: Allergy - Criticality High, Ciprofloxacin: Allergy - Criticality High. Objective: * Vitals: W t:153.0lbs, Ht: 64 in, BMI:26.26Index, Ht-cm: 162.56 cm, Wt-k.4 kg. * Examination: A bdomen Exam:: L eft cerumen impaciton + Nystagmus. Assessment: * Assessment: 1. V ertigo - R42 (Primary) Plan: * Treatment: * Preventive Medicine: Screenings/Counseling: B NM ACTION PLAN Above Normal BMI Follow-up D ietary management education, guidance, and counseling * * Electronic signature of Laurel Flores MD, [phone] on 07/08/2024 at 08:21 AM EDT Sign off status: Pending Visit Status: C HK (Check Out) * Provider: Dayday Flores (TTC)MD Date: 0 06/30/2024 Generated for Printi ng/Faaramisg/eTransmitting on: 0 07/08/2024 08:21 AM EDT History and Physical Notes * HPI (History of Present Illness) Category Sub-Category Detail Notes Category Not es General Vertigo def spinning - Examination Category Sub-Category Detail Notes Category Not es Abdomen Exam: Left cerumen impaciton + Nystagmus
--- OUTSIDE RECORDS SUMMARY | 2024-07-01 11:14 | XMS_ITS ---
Author Organization [facility] in [place] Address [address] [place] [address] Care Team Providers Care Insurance Sales Supervisor Name Role Phone LAUREL FLORES MD Primary Care Provider [phone] Laurel Flores Unavailable [phone] Reason For Referral Diagnosis 1 Vertigo (R42) Referral Organization [facility] Referring Provider First Name Laurel Referring Provider Last Name Sandra Referring Provider Speciality Family Med icine Referred Provider TB, Physical Therap y Referred Provider Specialty Physical The rapist Referral Priority Routine REASON FOR VISIT Valium/ PT referral Medications Medication SIG (Take, Route, Frequency, Duration) Notes Start Date End Date Status Valium 2 MG 1 tablet as needed Orally tid for 7 days 07/02/2024 Active Encounters Encounter Location Date Provider Diagnosis [facility] [address] [place] [address] 07/01/2024 Laurel Flores Vertigo R42 Assessments Encounter Date Diagnosis (ICD Code) Assessment Notes Treatment Notes Treatment Clinical Notes Section Notes 07/01/2024 Vertigo (ICD-10 - R42) Plan Of Treatment Medication Medication Name Sig Start Date Stop Date Notes Valium 2 MG 1 tablet as needed Orally tid for 7 days 07/02 Referrals Referral Date Details 07/02/2024 07/02/2024, Physical Therapy [facility] Progress Notes * Jeanna ZEE SDOB:1960 (63 yo F)Acc No.[id number]:07/01/2024 Patient: Nabor Jeanna SAMUEL :1960 A ge:63 Y S ex:Female Address:[address] [place] [id number] * Refills Refill Valium Tablet, 2 MG, Orally, 21 Tablet, 1 tablet as needed, tid, 7 days Subjective: * Chief Complaints: * V alium/ PT referral * Medical History: * Surgical History: * Hospitalization/Major Diagno stic Procedure: * Medications: Objective: * Vitals: * Physical Examination: Assessment: * Assessment: 1. V ertigo - R42 (Primary) Plan: * Treatment: * Procedure Codes: * true * Date: Generated for Emiliano swanson/Makenzie/eTransmitting on: 0 07/08/2024 08:21 AM EDT Consultation Request Notes Referral Date Referring Provider Referred Provider Not es 07/02/2024 Laurel Flores [facility], Physical Therapy
--- OUTSIDE RECORDS SUMMARY | 2024-07-08 08:21 | XMS_ITS | Clinical Summary ---
Author Organization [facility] Address [address] [place] [address] Care Team Providers Care Road Production General Manager Name Role Phone Winston Flores MD Primary Care Provider [phone] Nehemias Kell DO Unavailable [phone] Allergies Active Allergy Reactions Criticality Noted Date Comments Ciprofloxacin 09/09/2022 Promethazine Unknown 07/23/2023 Other Reaction(s): jumpy, Spasm Medications gabapentin (Neurontin) 300 MG capsule Take 300 mg by mouth in the morning and 300 mg in the evening and 300 mg before bedtime. Active levothyroxine (Synthroid, Levoxyl) 75 MCG tablet Take by mouth Daily before meals. Active celecoxib (CeleBREX) 50 MG capsule Take 50 mg by mouth in the morning and 50 mg before bedtime. Active aspirin 81 MG EC tablet Take 81 mg by mouth in the morning. Active valACYclovir (Valtrex) 500 MG tablet Take by mouth. Active pantoprazole (ProtoNix) 40 MG EC tablet Take 40 mg by mouth in the morning. Take before meals. Do not crush, chew, or split. . Active pramipexole (Mirapex) 0.5 MG tablet Take 0.5 mg by mouth in the morning and 0.5 mg in the evening and 0.5 mg before bedtime. Active meclizine (Antivert) 25 MG tablet Take 25 mg by mouth 3 (three) times a day as needed for dizziness. Active Azelastine HCl 137 MCG/SPRAY solutionIndicat ions:Chronic rhinitis SPRAY ONE SPRAY IN EACH NOSTRIL TWICE DAILY 30 mL 11 09/09/2022 Active montelukast (Singulair) 10 MG tabletIndicatio ns:Chronic rhinitis Take 1 tablet (10 mg) by mouth at bedtime. 30 tablet 11 09/09/2022 Active valACYclovir (Valtrex) 1 g tablet 11/28/2023 Active tiZANidine (Zanaflex) 4 MG capsule Take 4 mg by mouth in the morning and 4 mg in the evening and 4 mg before bedtime. Active levothyroxine (Synthroid, Levoxyl) 100 MCG tablet Take 100 mcg by mouth in the morning. Take before meals. Active Active Problems Problem Noted Date Diagnosed Date LYNDON (obstructive sleep apnea) 07/23/2023 Gastroesophageal reflux disease 07/23/2023 Snoring 07/23/2023 Daytime hypersomnolence 07/23/2023 RLS (restless legs syndrome) 07/23/2023 Shift work sleep disorder 07/23/2023 Insomnia 07/23/2023 Vasomotor rhinitis 09/09/2022 Encounters Date Type Department Care Team Description 05/03/2024 Telephone [facility] [address] [place] [address] Ami Allred MA sedgwick question 04/22/2024 9:00 AM EDT Office Visit [facility] [address] [phone] Cong Zamarripa DPM Hav (hallux abducto valgus), right (Primary Dx); Acquired deformity of right toe; Plantar fasciitis 04/22/2024 Bamboo flowsheet [facility] [address] [id number] Cong Zamarripa DPM 04/22/2024 Travel 04/15/2024 9:20 AM EST Office Visit [facility] [address] [phone] Cong Zamarripa DPM Hav (hallux abducto valgus), right (Primary Dx); Acquired deformity of right toe; Plantar fasciitis 04/15/2024 Bamboo flowsheet [facility] [address] [address] [place] [address] Cong Zamarripa DPM 04/15/2024 Travel from Last 3 Months Immunizations Immunization Administration Dates Next Due Influenza, injectable, MDCK, preservative free, quadrivalent 12/07/2021,12/21/2020 Influenza, injectable, quadrivalent, preservativ e free 11/23/2019 Influenza, live, intranasal 11/10/2018 Novel [id number], preservative-free 03/29 Tdap 12/16/2023 Zoster, Recombinant 06/29/2022,04/27/2022 Zoster, live 01/31/2014,01/26/2014 Family History Medical History Relation Name Comments Cancer Father Hypertension Father Diabetes Mother Heart disease Mother Hypertension Mother Relation Name Status Comments Father Mother Son 2, healthy Social History Tobacco Use Types Packs/Day Years Used Date Smoking Tobacco: Never Smokeless Tobacco: Never Tobacco Cessation:Counseling Given: Yes Alcohol Use Standard Drinks/Week Comments Never 0 (1 standard drink = 0.6 oz pure alcohol) Caffeine intake: 1-2 cups per day Comments Unknown Sex and Gender Information Value Date Recorded Sex Assigned at Not on file Legal Sex Female 6:37 PM EDT Gender Identity Not on file Sexual Orientation Not on file Last Filed Vital Signs Vital Sign Reading Time Taken Comments Blood Pressure 132/77 03/18/2024 11:07 AM EST Pulse 76 03/18/2024 11:07 AM EST Temperature 36.3 C (97.4 F) 12/16/2023 6:29 PM EST Respiratory Rate 18 04/22/2024 9:04 AM EDT Oxygen Saturation 95% 12/16/2023 6:29 PM EST Inhaled Oxygen Concentration - - Weight 68.9 kg (152 lb) 04/22/2024 9:04 AM EDT Height 162.6 cm (5' 4 ) 04/22/2024 9:04 AM EDT Body Mass Index 26.09 04/22/2024 9:04 AM EDT Plan of Treatment Health Maintenance Due Date Last Done Comments CT Colonography 1959 FIT-DNA 1959 FIT 1959 FOBT 1960 Sigmoidoscopy 1959 Pap Smear 11/26/1980 Cervical Cancer Screening 11/26/1989 HPV/Cotest 11/26/1989 Mammogram 1999 Influenza Vaccine (Season Ended) 2024 12/07/2021, 12/21/2020, 11/23/2019, Additional history exists Colonoscopy 2032 2022, 05/14/2013 Colorectal Cancer Screening 2032 Insurance [employer] Care Teams Road Production General Manager Relationship Specialty Start Date End Date Winston Flores MD PCP - General Family Medicine 02/06/23 Kell Del Cid DO [address] [place] [address] Referring Physician Neurology 04/30/23
--- OUTSIDE RECORDS SUMMARY | 2024-07-08 08:21 | XMS_ITS | Patient Health Record ---
Author Organization [facility] in [place] Address [address] [place] [address] Care Team Providers Care Messenger Floorperson Name Role Phone LAUREL FLORES MD Primary Care Provider [phone] NICK FLORES Unavailable [phone] Varsha Mcqueen Unavailable [phone] Laurel Flores Unavailable [phone] Renee Stanley Unavailable [phone] Allergies Allergen (clinical drug ingredient) Drug/Non Drug Allergy documented on EMR Reaction Allergy Type Onset Date Status promethazine Phenergan Unknown Drug Allergy Acti ve ciprofloxacin Ciprofloxacin Unknown Drug Allergy Active Results Component Value Reference Range Notes XR Foot RT (3 views) * Reviewed date:02/09/2024 02:22:55 PM Interpretation: Performing Lab: Notes/Report: CBC AUTO DIFF Reviewed date:02/02/2024 07:45:06 PM Interpretation: Performing Lab: Notes/Report: [facility] , White Blood Count 6.0 4.0-11.0 10 3/uL Red Blood Count 4.41 4.20-5.40 10 6/uL Hemoglobin 14.1 12.0-16.0 g/dL Hematocrit 42.5 36.0-48.0 % Mean Corpuscular Volume 96.4 81.0-99.0 fL Mean Corpuscular Hemoglobin 32.0 26.7-34.0 pg Mean Corpuscular HGB Conc 33.2 29.9-35.2 g/dL Red Cell Distribution Width 12.0 11.0-15.0 % Platelet Count 224 150-450 10 3/uL Mean Platelet Volume 10.8 9.5-13.5 fL Neutrophils Percent Auto 59.4 43.0-75.0 % Lymphocytes Percent Auto 31.0 20.5-60.0 % Monocytes Percent Auto 6.3 1.7-12.0 % Eosinophils Percent Auto 2.3 0.9-7.0 % Basophils Percent Auto 0.8 0.2-2.0 % Immature Granulocytes Pct Auto 0.2 0.0-0.5 % Neutrophils Absolute Auto 3.6 1.4-6.5 10 3/uL Lymphocytes Absolute Auto 1.9 1.2-3.8 10 3/uL Monocytes Absolute Auto 0.4 0.3-0.8 10 3/uL Eosinophils Absolute Auto 0.1 0.0-0.7 10 3/uL Basophils Absolute Auto 0.1 0.0-0.1 10 3/uL Immature Granulocytes Abs Auto 0.01 0.00-0.03 10 3/uL Performing Lab: see note ML - [facility] LB ECG 12 lead Reviewed date:02/03/2024 10:02:55 AM Interpretation: Performing Lab: Notes/Report: Source Facility: [place] [address] Electrocardiograph Report Signed Patient: JEANNA ZEE MR#: [id number] : 1960 Acct:[id number] Age/Sex: 63 / F ADM Date: 02/02/24 Loc: CARD Attending Dr: KARI MIRANDA Ordering Physician: KARI MIRANDA Date of Service: 02/02/24 Procedure(s): ECG 12 lead Accession Number(s): [id number] cc: [facility] Test Date: 2024-02-02 Pat Name: JEANNA ZEE Department: Room: - Gender: Female [employer] Layout Drafter: : 1960 Requested By: KARI MIRANDA Order Number: [id number] Reading MD: PJ BUI Measurements Intervals [place] Rate: 77 P: 58 LA: 152 QRS: 53 QRSD: 114 T: 36 QT: 388 QTc: 441 Interpretive Statements SINUS RHYTHM POSSIBLE RIGHT ATRIAL ENLARGEMENT [0.25mV P WAVE] MODERATE INTRAVENTRICULAR CONDUCTION DELAY [110+ ms QRS DURATION] Electronically Signed On 02-02-2024 22:40:17 EST by PJ BUI Dictated By: Pj Bui D.O. Signed By: 02/02/24223902/02/242239 DD/ 1436 TD/TT: Patient Access Coordinator: [place] [address] Electrocardiograph Report Signed Patient: JEANNA ZEE MR#: [id number] : 1960 Acct:[id number] Age/Sex: 63 / F ADM Date: 02/02/24 Loc: CARD Attending Dr: ELI MIRANDA Ordering Physician: KARI MIRANDA Date of Service: 02/02/24 Procedure(s): ECG 12 lead Accession Number(s): [id number] cc: [facility] Test Date: 2024-02-02 Pat Name: JEANNA ZEE Department: 35 Room: - Gender: Female [employer] Design Layout Drafter: : 1960 Requ ested By: KARI MIRANDA Order Number: [id number] Reading MD: PJ BUI Measurements Intervals [place] Rate: 77 P: 58 LA: 152 QRS: 53 QRSD: 114 T: 36 QT: 388 QTc: 441 Interpretive Statements SINUS RHYTHM POSSIBLE RIGHT ATRIA L ENLARGEMENT [0.25mV P WAVE] MODERATE INTRAVENTRI CULAR CONDUCTION DELAY [110+ ms QRS DURATION] Electronically Lorrie d On 02-02-2024 22:40:17 EST by PJ BUI Dictated By: Pj Bui D.O. Signed By: 02/02/24223902/02/242239 DD/ 1436 TD/TT: Patient Access Coordinator: XR lumbar spine min 4V Reviewed date:06/18/2024 12:46:51 PM Interpretation: Performing Lab: Notes/Report: Source Facility: [place] [address] [place] [address] XRay Report Signed Patient: JEANNA ZEE MR#: [id number] : 1960 Acct:[id number] Age/Sex: 63 / F ADM Date: 06/17/24 Loc: RAD Attending Dr: Nick Flores M.D. Ordering Physician: Nick Flores M.D. Date of Service: 06/17/24 Procedure(s): XR lumbar spine min 4V Accession Number(s): [id number] cc: Nick Flores M.D. [address] [address] Patient Name: JEANNA ZEE MRN: [id number] date: 1960 Sex: F Assigned Patient Location: [facility] Current Patient Location: Accession/Order Number: [id number] Exam Date: 06/18/2024 09:49 Report Date: 06/18/2024 09:52 At the request of: NICK FLORES MD Procedure: XR lumbar spine min 4V LUMBAR SPINE - 5 views CLINICAL HISTORY: VERTIGO R42 COMPARISON: None. FINDINGS: Vertebral body and disc space heights appear maintained. Endplate and facet joint degenerative changes. XR/XR lumbar spine min 4V IMPRESSION: ENDPLATE AND FACET JOINT DEGENERATIVE CHANGES. NO SIGNIFICANT DISC HEIGHT LOSS. Impression dictated by: Bassem Dorsey Jr., D.O. 06/18/2024 9:52 AM Dictation Location: [place] [address] Electronically authenticated by: [id number] Y Date: 06/18/2024 09:52 Dictated By: Bassem Dorsey M.D. Signed By: 06/18/2455 DD/ 1 TD/TT: Patient Access Coordinator: [place] [address] XRay Report Signed Patient: JEANNA ZEE MR#: [id number] : 1960 Acct:[id number] Age/Sex: 63 / F ADM Date: 06/17/24 Loc: [facility] Attending Dr: Julio César Flores M.D. Ordering Physician: Nick Flores M.D. Date of Service: 06/17/24 Procedure(s): XR lum bar spine min 4V Accession Number(s): [id number] cc: Nick Flores M.D. [address] [address] Patient Name: JEANNA ZEE MRN: [id number] date: 1960 Sex: F Assigned Patient Location: [facility] Current Patient Location: Accession/Order Numb er: [id number] Exam Date: 06/18/2024 09:49 Report Date: 06/18/2024 09:52 At the request of: NICK FLORES MD Procedure: XR lumbar spine min 4V LUMBAR SPINE - 5 views CLINICAL HISTORY: VE RTIGO R42 COMPARISON: None. FINDINGS: Vertebral body and disc space heights appear maintained. Endplate and facet joint degenerative changes. X R/XR lumbar spine min 4V IMPRESSION: ENDPLATE AND FACET J OINT DEGENERATIVE CHANGES. NO SIGNIFICANT DISC HEIGHT LOSS. Impression dictated by: Bassem Dorsey Jr., DKorey 06/18/2024 9:52 AM Dictation Location: [place] [address] Electronically authenticated by: [id number] Y Date: 06/18/2024 09:52 Dictated By: Bassem Dorsey M.D. Signed By: 06/18/2455 DD/ TD/TT: Patient Access Coordinator: CBC AUTO DIFF Reviewed date:06/28/2024 12:58:15 PM Interpretation: Performing Lab: Notes/Report: [facility] , White Blood Count 8.5 4.0-11.0 10 3/uL Red Blood Count 4.43 4.20-5.40 10 6/uL Hemoglobin 14.3 12.0-16.0 g/dL Hematocrit 41.7 36.0-48.0 % Mean Corpuscular Volume 94.1 81.0-99.0 fL Mean Corpuscular Hemoglobin 32.3 26.7-34.0 pg Mean Corpuscular HGB Conc 34.3 29.9-35.2 g/dL Red Cell Distribution Width 12.0 11.0-15.0 % Platelet Count 223 150-450 10 3/uL Mean Platelet Volume 9.6 9.5-13.5 fL Neutrophils Percent Auto 54.2 43.0-75.0 % Lymphocytes Percent Auto 35.7 20.5-60.0 % Monocytes Percent Auto 7.6 1.7-12.0 % Eosinophils Percent Auto 1.8 0.9-7.0 % Basophils Percent Auto 0.5 0.2-2.0 % Immature Granulocytes Pct Auto 0.2 0.0-0.5 % Neutrophils Absolute Auto 4.6 1.4-6.5 10 3/uL Lymphocytes Absolute Auto 3.0 1.2-3.8 10 3/uL Monocytes Absolute Auto 0.6 0.3-0.8 10 3/uL Eosinophils Absolute Auto 0.2 0.0-0.7 10 3/uL Basophils Absolute Auto 0.0 0.0-0.1 10 3/uL Immature Granulocytes Abs Auto 0.02 0.00-0.03 10 3/uL Performing Lab: see note ML - [facility] LB PROF CHEM 8 (BAS METB) Reviewed date:06/28/2024 12:58:15 PM Interpretation: Performing Lab: Notes/Report: [facility] , Sodium 142 136-145 mmol/L Potassium 3.7 3.5-5.1 mmol/L Chloride 104 98-107 mmol/L Carbon Dioxide 30.2 21.0-32.0 mmol/L Anion Gap 11.5 Glucose 88 74-106 mg/dL Blood Urea Nitrogen 21.0 7.0-18.0 mg/dL Creatinine 0.77 0.55-1.02 mg/dL Estimated GFR ( Tess >60 >=60 mL/min/1.73m 2 Estimated GFR (Non- Ivanna >60 >=60 mL/min/1.73m 2 BUN Creatinine Ratio 27.3 Calcium 8.9 8.5-10.1 mg/dL Performing Lab: see note ML - [facility] LB PROF CHEM 8 ([place] METB) Reviewed date:02/02/2024 07:45:06 PM Interpretation: Performing Lab: Notes/Report: [facility] , Sodium 147 136-145 mmol/L Potassium 3.9 3.5-5.1 mmol/L Chloride 108 98-107 mmol/L Carbon Dioxide 30.8 21.0-32.0 mmol/L Anion Gap 12.1 Glucose 78 74-106 mg/dL Blood Urea Nitrogen 19.0 7.0-18.0 mg/dL Creatinine 0.81 0.55-1.02 mg/dL Estimated GFR ( Tess >60 >=60 mL/min/1.73m 2 Estimated GFR (Non- Ivanna >60 >=60 mL/min/1.73m 2 BUN Creatinine Ratio 23.5 Calcium 9.0 8.5-10.1 mg/dL Performing Lab: see note ML - [facility] LB MM tomosynthesis screening B I Reviewed date:12/19/2023 02:09:50 PM Interpretation: Performing Lab: Notes/Report: Source Facility: [facility] [place] [address] [place] [address] Mammography Report Signed Patient: JEANNA ZEE MR#: [id number] : 1960 Acct:[id number] Age/Sex: 63 / F ADM Date: 12/19/23 Loc: MAMMO Attending Dr: RENEE STANLEY Ordering Physician: RENEE STANLEY Results: Date of Service: 12/19/23 Follow Up: Procedure(s): MM tomosynthesis screening BI Accession Number(s): [id number] cc: RENEE STANLEY ; Nick Flores M.D. Patient Name: JEANNA ZEE MR#: [id number] : 1960 Exam Date: 12/19/2023 Ordering Doctor: RENEE STANLEY [facility] RADIOLOGY REPORT PROCEDURE: MM TOMOSYNTHESIS SCREENING BI COMPARISON: MM TOMOSYNTHESIS SCREENING BI, 12/13/2022. MG MAMM SCREEN 3D TIFFANIE CAD, 12/14/2021. MG MAMM SCREEN 3D TIFFANIE CAD, 11/30/2020. MG MAMM TIFFANIE SCRN W CAD DIG, 12/01/2012. INDICATIONS: Screening Calculator Name NCI Breast Cancer Risk Assessment Tool 5 Year Breast Cancer Risk 1.30% Lifetime Breast Cancer Risk 5.30% Personal Breast Cancer No Personal Ovarian Cancer No Treatments None Family Cancers Mother with leukemia cancer at age 84; Father with lung cancer at age 74. LOCATION: [facility] BREAST COMPOSITION: The breasts are extremely dense, which lowers the sensitivity of mammography. FINDINGS: DIAGNOSTIC CATEGORY 1--NEGATIVE. RIGHT BREAST: No significant suspicious finding. No significant change has occurred. LEFT BREAST: No significant suspicious finding. No significant change has occurred. RECOMMENDATIONS: ROUTINE MAMMOGRAM AND CLINICAL EVALUATION IN 12 MONTHS. PLEASE NOTE: A NORMAL MAMMOGRAM DOES NOT EXCLUDE THE POSSIBILITY OF BREAST CANCER. A CLINICALLY SUSPICIOUS PALPABLE LUMP SHOULD BE BIOPSIED. Dictated by: Tenzin Coe M.D. on 12/19/2023 at 12:02 Approved by: Tenzin Coe M.D. on 12/19/2023 at 12:04 Dictated By: Tenzin Coe M.D. Signed By: 12/19/23 1205 DD/ 1204 TD/TT: Patient Access Coordinator: [place] [address] Mammography Report Signed Patient: JEANNA ZEE MR#: [id number] : 1960 Acct:[id number] Age/Sex: 63 / F ADM Date: 12/19/23 Loc: MAMMO Attending Dr: RENEE STANLEY Ordering Physician: RENEE STANLEY Results: Date of Service: 10/03 Follow Up: Procedure(s): MM tomosynthesis screening BI Accession Number(s): [id number] cc: RENEE STANLEY ; Nick Flores M.D. Patient Name: JEANNA ZEE MR#: [id number] : 1960 Exam Date: 12/19/2023 Ordering Doctor: NELIA STANLEY [facility] RADIOLOGY REPORT PROCEDURE: MM TOMOSYNTHESIS SCREENING BI COMPARISON: MM TOMOSYNTHESIS SCREENING BI, 12/13/2022. MG MAMM SCREEN 3D TIFFANIE CAD, 12/14/2021. MG MAMM SCREEN 3D TIFFANIE CAD, 11/30/2020. MG MAMM TIFFANIE SCRN W CAD DIG, 12/01/2012. INDICATIONS: Screening Calculator Name NCI Breast Cancer Risk Assessment Tool 5 Year Breast Cancer Risk 1.30% Lifetime Breast Canc er Risk 5.30% Personal Breast Cancer No Personal Ovarian Can cer No Treatments None Family Cancers Mothe r with leukemia cancer at age 84; Father with lung cancer at age 74. LOCATION: [facility] BREAST COMPOSITION: The breasts are extremely dense, which lowers the sensitivity of mammography. FINDINGS: DIAGNOSTIC CATEGORY 1--NEGATIVE. RIGHT BREAST: No significant suspicious finding. No significant change has occurred. LEFT BREAST: No significant suspicious finding. No significant change has occurred. RECOMMENDATIONS: ROUTINE MAMMOGRAM AN D CLINICAL EVALUATION IN 12 MONTHS. PLEASE NOTE: A NATALYA L MAMMOGRAM DOES NOT EXCLUDE THE POSSIBILITY OF BREAST CANCER. A CLINICALLY SUSPICIOUS PALPABLE LUMP SHOULD BE BIOPSIED. Dictated by: Tenzin Coe M.D. on 12/19/2023 at 12:02 Approved by: Tenzin Coe M.D. on 12/19/2023 at 12:04 Dictated By: Tenzin Coe M.D. Signed By: 12/19/23 120 DD/ 03 TD/TT: Patient Access Coordinator: IGP,Aptima HPV,Age Gdln Reviewed date:12/11/2023 04:39:47 PM Interpretation: Performing Lab: Notes/Report: BRUSH-ALONE MENOPAUSAL VAGINA [facility] , Age Gdln ACOG Testing Note . Clinician Provided Cytology Information FLAG LEGEND: Other..............Pos t Menopausal Nora Enamorado MD, 01 =G [address] [place] [address] Performed at: TESTS RESULT FLAG UNITS REF RANGE LAB No. of containers..01 ThinPrep Vial <-Panic Low,>-Panic High,A-Abnormal,AA-Cri tical Abnormal Source.............Vag gualberto L-Low Normal,H-High Normal,LL-Alert Low,HH-Alert High Age Algo ACOG Marisel... 30-65 01 IGP, Aptima HPV, rfx 16/18,45 Note . . 02 THIS SPECIMEN WAS RESCREENED PART OF OUR STAFFING ADMINISTRATOR PROGRAM. QC reviewed by: Matthew Su, Financial Service Representative ([facility]) Specimen adequacy: 03 14 [facility] cancer. Both false-positive and false-negative reports do <-Panic Low,>-Panic High,A-Abnormal,AA-Cri tical Abnormal NEGATIVE FOR INTRAEPITHELIAL LESION OR MALIGNANCY. uterine cervix. It is not a diagnostic procedure and Performed at: occur. DIAGNOSIS: Nora Enamorado MD, L-Low Normal,H-High Normal,LL-Alert Low,HH-Alert High the use of an image guided system. This liquid based ThinPrep(R) pap test was screened with CELLULAR CHANGES ASSOCIATED WITH ATROPHY ARE PRESENT. Performed by: 02 Criteria not met, HPV Genotype not performed. detection of premalignant and malignant conditions of the Test Methodology: Note 02 Alicia Gayle, Financial Service Representative ([facility]) should not be used as the sole means of detecting cervical TESTS RESULT FLAG UNITS REF RANGE LAB [address] [place] [address] Satisfactory for evaluation. HPV Genotype Reflex Note 02 Note: Note 02 FLAG LEGEND: The Pap smear is a screening test designed to aid in the HPV Aptima Negative Negative Performed at: =[facility] Grader Meat: Nora Enamorado MD, Phone: [phone] This nucleic acid amplification test detects fourteen high- without differentiation. [address] [facility] [place] [place] [id number] Grader Meat: Nora Enamorado MD, Phone: [phone] Performed at: - [facility] [id number] risk HPV types (16,18,31,33,35,39,45, 51,52,56,58,59,66,68) Performing Lab: see note - [facility] LB XR foot RT min 3V Reviewed date:02/02/2024 07:45:06 PM Interpretation: Performing Lab: Notes/Report: Source Facility: [place] [address] XRay Report Signed Patient: JEANNA ZEE MR#: [id number] : 1960 Acct:[id number] Age/Sex: 62 / F ADM Date: 11/25/23 Loc: RAD Attending Dr: Varsha Mcqueen D.P.M. Ordering Physician: Varsha Mcqueen D.P.M. Date of Service: 11/25/23 Procedure(s): XR foot RT min 3V Accession Number(s): [id number] cc: Varsha Mcqueen D.P.M.; Nick Flores M.D. [place] [address] Patient Name: JEANNA ZEE MRN: [id number] date: 1960 Sex: F Assigned Patient Location: [facility] Current Patient Location: Accession/Order Number: [id number] Exam Date: 11/25/2023 07:51 Report Date: 11/26/2023 07:15 At the request of: VARSHA MCQUEEN Procedure: XR foot RT min 3V PROCEDURE: XR foot RT min 3V COMPARISON: 03/22/2020 HISTORY: RIGHT FOOT PAIN FINDINGS: BONES:No acute fracture or dislocation. Mild hallux valgus. Mild degenerative changes with joint space narrowing and marginal osteophyte formation. SOFT TISSUES:Negative. No visible soft tissue swelling. EFFUSION:None visible. OTHER: Negative. XR/XR foot RT min 3V IMPRESSION: Osteoarthritis Mild hallux valgus Electronically authenticated by: JAMIE BUTLER Date: 11/26/2023 07:15 Dictated By: Jamie Butler M.D. Signed By: 11/26/23716 DD/ 4 TD/TT: Patient Access Coordinator: [place] [address] XRay Report Signed Patient: JEANNA ZEE MR#: [id number] : 1960 Acct:[id number] Age/Sex: 62 / F ADM Date: 11/25/23 Loc: RAD Attending Dr: Varsha Mcqueen D.P.M. Ordering Physician: Varsha Mcqueen D.P.M. Date of Service: 11/25/23 Procedure(s): XR noe t RT min 3V Accession Number(s): [id number] cc: Varsha Mcqueen D.P.M.; Nick Flores M.D. [place] [id number] Patient Name: JEANNA ZEE MRN: [id number] date: 1960 Sex: F Assigned Patient Location: [facility] Current Patient Location: Accession/Order Numb er: [id number] Exam Date: 07:51 Report Date: 11/26/2023 07:15 At the request of: VARSHA MCQUEEN Procedure: XR foot R T min 3V PROCEDURE: XR foot R T min 3V COMPARISON: 03/22/2020 HISTORY: RIGHT FOOT PAIN FINDINGS: BONES:No acute fract ure or dislocation. Mild hallux valgus. Mild degenerative changes with joint s pace narrowing and marginal osteophyte formation. SOFT TISSUES:Negativ e. No visible soft tissue swelling. EFFUSION:None visible. OTHER: Negative. X R/XR foot RT min 3V IMPRESSION: Osteoarthritis Mild hallux valgus Electronically authenticated by: JAMIE BUTLER Date: 11/26/2023 07:15 Dictated By: Rene Butler M.D. Signed By: 11/26/23716 DD/ 4 TD/TT: Patient Access Coordinator: BIJAN Reviewed date:08/11/2023 08:38:14 PM Interpretation: Performing Lab: Notes/Report: [facility] , Thyroid Stimulating Hormone 8.660 0.358-3.740 uIU/mL Performing Lab: see note ML - [facility] LB PROF 14(COMP METB) Reviewed date:08/11/2023 08:38:14 PM Interpretation: Performing Lab: Notes/Report: [facility] , Sodium 143 136-145 mmol/L Potassium 3.6 3.5-5.1 mmol/L Chloride 107 98-107 mmol/L Carbon Dioxide 29.4 21.0-32.0 mmol/L Anion Gap 10.2 Glucose 91 74-106 mg/dL Blood Urea Nitrogen 17.0 7.0-18.0 mg/dL Creatinine 0.66 0.55-1.02 mg/dL Estimated GFR ( Tess >60 >=60 Estimated GFR (Non- Ivanna >60 >=60 BUN Creatinine Ratio 25.8 Calcium 8.4 8.5-10.1 mg/dL Bilirubin Total 0.8 0.2-1.0 mg/dL Aspartate Amino Transferase 20 15-37 U/L Alanine Aminotransferase 28 14-59 U/L Alkaline Phosphatase 66 46-116 U/L Total Protein 6.9 6.4-8.2 g/dL Albumin Level 3.6 3.4-5.0 g/dL Globulin 3.3 Albumin Globulin Ratio 1.1 Performing Lab: see note ML - [facility] LB MAGNESIUM Reviewed date:08/11/2023 08:38:14 PM Interpretation: Performing Lab: Notes/Report: [facility] , Magnesium 2.2 1.8-2.4 mg/dL Performing Lab: see note ML - [facility] LB IRON Reviewed date:08/11/2023 08:38:14 PM Interpretation: Performing Lab: Notes/Report: [facility] , Iron 112.0 50.0-170.0 ug/dL Performing Lab: see note ML - [facility] LB FREE T4 Reviewed date:08/11/2023 08:38:14 PM Interpretation: Performing Lab: Notes/Report: [facility] , Free T4 1.00 0.76-1.46 ng/dL Performing Lab: see note ML - [facility] LB CBC AUTO DIFF Reviewed date:08/11/2023 08:38:14 PM Interpretation: Performing Lab: Notes/Report: [facility] , White Blood Count 6.3 4.0-11.0 10 3/uL Red Blood Count 4.33 4.20-5.40 10 6/uL Hemoglobin 13.7 12.0-16.0 g/dL Hematocrit 40.1 36.0-48.0 % Mean Corpuscular Volume 92.6 81.0-99.0 fL Mean Corpuscular Hemoglobin 31.6 26.7-34.0 pg Mean Corpuscular HGB Conc 34.2 29.9-35.2 g/dL Red Cell Distribution Width 11.9 11.0-15.0 % Platelet Count 219 150-450 10 3/uL Mean Platelet Volume 9.6 9.5-13.5 fL Neutrophils Percent Auto 56.1 43.0-75.0 % Lymphocytes Percent Auto 33.6 20.5-60.0 % Monocytes Percent Auto 7.2 1.7-12.0 % Eosinophils Percent Auto 2.4 0.9-7.0 % Basophils Percent Auto 0.5 0.2-2.0 % Immature Granulocytes Pct Auto 0.2 0.0-0.5 % Neutrophils Absolute Auto 3.5 1.4-6.5 10 3/uL Lymphocytes Absolute Auto 2.1 1.2-3.8 10 3/uL Monocytes Absolute Auto 0.5 0.3-0.8 10 3/uL Eosinophils Absolute Auto 0.2 0.0-0.7 10 3/uL Basophils Absolute Auto 0.0 0.0-0.1 10 3/uL Immature Granulocytes Abs Auto 0.01 0.00-0.03 10 3/uL Performing Lab: see note ML - [facility] LB Reason For Referral Reason possibel basal cell Diagnosis 1 Nevus (D22.9) Referral Organization [facility] Referring Provider First Name NICK Referring Provider Last Name SANDRA Referring Provider Speciality [facility] Med roc Referred Provider Jason Claire Referred Provider Specialty General Surg jorge a Referral Priority Routine Diagnosis 1 Vertigo (R42) Referral Organization [facility] Referring Provider First Name Laurel Referring Provider Last Name Sandra Referring Provider Speciality Family Med icine Referred Provider [facility], Physical Therap y Referred Provider Specialty Physical The rapist Referral Priority Routine Medications Medication SIG (Take, Route, Frequency, Duration) Notes Start Date End Date Status Azelastine HCl 137 MCG/SPRAY Nasal for 30 Days Active Aspirin 81 81 MG 1 tablet Orally Once a day Active Gabapentin 300 MG TAKE THREE CAPSULES BY MOUTH EVERY NIGHT AT BEDTIME for 30 Active Fish Oil 1000 MG 1 capsule Orally daily Active CeleBREX 50 MG 1 capsule Orally Onc e a day for 30 days 11/12/2023 Active Calcium 600 MG 1 tablet with meals Orally Twice a day 1200mg Active Valium 2 MG 1 tablet as needed Orally tid for 7 days 07/02/2024 Active valACYclovir HCl 1 GM TAKE 1 TABLET BY M OUTH DAILY START AFTER SHORT TERM RX IS DONE (7 DAYS) for 30 Active tiZANidine HCl 4 MG 2 tabs Orally qhs fo r 30 days Active Meclizine HCl 25 MG TAKE ONE TABLET BY M OUTH FOUR TIMES A DAY NEEDED for 8 days Active Magnesium Glycinate BID Active Levothyroxine Sodium 100 MCG 1 tablet in the morning on an empty stomach Orally Once a day for 30 days 12/22/2023 Active Ibuprofen 800 MG 1 tablet with food o r milk as needed Orally every 8 hrs 02/27/2024 Active rOPINIRole HCl 2 MG 1 tablet 1 to 3 hour s before bedtime Orally Once a day for 30 day(s) 06/17/2024 Active Pantoprazole Sodium 40 MG TAKE 1 TABLET BY MOUTH DAILY for 90 Active Multivitamin - 1 tablet Orally Once a day Active Montelukast Sodium 10 MG 1 tablet Orally Once a day for 30 days 11/12/2023 Active Social History Tobacco Use: Social History Observation Description Date Details (start date - stop date) Never Smoker NA - NA Tobacco Use/Smoking Question Answer Notes Patient is a nonsmoker Alcohol Screen (Audit-C) Question Answer Notes Did you have a drink containing alcohol in the p ast year? No Points 0 Interpretation Negative AUDIT-C (Standard) Question Answer Notes Did you have a drink containing alcohol in the p ast year? No Points 0 Interpretation Negative Problems Problem Type SNOMED Code ICD Code Onset Dates Problem Status W/U Status Risk Notes Problem 24641494 Essential (primary) hypertension (I10) Active confirmed Problem 289748106 Hypothyroidism, unspecified (E03.9) Active confirmed Problem 14260225 Sleep apnea, unspecified (G47.30) Active confirmed Problem 891287768 Bilateral primar y osteoarthritis of knee (M17.0) Active confirmed Problem 347250244810739 Hallux valgus (acquired), right foot (M20.11) Active confirmed Problem 924466922 Other hammer toe(s) (acquired), right foot (M20.41) Active confirmed Problem 85218132 Spinal stenosis, cervical region (M48.02) Active confirmed Problem 22655555 Other cervical disc degeneration, 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) Active confirmed Problem Fibromyalgia (583345457) Fibromyalgia (M79.7) Active confirmed Problem Nocturia (722316792) Nocturia (R35.1) Active confirmed Problem Weakness (58493816) Weakness (R53.1) Active confirmed Problem Restless legs (31029239) Restless leg (G25.81) Active confirmed Problem Sleep apnea (86087436) Sleep apnea (G47.30) Active confirmed Problem Vertigo (417033280) Vertigo (R42) Active confirmed Problem Pain in right foot ([id number]) Right foot pain (M79.671) Active confirmed Problem Contact dermatitis (12824349) Contact dermatitis (L25.9) Active confirmed Problem Nevus (5845466908) Nevus (D22.9) Active confirm ed Problem [id number] Depression, unspecified (F32.A) Active confirmed Problem Headache (00268867) Headache (R51.9) Active confirmed Vital Signs Heart Rate 79 /min 11/25/2023 Temperature 97.5 degrees Fahrenheit 11/25/2023 Oximetry 99 % 11/25/2023 Blood pressure diastolic 62 mm Hg 06/17/2024 Height 64 in 06/30/2024 Blood pressure systolic 104 mm Hg 06/17/2024 Weight 153.0 lbs 06/30/2024 BMI 26.26 kg/m2 06/30/2024 Encounters Encounter Location Date Provider Diagnosis [facility] [address] [place] [address] 06/18/2024 Laurel Flores [facility] [address] [place] [address] 06/24/2024 Laurel Flores Pre-procedural laboratory examination Z01.812 [facility] [address] [place] [address] 06/25/2024 Laurel Hoy [facility] [address] [place] [address] 07/01/2024 Laurel Hoy Vertigo R42 [facility] [address] [place] [address] 12/11/2023 Renee [facility] [address] [facility] [place] [address] 12/19/2023 Renee [facility] [address] [place] [address] 12/22/2023 Laurel Josephy [facility] ([facility]) [address] [place] [address] [place] [address] 12/30/2023 Varsha [facility] [address] [facility] [place] [place] [address] 01/30/2024 Laurel Jakey [facility] [address] [facility] [place] [place] [address] 02/27/2024 Laurel Hoy Restless legs syndrome G25.81 [facility] [address] [facility] [place] [place] [address] 10/06/2023 Laurel Hoy Restless legs syndrome G25.81 [facility] [address] [place] [address] 10/08/2023 Laurel Hoy [facility] [address] [facility] [place] [place] [address] 10/08/2023 Laurel Hoy [facility] [address] [place] [address] 11/12/2023 Laurel Hoy [facility] [address] [place] [address] 2023 Laurel Hoy Varicose veins I86.8 and Restless legs syndrome G25.81 [facility] [address] [place] [address] [place] [address] 12/08/2023 [facility] [address] [place] [address] 07/10/2023 NICK HOY [facility] [address] [place] [address] 08/11/2023 NICK HOY [facility] [address] [place] [address] 06/30/2024 Laurel Hoy Vertigo R42 [facility] [address] [place] [address] 07/25/2023 NICK HOY Restless legs syndrome G25.81 ; Other cervical disc degeneration, unspecified cervical region M50.30 ; Essential (primary) hypertension I10 and Nevus D22.9 [facility] [address] [place] [address] 09/10/2023 Laurel Hoy Contact dermatitis L25.9 [facility] [address] [place] [address] 12/04/2023 Renee Stanley Encounter for annual routine gynecological examination Z01.419 [facility] [address] [place] [address] 01/30/2024 Laurel Hoy Essential (primary) hypertension I10 and Hallux valgus (acquired), right foot M20.[address] [address] 06/17/2024 Laurel Hoy Vertigo R42 ; Weakness R53.1 ; Headache R51.9 and Restless leg G25.81 [facility]) [address] [place] [address] [place] [address] 11/25/2023 Varsha Mcqueen Hallux valgus (acquired), right foot M20.11 ; Other hammer toe(s) (acquired), right foot M20.41 and Right foot pain M79.671 Assessments Encounter Date Diagnosis (ICD Code) Assessment Notes Treatment Notes Treatment Clinical Notes Section Notes 07/25/2023 Restless legs syndrome (ICD-10 - G25.81) 07/25/2023 Other cervical disc degeneration, unspecified cervical region (ICD-10 - M50.30) 09/10/2023 Contact dermatitis (ICD-10 - L25.9) 11/25/2023 Hallux valgus (acquired), right foot (ICD-10 - M20.11) Patient is a 62-year-old female who presents for second opinion regarding her right first and second toe deformities. She was seen by her local life specialist for the last 1+ year and has had multiple toes spacers and sleeves as well as custom molded orthotics. She has attempted shoe and activity modification as well however has to wear steel toe boots/shoes at work which exacerbates her pain. She has difficulty finding comfortable shoe wear.I had a long discussion with the patient regarding risks and benefits of surgical versus nonsurgical treatment options. Specifically I discussed first MPJ fusion with correction of the second toe possible second metatarsal osteotomy with possible pinning. I outlined the recovery. Patient would like to talk with family and friends as well as work about whether or not she undergo surgery this year or at a later date. 11/25/2023 Other hammer toe(s) (acquired), right foot (ICD-10 - M20.41) 12/04/2023 Encounter for annual routine gynecological examination (ICD-10 - Z01.419) pap obtained patient tolerated well 01/30/2024 Essential (primary) hypertension (ICD-10 - I10) 01/30/2024 Hallux valgus (acquired), right foot (ICD-10 - M20.11) cleared for OR 06/17/2024 Vertigo (ICD-10 - R42) 06/17/2024 Weakness (ICD-10 - R53.1) 06/30/2024 Vertigo (ICD-10 - R42) 10/06/2023 Restless legs syndrome (ICD-10 - G25.81) 2023 Varicose veins (ICD-10 - I86.8) 02/27/2024 Restless legs syndrome (ICD-10 - G25.81) 06/24/2024 Pre-procedural laboratory examination (ICD-10 - Z01.812) 07/01/2024 Vertigo (ICD-10 - R42) 2023 Restless legs syndrome (ICD-10 - G25.81) 06/17/2024 Headache (ICD-10 - R51.9) 11/25/2023 Right foot pain (ICD-10 - M79.671) 07/25/2023 Essential (primary) hypertension (ICD-10 - I10) 07/25/2023 Nevus (ICD-10 - D22.9) 06/17/2024 Restless leg (ICD-10 - G25.81) Plan Of Treatment Pending Test Test Name Order Date CMP (COMPLETE METABOLIC PANEL) 3 HEMOGLOBIN A1C (GLYCO) 09/16/2022 LIPID PANEL (CHOL/TRIG/HDL/LDL) 09/17/19 23 CBC WITH DIFF 09/16/2022 Sleep Study: Retitration BIPAP/CPAP 11/0 04/2022 STOOL OCCULT BLOOD 09/16/2022 CBC AUTO DIFF 07/25/2023 CREATININE 06/24/2024 IRON 07/25/2023 MAGNESIUM 07/25/2023 PROF 14(COMP METB) 07/25/2023 THYROID PROFILE WITH TSH 07/25/2023 MRI BRAIN WO W CON 06/17/2024 MRI LSPINE WO CON 06/17/2024 VC VENOUS REFLUX TIFFANIE LMT 07/12/2022 XR LSPINE MIN 4 VIEWS 06/17/2024 THYROID PANEL (T4/TSH/FREE T3) 3 Insurance Providers Payer Name Payer Address Payer Phone Subscriber Number Group Number Insured Name Patient Relationship to Insured Coverage Start Date Coverage End Date [employer] [address] [address] [place] [address] [id number] Jeanna Zee Self - patient is the insured Medications Administered Medication Instructions Date of Administration Dosage Notes Kenalog-40 09/10/2023 80 mg 80 Ketorolac Tromethamine 08/16/2022 60 mg 60 Orphenadrine Citrate 08/16/2022 60 mg 60 Medical (General) History Medical History History ICD Code Lumbar Radiculopathy Knee Pain, Left Vertigo Antral Ulcere Gastro-esophageal disease without esopha gitis Palpitations Surgical History Surgery Date(Month/Year) Colonoscopy- normal- Dr. Claire 2022 Colonoscopy EGD C Section X 2 Hernia Repair Bladder Sling Carpal Tunnel Release- Right Trigger Finger- Middle Digit on Right Marr nd
--- OUTSIDE RECORDS SUMMARY | 2024-07-08 08:21 | XMS_ITS | Encounter Summary ---
Author Organization [facility] Address [address] [place] [address] Care Team Providers Care Attendance Clerk Name Role Phone Winston Flores MD Primary Care Provider [phone] Kell Del Cid DO Unavailable [phone] Encounter Details Date Type Department Care Team (Late st Contact Info) Description 12/25/2023 Telephone [facility] [address] [facility] [address] [place] [id number] Cong Zamarripa, DPM [address] [facility] [address] [place] [address] Social History Tobacco Use Types Packs/Day Years Used Date Smoking Tobacco: Never Smokeless Tobacco: Never Alcohol Use Standard Drinks/Week Comments Never 0 (1 standard drink = 0.6 oz pure alcohol) Caffeine intake: 1-2 cups per day Comments Unknown Sex and Gender Information Value Date Recorded Sex Assigned at Not on file Legal Sex Female 6:37 PM EDT Gender Identity Not on file Sexual Orientation Not on file documented as of this encounter Miscellaneous Notes * Telephone Encounter - JODEE JARAMILLO - 01/26/2024 1:52 PM EST Orthotics in, pickup scheduled 01/28 * Telephone Encounter - JODEE JARAMILLO - 01/15/2024 4:49 PM EST Scanned and sent 01/14 * Telephone Encounter - Dedra Fink - 01/15/2024 12:58 PM EST Pt is active and covered per Rhoda, ref # [id number] Covered @ 80% after ded DED: $800 met OOP: $3200 $2397.72 applied PA not required, no exclusions, no limits * Telephone Encounter - Cong Zamarripa DPM - 12/25/2023 3:55 PM EST Please precertify for custom orthotics for the diagnosis of plantar fasciitis documented in this encounter Plan of Treatment Not on file documented as of this encounter Visit Diagnoses Not on filedocumented in this encounter Care Teams Attendance Clerk Relationship Specialty Start Date End Date Winston Flores MD PCP - General Family Medicine 02/06/23 Kell Del Cid DO [address] [place] [address] Referring Physician Neurology 04/30/23 documented as of this encounter
--- OUTSIDE RECORDS SUMMARY | 2024-07-08 08:22 | XMS_ITS | Encounter Summary ---
Author Organization [facility] Address [address] [place] [address] Care Team Providers Care Video Manager Name Role Phone Winston Flores MD Primary Care Provider [phone] Kell Del Cid DO Unavailable [phone] Encounter Details Date Type Department Care Team (Late st Contact Info) Description 01/15/2024 Abstract [facility] [address] [place] [address] Cong Zamarripa DPM [address] [address] Social History Tobacco Use Types Packs/Day Years [...] on file documented as of this encounter Plan of Treatment Not on file documented as of this encounter Visit Diagnoses Not on filedocumented in this encounter Care Teams Video Manager Relationship Specialty Start Date End Date Winston Flores MD PCP - General Family Medicine 02/06/23 Kell Del Cid DO [address] [place], [place] [id number] Referring Physician Neurology 04/30/23 documented as of this encounter
--- OUTSIDE RECORDS SUMMARY | 2024-07-08 08:30 | XMS_ITS | CCD ---
Author Organization [facility] Care Team Providers Care Cpr Instructor Name Role Phone Kristine Chavez Unavailable [phone] HOY ., DR ROMERO Primary Care [...] Unavailable HOY ., DR ROMERO Attending Unavailable DONNER, DR JAMIE York Consulting Unavailable HOY ., [...] Unavailable Nick Flores MD Primary Care Provider eKll Del Cid DO Unavailable CONG ZAMARRIPA Attending [...] Promethazine; Translations: [promethazine] Drug Allergy Spasm (finding) [facility] General Surgery Brandon Quinolones (antibiotic) (1 source) Ciprofloxacin; Translations: [ciprofloxacin] Drug Allergy Unknown (qualifier value) [facility] (20 sources) Ciprofloxacin Drug Allergy 3 Unknown [facility] (20 sources) Promethazine Drug Allergy 4 Unknown [facility] (2 sources) Ciprofloxacin; Translations: [Cipro] Drug Allergy 0 [facility] (3 sources) Levamisole; Translations: [Phenergan] Drug Allergy 4 [facility] Medications Current Medications Medication Drug Class(es) Dates Sig (Normalized) Sig (Original) acetaminophen 325 mg / HYDROcodone bitartrate 5 mg oral tablet (6 sources) Opioid Agonist Start: 02-19-2024 End: 02-24-2024 take 1 tablet by mouth every eight hours as needed for pain HYDROcodone-aceta minophen (Buckner) 5-325 MG tablet Indications: Pain Take 1 tablet by mouth every 8 (eight) hours if needed for moderate pain (PRN pain) for up to 5 days 15 tablet 02/19/2024 02/24/2024 Active Start: 01-29-2024 End: 02-03-2024 take 1 tablet by mouth every eight hours as needed for pain HYDROcodone-acetaminophen (Buckner) 5-325 MG tablet Indications: Pain Take 1 [...] of osteotomy site with good correction noted [facility] Radiology Study observation (narrative) [facility] XR Foot - right 3 Viewson [facility] Radiology Study observation (narrative) [facility] Ambulatory Visit Summaryon 0 08-12-2023 Ambulatory Visit [...] you for choosing us for your care. [facility] Physician Referralon 024 Physician Referral [id number]#1.00TIFF [facility] Reminderson 07-28-2023 Reminders - From: Nurys Boone LPN To: N - Clinical; Sent: 07/28/2023 11:21:37 EDT Show up: 10/28/2032 07:00:00 EDT Subject: colonoscopy recall Due Date/Time: 2032 07:00:00 EDT Reminder/Recall Patient due for screening colonoscopy 2032. [facility] Outside Colonoscopyon 2022 Outside Colonoscopy [id number]#1.00TIFF [facility] Insurance Correspondenceon 0 11-07-2022 Insurance Correspondence [id number]#[id number]:127 [facility] Consultation Noteon 11-07-19 Consultation Note [id number]#[id number]:127 [facility] Ambulatory Visit Summaryon 0 11-05-2022 Ambulatory Visit [...] long-term use Pain in unspecified joint Normal [facility] Physician Referralon 023 Physician Referral [id number]#[id number]:127 Normal [facility] MG MAMM SCREEN 3D TIFFANIE CADon 12-14-2021 MG MAMM SCREEN 3D TIFFANIE CAD Patient: JEANNA ZEE Exam Date: 12/14/2021 : 1960 Gender:F Ordering : DR NICK FLORES . Admission #: [id number] Family : Order #: [id number] CLICK HERE TO VIEW EXAM RADIOLOGY REPORT [...] lung cancer at age 73. LOCATION: [facility] BREAST COMPOSITION: Extremely dense, which lowers [...] Smith MD on 12/14/2021 at 08:02 Normal [facility] PAP ACOG PANEL 2: 30 to 65on 12-14-2021 . . Normal [facility] Comment on above: Result Comment: Perf ormed at: WB Performed By: #### 4 [id number] #### [facility] [address] [place] [address] Dr. Daly Gordon Age Gdln ACOG Testing 30-65 Normal [facility] Comment on above: Performed By: #### 4 [id number] #### [facility] [address] [place] [address] Dr. Daly Gordon DIAGNOSIS: Comment Normal [facility] Comment on above: Result Comment: NEGA TIVE FOR INTRAEPITHELIAL LESION OR MALIGNANCY. CELLULAR CHANGES ASSOCIATED WITH ATROPHY ARE PRESENT. Performed at: WB Performed By: #### 4 [id number] #### [facility] [address] [place] [address] Dr. Daly Gordon HPV Aptima Negative Normal Negative [facility] Comment on above: Result Comment: This nucleic acid amplification test detects fourteen high-risk HPV types (16,18,31,33,35,39,45,51,52,56,58,59,66,68) without differentiation. Performed at: =G Performed By: #### 4 [id number] #### [facility] [address] [place] [address] Dr. Daly Gordon HPV Genotype Reflex Comment Normal [facility] Comment on above: Result Comment: Crit eria not met, HPV Genotype not performed. Performed at: WB Performed By: #### 4 [id number] #### [facility] [address] [place] [address] Dr. Daly Gordon Methodology: Comment Normal [facility] Comment on above: Result Comment: This liquid based ThinPrep(R) pap test was screened with the use of an image guided system. Performed at: WB Performed By: #### 4 [id number] #### [facility] [address] [place] [address] Dr. Daly Gordon Note: Comment Normal [facility] Comment on above: Result Comment: The Pap smear is a screening test designed to aid in the detection of premalignant and malignant conditions of the uterine cervix. It is not a diagnostic procedure and should not be used as the sole means of detecting cervical cancer. Both false-positive and false-negative reports do occur. . Performed at: WB Performed By: #### 4 [id number] #### [facility] [address] [address] [address] Daly Gordon Performed by: Comment Normal [facility] Comment on above: Result Comment: Radha Marrero, Senior Web Analyst Performed at: WB Performed By: #### 4 [id number] #### [facility] [address] [address] [address] Daly Gordon Specimen adequacy: Comment Normal [facility] Comment on above: Result Comment: Sati sfactory for evaluation. Endocervical component may not be distinguished in cases of atrophy. Performed at: WB Performed By: #### 4 [id number] #### [facility] [address] [address] [address] Daly oGrdon MRI BRAIN WO W CONon 022 MRI [...] ARLET BUTLER Date: 2021-10-24 07:26 Normal [facility] OCC BLD IMMUNO SCREENon - OCCULT BLOOD Negative Normal NEGATIVE [facility] Comment on above: Performed By: #### O BSCRN #### [facility] [address] [address] [address] Daly Gordon INSULINon 09-07-2022 Insulin 16.8 uIU/mL Normal 2.6-24.9 [facility] Comment on above: Performed By: #### I NSULIN #### [facility] [address] [address] [address] Daly Gordon T4, T3U, FTI LABCORPon 10-17 Free Thyroxine Index 3.0 Normal 1.2-4.9 [facility] Comment on above: Performed By: #### T HYLC #### [facility] [address] [address] [address] Daly Gordon T3 Uptake 41 % Critically high 24-39 The [facility] Comment on above: Performed By: #### T HYLC #### [facility] [address] [address] [address] Daly Gordon T4 [Mass/Vol] 7.4 ug/dL Normal 4.5-12.0 [facility] Comment on above: Performed By: #### T HYLC #### [facility] [address] [address] [address] Daly Gordon VIT D 25-OH LABCORPon 2021 Vitamin D, 25-Hydroxy 42.7 ng/mL Normal 30.0-100.0 [facility] Comment on above: Result Comment: Ofelia min D deficiency has been defined by the [place] of [employer] and an Endocrine Society practice guideline as a level of serum 25-OH vitamin D less than 20 ng/mL (1,2). The Endocrine Society went on to further define vitamin D insufficiency as a level between 21 and 29 ng/mL (2). 1. IOM ([place] of [employer]). 2010. Dietary reference intakes for calcium and D. [place]: The National Academies Press. 2. Red MF, Dae NC, Demetrice AKERS, et al. Evaluation, treatment, and prevention of vitamin D deficiency: an Endocrine Society clinical practice guideline. JCEM. 2010; 96(7):1911-30. Performed By: #### V ITADLC #### [facility] [address] [address] [address] Daly Gordon CBC AUTO DIFFon 10-13-2021 BASO # 0.1 103/ul Normal 0.0-0.1 [facility] Comment on above: Performed By: #### C BC ####[facility] [address] [place], [place] [address]Dr. Daly Gordon Basophils/100 WBC (Bld) 0.7 % Normal 0.2-2.0 [facility] Comment on above: Performed By: #### C BC ####[facility] [address] [place], [place] [address]Dr. Daly Gordon EO # 0.2 103/ul Normal 0.0-0.7 [facility] Comment on above: Performed By: #### C BC ####[facility] [address] [place], [place] [address]Dr. Daly Gordon Eosinophils/100 WBC (Bld) 2.6 % Normal 0.9-7.0 [facility] Comment on above: Performed By: #### C BC ####[facility] [address] [place], [place] [address]Dr. Daly Gordon Erythrocyte distribution width (RBC) [Ratio] 12.5 % Normal 11.0-15.0 [facility] Comment on above: Performed By: #### C BC ####[facility] [address] [place], [place] [address]Dr. Daly Gordon Hematocrit (Bld) [Volume fraction] 42.4 % Normal 36.0-48.0 [facility] Comment on above: Performed By: #### C BC ####[facility] [address] [place], [place] [address]Dr. Daly Gordon Hemoglobin (Bld) [Mass/Vol] 13.9 g/dL Normal 12.0-16.0 [facility] Comment on above: Performed By: #### C BC ####[facility] [address] [place], [place] [address]Dr. Daly Gordon IG # 0.01 10e3/ul Normal 0.00-0.03 [facility] Comment on above: Performed By: #### C BC ####[facility] [address] [place], [place] [address]Dr. Daly Gordon IG % 0.1 % Normal 0.0-0.5 [facility] Comment on above: Performed By: #### C BC ####[facility] [address] [address]DrShea Candicesharmila Gordon LYMPH # 2.2 103/ul Normal 1.2-3.8 [facility] Comment on above: Performed By: #### C BC ####[facility] [address] [id number] Candicesharmila Gordon Lymphocytes/100 WBC (Bld) 29.4 % Normal 20.5-60.0 [facility] Comment on above: Performed By: #### C BC ####[facility] [address] [place], [place] [address]DrShea Candicesharmila Gordon MANUAL DIFF REQ NO Normal [facility] Comment on above: Performed By: #### C BC ####[facility] [address] [place], [place] [address]DrShea Candicesharmila Gordon MCH (RBC) [Entitic mass] 30.1 pg Normal 26.7-34.0 [facility] Comment on above: Performed By: #### C BC ####[facility] [address] [place], [place] [address]Dr. Daly Evan MCHC (RBC) [Mass/Vol] 32.8 g/dL Normal 29.9-35.2 [facility] Comment on above: Performed By: #### C BC ####[facility] [address] [place], [place] [address]DrShea Candicesharmila Gordon MCV (RBC) [Entitic vol] 91.8 fL Normal 81.0-99.0 [facility] Comment on above: Performed By: #### C BC ####[facility] [address] [place], [place] [address]DrShea Gordon MONO # 0.5 103/ul Normal 0.3-0.8 [facility] Comment on above: Performed By: #### C BC ####[facility] [address] [place], [place] [address]DrShea Gordon Monocytes/100 WBC (Bld) 6.6 % Normal 1.7-12.0 [facility] Comment on above: Performed By: #### C BC ####[facility] [address] [address]Dr. Daly Gordon NEUT # 4.5 103/ul Normal 1.4-6.5 [facility] Comment on above: Performed By: #### C BC ####[facility] [address] [address]Dr. Daly Gordon Neutrophils/100 WBC (Bld) 60.6 % Normal 43.0-75.0 [facility] Comment on above: Performed By: #### C BC ####[facility] [address] [address]DrShea Daly Gordon Platelet mean volume (Bld) [Entitic vol] 9.1 fL Critically low 9.5-13.5 [facility] Comment on above: Performed By: #### C BC ####[facility] [address] [address]Dr. Daly Gordon PLT 236 103/ul Normal 150-450 [facility] Comment on above: Performed By: #### C BC ####[facility] [address] [address]Dr. Daly Gordon RBC 4.62 106/ul Normal 4.20-5.40 [facility] Comment on above: Performed By: #### C BC ####[facility] [address] [id number] Daly Evan WBC 7.4 103/ul Normal 4.0-11.0 [facility] Comment on above: Performed By: #### C BC ####[facility] [address] [id number] Daly Gordon GLYCOHEMOGLOBIN A1Con 2021 ADA RECOMMENDATION SEE BELOW Normal [facility] Comment on above: Result Comment: ADA RECOMMENDED LIMIT 4.0 - 6.0 ADA THERAPEUTIC TARGET < 7.0 ACTION SUGGESTED > 7.0 Performed By: #### A 1C #### [facility] [address] [address] [address] Daly Gordon Glucose [Mass/Vol] 128 mg/dL Normal [facility] Comment on above: Performed By: #### A 1C #### [facility] [address] [address] [address] Daly Gordon HbA1c (Bld) [Mass fraction] 6.1 % Normal 4.5-6.2 [facility] Comment on above: Performed By: #### A 1C #### [facility] [address] [address] [address] Daly Gordon IRONon 10-13-2021 Iron [Mass/Vol] 89.0 ug/dL Normal 50.0-170.0 [facility] Comment on above: Performed By: #### B 12FOL, IRON #### [facility] [address] [address] [address] Daly Gordon LIPID PROFILEon 10-13-2021 CHOL-HDL RATIO NORM SEE BELOW Normal [facility] Comment on above: Result Comment: 3.3 - 4.4 LOW RISK 4.4 - 7.1 AVERAGE RISK 7.1 - 11.0 MODERATE RISK >11.0 HIGH RISK Performed By: #### L IPID, TSH, CMP ####[facility] [address] [address]DrShea Gordon Cholesterol [Mass/Vol] 176 mg/dL Normal <=200 [facility] Comment on above: Performed By: #### L IPID, TSH, CMP ####[facility] [address] [address]DrShea Gordon Cholesterol in HDL [Mass/Vol] 58 mg/dL Normal 40-60 [facility] Comment on above: Performed By: #### L IPID, TSH, CMP ####[facility] [address] [id number] Gordon Cholesterol in LDL [Mass/Vol] 110.4 mg/dL Normal [facility] Comment on above: Performed By: #### L IPID, TSH, CMP ####[facility] [address] [id number] Gordon Cholesterol.total/ Cholesterol in HDL [Mass ratio] 3.0 {ratio} Normal [facility] Comment on above: Performed By: #### L IPID, TSH, CMP ####[facility] [address] [address]Dr. Daly Gordon HDL NORMAL > or = 60 mg/dl - LO W CARDIOVASCULAR RISK <40 mg/dl - HIGH CARDIOVASCULAR RISK Normal [facility] Comment on above: Performed By: #### L IPID, TSH, CMP ####[facility] [address] [address]Dr. Daly Gordon LDL CALC NORMAL SEE BELOW Normal [facility] Comment on above: Result Comment: <100 mg/dl OPTIMAL 100 - 129 mg/dl NEAR OR ABOVE OPTIMAL 130 - 159 mg/dl BORDERLINE HIGH 160 - 189 mg/dl HIGH >190 mg/dl VERY HIGH Performed By: #### L IPID, TSH, CMP ####[facility] [address] [address]Dr. Daly Gordon Triglyceride [Mass/Vol] 38 mg/dL Normal <=150 [facility] Comment on above: Performed By: #### L IPID, TSH, CMP ####[facility] [address] [place], [place] [address]Dr. Daly Gordon VLDL CALC 7.6 mg/dL Normal [facility] Comment on above: Performed By: #### L IPID, TSH, CMP ####[facility] [address] [address]Dr. Daly Gordon PROF 14(COMP METB)on 022 Albumin [Mass/Vol] 3.7 g/dL Normal 3.4-5.0 [facility] Comment on above: Performed By: #### L IPID, TSH, CMP ####[facility] [address] [address]Dr. Daly Gordon Albumin/Globulin [Mass ratio] 1.2 {ratio} Normal [facility] Comment on above: Performed By: #### L IPID, TSH, CMP ####[facility] [address] [address]Dr. Daly Gordon ALP [Catalytic activity/Vol] 56 U/L Normal 46-116 [facility] Comment on above: Performed By: #### L IPID, TSH, CMP ####[facility] [address] [address]Dr. Daly Gordon ALT [Catalytic activity/Vol] 29 U/L Normal 14-59 [facility] Comment on above: Performed By: #### L IPID, TSH, CMP ####[facility] [address] [address]Dr. Daly Gordon Anion gap [Moles/Vol] 11.6 mmol/L Normal [facility] Comment on above: Performed By: #### L IPID, TSH, CMP ####[facility] [address] [place], [place] [address]Dr. Daly Gordon AST [Catalytic activity/Vol] 17 U/L Normal 15-37 [facility] Comment on above: Performed By: #### L IPID, TSH, CMP ####[facility] [address] [place], [place] [address]Dr. Daly Gordon Bilirubin [Mass/Vol] 0.4 mg/dL Normal 0.2-1.0 [facility] Comment on above: Performed By: #### L IPID, TSH, CMP ####[facility] [address] [place], [place] [address]Dr. Daly Gordon Calcium [Mass/Vol] 8.6 mg/dL Normal 8.5-10.1 [facility] Comment on above: Performed By: #### L IPID, TSH, CMP ####[facility] [address] [place], [place] [address]Dr. Daly Gordon Chloride [Moles/Vol] 105 mmol/L Normal 98-107 [facility] Comment on above: Performed By: #### L IPID, TSH, CMP ####[facility] [address] [address]Dr. Daly Gordon CO2 [Moles/Vol] 29.6 mmol/L Normal 21.0-32.[address] [facility] Comment on above: Performed By: #### L IPID, TSH, CMP ####[facility] [address] [id number]. Daly Gordon Creatinine [Mass/Vol] 0.72 mg/dL Normal 0.55-1.02 [facility] Comment on above: Performed By: #### L IPID, TSH, CMP ####[facility] [address] [address]Dr. Daly Gordon EGFR-AF ANDORRAN >60 Normal >=[address] [facility] Comment on above: Performed By: #### L IPID, TSH, CMP ####[facility] [address] [address]Dr. Daly Gordon EGFR-NON AF ANDORRAN >60 Normal >=60 [facility] Comment on above: Performed By: #### L IPID, TSH, CMP ####[facility] [address] [address]Dr. Daly Evan Globulin (S) [Mass/Vol] 3.2 g/dL Normal [facility] Comment on above: Performed By: #### L IPID, TSH, CMP ####[facility] [address] [address]Dr. Daly Gordon Glucose [Mass/Vol] 101 mg/dL Normal 74-106 [facility] Comment on above: Performed By: #### L IPID, TSH, CMP ####[facility] [address] [place], [place] [address]Dr. Daly Gordon Potassium [Moles/Vol] 4.2 mmol/L Normal 3.5-5.1 [facility] Comment on above: Performed By: #### L IPID, TSH, CMP ####[facility] [address] [address]Dr. Daly Gordon Protein [Mass/Vol] 6.9 g/dL Normal 6.4-8.2 [facility] Comment on above: Performed By: #### L IPID, TSH, CMP ####[facility] [address] [address]Dr. Daly Gordon Sodium [Moles/Vol] 142 mmol/L Normal 136-145 [facility] Comment on above: Performed By: #### L IPID, TSH, CMP ####[facility] [address] [address]Dr. Daly Gordon Urea nitrogen [Mass/Vol] 21.0 mg/dL Critically high 7.0-18.0 [facility] Comment on above: Performed By: #### L IPID, TSH, CMP ####[facility] [address] [address]Dr. Daly Gordon Urea nitrogen/Creatinin e [Mass ratio] 29.2 mg/mg Normal [facility] Comment on above: Performed By: #### L IPID, TSH, CMP ####[facility] [address] [address]Dr. Daly Gordon TSHon 10-13-2021 TSH 2.311 uIU/mL Normal 0.358-3.740 [facility] Comment on above: Performed By: #### L IPID, TSH, CMP ####[facility] [address] [address]Dr. Daly Gordon VIT B12 AND FOLATEon 022 Cobalamin (Vitamin B12) [Mass/Vol] 602.0 pg/mL Normal 193.0-986.0 [facility] Comment on above: Performed By: #### B 12FOL, IRON #### [facility] [address] [address] [address] Daly Gordon FOLATE 18.70 ng/mL Normal 8.60-58.90 [facility] Comment on above: Performed By: #### B 12FOL, IRON #### [facility] [address] [address] [address] aDly Gordon US carotid doppler BIon 02-11 US carotid doppler [facility] [place] [address] Ultrasound Report Signed Patient: Jeanna Zee MR#: [id number] : 1960 Acct:[id number] Age/Sex: 60 / F ADM Date: 03/05/21 Loc: [facility] Room: Type: [facility] Attending Dr: Kristine Chavez MD Ordering Provider: [...] Kristine Chavez MD03/08/2021 5:35 PM Dictation Location: [place] [address] Tech: Albina Wilcox Transcribed By: [facility] 03/08/211734 Dictated By: Kristine Chavez MD 03/08/211733 Signed By: 03/08/211734 [facility] Vital Signs Date Time Vital Sign Value Performing Clinician Facility 04-22-2024 09:04-0400 Body height 162.6 cm Cong Brown DPM Work Phone: [facility] 04-22-2024 09:04-0400 Body mass index (BMI) [Ratio] 26.09 kg/m2 Cong Brown DPM Work Phone: [facility] 04-22-2024 09:04-0400 Body weight 68.95 kg Cong Brown DPM Work Phone: [facility] 04-22-2024 09:04-0400 Respiratory rate 18 /min Cong Brown DPM Work Phone: [facility] 04-15-2024 09:28-0500 Body height 162.6 cm Cong Brown DPM Work Phone: [facility] 04-15-2024 09:28-0500 Body mass index (BMI) [Ratio] 26.09 kg/m2 Cong Brown DPM Work Phone: [facility] 04-15-2024 09:28-0500 Body weight 68.95 kg Cong Brown DPM Work Phone: [facility] 04-15-2024 09:28-0500 Respiratory rate 16 /min Cong Brown DPM Work Phone: [facility] 04-01-2024 11:06-0500 Body height 162.6 cm Cong Brown DPM Work Phone: [facility] 04-01-2024 11:06-0500 Body mass index (BMI) [Ratio] 26.09 kg/m2 Cong Brown DPM Work Phone: [facility] 04-01-2024 11:06-0500 Body weight 68.95 kg Cong Brown DPM Work Phone: [facility] 04-01-2024 11:06-0500 Respiratory rate 18 /min Cong Zamarripa DPM Work Phone: [facility] 03-18-2024 11:07-0500 Body height 162.6 cm Cong Dallin DPM Work Phone: [facility] 03-18-2024 11:07-0500 Body mass index (BMI) [Ratio] 26.09 kg/m2 Cong Brown DPM Work Phone: [facility] 03-18-2024 11:07-0500 Body weight 68.95 kg Cong Brown DPM Work Phone: [facility] 03-18-2024 11:07-0500 Diastolic blood pressure 77 mm[Hg] Cong Brown DPM Work Phone: [facility] 03-18-2024 11:07-0500 Heart rate 76 /min Cong Brown DPM Work Phone: [facility] 03-18-2024 11:07-0500 Systolic blood pressure 132 mm[Hg] Cong Brown DPM Work Phone: [facility] 03-04-2024 09:27-0500 Body height 162.6 cm Cong Dallin DPM Work Phone: [facility] 03-04-2024 09:27-0500 Body mass index (BMI) [Ratio] 26.09 kg/m2 Cong Brown DPM Work Phone: [facility] 03-04-2024 09:27-0500 Body weight 68.95 kg Cong Brown DPM Work Phone: [facility] 03-04-2024 09:27-0500 Respiratory rate 18 /min Cong Brown DPM Work Phone: [facility] 02-19-2024 10:55-0500 Body height 162.6 cm Cong Brown DPM Work Phone: [facility] 02-19-2024 10:55-0500 Body mass index (BMI) [Ratio] 26.09 kg/m2 Cong Brown DPM Work Phone: [facility] 02-19-2024 10:55-0500 Body weight 68.95 kg Cong Brown DPM Work Phone: [facility] 02-19-2024 10:55-0500 Respiratory rate 18 /min Cong Brown DPM Work Phone: [facility] 01-29-2024 16:34-0500 Body height 162.6 cm Cong Brown DPM Work Phone: [facility] 01-29-2024 16:34-0500 Body mass index (BMI) [Ratio] 26.09 kg/m2 Cong Brown DPM Work Phone: [facility] 01-29-2024 16:34-0500 Body weight 68.95 kg Cong Brown DPM Work Phone: [facility] 01-29-2024 16:34-0500 Respiratory rate 16 /min Cong Brown DPM Work Phone: [facility] 01-15-2024 16:18-0500 Body height 162.6 cm Cong Brown DPM Work Phone: [facility] 01-15-2024 16:18-0500 Body mass index (BMI) [Ratio] 26.09 kg/m2 Cong Brown DPM Work Phone: [facility] 01-15-2024 16:18-0500 Body weight 68.95 kg Cong Brown DPM Work Phone: [facility] 01-15-2024 16:18-0500 Respiratory rate 18 /min Cong Brown DPM Work Phone: [facility] 01-01-2024 16:36-0500 Body height 162.6 cm Cong Zamarripa DPM Work Phone: [facility] 01-01-2024 16:36-0500 Body mass index (BMI) [Ratio] 26.09 kg/m2 Cong Brown DPM Work Phone: [facility] 01-01-2024 16:36-0500 Body weight 68.95 kg Cong Zamarripa DPM Work Phone: [facility] 01-01-2024 16:36-0500 Respiratory rate 18 /min Cong Zamarripa DPM Work Phone: [facility] 12-25-2023 15:09-0500 Body height 162.6 cm Cong Zamarripa DPM Work Phone: [facility] 12-25-2023 15:09-0500 Body mass index (BMI) [Ratio] 26.09 kg/m2 Cong Zamarripa DPM Work Phone: [facility] 12-25-2023 15:09-0500 Body weight 68.95 kg Cong Zamarripa DPM Work Phone: [facility] 12-25-2023 15:09-0500 Diastolic blood pressure 75 mm[Hg] Cong Zamarripa DPM Work Phone: [facility] 12-25-2023 15:09-0500 Heart rate 83 /min Cong Zamarripa DPM Work Phone: [facility] 12-25-2023 15:09-0500 Systolic blood pressure 131 mm[Hg] Cong Brown DPM Work Phone: [facility] 12-16-2023 18:29-0500 Body mass index (BMI) [Ratio] 26.09 kg/m2 Phoebe Kiepert [employer] Work Phone: [facility] 12-16-2023 18:29-0500 Body temperature 97.39 [degF] Phoebe Kiepert [employer] Work Phone: [facility] 12-16-2023 18:29-0500 Body weight 68.95 kg Phoebe Neilt [employer] Work Phone: [facility] 12-16-2023 18:29-0500 Diastolic blood pressure 80 mm[Hg] Phoebe Pedroepert [employer] Work Phone: [facility] 12-16-2023 18:29-0500 Heart rate 81 /min Phoebe Kiepert [employer] Work Phone: [facility] 12-16-2023 18:29-0500 SaO2% (BldA) [Mass fraction] 95 % Phoebe Vasquezepert [employer] Work Phone: [facility] 12-16-2023 18:29-0500 Systolic blood pressure 122 mm[Hg] Phoebe Vasquezepert [employer] Work Phone: [facility] 08-12-2023 15:52-0400 Blood Pressure Location Jason NILL [facility] 08-12-2023 15:52-0400 Diastolic blood pressure 72 mm[Hg] Jason NILL [facility] 08-12-2023 15:52-0400 Heart rate 72 /min Jason NILL [facility] 08-12-2023 15:52-0400 Respiratory rate 16 /min Jason NILL [facility] 08-12-2023 15:52-0400 Systolic blood pressure 114 mm[Hg] Jason NILL [facility] 03-05-2021 16:30-0500 Body height 162.56 cm Kristine Chavez Other [facility] Other 03-05-2021 16:30-0500 Body mass index (BMI) [Ratio] 27.46 kg/m2 Kristine Chavez Other [facility] Other 03-05-2021 16:30-0500 Body temperature 97.3 [degF] Kristine Scott Other [facility] Other 03-05-2021 16:30-0500 Body weight 72.58 kg Kristine Scott Other [facility] Other 03-05-2021 16:30-0500 Diastolic blood pressure 70 mm[Hg] Kristine Chavez Other [facility] Other 03-05-2021 16:30-0500 SaO2% (BldA) [Mass fraction] 98 % Kristine Scott Other [facility] Other 03-05-2021 16:30-0500 Systolic blood pressure 110 mm[Hg] Kristine Chavez Other [facility] Other 02-19-2021 16:15-0500 Body height 162.56 cm Kristine Scott Other [facility] Other 02-19-2021 16:15-0500 Body mass index (BMI) [Ratio] 27.46 kg/m2 Kristine Chavez Other [facility] Other 02-19-2021 16:15-0500 Body weight 72.58 kg Kristine Scott Other [facility] Other 02-19-2021 16:15-0500 Respiratory rate 18 /min Kristine Chavez Other [facility] Other 02-19-2021 16:15-0500 SaO2% (BldA) [Mass fraction] 98 % Kristine Chavez Other [facility] Other Encounters Encounter Date Encounter Type Care [...] original px Cong Zamarripa DPM Work Phone: [facility] Comment on above: Hav (hallux abducto valgus), right (Primary Dx); Acquired deformity of right toe; Plantar fasciitis Start: 04-01-2024 End: 04-01-2024 ambulatory CONG Mata DALLIN Not Available Start: 03-18-2024 End: 03-18-2024 Bamboo flowsheet Cong Zamarripa DPM Work Phone: [facility] Start: 03-18-2024 End: 03-18-2024 Bamboo flowsheet Cong Zamarripa DPM Work Phone: [facility] Start: 03-18-2024 End: 03-18-2024 ambulatory CONG Esperanza DALLIN Not Available Start: 03-18-2024 End: 03-18-2024 Postop follow up visit related to original px Cong Zamarripa DPM Work Phone: [facility] Comment on above: Hav (hallux abducto valgus), right (Primary Dx); Acquired deformity of right toe; Plantar fasciitis Start: 03-04-2024 End: 03-04-2024 Bamboo flowsheet Cong Zamarripa DPM Work Phone: [facility] Start: 03-04-2024 End: 03-04-2024 Bamboo [...] Bamboo flowsheet Cong Zamarripa DPM Work Phone: [facility] Start: 02-19-2024 End: 02-19-2024 Bamboo flowsheet Cong Zamarripa DPM Work Phone: [facility] Start: 02-19-2024 End: 02-19-2024 Postop follow up visit related to original px Cong Esperanza Dallin DPM Work Phone: [facility] Comment on above: Plantar fasciitis; Acquired deformity of right toe; Hav (hallux abducto valgus), right; Contracture of right ankle Start: 02-19-2024 End: 02-19-2024 ambulatory CONG ZAMARRIPA Not Available Start: 02-02-2024 End: 02-02-2024 Bamboo flowsheet Migdalia Joyce MD Work Phone: [facility] Start: 02-02-2024 End: 02-02-2024 Bamboo flowsheet Migdalia Joyce MD Work Phone: [facility] Start: 02-02-2024 End: 02-02-2024 Postop follow up visit related to original px Migdalia Joyce MD Work Phone: [facility] Comment on above: Postoperative care f or cataract (Primary Dx) Start: 02-02-2024 End: 02-02-2024 ambulatory MIGDALIA JOYCE Not Available Start: 01-29-2024 End: 01-29-2024 ambulatory CONG ZAMARRIPA Not Available Start: 01-29-2024 End: 01-29-2024 Office outpatient visit 25 minutes Cong Zmaarripa DPM Work Phone: [facility] Comment on above: Plantar fasciitis (P rimary Dx); Contracture of right ankle; Acquired deformity of right toe; Hav (hallux abducto valgus), right; Contracture of left ankle Start: 01-29-2024 End: 01-29-2024 Bamboo flowsheet Cong Zamarripa DPM Work Phone: [facility] Start: 01-29-2024 End: 01-29-2024 Bamboo flowsheet Cong Zamarripa DPM Work Phone: [facility] Start: 01-22-2024 End: 01-22-2024 Patient encounter procedure Migdalia Joyce MD Work Phone: [facility] Comment on above: Brow ptosis (Primary Dx) Start: 01-22-2024 End: 01-22-2024 ambulatory MIGDALIA JOYCE Not Available Start: 01-15-2024 End: 01-15-2024 Office outpatient visit 15 minutes Cong Zamarripa DPM Work Phone: [facility] Comment on above: Plantar fasciitis (P rimary Dx); Hematoma of right lower leg; Hav (hallux abducto valgus), right; Acquired deformity of right toe Start: 01-15-2024 End: 01-15-2024 ambulatory CONG ZAMARRPIA Not Available Start: 01-01-2024 End: 01-01-2024 ambulatory CONG ZAMARRIPA Not Available Start: 01-01-2024 End: 01-01-2024 Office outpatient visit 15 minutes Cong Zamarripa DPM Work Phone: [facility] Comment on above: Hav (hallux abducto valgus), right (Primary Dx); Hematoma of right lower leg; Acquired deformity of right toe; Dog bite of right lower leg, initial encounter Start: 01-01-2024 End: 01-01-2024 Bamboo flowsheet Cong Zamarripa DPM Work Phone: [facility] Start: 01-01-2024 End: 01-01-2024 Bamboo flowsheet Cong Zamarripa DPM Work Phone: [facility] Start: 12-25-2023 End: 12-25-2023 Office outpatient new 60 minutes Cong Zamarripa DPM Work Phone: [facility] Comment on above: Hematoma of right lo wer leg (Primary Dx); Hav (hallux abducto valgus), right; Acquired deformity of right toe; Plantar fasciitis; Contracture of right ankle; Dog bite of right lower leg, initial encounter Start: 12-25-2023 End: 12-25-2023 ambulatory CONG ZAMARRIPA Not Available Start: 12-25-2023 End: 12-25-2023 Bamboo flowsheet Cong Zamarripa DPM Work Phone: [facility] Start: 12-25-2023 End: 12-25-2023 Bamboo flowsheet Cong Zamarripa DPM Work Phone: [facility] Start: 12-16-2023 End: 12-16-2023 Office outpatient visit 15 minutes Phoebe A Kiepert [employer] Work Phone: [facility] Comment on above: Dog bite of right lo wer leg, initial encounter (Primary Dx) Start: 12-16-2023 End: 12-16-2023 ambulatory PHOEBE A KIEPERT Not Available Start: 2023 End: 2023 Bamboo flowsheet Migdalia Joyce MD Work Phone: [facility] Start: 2023 End: 2023 Bamboo flowsheet Migdalia Joyce MD Work Phone: [facility] Start: 2023 End: 2023 Office outpatient visit 25 minutes Migdalia Joyce MD Work Phone: [facility] Comment on above: Brow ptosis (Primary Dx); Visual field loss; Cortical age-related cataract of both eyes Start: 2023 End: 2023 ambulatory MIGDALIA JOYCE Not Available Start: 11-06-2023 End: 11-12-2023 Refill Byron Gomez MD Work Phone: [facility] Comment on above: Chronic rhinitis Start: 08-12-2023 End: 08-12-2023 ambulatory Jason LUNA Facility: [facility] Start: 08-12-2023 End: 08-12-2023 Patient encounter procedure Jason LUNA [facility] [place] Start: 07-23-2023 End: 07-23-2023 ambulatory KACEY HARPER Not Available Start: 2022 End: 2022 ambulatory Jason LUNA Facility:[id number] Start: 11-05-2022 End: 11-05-2022 ambulatory Jason [...] 03-05-2021 End: 03-05-2021 ambulatory Kristine Chavez Other [facility] Other Start: 03-05-2021 Office outpatient vi sit 15 minutes Kristine Chavez [facility] Start: 02-19-2021 End: 02-19-2021 ambulatory Kristine Chavez Other [facility] [place] Other Start: 02-19-2021 Office outpatient ne w [...] [address] [place] [address] Cong Zamarripa DPM [phone] [address] Hav (hallux abducto valgus), right (Primary Dx); Acquired deformity of right toe; Plantar fasciitis [facility] Comment on above: Hav (hallux abducto valgus), right (Primary Dx); Acquired deformity of right toe; Plantar fasciitis Start: 04-15-2024 End: 04-15-2024 Patient encounter procedure 04/15/2024 9:20 AM EST Office Visit [facility] [address] [address] Cong Zamarripa DPM [phone] [address] [facility] Start: 04-01-2024 End: 04-01-2024 Patient encounter procedure [facility] Comment on above: Hav (hallux abducto valgus), right (Primary Dx); Acquired deformity of right toe; Plantar fasciitis Start: 03-18-2024 End: 03-18-2024 Patient encounter procedure 03/18/2024 9:10 AM EST Office Visit [facility] [address] [address] Cong Zamarripa DPM [address] [address] [facility] Start: 02-19-2024 End: 02-19-2024 [...] PODIATRY [address] [place] [address] Cong Zamarripa DPM [address] [address] [facility] Start: 01-23-2024 End: 01-23-2024 ambulatory 01/23/2024 1:00 PM EST Treatment [facility] [address] [place] [address] Parvin Melo, PT [facility] Start: 01-22-2024 End: 01-22-2024 Patient encounter procedure 01/22/2024 3:00 PM EST Procedure Visit [facility] [address] [place] [id number] Migdalia Joyce MD [address] [place] [address] [facility] Start: 01-15-2024 End: 01-15-2024 Patient encounter procedure 01/15/2024 4:00 PM EST Office Visit [facility] [address] [place] [address] Cong Zamarripa DPM [phone] [address] [facility] Start: 12-25-2023 End: 12-25-2023 Patient encounter procedure 12/25/2023 3:20 PM EST Office Visit [facility] [address] [place] [address] Cong Zamarripa DPM [phone] [address] [facility] Start: 2023 End: 2023 Patient encounter procedure [facility] Comment on above: Arrived Start: 10-12-2023 Influenza vaccination Influenza Vacc ine (#1) [facility] Start: 1999 Screening for malign ant neoplasm of breast Mammogram [facility] Start: 11-26-1989 Screening for malign ant neoplasm of cervix [facility] Start: 11-26-1980 Screening for malign ant neoplasm of cervix Pap Smear [facility] Start: 1959 Screening for malign ant neoplasm of colon [facility] XR Foot - right 3 Views XR foot 3+ views right Imaging Routine Hematoma of right lower leg 12/25/2023 3:56 PM EST [facility] Work Phone: Immunizations Immunization Date Immunization Notes Care Provider Fa [facility] 12-16-2023 tetanus toxoid, redu abena diphtheria toxoid, and acellular pertussis vaccine, adsorbed Phoebe Kiepert [employer] Work Phone: [facility] 06-29-2022 zoster vaccine recombinant Phoebe Kiepert [employer] Work Phone: [facility] 04-27-2022 zoster vaccine recombinant Phoebe Kiepert [employer] Work Phone: [facility] 02-07-2022 SARS-CoV-2 (COVID-19 ) [id number].[id number] Jason LUNA [facility] 12-07-2021 Influenza, injectabl e, Madin Judit Canine Kidney, preservative free, quadrivalent Phoebe Kiepert [employer] Work Phone: [facility] 12-07-2021 influenza virus vaccine, unspecified formulation Byron Gomez MD Work Phone: [facility] 01-03-2021 SARS-CoV-2 (COVID-19 ) mRNA-1273 vaccine Jason LUNA [facility] Comment on above: Result Comment: 2022: [id number] 12-21-2020 Influenza, injectabl e, Madin [place] Canine Kidney, preservative free, quadrivalent Phoebe Kiepert [employer] Work Phone: [facility] 05-26-2020 SARS-CoV-2 (COVID-19 ) mRNA-1273 vaccine Jason LUNA [facility] 04-28-2020 SARS-CoV-2 (COVID-19 ) mRNA-1273 vaccine Jason LUNA [facility] 11-23-2019 influenza, injectabl e, quadrivalent, preservative free Phoebe Kiepert [employer] Work Phone: [facility] 11-10-2018 influenza virus vaccine, live, attenuated, for intranasal use Jason LUNA [facility] 01-31-2014 zoster vaccine, live Phoebe Kiepert [employer] Work Phone: [facility] 01-26-2014 zoster vaccine, live Phoebe Kiepert [employer] Work Phone: [facility] 03-29-2009 novel [id number], preservative-free, injectable Phoebe Kiepert [employer] Work Phone: [facility] Payers Date Payer Category Payer Private Health Insurance [facility] [id number] 2022 Unknown [employer] [id number] 2022-Present [phone] [address] [address] [place] [address] [id number] 2022 Unknown [id number] 1959 Unknown [id number] 2.16.840.1.511941.3.579. 2.593 1959 Unknown [id number] 2.16.840.1.455524.3.579. 2.593 1959 Unknown [id number] 2.16.840.1.533627.3.579. 2.593 1959 Unknown [id number] 2.16.840.1.911895.3.579. 2.593 1959 Unknown [id number] 2.16.840.1.768898.3.579. 2.593 1959 Unknown [id number] 2.16.840.1.621915.3.579. 2.593 1959 Unknown [id number] 2.16.840.1.578385.3.579. 2.593 1959 Unknown [id number] 2.16.840.1.798373.3.579. 2.593 1959 Unknown [id number] 2.16.840.1.533457.3.579. 2.593 1959 Unknown [id number] 2.16.840.1.612604.3.579. 2.593 1959 Unknown [id number] 2.16.840.1.464846.3.579. 2.593 1959 Unknown [id number] 2.16.840.1.706515.3.579. 2.727 1959 Unknown [id number] 2.16.840.1.369272.3.579. 2.727 1959 Unknown [id number] 2.16.840.1.212232.3.579. 2.727 1959 Unknown [id number] 2.16.840.1.443488.3.579. 2.1259 1959 Unknown [id number] 2.16.840.1.647513.3.579. 2.9 1959 Unknown [id number] 2.16.840.1.818284.3.579. 2.1258 1959 Unknown [id number] 2.16.840.1.875705.3.579. 2.1258 1959 Unknown [id number] 2.16.840.1.953955.3.579. 2.1258 1959 Unknown [id number] 2.16.840.1.425566.3.579. 2.1258 1959 Unknown [id number] 2.16.840.1.754135.3.579. 2.1258 1959 Unknown [id number] 2.16.840.1.833489.3.579. 2.1258 1959 Unknown [id number] 2.16.840.1.931893.3.579. 2.1258 1959 Unknown [id number] 2.16.840.1.987682.3.579. 2.1258 1959 Unknown [id number] 2.16.840.1.125226.3.579. 2.1258 1959 Unknown [id number] 2.16.840.1.394343.3.579. 2.1258 1959 Unknown [id number] 2.16.840.1.910514.3.579. 2.1258 1959 Unknown [id number] 2.16.840.1.736857.3.579. 2.1258 1959 Unknown [id number] 2.16.840.1.330372.3.579. 2.1258 1959 Unknown [id number] 2.16.840.1.614440.3.579. 2.9 1959 Unknown [id number] 2.16.840.1.404032.3.579. 2.1259 1959 Unknown [id number] 2.16.840.1.744190.3.579. 2.1259 1959 Self-pay [id number] 1959 Unknown [id number] 2.16.840.1.411675.19 Social History Date Type Detail Facility Start: 07-23-2023 End: 04-15-2024 Sex Assigned At [facility] Start: 09-09-2022 End: 08-12-2023 Tobacco smoking status Never smoked tobacco (finding) [facility] Tobacco smoking status Never [facility] Start: 09-09-2022 Tobacco use and exposure [...] Assessment Result Facility 08-12-2023 Functional Status N/A [facility] Clinical Notes 02-19-2021 to 04-22-2024 Cong Zamarripa, [facility] - 04/22/2024 9:00 AM Sam Zamarripa, [facility] - 04/15/2024 9:20 AM Bri Zamarripa, [...] Cong Zamarripa DPM documented in this encounter [facility] 04-15-2024 History of Present illness Narrative Patient: [...] Cong Zamarripa DPM documented in this encounter [facility] 04-01-2024 History of Present illness Narrative Patient: [...] Cong Zamarripa DPM documented in this encounter [facility] 03-18-2024 History of Present illness Narrative Patient: [...] Cong Zamarripa DPM documented in this encounter [facility] 03-04-2024 History of Present illness Narrative Patient: [...] Cong Zamarripa DPM documented in this encounter [facility] 02-19-2024 Note Imaging Result: Notable Freedman arthroplasty bunionectomy procedure to the right foot with notable 2nd hammertoe repair with K-wire intact [facility] 02-19-2024 History of Present illness Narrative Patient: [...] p.r.n. Follow up in 2 weeks Cong Zamarripa DPM documented in this encounter [facility] 02-02-2024 History of Present illness Narrative Assessment/Plan documented in this encounter [facility] 01-29-2024 History of Present illness Narrative Patient: [...] 1-10 scale a 5 Patient has seen v belt finisher in the past and had a total [...] risks, alternatives, benefits, post op complications and medical terminologist expectations were discussed including but not limited to: infection,bone infection,wound dehiscence hardware failure and irritation,wound dehiscence,delay union/mal union/non union of bone. RSDS,neuroma,duty limitations,DVT/PE, DC,nerve damage, scar, loss of sensation, swelling. Pt [...] Cong Zamarripa DPM documented in this encounter [facility] 01-22-2024 History of Present illness Narrative Assessment/Plan [...] Migdalia Joyce MD documented in this encounter [facility] 01-15-2024 History of Present illness Narrative Patient: [...] 1-10 scale a 5 Patient has seen v belt finisher in the past and had a total [...] near future if patient like to have [facility] for postoperative pain and PCP is Dr. Corcoran. Patient like between the [facility] and day time. Will attempt to scheduled for surgery and will schedule preoperative visit in the near future and would like [facility] for postop pain and has crutches and knee crutch trained as well as knee scooter Cong Zamarripa DPM documented in this encounter [facility] 01-01-2024 History of Present illness Narrative Patient: [...] 1-10 scale a 5 Patient has seen v belt finisher in the past and had a total [...] Cong Zamarripa DPM documented in this encounter [facility] 12-25-2023 History of Present illness Narrative Patient: [...] 1-10 scale a 8 Patient has seen v belt finisher in the past and had a total [...] Patient may continue with conservative treatments including [id number] anti-inflammatories and other treatments suggested today. Patient [...] Cong Zamarripa DPM documented in this encounter [facility] 12-16-2023 History of Present illness Narrative Historian [...] tablet; Refill: 0 documented in this encounter [facility] 2023 History of Present [...] different lens options were explained including the [id number] fees for any upgrades. Intraocular lens (IOL) [...] no pitting edema. documented in this encounter [facility] 11-12-2023 Telephone encounter Note L/m again for pt to make an appt 11/12/23 [facility] 11-12-2023 Miscellaneous Notes L/m again for pt to make an appt 11/12/23 Needs appt documented in this encounter [facility] 11-10-2023 Telephone encounter Note Needs appt [facility] 08-12-2023 Note General Surgery [...] Immunizations Vaccine Date Status Comments SARS-CoV-2 (COVID-19) mRNAMUL.[id number] 02/07/2022 Recorded SARS-CoV-2 (COVID-19) mRNA-1273 vaccine 01/03/2021 Recorded 2022-10-28: [id number] SARS-CoV-2 (COVID-19) mRNA-1273 vaccine 05/26/2020 Recorded SARS-CoV-2 (COVID-19) mRNA-1273 vaccine 04/28/2020 Recorded influenza virus vaccine, live, trivalent 11/10/2018 Recorded [facility] Comment on above: Result Comment: Elec tronically Signed By: CHERYL TAPIA, Jason Guzman\Date and Time Signed: 08/12/23 16:36 EDT 11-05-2022 Note Chief Complaint consultation for positive occult stool HPI Staff 61 year old female presents on consultation from Dr. Folres for positive occult stool. Denies abdominal or [...] 40 mg= 1 (more content not included)... [facility] Comment on above: Result Comment: Elec [...] We will help arrange this for her. [facility] Other 01-10-2022 Evaluation note* Encounter Date Diagnosis [...] hopes. She understands and wishes to proceed. 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), right Contracture of left ankle documented in this encounter [facility] HealthcareEvaluation note* Diagnosis Postoperative care for cataract- Primary Follow-up examination, following other surgery documented in this encounter [facility] HealthcareEvaluation note* Diagnosis Plantar fasciitis Plantar fascial fibromatosis 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), right Contracture of right ankle documented in this encounter [facility] HealthcareEvaluation note* Diagnosis Hav (hallux abducto valgus), right- Primary Acquired deformity of right toe Plantar fasciitis Plantar fascial fibromatosis documented in this encounter [facility] HealthcareEvaluation note* Diagnosis Hav (hallux abducto valgus), right- Primary Acquired deformity of right toe Plantar fasciitis Plantar fascial fibromatosis documented in this encounter [facility] HealthcareEvaluation note* Diagnosis Hav (hallux abducto valgus), right- Primary Acquired deformity of right toe Plantar fasciitis Plantar fascial fibromatosis [facility] - Reported* Type Description Date [...] sling 2010 Hospitalization History see sx hx [facility] Other [facility] Discharge instructions No data available for this section [employer] [facility] [employer] Progress note No data available for this section [employer] [facility] [employer] Summary Purpose Family History No Family History Records FoundNo Family History Records Found No data available for this section No Family History Records FoundNo Family History Records Found Advance Directives No Advanced Directives Records FoundNo Advanced Directives Records FoundNo Advanced Directives Records FoundNo Advanced Directives Records Found Additional Source Comments INFORMATION SOURCE (unrecogn ized section and content) DATE CREATED AUTHOR 03/26/2021 [facility] DATE CREATED AUTHOR AUTHOR'S ORGANIZ ATION 05/18/2022 [facility] DATE CREATED AUTHOR AUTHOR'S ORGANIZ ATION 08/14/2023 Hope Eyad [facility] DATE CREATED AUTHOR AUTHOR'S ORGANIZ ATION 04/25/2024 [facility] EPIC REASON FOR VISIT (unrecogniz ed section and content) Reason Comments Med Refill Reason Comments Ptosis Blurred Vision Reason Comments Follow-up Pf inj Reason Comments Hammer Toe Rt ft hammer toe/ bu nion Reason Comments Follow-up 2wk- suture removal Reason Comments Procedure Reason Comments Consent Or Instructions Pre op/ orthotic belt picker Reason Comments Follow-up Reason Comments Post-op 9d s/p rt Reason Comments Post-op 23d s/p rt markus bu nionectomyK wire rmovalpfa Reason Comments Foot/ankle Post-op WK 5 post op Reason Comments Post-op RT IGNACIO BUNIONECTO MY Reason Comments Post-op 9wk s/p rt bunionect anson and hammertoe Reason Comments Post-op 9wk s/p Patient Care team informatio n (unrecognized section and content) Cpr Instructor Relationship Specialty Start Date End Date Nick Flores MD [address] [place] [address] PCP - General Family Medicine 02/06/23 Kell Del Cid DO [address] [place] [address] Referring Physician Neurology 04/30/23 Cpr Instructor Relationship Specialty Start Date End Date Nick Flores MD [address] [place] [address] PCP - General Family Medicine 02/06/23 Kell Del Cid DO [address] [place] [address] Referring Physician Neurology 04/30/23 Cpr Instructor Relationship Specialty Start Date End Date Nick Flores MD [address] [place] [address] PCP - General Family Medicine 02/06/23 Kell Del Cid DO [address] [place] [address] Referring Physician Neurology 04/30/23 Cpr Instructor Relationship Specialty Start Date End Date Nick Flores MD [address] [place] [address] PCP - General Family Medicine 02/06/23 Kell Del Cid DO [address] [place] [address] Referring Physician Neurology 04/30/23 Cpr Instructor Relationship Specialty Start Date End Date Nick Flores MD [address] [place] [address] PCP - General Family Medicine 02/06/23 Kell Del Cid DO [address] [place] [address] Referring Physician Neurology 04/30/23 Cpr Instructor Relationship Specialty Start Date End Date Nick Flores MD [address] [place] [address] PCP - General Family Medicine 02/06/23 Kell Del Cid DO [address] [place] [address] Referring Physician Neurology 04/30/23 Cpr Instructor Relationship Specialty Start Date End Date Nick Flores MD [address] [facility]], [place] [address] PCP - General Family Medicine 02/06/23 Kell Del Cid DO [address] [place] [address] Referring Physician Neurology 04/30/23 Cpr Instructor Relationship Specialty Start Date End Date Nick Flores MD [address] [facility]], [place] [address] PCP - General Family Medicine 02/06/23 Kell Del Cid DO [address] [place] [address] Referring Physician Neurology 04/30/23 Cpr Instructor Relationship Specialty Start Date End Date Nick Flores MD [address] [facility]], [place] [address] PCP - General Family Medicine 02/06/23 Kell Del Cid DO [address] [place] [address] Referring Physician Neurology 04/30/23 Cpr Instructor Relationship Specialty Start Date End Date Nick Flores MD [address] [facility]], [place] [address] PCP - General Family Medicine 02/06/23 Kell Del Cid DO [address] [place] [address] Referring Physician Neurology 04/30/23 Cpr Instructor Relationship Specialty Start Date End Date Nick Flores MD [address] [facility]], [place] [address] PCP - General Family Medicine 02/06/23 Kell Del Cid DO [address] [place] [address] Referring Physician Neurology 04/30/23 Cpr Instructor Relationship Specialty Start Date End Date Nick Flores MD [address] [facility]], [place] [address] PCP - General Family Medicine 02/06/23 Kell Del Cid DO [address] [place] [address] Referring Physician Neurology 04/30/23 Cpr Instructor Relationship Specialty Start Date End Date Nick Flores MD [address] [facility]], [place] [address] PCP - General Family Medicine 02/06/23 Kell Del Cid DO [address] [place] [address] Referring Physician Neurology 04/30/23 Cpr Instructor Relationship Specialty Start Date End Date Nick Flores MD [address] [facility]], [place] [address] PCP - General Family Medicine 02/06/23 Kell Del Cid DO [address] [place] [address] Referring Physician Neurology 04/30/23 Cpr Instructor Relationship Specialty Start Date End Date Nick Flores MD [address] [place] [address] PCP - General Family Medicine 02/06/23 Kell Del Cid DO [address] [facility] [place] [address] Referring Physician Neurology 04/30/23 Cpr Instructor Relationship Specialty Start Date End Date Nick Flores MD [address] [place] [address] PCP - General Family Medicine 02/06/23 Kell Del Cid DO [address] [place] [address] Referring Physician Neurology 04/30/23 Cpr Instructor Relationship Specialty Start Date End Date Nick Flores MD [facility] [place] [address] PCP - General Family Medicine 02/06/23 Kell Del Cid DO [address] [place] [address] Referring Physician Neurology 04/30/23 Cpr Instructor Relationship Specialty Start Date End Date Nick Flores MD [address] [facility]], [place] [address] PCP - General Family Medicine 02/06/23 Kell Del Cid DO [address] [place] [address] Referring Physician Neurology 04/30/23 FOR RECORDS PERTAINING [...] BE BASED ON THE PRIMARY CLINICAL RECORDS. [facility]. provides no warranty or guarantee of the accuracy or completeness of information in this document.
--- NOTE | 2024-07-08 08:31 | MR_ITS ---
[address] [address] Patient Name: CLAIRE ZEE MRN: [id number] date: 1960 Sex: F Assigned Patient Location: LAB Current Patient Location: LAB Accession/Order Number: [id number] Exam Date: 07/08/2024 10:53 Report Date: 07/08/2024 11:10 At the request of: NICK ARIZA MD Procedure: MR head/brain wo/w con MR head/brain wo/w con 07/08/2024 10:03 AM SIGN AND SYMPTOMS: ^Vertigo, Weakness, Restless Leg, Headache PROTOCOL: Multiplanar multisequence MR images of the brain were obtained with and without IV contrast CONTRAST: 14 mL of intravenous Dotarem COMPARISON: 11/29/2020 FINDINGS: Extra axial spaces: There is mild age-related cortical atrophy. Hemorrhage: None. Ventricular system: Within normal limits. Basal cisterns: Within normal limits and not effaced. Cerebral parenchyma: There are a few foci of nonspecific periventricular white matter T2 and FLAIR hyperintense signal suspicious for mild chronic microvascular ischemic change. No abnormal postcontrast enhancement. Midline shift: None.. Cerebellum: Within normal limits. Brainstem: Within normal limits. OTHER: Calvarium: Normal marrow signal. Vascular system: Satisfactory flow voids within the anterior and posterior circulation. Visualized Paranasal sinuses: Within normal limits. Visualized Orbits: Within normal limits. Visualized upper cervical spine: Within normal limits. Sella and skull base: Within normal limits. MR/MR head/brain wo/w con IMPRESSION: No acute intracranial pathology or abnormal postcontrast enhancement. There are a few foci of nonspecific periventricular white matter T2 and FLAIR hyperintense signal suspicious for mild chronic microvascular ischemic change. There is mild age-related cortical atrophy. Impression dictated by: Manohar Rodriguez M.D. 07/08/2024 11:10 AM Dictation Location: [employer] Electronically authenticated by: [id number] Y Date: 07/08/2024 11:10
--- NOTE | 2024-07-08 08:31 | MR_ITS ---
The [address] [address] Patient Name: CLAIRE ZEE MRN: [id number] date: 1960 Sex: F Assigned Patient Location: LAB Current Patient Location: LAB Accession/Order Number: [id number] Exam Date: 07/08/2024 09:53 Report Date: 07/08/2024 10:10 At the request of: NICK ARIZA MD Procedure: MR lumbar spine wo con MR lumbar spine wo con 07/08/2024 9:27 AM SIGNS AND SYMPTOMS: ^Vertigo, Weakness, back pain, Restless Leg, Headache PROTOCOL: Multiplanar multisequence MR images of the lumbar spine were obtained without IV contrast COMPARISON: 06/17/2024 FINDINGS: There is 2 mm of anterolisthesis of L4 upon L5. The bones are otherwise in anatomic alignment. There is preservation of vertebral body heights. There is disc desiccation and mild disc height loss at T12-L1 and L1-L2. The marrow signal is within normal limits. The conus terminates at the mid L1 vertebral body level. No epidural or paraspinous fluid collection is appreciated. At T12-L1: There is a broad-based disc bulge. There is no significant spinal canal narrowing or neural foraminal stenosis. At L1-L2: There is a normal disc, central canal, and neural foramen. At L2-L3: There is a broad-based disc bulge with facet hypertrophy. There is mild spinal canal narrowing without neural foraminal stenosis. At L3-L4: There is facet hypertrophy without significant spinal canal or neural foraminal narrowing. There is accompanying mild broad-based disc bulge. At L4-L5: There is facet hypertrophy without significant spinal canal or neural foraminal narrowing. There is accompanying mild broad-based disc bulge. At L5-S1: There is right-sided facet hypertrophy with a small right-sided facet effusion. There is no significant spinal canal stenosis. There is mild right neural foraminal narrowing. MR/MR lumbar spine wo con IMPRESSION: Mild degenerative changes are noted in the lumbar spine as above with mild spinal canal and neural foraminal narrowing noted at multiple levels. Please see details above. There is 2 mm of anterolisthesis of L4 upon L5 secondary to facet hypertrophy. Impression dictated by: Manohar Rodriguez M.D. 07/08/2024 10:10 AM Dictation Location: [place] [address] Electronically authenticated by: [id number] Y Date: 07/08/2024 10:10
[2024-07-08 08:39] LABS: Estimated GFR (African America >60 (>=60 mL/min/1.73m^2); Estimated GFR (Non-African Ame >60 (>=60 mL/min/1.73m^2)
== END 2024-07-08 08:20 | disposition home or self-care (01) ==
LOC: LAB 08:19
PROVIDERS: PCP Family Medicine; Visit Provider Family Medicine
DX: Z01.812 Encounter for preprocedural laboratory examination (principal); R42 Dizziness and giddiness; R53.1 Weakness; R51.9 Headache, unspecified; G25.81 Restless legs syndrome; M51.369 Other intervertebral disc degeneration, lumbar region without mention of lumbar back pain or lower extremity pain
CPT/HCPCS: 36415; 70553; 72148; 82565; A9575

== ENCOUNTER 2024-08-11 14:59 | Outpatient (RCR) | payer OTHER, SELFPAY | END 2024-09-22 09:28 | disposition home or self-care (01) | LOC: PT 14:59 | PROVIDERS: PCP Family Medicine; Visit Provider Family Medicine | DX: M62.81 Muscle weakness (generalized) (principal) | CPT/HCPCS: 97012; 97110; 97140; 97163 ==

== ENCOUNTER 2024-11-23 15:34 | Outpatient (REF) | payer OTHER, SELFPAY ==
--- OUTSIDE RECORDS SUMMARY | 2024-11-23 15:39 | XMS_ITS | CCD ---
Author Organization [facility] Care Team Providers Care Rig Builder Helper Name Role Phone Kristine Chavez Unavailable [phone] HOY ., DR ROMERO Primary Care [...] Unavailable HOY ., DR ROMERO Attending Unavailable [place], DR JAMIE York Consulting Unavailable HOY ., [...] Care Provider Kell Del Cid DO Unavailable CONG ZAMARRIPA [...] Promethazine; Translations: [promethazine] Drug Allergy Spasm (finding) [facility] [place] Quinolones (antibiotic) (1 source) Ciprofloxacin; Translations: [ciprofloxacin] Drug Allergy Unknown (qualifier value) [facility] (20 sources) Ciprofloxacin Drug Allergy 3 Unknown [facility] (20 sources) Promethazine Drug Allergy 4 Unknown [facility] (2 sources) Ciprofloxacin; Translations: [Cipro] Drug Allergy 0 [facility] (3 sources) Levamisole; Translations: [Phenergan] Drug Allergy 4 [facility] Medications Current Medications Medication Drug Class(es) Dates Sig (Normalized) Sig (Original) acetaminophen 325 mg / HYDROcodone bitartrate 5 mg oral tablet (6 sources) Opioid Agonist Start: 02-19-2024 End: 02-24-2024 take 1 tablet by mouth every eight hours as needed for pain HYDROcodone-aceta minophen ([place]) 5-325 MG tablet Indications: Pain Take 1 tablet by mouth every 8 (eight) hours if needed for moderate pain (PRN pain) for up to 5 days 15 tablet 02/19/2024 02/24/2024 Active Start: 01-29-2024 End: 02-03-2024 take 1 tablet by mouth every eight hours as needed for pain HYDROcodone-acetaminophen ([place]) 5-325 MG tablet Indications: Pain Take 1 [...] of osteotomy site with good correction noted [facility] Study observation (narrative) [facility] [...] you for choosing us for your care. [facility] Physician Referralon 024 Physician Referral [id number]#[id number] [facility] Reminderson 07-28-2023 Reminders - From: Nurys Boone LPN To: N - Clinical; Sent: 07/28/2023 11:21:37 EDT Show up: 10/28/2032 07:00:00 EDT Subject: colonoscopy recall Due Date/Time: 2032 07:00:00 EDT Reminder/Recall Patient due for screening colonoscopy 2032. [facility] Outside Colonoscopyon 2022 Outside Colonoscopy [id number]#1.00TIFF [facility] Insurance Correspondenceon 0 11-07-2022 Insurance Correspondence [id number]#[id number]:127 [facility] Consultation Noteon 11-07-19 Consultation Note [id number]#[id number]:127 [facility] Ambulatory Visit Summaryon 0 11-05-2022 Ambulatory [...] long-term use Pain in unspecified joint Normal [facility] Physician Referralon 023 Physician Referral [id number]#[id number]:127 Normal [facility] MG MAMM SCREEN 3D TIFFANIE CADon 12-14-2021 MG MAMM SCREEN 3D TIFFANIE CAD Patient: JEANNA ZEE Exam Date: 12/14/2021 : 1960 Gender:F Ordering : DR NICK FLORES . Admission #: [id number] Family : Order #: [id number] CLICK HERE TO VIEW EXAM RADIOLOGY REPORT [...] lung cancer at age 73. LOCATION: [facility] BREAST COMPOSITION: Extremely dense, which [...] Smith MD on 12/14/2021 at 08:02 Normal [facility] PAP ACOG PANEL 2: 30 to 65on 12-14-2021 . . Normal [facility] Comment on above: Result Comment: Perf ormed at: WB Performed By: #### 4 [id number] #### [facility] [address] [place] [address] Dr. Daly Gordon Age Gdln ACOG Testing 30-65 Normal [facility] Comment on above: Performed By: #### 4 [id number] #### [facility] [address] [place] [address] Dr. Daly Gordon DIAGNOSIS: Comment Normal [facility] Comment on above: Result Comment: NEGA TIVE FOR INTRAEPITHELIAL LESION OR MALIGNANCY. CELLULAR CHANGES ASSOCIATED WITH ATROPHY ARE PRESENT. Performed at: WB Performed By: #### 4 [id number] #### [facility] [address] [place] [address] Dr. Daly Gordon HPV Aptima Negative Normal Negative [facility] Comment on above: Result Comment: This nucleic acid amplification test detects fourteen high-risk HPV types (16,18,31,33,35,39,45,51,52,56,58,59,66,68) without differentiation. Performed at: =G Performed By: #### 4 [id number] #### [facility] [address] [place] [address] Dr. Daly Gordon HPV Genotype Reflex Comment Normal [facility] Comment on above: Result Comment: Crit eria not met, HPV Genotype not performed. Performed at: WB Performed By: #### 4 [id number] #### [facility] [address] [place] [address] Dr. Daly Gordon Methodology: Comment Normal [facility] Comment on above: Result Comment: This liquid based ThinPrep(R) pap test was screened with the use of an image guided system. Performed at: WB Performed By: #### 4 [id number] #### [facility] [address] [place] [address] Dr. Daly Gordon Note: Comment Normal [facility] Comment on above: Result Comment: The Pap smear is a screening test designed to aid in the detection of premalignant and malignant conditions of the uterine cervix. It is not a diagnostic procedure and should not be used as the sole means of detecting cervical cancer. Both false-positive and false-negative reports do occur. . Performed at: WB Performed By: #### 4 [id number] #### [facility] [address] [address] [address] Daly Gordon Performed by: Comment Normal [facility] Comment on above: Result Comment: Radha Marrero, Fuel Yard Operator Performed at: WB Performed By: #### 4 [id number] #### [facility] [address] [address] [address] Daly Gordon Specimen adequacy: Comment Normal [facility] Comment on above: Result Comment: Sati sfactory for evaluation. Endocervical component may not be distinguished in cases of atrophy. Performed at: WB Performed By: #### 4 [id number] #### [facility] [address] [address] [address] Daly Gordon MRI BRAIN WO W [...] ARLET BUTLER Date: 2021-10-24 07:26 Normal [facility] OCC BLD IMMUNO SCREENon - OCCULT BLOOD Negative Normal NEGATIVE [facility] Comment on above: Performed By: #### O BSCRN #### [facility] [address] [address] [address] Daly Gordon INSULINon 09-07-2022 Insulin 16.8 uIU/mL Normal 2.6-24.9 [facility] Comment on above: Performed By: #### I NSULIN #### [facility] [address] [address] [address] Daly Gordon T4, T3U, FTI LABCORPon 10-17 Free Thyroxine Index 3.0 Normal 1.2-4.9 [facility] Comment on above: Performed By: #### T HYLC #### [facility] [address] [address] [address] Daly Gordon T3 Uptake 41 % Critically high 24-39 [facility] Comment on above: Performed By: #### T HYLC #### [facility] [address] [address] [address] Daly Gordon T4 [Mass/Vol] 7.4 ug/dL Normal 4.5-12.0 [facility] Comment on above: Performed By: #### T HYLC #### [facility] [address] [address] [address] Daly Gordon VIT D 25-OH LABCORPon 2021 Vitamin D, 25-Hydroxy 42.7 ng/mL Normal 30.0-100.0 [facility] Comment on above: Result Comment: Ofelia min D deficiency has been defined by the Desmet of Medicine and an Endocrine Society practice guideline as a level of serum 25-OH vitamin D less than 20 ng/mL (1,2). The Endocrine Society went on to further define vitamin D insufficiency as a level between 21 and 29 ng/mL (2). 1. IOM (Desmet of Medicine). 2010. Dietary reference intakes for calcium and D. [place]: The National Academies Press. 2. Red MF, Dae NC, Demetrice AKERS, et al. Evaluation, treatment, and prevention of vitamin D deficiency: an Endocrine Society clinical practice guideline. JCEM. 2010; 96(7):1911-30. Performed By: #### V ITADLC #### [facility] [address] [address] [address] Daly Gordon CBC AUTO DIFFon 10-13-2021 BASO # 0.1 103/ul Normal 0.0-0.1 [facility] Comment on above: Performed By: #### C BC ####[facility] [address] [place], [place] [address]Dr. Daly Gordon Basophils/100 WBC (Bld) 0.7 % Normal 0.2-2.0 [facility] Comment on above: Performed By: #### C BC ####[facility] [address] [place], [place] [address]Dr. Daly Gordon EO # 0.2 103/ul Normal 0.0-0.7 [facility] Comment on above: Performed By: #### C BC ####[facility] [address] [place], [place] [address]Dr. Daly Gordon Eosinophils/100 WBC (Bld) 2.6 % Normal 0.9-7.0 [facility] Comment on above: Performed By: #### C BC ####[facility] [address] [place], [place] [address]Dr. Daly Gordon Erythrocyte distribution width (RBC) [Ratio] 12.5 % Normal 11.0-15.0 [facility] Comment on above: Performed By: #### C BC ####[facility] [address] [place], [place] [address]Dr. Daly Gordon Hematocrit (Bld) [Volume fraction] 42.4 % Normal 36.0-48.0 [facility] Comment on above: Performed By: #### C BC ####[facility] [address] [place], [place] [address]Dr. Daly Gordon Hemoglobin (Bld) [Mass/Vol] 13.9 g/dL Normal 12.0-16.0 [facility] Comment on above: Performed By: #### C BC ####[facility] [address] [place], [place] [address]Dr. Daly Gordon IG # 0.01 10e3/ul Normal 0.00-0.03 [facility] Comment on above: Performed By: #### C BC ####[facility] [address] [place], [place] [address]Dr. Daly Gordon IG % 0.1 % Normal 0.0-0.5 [facility] Comment on above: Performed By: #### C BC ####[facility] [address] [address]DrShea Candicesharmila Gordon LYMPH # 2.2 103/ul Normal 1.2-3.8 [facility] Comment on above: Performed By: #### C BC ####[facility] [address] [id number] Candicesharmila Gordon Lymphocytes/100 WBC (Bld) 29.4 % Normal 20.5-60.0 [facility] Comment on above: Performed By: #### C BC ####[facility] [address] [place], [place] [address]DrShea Candicesharmila Gordon MANUAL DIFF REQ NO Normal [facility] Comment on above: Performed By: #### C BC ####[facility] [address] [place], [place] [address]DrShea Candicesharmila Gordon MCH (RBC) [Entitic mass] 30.1 pg Normal 26.7-34.0 [facility] Comment on above: Performed By: #### C BC ####[facility] [address] [place], [place] [address]Dr. Daly Evan MCHC (RBC) [Mass/Vol] 32.8 g/dL Normal 29.9-35.2 [facility] Comment on above: Performed By: #### C BC ####[facility] [address] [place], [place] [address]DrShea Candicesharmila Gordon MCV (RBC) [Entitic vol] 91.8 fL Normal 81.0-99.0 [facility] Comment on above: Performed By: #### C BC ####[facility] [address] [place], [place] [address]DrShea Gordon MONO # 0.5 103/ul Normal 0.3-0.8 [facility] Comment on above: Performed By: #### C BC ####[facility] [address] [place], [place] [address]DrShea Gordon Monocytes/100 WBC (Bld) 6.6 % Normal 1.7-12.0 [facility] Comment on above: Performed By: #### C BC ####[facility] [address] [address]Dr. Daly Gordon NEUT # 4.5 103/ul Normal 1.4-6.5 [facility] Comment on above: Performed By: #### C BC ####[facility] [address] [address]Dr. Daly Gordon Neutrophils/100 WBC (Bld) 60.6 % Normal 43.0-75.0 [facility] Comment on above: Performed By: #### C BC ####[facility] [address] [address]DrShea Daly Gordon Platelet mean volume (Bld) [Entitic vol] 9.1 fL Critically low 9.5-13.5 [facility] Comment on above: Performed By: #### C BC ####[facility] [address] [address]Dr. Daly Gordon PLT 236 103/ul Normal 150-450 [facility] Comment on above: Performed By: #### C BC ####[facility] [address] [address]Dr. Daly Gordon RBC 4.62 106/ul Normal 4.20-5.40 [facility] Comment on above: Performed By: #### C BC ####[facility] [address] [id number] Daly Evan WBC 7.4 103/ul Normal 4.0-11.0 [facility] Comment on above: Performed By: #### C BC ####[facility] [address] [id number] Daly Gordon GLYCOHEMOGLOBIN A1Con 2021 ADA RECOMMENDATION SEE BELOW Normal [facility] Comment on above: Result Comment: ADA RECOMMENDED LIMIT 4.0 - 6.0 ADA THERAPEUTIC TARGET < 7.0 ACTION SUGGESTED > 7.0 Performed By: #### A 1C #### [facility] [address] [address] [address] Daly Gordon Glucose [Mass/Vol] 128 mg/dL Normal [facility] Comment on above: Performed By: #### A 1C #### [facility] [address] [address] [address] Daly Gordon HbA1c (Bld) [Mass fraction] 6.1 % Normal 4.5-6.2 [facility] Comment on above: Performed By: #### A 1C #### [facility] [address] [address] [address] Daly Gordon IRONon 10-13-2021 Iron [Mass/Vol] 89.0 ug/dL Normal 50.0-170.0 [facility] Comment on above: Performed By: #### B 12FOL, IRON #### [facility] [address] [address] [address] Daly Gordon LIPID PROFILEon 10-13-2021 CHOL-HDL RATIO NORM SEE BELOW Normal [facility] Comment on above: Result Comment: 3.3 - 4.4 LOW RISK 4.4 - 7.1 AVERAGE RISK 7.1 - 11.0 MODERATE RISK >11.0 HIGH RISK Performed By: #### L IPID, TSH, CMP ####[facility] [address] [address]DrShea Gordon Cholesterol [Mass/Vol] 176 mg/dL Normal <=200 [facility] Comment on above: Performed By: #### L IPID, TSH, CMP ####[facility] [address] [address]DrShea Gordon Cholesterol in HDL [Mass/Vol] 58 mg/dL Normal 40-60 [facility] Comment on above: Performed By: #### L IPID, TSH, CMP ####[facility] [address] [id number] Gordon Cholesterol in LDL [Mass/Vol] 110.4 mg/dL Normal [facility] Comment on above: Performed By: #### L IPID, TSH, CMP ####[facility] [address] [id number] Gordon Cholesterol.total/ Cholesterol in HDL [Mass ratio] 3.0 {ratio} Normal [facility] Comment on above: Performed By: #### L IPID, TSH, CMP ####[facility] [address] [address]Dr. Daly Gordon HDL NORMAL > or = 60 mg/dl - LO W CARDIOVASCULAR RISK <40 mg/dl - HIGH CARDIOVASCULAR RISK Normal [facility] Comment on above: Performed By: #### L IPID, TSH, CMP ####[facility] [address] [address]Dr. Daly Gordon LDL CALC NORMAL SEE BELOW Normal [facility] Comment on above: Result Comment: <100 mg/dl OPTIMAL 100 - 129 mg/dl NEAR OR ABOVE OPTIMAL 130 - 159 mg/dl BORDERLINE HIGH 160 - 189 mg/dl HIGH >190 mg/dl VERY HIGH Performed By: #### L IPID, TSH, CMP ####[facility] [address] [address]Dr. Daly Gordon Triglyceride [Mass/Vol] 38 mg/dL Normal <=150 [facility] Comment on above: Performed By: #### L IPID, TSH, CMP ####[facility] [address] [place], [place] [address]Dr. Daly Gordon VLDL CALC 7.6 mg/dL Normal [facility] Comment on above: Performed By: #### L IPID, TSH, CMP ####[facility] [address] [address]Dr. Daly Gordon PROF 14(COMP METB)on 022 Albumin [Mass/Vol] 3.7 g/dL Normal 3.4-5.0 [facility] Comment on above: Performed By: #### L IPID, TSH, CMP ####[facility] [address] [address]Dr. Daly Gordon Albumin/Globulin [Mass ratio] 1.2 {ratio} Normal [facility] Comment on above: Performed By: #### L IPID, TSH, CMP ####[facility] [address] [address]Dr. Daly Gordon ALP [Catalytic activity/Vol] 56 U/L Normal 46-116 [facility] Comment on above: Performed By: #### L IPID, TSH, CMP ####[facility] [address] [address]Dr. Daly Gordon ALT [Catalytic activity/Vol] 29 U/L Normal 14-59 [facility] Comment on above: Performed By: #### L IPID, TSH, CMP ####[facility] [address] [address]Dr. Daly Gordon Anion gap [Moles/Vol] 11.6 mmol/L Normal [facility] Comment on above: Performed By: #### L IPID, TSH, CMP ####[facility] [address] [place], [place] [address]Dr. Daly Gordon AST [Catalytic activity/Vol] 17 U/L Normal 15-37 [facility] Comment on above: Performed By: #### L IPID, TSH, CMP ####[facility] [address] [place], [place] [address]Dr. Daly Gordon Bilirubin [Mass/Vol] 0.4 mg/dL Normal 0.2-1.0 [facility] Comment on above: Performed By: #### L IPID, TSH, CMP ####[facility] [address] [place], [place] [address]Dr. Daly Gordon Calcium [Mass/Vol] 8.6 mg/dL Normal 8.5-10.1 [facility] Comment on above: Performed By: #### L IPID, TSH, CMP ####[facility] [address] [place], [place] [address]Dr. Daly Gordon Chloride [Moles/Vol] 105 mmol/L Normal 98-107 [facility] Comment on above: Performed By: #### L IPID, TSH, CMP ####[facility] [address] [address]Dr. Daly Gordon CO2 [Moles/Vol] 29.6 mmol/L Normal 21.0-32.0 [facility] Comment on above: Performed By: #### L IPID, TSH, CMP ####[facility] [address] [id number]. Daly Gordon Creatinine [Mass/Vol] 0.72 mg/dL Normal 0.55-1.02 [facility] Comment on above: Performed By: #### L IPID, TSH, CMP ####[facility] [address] [id number]. Daly Gordon EGFR-AF SALVADOREAN >60 Normal >=60 [facility] Comment on above: Performed By: #### L IPID, TSH, CMP ####[facility] [address] [id number]. Daly Gordon EGFR-NON AF SALVADOREAN >60 Normal >=60 [facility] Comment on above: Performed By: #### L IPID, TSH, CMP ####[facility] [address] [address]Dr. Daly Evan Globulin (S) [Mass/Vol] 3.2 g/dL Normal [facility] Comment on above: Performed By: #### L IPID, TSH, CMP ####[facility] [address] [address]Dr. Daly Gordon Glucose [Mass/Vol] 101 mg/dL Normal 74-106 [facility] Comment on above: Performed By: #### L IPID, TSH, CMP ####[facility] [address] [place], [place] [address]Dr. Daly Gordon Potassium [Moles/Vol] 4.2 mmol/L Normal 3.5-5.1 [facility] Comment on above: Performed By: #### L IPID, TSH, CMP ####[facility] [address] [place] [id number]. Daly Gordon Protein [Mass/Vol] 6.9 g/dL Normal 6.4-8.2 [facility] Comment on above: Performed By: #### L IPID, TSH, CMP ####[facility] [address] [place] [id number]. Daly Gordon Sodium [Moles/Vol] 142 mmol/L Normal 136-145 [facility] Comment on above: Performed By: #### L IPID, TSH, CMP ####[facility] [address] [address]Dr. Daly Gordon Urea nitrogen [Mass/Vol] 21.0 mg/dL Critically high 7.0-18.0 [facility] Comment on above: Performed By: #### L IPID, TSH, CMP ####[facility] [address] [id number]. Daly Gordon Urea nitrogen/Creatinin e [Mass ratio] 29.2 mg/mg Normal [facility] Comment on above: Performed By: #### L IPID, TSH, CMP ####[facility] [address] [address]Dr. Daly Gordon TSHon 10-13-2021 TSH 2.311 uIU/mL Normal 0.358-3.740 [facility] Comment on above: Performed By: #### L IPID, TSH, CMP ####[facility] [address] [address]Dr. Daly Gordon VIT B12 AND FOLATEon 022 Cobalamin (Vitamin B12) [Mass/Vol] 602.0 pg/mL Normal 193.0-986.0 [facility] Comment on above: Performed By: #### B 12FOL, IRON #### [facility] [address] [address] [address] Daly Gordon FOLATE 18.70 ng/mL Normal 8.60-58.90 [facility] Comment on above: Performed By: #### B 12FOL, IRON #### [facility] [address] [address] [address] Daly Gordon US carotid doppler BIon 02-11 US carotid doppler [place] [address] Ultrasound Report Signed Patient: Jeanna Zee MR#: [id number] : 1960 Acct:[id number] Age/Sex: 60 / F ADM Date: 03/05/21 Loc: [facility] Room: Type: [facility] Attending Dr: Kristine Chavez MD Ordering [...] MD03/08/2021 5:35 PM Dictation Location: [place] [address] Tech: Albina Wilcox Transcribed By: [facility] 03/08/211734 Dictated By: Kristine Chavez MD 03/08/211733 Signed By: 03/08/211734 [facility] Vital Signs Date Time Vital Sign [...] 83 /min Cong Zamarripa DPM Work Phone: [facility] 12-25-2023 15:09-0500 Systolic blood pressure 131 mm[Hg] Cong Brown DPM Work Phone: [facility] 12-16-2023 18:29-0500 Body mass index (BMI) [Ratio] 26.09 kg/m2 Phoebe Kiepert PHYSICIAN PRACTICE MARKET MANAGER Work Phone: [facility] 12-16-2023 18:29-0500 Body temperature 97.39 [degF] Phoebe Kiepert PHYSICIAN PRACTICE MARKET MANAGER Work Phone: [facility] 12-16-2023 18:29-0500 Body weight 68.95 kg Phoebe Neilt PHYSICIAN PRACTICE MARKET MANAGER Work Phone: [facility] 12-16-2023 18:29-0500 Diastolic blood pressure 80 mm[Hg] Phoebe Pedroepert PHYSICIAN PRACTICE MARKET MANAGER Work Phone: [facility] 12-16-2023 18:29-0500 Heart rate 81 /min Phoebe Kiepert PHYSICIAN PRACTICE MARKET MANAGER Work Phone: [facility] 12-16-2023 18:29-0500 SaO2% (BldA) [Mass fraction] 95 % Phoebe Vasquezepert PHYSICIAN PRACTICE MARKET MANAGER Work Phone: [facility] 12-16-2023 18:29-0500 Systolic blood pressure 122 mm[Hg] Phoebe Vasquezepert PHYSICIAN PRACTICE MARKET MANAGER Work Phone: [facility] 08-12-2023 15:52-0400 Blood Pressure Location Jason NILL [facility] 08-12-2023 15:52-0400 Diastolic blood pressure 72 mm[Hg] Jason NILL [facility] 08-12-2023 15:52-0400 Heart rate 72 /min Jason NILL [facility] 08-12-2023 15:52-0400 Respiratory rate 16 /min Jason NILL [facility] 08-12-2023 15:52-0400 Systolic blood pressure 114 mm[Hg] Jason NILL [facility] 03-05-2021 16:30-0500 Body height 162.56 cm Kristine Chavez Other [facility] Other 03-05-2021 16:30-0500 Body mass index (BMI) [Ratio] 27.46 kg/m2 Kristine Chavez Other [facility] Other 03-05-2021 16:30-0500 Body temperature 97.3 [degF] Kristine Scott Other [facility] Other 03-05-2021 16:30-0500 Body weight 72.58 kg Kristine Scott Other [facility] Other 03-05-2021 16:30-0500 Diastolic blood pressure 70 mm[Hg] Kristine Chavez Other [facility] Other 03-05-2021 16:30-0500 SaO2% (BldA) [Mass fraction] 98 % Kristine Scott Other [facility] Other 03-05-2021 16:30-0500 Systolic blood pressure 110 mm[Hg] Kristine Chavez Other [facility] Other 02-19-2021 16:15-0500 Body height 162.56 cm Kristine Scott Other [facility] Other 02-19-2021 16:15-0500 Body mass index (BMI) [Ratio] 27.46 kg/m2 Kristine Chavez Other [facility] Other 02-19-2021 16:15-0500 Body weight 72.58 kg Kristine Scott Other [facility] Other 02-19-2021 16:15-0500 Respiratory rate 18 /min Kristine Chavez Other [facility] Other 02-19-2021 16:15-0500 SaO2% (BldA) [Mass fraction] 98 % Kristine Chavez Other [facility] Other Encounters Encounter Date Encounter Type Care [...] original px Cong Zamarripa DPM Work Phone: [facility] Comment on above: Hav (hallux abducto valgus), right (Primary Dx); Acquired deformity of right toe; Plantar fasciitis Start: 04-01-2024 End: 04-01-2024 ambulatory CONG Mata DALLIN Not Available Start: 03-18-2024 End: 03-18-2024 Bamboo flowsheet Cong Zmaarripa DPM Work Phone: [facility] Start: 03-18-2024 End: 03-18-2024 Bamboo flowsheet Cong Zamarripa DPM Work Phone: [facility] Start: 03-18-2024 End: 03-18-2024 ambulatory CONG Esperanza DALLIN Not Available Start: 03-18-2024 End: 03-18-2024 Postop follow up visit related to original px Cong Zamarripa DPM Work Phone: [facility] Comment on above: Hav (hallux abducto valgus), right (Primary Dx); Acquired deformity of right toe; Plantar fasciitis Start: 03-04-2024 End: 03-04-2024 Bamboo flowsheet Cong Zamarripa DPM Work Phone: [facility] Start: 03-04-2024 End: 03-04-2024 [...] Bamboo flowsheet Cong Zamarripa DPM Work Phone: [facility] Start: 02-19-2024 End: 02-19-2024 Bamboo flowsheet Cong Zamarripa DPM Work Phone: [facility] Start: 02-19-2024 End: 02-19-2024 Postop follow up visit related to original px Cong Esperanza Dallin DPM Work Phone: [facility] Comment on above: Plantar fasciitis; Acquired deformity of right toe; Hav (hallux abducto valgus), right; Contracture of right ankle Start: 02-19-2024 End: 02-19-2024 ambulatory CONG ZAMARRIPA Not Available Start: 02-02-2024 End: 02-02-2024 Bamboo flowsheet Migdalia Joyce MD Work Phone: [facility] Start: 02-02-2024 End: 02-02-2024 Bamboo flowsheet Migdalia Joyce MD Work Phone: [facility] Start: 02-02-2024 End: 02-02-2024 Postop follow up visit related to original px Migdalia Joyce MD Work Phone: [facility] Comment on above: Postoperative care f or cataract (Primary Dx) Start: 02-02-2024 End: 02-02-2024 ambulatory MIGDALIA JOYCE Not Available Start: 01-29-2024 End: 01-29-2024 ambulatory CONG ZAMARRIPA Not Available Start: 01-29-2024 End: 01-29-2024 Office outpatient visit 25 minutes Cong Zamarripa DPM Work Phone: [facility] Comment on above: Plantar fasciitis (P rimary Dx); Contracture of right ankle; Acquired deformity of right toe; Hav (hallux abducto valgus), right; Contracture of left ankle Start: 01-29-2024 End: 01-29-2024 Bamboo flowsheet Cong Zamarripa DPM Work Phone: [facility] Start: 01-29-2024 End: 01-29-2024 Bamboo flowsheet Cong Zamarripa DPM Work Phone: [facility] Start: 01-22-2024 End: 01-22-2024 Patient encounter procedure Migdalia Joyce MD Work Phone[facility] Comment on above: Brow ptosis (Primary Dx) Start: 01-22-2024 End: 01-22-2024 ambulatory MIGDALIA JOYCE Not Available Start: 01-15-2024 End: 01-15-2024 Office outpatient visit 15 minutes Cong Zamarripa DPM Work Phone: [facility] Comment on above: Plantar fasciitis (P rimary Dx); Hematoma of right lower leg; Hav (hallux abducto valgus), right; Acquired deformity of right toe Start: 01-15-2024 End: 01-15-2024 ambulatory CONG ZAMARRIPA Not Available Start: 01-01-2024 End: 01-01-2024 ambulatory CONG ZAMARRIPA Not Available Start: 01-01-2024 End: 01-01-2024 Office outpatient visit 15 minutes Cong Zamarripa DPM Work Phone: [facility] Comment on above: Hav (hallux abducto valgus), right (Primary Dx); Hematoma of right lower leg; Acquired deformity of right toe; Dog bite of right lower leg, initial encounter Start: 01-01-2024 End: 01-01-2024 Bamboo flowsheet Cong Zamarripa DPM Work Phone: [facility] Start: 01-01-2024 End: 01-01-2024 Bamboo flowsheet Cong Zamarripa DPM Work Phone: [facility] Start: 12-25-2023 End: 12-25-2023 Office outpatient new 60 minutes Cong Zamarripa DPM Work Phone: [facility] Comment on above: Hematoma of right lo wer leg (Primary Dx); Hav (hallux abducto valgus), right; Acquired deformity of right toe; Plantar fasciitis; Contracture of right ankle; Dog bite of right lower leg, initial encounter Start: 12-25-2023 End: 12-25-2023 ambulatory CONG ZAMARRIPA Not Available Start: 12-25-2023 End: 12-25-2023 Bamboo flowsheet Cong Zamarripa DPM Work Phone: [facility] Start: 12-25-2023 End: 12-25-2023 Bamboo flowsheet Cong Zamarripa DPM Work Phone: [facility] Start: 12-16-2023 End: 12-16-2023 Office outpatient visit 15 minutes Phoebe A Kiepert PHYSICIAN PRACTICE MARKET MANAGER Work Phone: [facility] Comment on above: Dog bite of right lo wer leg, initial encounter (Primary Dx) Start: 12-16-2023 End: 12-16-2023 ambulatory PHOEBE A KIEPERT Not Available Start: 2023 End: 2023 Bamboo flowsheet Migdalia Joyce MD Work Phone: [facility] Start: 2023 End: 2023 Bamboo flowsheet Migdalia Joyce MD Work Phone: [facility] Start: 2023 End: 2023 Office outpatient visit 25 minutes Migdalia Joyce MD Work Phone: [facility] Comment on above: Brow ptosis (Primary Dx); Visual field loss; Cortical age-related cataract of both eyes Start: 2023 End: 2023 ambulatory MIGDALIA JOYCE Not Available Start: 11-06-2023 End: 11-12-2023 Refill Byron Gomez MD Work Phone: [facility] Comment on above: Chronic rhinitis Start: 08-12-2023 End: 08-12-2023 ambulatory Jason LUNA Facility: [facility] Start: 08-12-2023 End: 08-12-2023 Patient encounter procedure Jason LUNA [facility] [place] Start: 07-23-2023 End: 07-23-2023 ambulatory KACEY HARPER Not Available Start: 2022 End: 2022 ambulatory Jason LUNA Facility:[id number] Start: 11-05-2022 End: 11-05-2022 ambulatory Jason LUNA Facility: [facility] Start: 05-17-[address] KRISTINE NAZARIO Facil ity:[facility]1 Start: 12-14-2021 End: 12-15-[address] NICK LFORES . Facility:[facility] Start: 12-06-2021 End: 12-10-2021 ambulatory [...] . Facility:[facility] Start: 06-01-2021 End: 06-02-2021 ambulatory EDREK CHELSEA . Facility:[facility] Start: 03-05-2021 End: 03-05-2021 ambulatory Kristine Chavez Other [facility] Other Start: 03-05-2021 Office outpatient vi sit 15 minutes Kristine Chavez [facility] V[facility] Surgery Start: 02-19-2021 End: 02-19-2021 ambulatory Kristine Chavez Other [facility] [employer] Other Start: 02-19-2021 Office outpatient ne w [...] [address] [place] [address] Cong Zamarripa DPM [address] [address] Hav (hallux abducto valgus), right (Primary Dx); Acquired deformity of right toe; Plantar fasciitis [facility] Comment on above: Hav (hallux abducto valgus), right (Primary Dx); Acquired deformity of right toe; Plantar fasciitis Start: 04-15-2024 End: 04-15-2024 Patient encounter procedure 04/15/2024 9:20 AM EST Office Visit [facility] [address] [address] Cong Zamarripa DPM [address] [address] [facility] Start: 04-01-2024 End: 04-01-2024 Patient encounter procedure [facility] Comment on above: Hav (hallux abducto valgus), right (Primary Dx); Acquired deformity of right toe; Plantar fasciitis Start: 03-18-2024 End: 03-18-2024 Patient encounter procedure 03/18/2024 9:10 AM EST Office Visit [facility] [address] [address] Cong Zamarripa DPM [address] [address] [facility] Start: 02-19-2024 End: 02-19-2024 [...] PODIATRY [address] [place] [address] Cong Zamarripa DPM [address] [address] [facility] Start: 01-23-2024 End: 01-23-2024 ambulatory 01/23/2024 1:00 PM EST Treatment [facility] [address] [place] [address] Parvin Melo, PT [facility] Start: 01-22-2024 End: 01-22-2024 Patient encounter procedure 01/22/2024 3:00 PM EST Procedure Visit [facility] [address] [place] [id number] Migdalia Joyce MD [address] [place] [address] [facility] Start: 01-15-2024 End: 01-15-2024 Patient encounter procedure 01/15/2024 4:00 PM EST Office Visit [facility] [address] [place] [address] Cong Zamarripa DPM [address] [address] [facility] Start: 12-25-2023 End: 12-25-2023 Patient encounter procedure 12/25/2023 3:20 PM EST Office Visit [facility] [address] [place] [address] Cong Zamarripa DPM [address] [address] [facility] Start: 2023 End: 2023 Patient encounter procedure [facility] Comment on above: Arrived Start: [...] Immunization Date Immunization Notes Care Provider [facility] 12-16-2023 tetanus toxoid, redu abena diphtheria toxoid, and acellular pertussis vaccine, adsorbed Phoebe Kiepert PHYSICIAN PRACTICE MARKET MANAGER Work Phone: [facility] 06-29-2022 zoster vaccine recombinant Phoebe Kiepert PHYSICIAN PRACTICE MARKET MANAGER Work Phone: [facility] 04-27-2022 zoster vaccine recombinant Phoebe Kiepert PHYSICIAN PRACTICE MARKET MANAGER Work Phone: [facility] 02-07-2022 SARS-CoV-2 (COVID-19 ) mRNAMUL.ORD![id number] Jason LUNA [facility] 12-07-2021 Influenza, injectabl e, Madin Judit Canine Kidney, preservative free, quadrivalent Phoebe Kiepert PHYSICIAN PRACTICE MARKET MANAGER Work Phone: [facility] 12-07-2021 influenza virus vaccine, unspecified formulation Byron Gomez MD Work Phone: [facility] 01-03-2021 SARS-CoV-2 (COVID-19 ) mRNA-1273 vaccine Jason LUNA [facility] Comment on above: Result Comment: 2022: [id number] 12-21-2020 Influenza, injectabl e, Madin Judit Canine Kidney, preservative free, quadrivalent Phoebe Kiepert PHYSICIAN PRACTICE MARKET MANAGER Work Phone: [facility] 05-26-2020 SARS-CoV-2 (COVID-19 ) mRNA-1273 vaccine Jason LUNA [facility] 04-28-2020 SARS-CoV-2 (COVID-19 ) mRNA-1273 vaccine Jason LUNA [facility] 11-23-2019 influenza, injectabl e, quadrivalent, preservative free Phoebe Kiepert PHYSICIAN PRACTICE MARKET MANAGER Work Phone: [facility] 11-10-2018 influenza virus vaccine, live, attenuated, for intranasal use Jason LUNA [facility] 01-31-2014 zoster vaccine, live Phoebe Kiepert PHYSICIAN PRACTICE MARKET MANAGER Work Phone: [facility] 01-26-2014 zoster vaccine, live Phoebe Kiepert PHYSICIAN PRACTICE MARKET MANAGER Work Phone: [facility] 03-29-2009 novel [id number], preservative-free, injectable Phoebe Kiepert PHYSICIAN PRACTICE MARKET MANAGER Work Phone: [facility] Payers Date Payer Category Payer Private Health Insurance [facility] [id number] 2022 Unknown [employer] [id number] 2022-Present [phone] [address] [address] [place] [address] [id number] 2022 Unknown [id number] 1959 Unknown [id number] 2.16.840.1.405323.3.579. 2.593 1959 Unknown [id number] 2.16.840.1.189726.3.579. 2.593 1959 Unknown [id number] 2.16.840.1.872940.3.579. 2.593 1959 Unknown [id number] 2.16.840.1.332394.3.579. 2.593 1959 Unknown [id number] 2.16.840.1.476261.3.579. 2.593 1959 Unknown [id number] 2.16.840.1.226656.3.579. 2.593 1959 Unknown [id number] 2.16.840.1.546834.3.579. 2.593 1959 Unknown [id number] 2.16.840.1.844305.3.579. 2.593 1959 Unknown [id number] 2.16.840.1.347397.3.579. 2.593 1959 Unknown [id number] 2.16.840.1.158484.3.579. 2.593 1959 Unknown [id number] 2.16.840.1.517192.3.579. 2.593 1959 Unknown [id number] 2.16.840.1.346441.3.579. 2.727 1959 Unknown [id number] 2.16.840.1.560581.3.579. 2.727 1959 Unknown [id number] 2.16.840.1.391205.3.579. 2.727 1959 Unknown [id number] 2.16.840.1.889451.3.579. 2.1259 1959 Unknown [id number] 2.16.840.1.461871.3.579. 2.9 1959 Unknown [id number] 2.16.840.1.703118.3.579. 2.1258 1959 Unknown [id number] 2.16.840.1.681773.3.579. 2.1258 1959 Unknown [id number] 2.16.840.1.773582.3.579. 2.1258 1959 Unknown [id number] 2.16.840.1.602534.3.579. 2.1258 1959 Unknown [id number] 2.16.840.1.523250.3.579. 2.1258 1959 Unknown [id number] 2.16.840.1.210955.3.579. 2.1258 1959 Unknown [id number] 2.16.840.1.383084.3.579. 2.1258 1959 Unknown [id number] 2.16.840.1.224900.3.579. 2.1258 1959 Unknown [id number] 2.16.840.1.434279.3.579. 2.1258 1959 Unknown [id number] 2.16.840.1.659249.3.579. 2.1258 1959 Unknown [id number] 2.16.840.1.607398.3.579. 2.1258 1959 Unknown [id number] 2.16.840.1.590165.3.579. 2.1258 1959 Unknown [id number] 2.16.840.1.994974.3.579. 2.1258 1959 Unknown [id number] 2.16.840.1.747060.3.579. 2.9 1959 Unknown [id number] 2.16.840.1.443969.3.579. 2.1259 1959 Unknown [id number] 2.16.840.1.712357.3.579. 2.1259 1959 Self-pay [id number] 1959 Unknown [id number] 2.16.840.1.993788.19 Social History Date Type Detail Facility Start: 07-23-2023 End: 04-15-2024 Sex Assigned At [facility] Start: 09-09-2022 End: 08-12-2023 Tobacco smoking status Never smoked tobacco (finding) [facility] Tobacco smoking status Never [facility] Start: 09-09-2022 Tobacco use and [...] Assessment Result Facility 08-12-2023 Functional Status N/A [facility] Clinical Notes 02-19-2021 to 04-22-2024 Cong Zamarripa, [facility] - 04/22/2024 9:00 AM Sam Zamarripa, [facility] - 04/15/2024 9:20 AM Bri Zamarripa, [facility] [...] 1-10 scale a 5 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 RSDS,neuroma,duty limitations,DVT/PE, OK,nerve damage, scar, loss of sensation, swelling. 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 Corcoran. Patient like between the [facility] and day time. 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 Patient [...] different lens options were explained including the [id number]-[id number] fees for any upgrades. Intraocular lens (IOL) [...] Immunizations Vaccine Date Status Comments SARS-CoV-2 (COVID-19) mRNAMUL.ORD![id number] 02/07/2022 Recorded SARS-CoV-2 (COVID-19) mRNA-1273 vaccine 01/03/2021 Recorded 2022-10-28: [id number] SARS-CoV-2 (COVID-19) mRNA-1273 vaccine 05/26/2020 Recorded SARS-CoV-2 (COVID-19) mRNA-1273 vaccine 04/28/2020 Recorded influenza virus vaccine, live, trivalent 11/10/2018 Recorded [facility] Comment on above: Result Comment: Elec [...] 40 mg= 1 (more content not included)... [facility] Comment on above: Result Comment: Elec [...] We will help arrange this for her. [facility] Other 01-10-2022 Evaluation note* Encounter Date Diagnosis [...] hopes. She understands and wishes to proceed. 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), right Contracture of left ankle documented in this encounter [facility] Healthcare[facility] note* Diagnosis Postoperative care for cataract- Primary Follow-up examination, following other surgery documented in this encounter [facility]* Diagnosis Plantar fasciitis Plantar fascial fibromatosis 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), right Contracture of right ankle documented in this encounter [facility] note* Diagnosis Hav (hallux abducto valgus), right- Primary Acquired deformity of right toe Plantar fasciitis Plantar fascial fibromatosis documented in this encounter [facility] note* Diagnosis Hav (hallux abducto valgus), right- Primary Acquired deformity of right toe Plantar fasciitis Plantar fascial fibromatosis documented in this encounter [facility]* Diagnosis Hav (hallux abducto [...] sling 2010 Hospitalization History see sx hx [facility] Other Hospital Discharge instructions No data available for this section [facility] Progress note No data available for this section [facility] Summary Purpose Family History No Family History Records FoundNo Family History Records Found No data available for this section No Family History Records FoundNo Family History Records Found Advance Directives No Advanced Directives Records FoundNo Advanced Directives Records FoundNo Advanced Directives Records FoundNo Advanced Directives Records Found Additional Source Comments INFORMATION SOURCE (unrecogn ized section and content) DATE CREATED AUTHOR 03/26/2021 [facility] DATE CREATED AUTHOR AUTHOR'S ORGANIZ ATION 05/18/2022 [facility] DATE CREATED AUTHOR AUTHOR'S ORGANIZ ATION 08/14/2023 Hope Eyad [facility] DATE CREATED AUTHOR AUTHOR'S ORGANIZ ATION 04/25/2024 [facility] dical Specialists EPIC REASON FOR VISIT (unrecogniz ed section and content) Reason Comments Med Refill Reason Comments Ptosis Blurred Vision Reason Comments Follow-up Pf inj Reason Comments Hammer Toe Rt ft hammer toe/ bu nion Reason Comments Follow-up 2wk- suture removal Reason Comments Procedure Reason Comments Consent Or Instructions 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 Reason Comments Follow-up Reason Comments Post-op 9d s/p rt Reason Comments Post-op 23d s/p rt markus bu nionectomyK wire rmovalpfa Reason Comments Foot/ankle Post-op WK 5 post op Reason Comments Post-op RT IGNACIO BUNIONECTO MY Reason Comments Post-op 9wk s/p rt bunionect anson and hammertoe Reason Comments Post-op 9wk s/p Patient Care team informatio n (unrecognized section and content) Rig Builder Helper Relationship Specialty Start Date End Date Nick Flores MD [address] [place] [address] PCP - General Family Medicine 02/06/23 Kell Del Cid DO [address] [place] [address] Referring Physician Neurology 04/30/23 Rig Builder Helper Relationship Specialty Start Date End Date Nick Flores MD [address] [place] [address] PCP - General Family Medicine 02/06/23 Kell Del Cid DO [address] [place] [address] Referring Physician Neurology 04/30/23 Rig Builder Helper Relationship Specialty Start Date End Date Nick Flores MD [address] [place] [address] PCP - General Family Medicine 02/06/23 Kell Del Cid DO [address] [place] [address] Referring Physician Neurology 04/30/23 Rig Builder Helper Relationship Specialty Start Date End Date Nick Flores MD [address] [place] [address] PCP - General Family Medicine 02/06/23 Kell Del Cid DO [address] [place] [address] Referring Physician Neurology 04/30/23 Rig Builder Helper Relationship Specialty Start Date End Date Nick Flores MD [address] [place] [address] PCP - General Family Medicine 02/06/23 Kell Del Cid DO [address] [place] [address] Referring Physician Neurology 04/30/23 Rig Builder Helper Relationship Specialty Start Date End Date Nick Flores MD [address] [place] [address] PCP - General Family Medicine 02/06/23 Kell Del Cid DO [address] [place] [address] Referring Physician Neurology 04/30/23 Rig Builder Helper Relationship Specialty Start Date End Date Nick Flores MD [address] [facility] [place] [address] PCP - General Family Medicine 02/06/23 Kell Del Cid DO [address] [place] [address] Referring Physician Neurology 04/30/23 Rig Builder Helper Relationship Specialty Start Date End Date Nick Flores MD [address] [facility] [place] [address] PCP - General Family Medicine 02/06/23 Kell Del Cid DO [address] [place] [address] Referring Physician Neurology 04/30/23 Rig Builder Helper Relationship Specialty Start Date End Date Nick Flores MD [address] [facility] [place] [address] PCP - General Family Medicine 02/06/23 Kell Del Cid DO [address] [place] [address] Referring Physician Neurology 04/30/23 Rig Builder Helper Relationship Specialty Start Date End Date Nick Flores MD [address] [place] [facility] [place] [address] PCP - General Family Medicine 02/06/23 Kell Del Cid DO [address] [place] [address] Referring Physician Neurology 04/30/23 Rig Builder Helper Relationship Specialty Start Date End Date Nick Flores MD [address] [facility] [place] [facility] [place] [address] PCP - General Family Medicine 02/06/23 Kell Del Cid DO [address] [place] [address] Referring Physician Neurology 04/30/23 Rig Builder Helper Relationship Specialty Start Date End Date Nick Flores MD [address] [facility] [place] [address] PCP - General Family Medicine 02/06/23 Kell Del Cid DO [address] [place] [address] Referring Physician Neurology 04/30/23 Rig Builder Helper Relationship Specialty Start Date End Date Nick Flores MD [address] [place] [facility] [place] [address] PCP - General Family Medicine 02/06/23 Kell Del Cid DO [address] [place] [address] Referring Physician Neurology 04/30/23 Rig Builder Helper Relationship Specialty Start Date End Date Nick Flores MD [address] [facility] [place] [address] PCP - General Family Medicine 02/06/23 Kell Del Cid DO [address] [place] [address] Referring Physician Neurology 04/30/23 Rig Builder Helper Relationship Specialty Start Date End Date Nick Flores MD [address] [place] [address] PCP - General Family Medicine 02/06/23 Kell Del Cid DO [address] [facility] [place] [address] Referring Physician Neurology 04/30/23 Rig Builder Helper Relationship Specialty Start Date End Date Nick Flores MD [address] [place] [address] PCP - General Family Medicine 02/06/23 Kell Del Cid DO [address] [place] [address] Referring Physician Neurology 04/30/23 Rig Builder Helper Relationship Specialty Start Date End Date Nick Flores MD [facility] [place] [address] PCP - General Family Medicine 02/06/23 Kell Del Cid DO [address] [place] [address] Referring Physician Neurology 04/30/23 Rig Builder Helper Relationship Specialty Start Date End Date Nick Flores MD [address] [place] [facility] [place] [address] PCP - General Family Medicine 02/06/23 Kell Del Cid DO [address] [place] [id number] Referring Physician Neurology 04/30/23 FOR RECORDS PERTAINING [...] BE BASED ON THE PRIMARY CLINICAL RECORDS. [facility] provides no warranty or guarantee of the accuracy or completeness of information in this document.
[2024-11-27 10:08] LABS: Age Gdln ACOG Testing Note (.); Chlamydia, NAA Negative (Negative); Gonococcus, NAA Negative (Negative); IGP,CtNg,AptimaHPV,rfx16/18,45 Note (.)
== END 2024-11-23 15:35 | disposition home or self-care (01) ==
LOC: LAB 15:34
PROVIDERS: PCP Family Medicine; Visit Provider Nurse Practitioner Family
DX: Z01.419 Encounter for gynecological examination (general) (routine) without abnormal findings (principal)
CPT/HCPCS: 87491; 87591; 87624; 88175

== ENCOUNTER 2024-12-20 12:57 | Outpatient (OUT) | payer OTHER, SELFPAY ==
--- NOTE | 2024-12-20 13:00 | MM_ITS ---
Patient Name: CLAIRE ZEE MR#: [id number] : 1960 Exam Date: 12/20/2024 Ordering Doctor: MAULIK STANLEY CNP RADIOLOGY REPORT PROCEDURE: MM TOMOSYNTHESIS SCREENING BI COMPARISON: MM TOMOSYNTHESIS SCREENING BI, 12/19/2023. MM TOMOSYNTHESIS SCREENING BI, 12/13/2022. MG MAMM SCREEN 3D TIFFANIE CAD, 12/14/2021. MG MAMM TIFFANIE SCRN W CAD DIG, 12/01/2012. INDICATIONS: Screening for malignant neoplasm Calculator Name NCI Breast Cancer Risk Assessment Tool 5 Year Breast Cancer Risk 1.40% Lifetime Breast Cancer Risk 5.10% Personal Breast Cancer No Personal Ovarian Cancer No Treatments None Family Cancers Mother with leukemia cancer at age 84; Father with lung cancer at age 74. LOCATION: [facility] BREAST COMPOSITION: The breasts are extremely dense, which lowers the sensitivity of mammography. FINDINGS: RIGHT BREAST: No significant suspicious finding. Benign-appearing calcifications are present. LEFT BREAST: No significant suspicious finding. Benign-appearing calcifications are present. DIAGNOSTIC CATEGORY 2--BENIGN FINDING. NO CHANGE FROM COMPARISON. RECOMMENDATIONS: ROUTINE MAMMOGRAM AND CLINICAL EVALUATION IN 12 MONTHS. Dictated by: Manohar Rodriguez MD on 12/20/2024 at 14:11 Approved by: Manohar Rodriguez MD on 12/20/2024 at 14:25
--- OUTSIDE RECORDS SUMMARY | 2024-12-20 13:00 | XMS_ITS | Clinical Summary ---
Author Organization [facility] Address [address] [place] [address] Care Team Providers Care Life Consultant Name Role Phone Winston Flores MD Primary Care Provider [phone] Kell Del Cid DO Unavailable [phone] Allergies Active AllergyReactionsCriticalityNoted BkvsVnwdjjlaXiczrvqofazto31/31/2023 TajmzitpujvnMdqbzer19/12/2024 Other Reaction(s): jumpy, Spasm Medications MedicationSigDispense QuantityRefillsLast FilledStart DateEnd DateStatus gabapentin (Neurontin) 300 MG capsule Take 300 mg by mouth in the morning and 300 mg in the evening and 300 mg before bedtime.Active levothyroxine (Synthroid, Levoxyl) 75 MCG tablet Take by mouth Daily before meals.Active celecoxib (CeleBREX) 50 MG capsule Take 50 mg by mouth in the morning and 50 mg before bedtime.Active aspirin 81 MG EC tablet Take 81 mg by mouth in the morning.Active valACYclovir (Valtrex) 500 MG tablet Take by mouth.Active pantoprazole (ProtoNix) 40 MG EC tablet Take 40 mg by mouth in the morning. Take before meals. Do not crush, chew, or split. .Active pramipexole (Mirapex) 0.5 MG tablet Take 0.5 mg by mouth in the morning and 0.5 mg in the evening and 0.5 mg before bedtime.Active meclizine (Antivert) 25 MG tablet Take 25 mg by mouth 3 (three) times a day as needed for dizziness.Active Azelastine HCl 137 MCG/SPRAY solution Indications:Chronic rhinitisSPRAY ONE SPRAY IN EACH NOSTRIL TWICE DAILY 30 mL ctive montelukast (Singulair) 10 MG tablet Indications:Chronic rhinitisTake 1 tablet (10 mg) by mouth at bedtime. 30 tablet ctive valACYclovir (Valtrex) 1 g tablet 11/28/2023ctive tiZANidine (Zanaflex) 4 MG capsule Take 4 mg by mouth in the morning and 4 mg in the evening and 4 mg before bedtime.Active levothyroxine (Synthroid, Levoxyl) 100 MCG tablet Take 100 mcg by mouth in the morning. Take before meals.Active Active Problems ProblemNoted DateDiagnosed DateOSA (obstructive sleep apnea)07/23/2023 Gastroesophageal reflux xjrvepk0607/23/20232738Cvqmjzu62/12/2024aytime oyqhudzvfthelag24/12/2024LS (restless legs syndrome)07/23/2023Shift work sleep nhfvibme42/12/7874Arqdiuaz53/12/2024Vasomotor nfkgqfyl39/31/2023 Immunizations ImmunizationAdministration DatesNext DueInfluenza, injectable, MDCK, preservative free, hbydazvitryz31/28/2022,12/21/2020Influenza, injectable, quadrivalent, preservative free11/23/2019Influenza, live, qytcpjaabl70/01/2019 Novel xekbbbgjc-A8L4-06, preservative-free03/29/2009Tdap102/14/2023Zoster, Iacgvpbskoe44/20/2023,04/27/2022Zoster, live01/31/2014,01/26/2014 Family History Medical HistoryRelationNameCommentsCancerFatherHypertensionFatherDiabetesMother Heart diseaseMotherHypertensionMotherRelationNameStatusCommentsFatherDeceased MotherDeceasedSon2, healthy Social History Tobacco UseTypesPacks/DayYears UsedDateSmoking Tobacco: NeverSmokeless Tobacco: Never Tobacco Cessation:Counseling Given: Yes Alcohol UseStandard Drinks/WeekCommentsNever0 (1 standard drink = 0.6 oz pure alcohol)Caffeine intake: 1-2 cups per dayCommentsUnknownSex and Gender InformationValueDate RecordedSex Assigned at BirthNot on fileLegal SexFemale 04/24/2022 6:37 PM EDTGender IdentityNot on fileSexual OrientationNot on file Last Filed Vital Signs Vital SignReadingTime TakenCommentsBlood Zfxflgxo095/7702 11:07 AM EST Zbwup4515 11:07 AM PFNEzjtidvqxqt59.3 ??C (97.4 ??F)12/16/2023 6:29 PM ESTRespiratory Algn614304/22/2024 9:04 AM EDTOxygen Mrcvzocmml74%12/16/2023 6:29 PM ESTInhaled Oxygen Concentration--Yiopax09.9 kg (152 lb)04/22/2024 9:04 AM EDT Ooixhq033.6 cm (5' 4 )04/22/2024 9:04 AM EDTBody Mass Index26.0904/22/2024 9:04 AM EDT Plan of Treatment Not on file Insurance Care Teams Team MemberRelationshipSpecialtyStart DateEnd Winston Flores MD PCP - GeneralFamily Gxzgxhcb42/28/23 Kell Del Cid DO [id number] [place] [address] Referring PhysicianNeurology04/30/23
--- OUTSIDE RECORDS SUMMARY | 2024-12-20 13:15 | XMS_ITS | CCD ---
Author Organization [facility] Care Team Providers Care Data Power Consultant Name Role Phone Kristine Chavez Unavailable HOY [...] Unavailable HOY ., DR ROMERO Attending Unavailable [place], DR JAMIE York Consulting Unavailable HOY ., [...] Cid DO Unavailable CONG ZAMARRIPA Attending Unavailable CONG ZAMARRIPA Attending Unavailable BROWN, CONG A Referring Unavailable RUBEN, CONG A Attending Unavailable RUBEN, CONG A Attending Unavailable RUBEN, CONG A Attending Unavailable KACEY HARPER Attending Unavailable CHARLENE JOYCE Attending Unavailable MAYURI CEE Attending Unavailable ANUP ZAMARRIPAOLAS A Attending Unavailable RUBEN, CONG A Referring Unavailable ANUP ZAMARRIPAOLAS A Attending Unavailable CONG ZAMARRIPA A Attending Unavailable CHARLENE JOYCE Attending Unavailable CONG ZAMARRIPA Attending Unavailable CHARLENE JOYCE Attending Unavailable RUBEN CONG A Attending Unavailable RUBEN CONG A Referring Unavailable Allergies Allergy ClassificationReported Allergen(s)Allergy TypeDate of OnsetReaction(s) FacilityPromethazine (1 source)Promethazine; Translations: [promethazine]Drug AllergySpasm (finding) [facility] centerQuinolones (antibiotic) (1 source)Ciprofloxacin; Translations: [ciprofloxacin]Drug AllergyUnknown (qualifier value)[facility] (20 sources)CiprofloxacinDrug Vfjssmi58-31-7759QmyhfklEHPW Healthcare (20 sources)PromethazineDrug Jtiltlt94-32-0005IovuwioQJPI Healthcare (2 sources)Ciprofloxacin; Translations: [Cipro]Drug Lbmthho10-66-9599Kcl [facility] (3 sources)Levamisole; Translations: [Phenergan]Drug Cxkneob63-29-3423Bol [facility] Medications Current Medications MedicationDrug Class(es)DatesSig (Normalized)Sig (Original)acetaminophen 325 mg / HYDROcodone bitartrate 5 mg oral tablet (6 sources)Opioid AgonistStart: 02-19-2024 End: 06-65-1651auhi 1 tablet by mouth every eight hours as needed for pain HYDROcodone-acetaminophen ([place]) 5-325 MG tablet Indications: Pain Take 1 tablet by mouth every 8 (eight) hours if needed for moderate pain (PRN pain) for up to 5 days 15 tablet 02/19/2024 02/24/2024 ActiveStart: 01-29-2024 End: 36-29-3999atxc 1 tablet by mouth every eight hours as needed for pain HYDROcodone-acetaminophen ([place]) 5-325 MG tablet Indications: Pain Take 1 tablet by mouth every 8 (eight) hours if needed for moderate pain (PRN pain) for up to 5 days 15 tablet 01/29/2024 02/03/2024 ActiveAllegra Allergy 180 MG (2 sources)take 1 tablet by mouth once daily as neededAllegra Allergy 180 MG 1 tablet as needed Orally Once a day prn Activeamoxicillin 875 mg / clavulanate 125 mg oral tablet (10 sources)Penicillin-class AntibacterialStart: 12-16-2023 End: 10-67-9048yarb 1 tablet by mouth in the morningamoxicillin-clavulanate (Augmentin) 875-125 MG tablet Indications: Dog bite of right lower leg, initial encounter Take 1 tablet (875 mg) by mouth in the morning and 1 tablet (875 mg) before bedtime. Do all this for 10 days. 20 tablet 12/25/2023 01/04/2024 Active aspirin 81 mg delayed release oral tablet (20 sources)Platelet Aggregation Inhibitor, Nonsteroidal Anti-inflammatory Drug take 1 tablet by mouth in the morningaspirin 81 MG EC tablet Take 81 mg by mouth in the morning. Activetake 1 tablet by mouth once dailyAspirin Adult 325 MG 1 tablet Orally Once a day Activeazelastine hydrochloride 0.137 mg/actuat metered dose nasal spray (20 sources)Histamine-1 Receptor AntagonistStart: 67-15-0744nmxn 1 spray(s) nasal route twice dailyAzelastine HCl 137 MCG/SPRAY solution Indications: Chronic rhinitis SPRAY ONE SPRAY IN EACH NOSTRILTWICE DAILY 30 mL 11 09/09/2022 ActiveStart: 30-19-1914rscyopcdhc nasal Nasal, BID, Refill(s) 0 Start Date: 02/09/19 Status: OrderedStart: 98-16-4767qiyu 2 spray(s) nasal route twice daily Azelastine HCl 137 MCG/SPRAY 2 sprays Nasally Twice a day for 90 Days Jan, ActiveStart: 41-98-3431uswa 2 spray(s) nasal route twice dailyAzelastine HCl 0.15 % 2 spray in each nostril Nasally Twice a day for 365 Days May, Not-TakingCalcium (2 sources)Phosphate Binder, CalciumCalcium Activecelecoxib 50 mg oral capsule (20 sources)Nonsteroidal Anti-inflammatory DrugStart: 08-65-9970hxei 1 capsule by mouth once daily as needed for painCelebrex 50 mg oral capsule 50 mg = 1 cap(s), Oral, Daily, PRN as needed for pain, Refills(s) 0 Start Date: 10/28/22 Status: OrderedCPAP Machine (2 sources)CPAP Machine Activeesomeprazole 20 mg delayed release oral capsule (2 sources)Proton Pump Inhibitortake 1 capsule by mouth every twenty-four hours NexIUM 20 MG 1 capsule Orally Once a day ActiveFish Oils (2 sources)Fish Oil Activegabapentin 300 mg oral capsule (20 sources)Anti-epileptic AgentStart: 74-97-2220peyb 1 capsule by mouth once dailygabapentin 300 mg Cap 300 mg = 1 cap(s), Oral, Daily Start Date: 02/09/19 Status: OrderedGabapentin 300 MG TK 2 CS PO QHS Oral for 90 ActiveMagnesium glycinate (1 source)Start: 38-83-9776goxf 1 tablet by mouth twice dailymagnesium glycinate = 1 tab(s), Oral, BID, Refills(s) 0 Start Date: 07/28/23 Status: Ordered meclizine hydrochloride 25 mg oral tablet (20 sources)AntiemeticStart: 00-99-2714stmr 1 tablet by mouth four times daily as needed for dizzinessmeclizine 25 mg Tab 25 mg = 1 tab(s), Oral, QID, PRN Dizziness, Refills(s) 0 Start Date: 10/28/22 Status: Orderedtake 1 tablet by mouth three times daily as needed for dizzinessmeclizine (Antivert) 25 MG tablet Take 25 mg by mouth 3 (three) times a day as needed for dizziness. Active metoprolol tartrate 25 mg oral tablet (2 sources)beta-Adrenergic BlockerMetoprolol Tartrate 25 MG TK 1 T PO BID Oral for 90 Activemontelukast 10 mg oral tablet (20 sources)Leukotriene Receptor AntagonistStart: 90-82-1069pgjj 1 tablet by mouth at bedtimemontelukast (Singulair) 10 MG tablet Indications: Chronic rhinitis Take 1 tablet (10 mg) by mouth at bedtime. 30 tablet 11 09/09/2022 Activeomeprazole 20 mg oral tablet (2 sources)Proton Pump Inhibitortake 1 tablet by mouth once dailyPriLOSEC OTC 20 MG 1 tablet Orally Once a day Activepantoprazole 40 mg delayed release oral tablet (20 sources)Proton Pump InhibitorStart: 33-04-2341vjqj 1 tablet by mouth once dailyPantoprazole [address] Tab 40 mg = 1 tab(s), Oral, Daily Start Date: 04/13/19 Status: Orderedtake 1 tablet by mouth every twenty-four hoursPantoprazole Sodium 20 MG 1 tablet Orally Once a day Activepramipexole dihydrochloride 0.5 mg oral tablet (20 sources)Nonergot Dopamine AgonistStart: 02-00-3224qidh 3 tablets by mouth at bedtimepramipexole 0.5 mg oral tablet 1.5 mg = 3 tab(s), Oral, Bedtime, Refills(s) 0 Start Date: 10/28/22 Status: Orderedtake 1 tablet by mouth in the morning, then take 1 tablet by mouth in the evening, then take 1 tablet by mouth at bedtimepramipexole (Mirapex) 0.5 MG tablet Take 0.5 mg by mouth in the morning and 0.5 mg in the evening and 0.5 mg before bedtime. ActivetiZANidine 4 mg oral tablet (20 sources)Central alpha-2 Adrenergic AgonistStart: 19-93-1444efQYSvntao 4 mg Tab as directed, Refills(s) 0 Start Date: 07/28/23 Status: Orderedtake 1 capsule by mouth in the morning, then take 1 capsule by mouth in the evening, then take 1 capsule by mouth at bedtimetiZANidine (Zanaflex) 4 MG capsule Take 4 mg by mouth in the morning and 4 mg in the evening and 4 mg before bedtime. Activetake 1 tablet by mouth once daily at bedtimetiZANidine HCl 4 MG TAKE 1 TABLET BY MOUTH EVERYDAY AT BEDTIME Oral for 30 ActivevalACYclovir 1000 mg oral tablet (20 sources)Herpesvirus Nucleoside Analog DNA Polymerase Inhibitor, Herpes Simplex Virus Nucleoside Analog DNA Polymerase Inhibitor, Herpes Zoster Virus Nucleoside Analog DNA Polymerase InhibitorStart: 53-68-4234auiGLHctjsfp (Valtrex) 1 g tablet 11/28/2023 ActiveStart: 32-14-6821mnjq 1 tablet by mouth once dailyvalacyclovir 1 g Tab 1 gm = 1 tab(s), Oral, Daily, Refills(s) 0 Start Date: 10/28/22 Status: OrderedvalACYclovir (Valtrex) 500 MG tablet Take by mouth. Active Completed/Discontinued Medications MedicationDrug Class(es)DatesSig (Normalized)Sig (Original)diazePAM 2 mg oral tablet (2 sources)Benzodiazepinetake 1 tablet by mouth twice daily as neededdiazePAM 2 MG (Schedule IV Drug) TAKE 1 TABLET BY MOUTH TWICE A DAY NEEDED FOR VERTIGO Oral for 14 Not-Takingibuprofen 800 mg oral tablet (7 sources)Nonsteroidal Anti-inflammatory Drug End: 43-26-3034ltugqajza 800 MG tablet Take 400 mg by mouth every 6 (six) hours if needed for mild pain. 12/16/2023 Discontinuedtake 1 tablet by mouth three times daily at mealtime as neededIbuprofen 800 MG 1 tablet with food or milk as needed Orally Three times a day Activelevothyroxine sodium 0.075 mg oral tablet (20 sources)l-ThyroxineStart: 51-88-7918exle 1 tablet by mouth once daily levothyroxine 75 mcg (0.075 mg) Tab 75 microgram = 1 tab(s), Oral, Daily Start Date: 02/09/19 Status: Orderedtake 1 tablet by mouth before mealtime levothyroxine (Synthroid, Levoxyl) 100 MCG tablet Take 100 mcg by mouth in the morning. Take beforemeals. Activelevothyroxine (Synthroid, Levoxyl) 75 MCG tablet Take by mouth Daily before meals. ActiveLevothyroxine Sodium 50 MCG TK 1 T PO Q DAY Oral for 90 ActivetraMADol hydrochloride 50 mg oral tablet (5 sources)Opioid Agonist End: 81-14-4890qvgBGSpv (Ultram) 50 MG tablet Take by mouth. 12/16/2023 Discontinued Problems Active Problems Problem ClassificationProblemDateDocumented DateEpisodic/ChronicAcquired foot deformities (19 sources)Hallux valgus (acquired), right foot; Translations: [Hallux valgus (acquired)]24-34-3861SdflgjtPzauiair foot deformities (19 sources)Acquired deformity of toe of right foot; Translations: [Acquired deformities of toe(s), unspecified, right foot]48-52-3575HfpodmhnDusphmtyo and vision defects (1 source)Visual field defect; Translations: [Unspecified visual field defects] 37-47-6748YsvlyisnCohdvgdo (1 source)Bilateral cortical age-related cataract eyes; Translations: [Cortical age-related cataract, bilateral]04-05-5581AxeragvXkvnlcdege disorders (20 sources)Gastroesophageal reflux disease; Translations: [Gastro-esophageal reflux disease without esophagitis]Onset: 769721-85-1986SehbwatKrpqyajvo hypertension (1 source)Hypertensive jznuaaht08-93-5888PogpifnWbkzrmzgu and duodenitis (1 source)Lcvrrxdxl16-47-6143KjxbpzmoZayumpfuymktqz ulcer (except hemorrhage) (1 source)Antral harkx02-05-6871QrphepuZlexomaeysmhh symptoms and ill-defined conditions (2 sources)Incontinence; Translations: [Urge incontinence of urine]01-20-2020 ChronicGenitourinary symptoms and ill-defined conditions (4 sources)Increased frequency of urination; Translations: [Microscopic hematuria]93-64-1516NrnyhxhbMsibjjyodskzm and screening for infectious disease (1 source)High antibody -29-9258JyxlivalFean disorders (1 source)Depressive ikrbhrgn51-99-8563MngyimfIrgh wounds of extremities (6 sources)Dog bite of lower leg; Translations: [Open bite, right lower leg, initial encounter]99-56-5628JvvhnjkuKxkaucbaodxlcf (1 source)Cxocbegvqmjlan55-55-8659MfgeuvbHlulj acquired deformities (6 sources)Contracture of joint of right ankle; Translations: [Contracture, right ankle]17-28-6140GqrolhjMlhdg acquired deformities (2 sources)Contracture of joint of left ankle; Translations: [Contracture, left ankle]53-60-1226GdvnezgKsbwj aftercare (1 source)Surgical follow-up; Translations: [Encounter for surgical aftercare following surgery on the sense organs]06-02-6590FvwchupcHulct connective tissue disease (3 sources)Fibromyalgia; Translations: [Fibromyalgia]87-67-8716HlwxhkyqOsjuk connective tissue disease (17 sources)Plantar fasciitis; Translations: [Plantar fascial fibromatosis] 91-24-7321YiieqczmEcjzv diseases of bladder and urethra (1 source)Traumatic urethral ypnmfmxhl20-00-0551InvwruqmLxioc eye disorders (2 sources)Ptosis of eyebrow; Translations: [Brow ptosis, unspecified]2023 EpisodicOther gastrointestinal disorders (1 source)Occult blood in mjpduk32-19-1050MnslnqjyHdcpx hereditary and degenerative nervous system conditions (20 sources)Restless legs; Translations: [Restless legs syndrome]Onset: 382937-23-1857XwicyifLkvte nervous system disorders (3 sources)Carpal tunnel syndrome; Translations: [Carpal tunnel syndrome, bilateral upper limbs]35-26-8754WzzqplgTxzed nervous system disorders (1 source)Autonomic eiopalsxfz45-35-0019VdpqjgqGzgru nervous system disorders (20 sources)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 type; Translations: [Circadian rhythm sleep disorder,shift work type]Onset: 139056-87-9351 ChronicOther non-traumatic joint disorders (1 source)Joint iqbz04-24-8888KgalkytbLtgdc nutritional; endocrine; and metabolic disorders (1 source)Utrwbhncti36-55-1626HxwtxtdcFkrbt nutritional; endocrine; and metabolic disorders (1 source)Overweight in adulthood with body mass index of 25 or more but less than 0794-90-8565SiznhnnaIyhxl skin disorders (1 source)Disorder of skin; Translations: [Disorder of the skin and subcutaneous tissue, unspecified]Onset: 20-13-0225CnplllsmLxbrg skin disorders (1 source)Skin wfvqer41-47-1587WpoiqxcsSwwad upper respiratory disease (3 sources)Chronic rhinitis; Translations: [Chronic rhinitis]94-01-6963Wupelgm Other upper respiratory disease (20 sources)Vasomotor rhinitis; Translations: [Vasomotor rhinitis]Onset: 057047-93-6722SvhynoaPljjngba codes; unclassified (1 source)Sleep qlusq92-53-8051FnszqtjErlryhuu codes; unclassified (20 sources)Obstructive sleep apnea syndrome; Translations: [Obstructive sleep apnea (adult) (pediatric)]Onset: 798408-04-3282JebiwfcQvozwqsb codes; unclassified (20 sources)Daytime somnolence; Translations: [Other hypersomnia]Onset: 617426-06-3287YuyeietIedfqttsqzc; intervertebral disc disorders; other back problems (9 sources)Cervical spondylosis without myelopathy; Translations: [Spondylosis without myelopathy or radiculopathy, cervical region]Onset: 37-46-1052Paicgjl Spondylosis; intervertebral disc disorders; other back problems (6 sources)Sacrococcygeal disorders, not elsewhere classified; Translations: [Lumbar radiculopathy]Onset: 26-54-1481UeykhmvcHqobnxqcvxw injury; contusion (6 sources)Hematoma of right lower leg; Translations: [Contusion of right lower leg, initial encounter]94-65-2791ClscxpmwLhlvfan disorders (1 source)Zeiczsnsvnhyty98-95-6868QjvkqwvHbrvceijdklj (4 sources)LOW BACK PAIN, UNSPECIFIED; Translations: [LOW BACK PAIN, UNSPECIFIED]Onset: 06-14-2021 Past or Other Problems Problem ClassificationProblemDateDocumented DateEpisodic/ChronicAcute bronchitis (2 sources)Acute bronchitis; Translations: [Acute bronchitis]EpisodicConditions associated with dizziness or vertigo (2 sources)Dizziness and giddinessOnset: 02-19-2021 Resolved: 80-53-7298OppspozzRsukdmjwjm and other anemia (1 source)Anemia, unspecified; Translations: [ANEMIA UNSPECIFIED]Onset: 71-01-3981JawdvvkcXcehjimu mellitus without complication (1 source)Other abnormal glucose; Translations: [OTHER ABNORMAL GLUCOSE]Onset: 53-58-5127TjytgtmkHfwbm ear and sense organ disorders (2 sources)Otalgia; Translations: [Otalgia, bilateral]EpisodicOther lower respiratory disease (20 sources)Snoring; Translations: [Snoring]Onset: 965699-83-2114Vbczujsd Other nervous system disorders (2 sources)Nervous system symptoms; Translations: [Other abnormalities of gait and mobility]EpisodicOther screening for suspected conditions (not mental disorders or infectious disease) (12 sources)Encounter for screening mammogram for malignant neoplasm of breast; Translations: [Encounter for screening for malignant neoplasm of cervix]Onset: 66-03-6137UryxkchaIxqyz upper respiratory infections (2 sources)Acute frontal sinusitis; Translations: [Acute recurrent frontal sinusitis]EpisodicOtitis media and related conditions (2 sources)Otitis media; Translations: [Otitis media, unspecified, unspecified ear]EpisodicResidual codes; unclassified (1 source)Family history of leukemia; Translations: [FAMILY HISTORY OF LEUKEMIA] Onset: 73-97-3086HunrheawXassgeux codes; unclassified (1 source)Family history of malignant neoplasm of trachea, bronchus and lung; Translations: [FAM HX MALIG NEOPLSM TRACH BRON LNG]Onset: 65-63-0116Jasdqaht Residual codes; unclassified (4 sources)Other amnesia; Translations: [OTHER AMNESIA]Onset: 10-41-0720Sieukatw Residual codes; unclassified (20 sources)Insomnia; Translations: [Insomnia, unspecified]Onset: 07-23-2023 91-96-3803ExykghxtPagdomsdtpvo (1 source)LOW BACK PAIN, UNSPECIFIED; Translations: [LOW BACK PAIN, UNSPECIFIED] Onset: 25-41-7471Yoleewwuuawj (1 source)Patient encounter -17-8392Dqogipalyzie (2 sources)Hav (hallux abducto valgus), -26-4171 Results Test NameValueInterpretationReference RangeFacilityXR Foot - right 3 Viewson 30-20-7072Poilgsv Result: Notable screw fixation intact with rectus great toe and negative movement of osteotomy site with good correction notedNOThedacare Medical Center [facility]ano Radiology Study observation (narrative)[facility] HealthcareXR Foot - right 3 Viewson 85-88-1503KYBB HealthcareRadiology Study observation (narrative)[facility] Healthcare Ambulatory Visit Summaryon 09-77-2213Bjbzkrtnoi Visit SummaryAmbulatory Visit Summary JEANNA ZEE:1960 Visit Date:08/12/2023 Ambulatory Visit Instructions Your Care Team Attending Physician - CHERYL TAPIA, Jason Santiago Primary Care Physician - To TAPIA, Nick Referring Physician - Nick Flores [...] stricture (02/18/2019), Colonoscopy (05/14/2013), Caesarean section, Carpal tunnelrelease, section, Endometrial biopsy, neck surgery ablation, Repair [...] you for choosing us for your care. [facility] CompanyPhysician Referralon 07-29-2023 Physician [id number] County Hospital 00-10-9076Tqfijizuf From: Nurys Boone LPN To: N - Clinical; Sent: 07/28/2023 11:21:37 EDT Show up: 10/28/2032 07:00:00 EDT Subject: colonoscopy recall Due Date/Time: 2032 07:00:00 EDT Reminder/Recall Patient due for screening colonoscopy 2032.[facility] CompanyOutside Colonoscopyon 04-37-1139Gujcjvc Colonoscopy [id number] Shriners HospitalInsurance Correspondenceon 92-44-1735Uyngsqwnx Correspondence [id number]:127NoChildren's Hospital for RehabilitationConsultation Noteon 36-29-9271Dsfolftuvbtg Note [id number]:127NormalGood Hope Hospitaledward [facility] CenterAmbulatory Visit Summaryon 23-68-9267Wyzeosijam Visit Summary JEANNA ZEE :1960 Visit Date:11/05/2022 [...] 1 Capsules By Mouth Every day Contact prescribingphysician if questions or concerns Unchanged dantrolene (dantrolene [...] 1 Tablets By Mouth Every day Contact prescribingphysician if questions or concerns Unchanged pramipexole (pramipexole [...] antithrombotic long-term use Pain in unspecified joint [facility] CompanyPhysician Referralon 10-10-2022 Physician [id number]:127Normal [facility] CenterMG MAMM SCREEN 3D TIFFANIE CADon 80-77-1793YW MAMM SCREEN 3D TIFFANIE CADPatient: JEANNA ZEE Exam Date: 12/14/2021 : 1960 Gender:F Ordering : DR NICK FLORES . Admission #: [id number] Family : Order #: [id number] CLICK HERE TO VIEW EXAM RADIOLOGY REPORT [...] lung cancer at age 73. LOCATION: [facility] BREAST COMPOSITION: Extremely dense, which lowers the [...] by: Jamie Smith MD on 12/14/2021 at 08:02Mary Rutan HospitalOG PANEL 2: 30 to 65on 12-14-2021..NormalThe [facility] on above:Result Comment: Performed at: WBPerformed By: #### [id number] #### [facility] [address] [place] [address] Dr. Daly Montero Gdln OG Bjryaok59-25ZuszriQdoKing's Daughters Medical Center OhioComtrinity [facility] on above:Performed By: #### [id number] #### [facility] [address] [place] [address] Dr. Daly GordonDIAGNOSIS:CommentHolmes County Joel [facility] Hospital on above: Result Comment: NEGATIVE FOR INTRAEPITHELIAL LESION OR MALIGNANCY. CELLULAR CHANGES ASSOCIATED WITH ATROPHY ARE PRESENT. Performed at: WBPerformed By: #### [id number] #### [facility] [address] [place] [address] Dr. Daly GordonHPV AptimaNegativeNormalNegativeKettering Health Behavioral Medical Center on above:Result Comment: This nucleic acid amplification test detects fourteen high-risk HPV types (16,18,31,33,35,39,45,51,52,56,58,59,66,68) without differentiation. Performed at: =GPerformed By: #### [id number] #### [facility] [address] [place] [address] Dr. Daly GordonHPV Genotype ReflexCommentHolmes County [facility]rene [facility] Hospital on above:Result Comment: Criteria not met, HPV Genotype not performed. Performed at: WBPerformed By: #### [id number] #### [facility] [address] [place] [address] Dr. Daly GordonMethodology:CommentHolmes County Joel [facility]rene Memorial Hospital on above: Result Comment: This liquid based ThinPrep(R) pap test was screened with the use of an image guided system. Performed at: WBPerformed By: #### [id number] #### [place] [address] Dr. Daly GordonNote:CommentHolmes County Joel Pomerene Memorial Hospital on above:Result Comment: The Pap smear is a screening test designed to aid in the detection of premalignant and malignant conditions of the uterine cervix. It is not a diagnostic procedure and should not be used as the sole means of detecting cervical cancer. Both false-positive and false-negative reports do occur. . Performed at: WBPerformed By: #### [id number] #### [place] [address] Dr. Daly GordonPerformed by:CommentNoSelect Medical [facility] on above: Result Comment: Radha Marrero, Dry Wall Sprayer Performed at: WBPerformed By: #### [id number] #### [place] [address] Dr. Daly GordonSpecimen adequacy:CommentHolmes County Joel Pomerene Memorial Hospital on above:Result Comment: Satisfactory for evaluation. Endocervical component may not be distinguished in cases of atrophy. Performed at: WBPerformed By: #### [id number] #### [facility] [address] [place] [address] Dr. Daly GordonMRI BRAIN WO W CONon 67-40-1080GXS BRAIN WO W CONEXAMINATION: MRI BRAIN WO W CON HISTORY: Amnesia COMPARISON: MRI [...] Electronically authenticated by: ARLET BUTLER Date: 2021-10-24 07:26[facility] HospitalOCC BLD IMMUNO SCREENon 87-75-7262WYWETG BLOODNegativeNormal NEGATIVEThe [facility] HealthComment on above:Performed By: #### OBSCRN #### [facility] [address] [place] [address] Dr. Daly GordonINSULINon 91-21-9551Wtnhicm68.8 uIU/mLNormal2.6-24.9The [facility] HealthComment on above:Performed By: #### INSULIN #### [facility] [address] [place] [address] Dr. Daly GordonT4, T3U, FTI LABCORPon 99-53-9589Wbgv Thyroxine Index3.0Normal 1.2-4.9The [facility] HealthComment on above:Performed By: #### THYLC #### [facility] [address] [place] [address] Dr. Daly GordonT3 Iwoxgl37 %Critically scay65-48Rfx [facility] HealthComment on above:Performed By: #### THYLC #### [facility] [address] [place] [address] Dr. Daly GordonT4 [Mass/Vol]7.4 ug/dLNormal4.5-12.0The [facility] Hospital - Columbusment on above:Performed By: #### THYLC #### [facility] [address] [place] [address] [address] Daly Naylor 25-[place] LABCORPon 90-89-9337Ksrultw D, 25-Gbyvswr90.7 ng/mL Iutpfl96.0-100.0[facility] on above:Result Comment: Vitamin D deficiency has been defined by the [employer] of [employer] and an Endocrine Society practice guideline as a level of serum 25-OH vitamin D less than 20 ng/mL (1,2). The Endocrine Society went on to further define vitamin D insufficiency as a level between 21 and 29 ng/mL (2). 1. IOM ([place] of [employer]). 2010. Dietary reference intakes for calcium and D. [place]: The National Academies Press. 2. Red MF, Dae TAI, Demetrice AKERS, et al. Evaluation, treatment, and prevention of vitamin D deficiency: an Endocrine Society clinical practice guideline. JCEM. 2010; 96(7):1911-30.Performed By: #### VITADLC #### [facility] [facility] [address] [address] [address] Daly Wright AUTO DIFFon 51-90-7279DKHL #0.1 103/ulNormal0.0-0.1The [facility] on above:Performed By: #### CBC ####[facility] Hlf[address]fzvson[address] [address]Dr.Yilan ChangBasophils/100 WBC (Bld)0.7 %Normal0.2-2.0The [facility] on above:Performed By: #### CBC ####[facility] [address]fukbzukgl[address] [id number].Yilan ChangEO #0.2 103/ulNormal0.0-0.7The [facility] on above:Performed By: #### CBC ####[facility] Kzbsqkrkfd[address] [address]Dr.Yilan ChangEosinophils/100 WBC (Bld)2.6 %Normal 0.9-7.0The [facility] on above:Performed By: #### CBC ####[facility] Fmwiagbdau[address] [address]Dr.Daly Gordon Erythrocyte distribution width (RBC) [Ratio]12.5 %Sjmcbo45.0-15.0The [facility] HealthComment on above:Performed By: #### CBC ####[facility] Rysmbpalby[address] [place], [place] [address]Dr.Daly GordonHematocrit (Bld) [Volume fraction]42.4 %Fzuush59.0-48.0The [facility] HospitalComment on above:Performed By: #### CBC ####[facility] Hbmqgzfcun[address] [place], [place] [address]Dr.Daly GordonHemoglobin (Bld) [Mass/Vol]13.9 g/dL Amwqwx24.0-16.0The [facility] HealthComment on above:Performed By: #### CBC ####[facility] Yocxepeyju0[address] [place], [place] [address]Dr. Candicesharmila GordonIG #0.01 10e3/ulNormal0.00-0.03The [facility] HealthComment on above: Performed By: #### CBC ####[facility] Rpxnxasuot[address] [place], [place] [address]Dr.Candicesharmila GordonIG %0.1 %Normal0.0-0.5The [facility] HealthComment on above:Performed By: #### CBC ####[facility] Tecedurupn[address] [place], [place] [address]Dr.Daly EvanLYMPH #2.2 103/ulNormal1.2-3.8The [facility] HealthComment on above:Performed By: #### CBC ####[facility] Muknhrkxtv[address] [place], [place] [address]Dr. Candicesharmila GordonLymphocytes/100 WBC (Bld)29.4 %Byfnfs92.5-60.0The [facility] Comment on above:Performed By: #### CBC ####[facility] Yygxqlleza[address] [place], [place] [address]Dr.Daly EvanMANUAL DIFF REQNONormalThe Sania HospitalComment on above:Performed By: #### CBC ####[facility] Yo[address]hcd[address] [address]Dr.Daly EvanH (RBC) [Entitic mass]30.1 riUeahwa56.7-34.0The [facility] HospitalComment on above: Performed By: #### CBC ####[facility] Nlopdioure[address] [place], [place] [address]Dr.Daly GordonHC (RBC) [Mass/Vol]32.8 g/dLNormal 29.9-35.2The [facility] HospitalComment on above:Performed By: #### CBC ####[facility] Dzrktqfbrs[address] [place], [place] [address]Dr. Daly GordonV (RBC) [Entitic vol]91.8 dFWugewx55.0-99.0The [facility] Comment on above:Performed By: #### CBC ####[facility] Ziyegvnckd[address] [place], [place] [address]Dr.Daly GordonMONO #0.5 103/ulNormal0.3-0.8 The [facility] HospitalComment on above:Performed By: #### CBC ####[facility] Huvqecseyp[address] [place], [place] [address]Dr.Daly Gordon Monocytes/100 WBC (Bld)6.6 %Normal1.7-12.0The [facility] HealthComment on above: Performed By: #### CBC ####[facility] Nunrytnrxn[address] [place], [place] [address]Dr.Daly GordonNEUT #4.5 103/ulNormal1.4-6.5The [facility] HealthComment on above:Performed By: #### CBC ####[facility] Cvquetxevx[address] [place], [place] [address]Dr.Daly GordonNeutrophils/100 WBC (Bld)60.6 %Skrphl90.0-75.0The [facility] HospitalComment on above:Performed By: #### CBC ####[facility] Rtgvbuotvy[address] [place], [place] [address]Dr.Yilan ChangPlatelet mean volume (Bld) [Entitic vol]9.1 fLCritically low 9.5-13.5The [facility] HealthComment on above:Performed By: #### CBC ####[facility] Zpsiaigudo[address] [address]Dr. Daly GordonPLT236 103/zyYajjet954-023Xdn [facility] HealthComment on above: Performed By: #### CBC ####[facility] Vrmskkmncd[address] [address]Dr.Daly ChangRBC4.62 106/ulNormal4.20-5.40The [facility] HealthComment on above:Performed By: #### CBC ####[facility] Lnknvotzno[address] [address]DrNando GordonWBC7.4 103/ul Normal4.0-11.0The [facility] HealthComment on above:Performed By: #### CBC ####[facility] Hnsvjkzkjs[address] [place], [place] [address]DrShea GordonGLYCOHEMOGLOBIN A1Con 90-48-3980STS RECOMMENDATIONSEE [facility] Clinic Union HospitalComment on above:Result Comment: ADA RECOMMENDED LIMIT 4.0 - 6.0 ADA THERAPEUTIC TARGET < 7.0 ACTION SUGGESTED > 7.0Performed By: #### A1C #### [facility] [address] [place] [address] Dr. Daly GordonGlucose [Mass/Vol]128 mg/dLProMedica Toledo HospitalComtrinity health [facility] hospital on above:Performed By: #### A1C #### [facility] [address] [place] [address] Dr. Daly GordnoHbA1c (Bld) [Mass fraction]6.1 %Normal4.5-6.2The [facility] HealthComment on above:Performed By: #### A1C #### [facility] [address] [place] [address] Dr. Daly GordonIROMarika 01-91-0440Zdbk [Mass/Vol]89.0 ug/mXDaismj65.0-170.0The [facility] HealthComment on above:Performed By: #### B12FOL, IRON #### [facility] [address] [place], [place] [address] Dr. Daly MilliganID PROFILEon 80-72-1731ZOCY-HDL RATIO NORMSBarberton Citizens HospitalComtrinity health oakland hospital on above:Result Comment: 3.3 - 4.4 LOW RISK 4.4 - 7.1 AVERAGE RISK 7.1 - 11.0 MODERATE RISK >11.0 HIGH RISKPerformed By: #### LIPID, TSH, CMP ####[facility] It[address]azorcw[address] [address]Dr. Yilan ChangCholesterol [Mass/Vol]176 mg/dLNormal<=200The [facility] on above:Performed By: #### LIPID, TSH, CMP ####[facility] K[address]dednjv[address] [address]Dr. Candicelan Evan Cholesterol in HDL [Mass/Vol]58 mg/dFSirhao94-36Gga [facility] on above:Performed By: #### LIPID, TSH, CMP ####[facility] Mmmadeyphb[address] [address]Dr. Yilan ChangCholesterol in LDL [Mass/Vol] 110.4 mg/dLHolmes County Joel Pomerene [facility] Hospital on above:Performed By: #### LIPID, TSH, CMP ####[facility] Ch[address]ddkpng[address] [id number]. Daly ChangCholesterol.total/Cholesterol in HDL [Mass ratio]3.0 {ratio} NormalKettering Health [facility] on above:Performed By: #### LIPID, TSH, CMP ####[facility] Xmyyyjesro[address] [address]Dr. Yilan ChangHDL NORMAL> or = 60 mg/dl - LOW CARDIOVASCULAR RISK <40 mg/dl - HIGH CARDIOVASCULAR RISKHolmes County Joel [facility]rene [facility] Hospital on above:Performed By: #### LIPID, TSH, CMP ####[facility] Njadfxrxbm[address] [address]Dr. Yilan ChangLDL CALC NORMALSEE [facility] HospitalComment on above:Result Comment: <100 mg/dl OPTIMAL 100 - 129 mg/dl NEAR OR ABOVE OPTIMAL 130 - 159 mg/dl BORDERLINE HIGH 160 - 189 mg/dl HIGH >190 mg/dl VERY HIGHPerformed By: #### LIPID, TSH, CMP ####[facility] Stkvswedbn[address] [address]Dr. Daly GordonTriglyceride [Mass/Vol]38 mg/dLNormal<=150The [facility] HealthComment on above:Performed By: #### LIPID, TSH, CMP ####[facility] F[address]utmpzysu[address] [address]Dr. Daly GordonVLDL CALC7.6 mg/dLNormalThe [facility] HealthComment on above:Performed By: #### LIPID, TSH, CMP ####[facility] Byftkqawka[address] [address]Dr. Daly GordonPROF 14(COMP METB)on 47-44-4354Lxckusp [Mass/Vol]3.7 g/dLNormal3.4-5.0The [facility] HealthComment on above:Performed By: #### LIPID, TSH, CMP ####[facility] Pnziwbxywk[address] [address]Dr. Daly Gordon Albumin/Globulin [Mass ratio]1.2 {ratio}NormalThe [facility] HealthComtr[facility] health [facility] hospital on above:Performed By: #### LIPID, TSH, CMP ####[facility] Smtybyyeux[address] [address]Dr. Candicelan EvanALP [Catalytic activity/Vol] 56 U/ITpnvlv37-380Mvv [facility] HealthComment on above:Performed By: #### LIPID, TSH, CMP ####[facility] Uphxgeidaf[address] [address]Dr. Yilan ChangALT [Catalytic activity/Vol]29 U/IPyeqmb01-54Njy [facility] HealthComtr[facility] on above:Performed By: #### LIPID, TSH, CMP ####[facility] Nwwdahiybh[address] [address]Dr. Daly GordonAnion gap [Moles/Vol]11.6 mmol/LNormalThe [facility] HospitalComment on above:Performed By: #### LIPID, TSH, CMP ####[facility] Ovwdlueiry[address] [place], [place] [address]Dr. Yilan ChangAST [Catalytic activity/Vol] 17 U/MDogffu90-70Srk [facility] on above:Performed By: #### LIPID, TSH, CMP ####[facility] Dwfmdasvxy[address] [place], [place] [address]Dr. Yilan ChangBilirubin [Mass/Vol]0.4 mg/dLNormal0.2-1.0The [facility] HealthComment on above:Performed By: #### LIPID, TSH, CMP ####[facility] Damjobtqud[address] [place], [place] [address]Dr. Yilan Gordon Calcium [Mass/Vol]8.6 mg/dLNormal8.5-10.1The [facility] on above: Performed By: #### LIPID, TSH, CMP ####[facility] Yduntspuyf[address] [place], [place] [address]Dr. Yilan ChangChloride [Moles/Vol]105 mmol/L Dlnjwk03-244Avb [facility]ment on above:Performed By: #### LIPID, TSH, CMP ####[facility] Tqcfgrknqo22[address] [place], [place] [address]Dr. Yilan ChangCO2 [Moles/Vol]29.6 mmol/YVaescb82.0-32.0The [facility] on above:Performed By: #### LIPID, TSH, CMP ####[facility] Zgeqdebhug24[address] [place], [place] [address]Dr. Yilan Gordon Creatinine [Mass/Vol]0.72 mg/dLNormal0.55-1.02The [facility] on above:Performed By: #### LIPID, TSH, CMP ####[facility] Bwplydcsfl[address] [place], [place] [address]Dr. Yilan ChangEGFR-AF MALAWIAN>60Normal>=60 The [facility] HealthComment on above:Performed By: #### LIPID, TSH, CMP ####[facility] Jyikbllfdj[address] [address]Dr. Yilan ChangEGFR-NON AF MALAWIAN>60Normal>=60The [facility] on above:Performed By: #### LIPID, TSH, CMP ####[facility] Vrrqnsmmrd69[address] [place], [place] [address]Dr. Yilan ChangGlobulin (S) [Mass/Vol]3.2 g/dLNormalThe [facility] HealthComment on above:Performed By: #### LIPID, TSH, CMP ####[facility] Noclnefngn06[address] [place], [place] [address]Dr. Yilan ChangGlucose [Mass/Vol]101 mg/vSQikrvr95-871Hwk [facility] HealthComtr[facility] on above:Performed By: #### LIPID, TSH, CMP ####[facility] Slcqwzsyrf[address] [place], [place] [address]Dr. Yilan ChangPotassium [Moles/Vol]4.2 mmol/LNormal3.5-5.1The [facility]Comtr[facility] on above:Performed By: #### LIPID, TSH, CMP ####[facility] Cperlizmak[address] [place], [place] [address]Dr. Yilan ChangProtein [Mass/Vol]6.9 g/dLNormal6.4-8.2The [facility] HealthComment on above:Performed By: #### LIPID, TSH, CMP ####[facility] Nznxbafmkt[address] [place], [place] [address]Dr. Yilan Gordon Sodium [Moles/Vol]142 mmol/NAjbxik934-935Oss [facility] on above: Performed By: #### LIPID, TSH, CMP ####[facility] Dhfchoaagt95[address] [place], [place] [address]Dr. Yilan ChangUrea nitrogen [Mass/Vol]21.0 mg/dL Critically high7.0-18.0The [facility] on above:Performed By: #### LIPID, TSH, CMP ####[facility] Utfxghiqnl[address] [place], [place] [address]Dr. Yilan ChangUrea nitrogen/Creatinine [Mass ratio]29.2 mg/mgNormal The [facility] HealthComment on above:Performed By: #### LIPID, TSH, CMP ####[facility] Sflohwufqf24[address] [place], [place] [address]Dr. Daly CollinsHon 66-14-9288PHG6.311 uIU/mLNormal0.358-3.740The [facility] Comment on above:Performed By: #### LIPID, TSH, CMP ####[facility] Jekvbkotju1107 [place], [place] [address]YjShea MarshallT B12 AND FOLATEon 33-19-1321Ofkbvelsd (Vitamin B12) [Mass/Vol]602.0 pg/mLNormal 193.0-986.0The [facility] HealthComment on above:Performed By: #### B12FOL, IRON #### [facility] [address], [place] [address] Dr. Daly GordonFOLATE18.70 ng/mLNormal8.60-58.90The [facility] HealthComment on above:Performed By: #### B12FOL, IRON #### [facility] [address] [place], [place] [address] Dr. Daly Daly carotid doppler BIon 48-55-2839UC carotid doppler [facility] [address] [address] [place] [address] Ultrasound Report Signed Patient: Jeanna Zee MR#: [id number] : 1960 Acct:[id number] Age/Sex: 60 / F ADM Date: 03/05/21 Loc: [facility] Room: [facility] Attending Dr: Kristine Chavez MD Ordering Provider: [...] Kristine Chavez MD03/08/2021 5:35 PM Dictation Location: [facility]04 Tech: Albina Wilcox Transcribed By: TERRY 03/08/211734 Dictated By: Kristine Chavez MD 03/08/211733 Signed By: 03/08/211734[facility] [place] Vital Signs Date TimeVital SignValuePerforming DjgdpurrdIdntqnxh52-61-8101 09:04-0400Body mqmadj281.6 cmCong Zamarripa DPLuz Work Phone: [address] [address]Futonczccx86-06-5419 09:04-0400Body mass index (BMI) [Ratio]26.09 kg/k1Etppsaic Brown DPM Work Phone: [phone] [place], [place] [address]Cdhwovfnzx44-14-0131 09:04-0400Body uvwxbb26.95 kgNicholas Brown DPM Work Phone: [facility] CenterAvirccxait86-73-7350 09:04-0400Respiratory rate18 /minNicholas Brown DPM Work Phone: [phone] [place], [place] [address]Xfywjiqlcf34-37-5311 09:28-0500Body .6 cmNicholas Brown DPM Work Phone: [phone] [place], [place] [address]Lkcgpvuole84-92-8041 09:28-0500Body mass index (BMI) [Ratio]26.09 kg/s9Gvaiqizm Brown DPM Work Phone: [facility] CenterQffxgvuguj35-92-8970 09:28-0500Body hfeapi80.95 kgNicholas Brown DPM Work Phone: [phone] [place], [place] [address]Xhekccfgrc35-15-1713 09:28-0500Respiratory rate16 /minNicholas Brown DPM Work Phone: [phone] [place], [place] [address]Uonngfhddg03-97-9242 11:06-0500Body lrjsda795.6 cmNicholas Brown DPM Work Phone: [facility] CenterUqjdahwwci54-55-4776 11:06-0500Body mass index (BMI) [Ratio]26.09 kg/a6Iiqvaxrt Brown DPM Work Phone: [phone] [place], [place] [address]Fjtobbpkwl24-19-9252 11:06-0500Body ozfnyz28.95 kgNicholas Brown DPM Work Phone: [phone] [place], [place] [address]Nabgnwfnix93-17-3280 11:06-0500Respiratory rate18 /minNicholas Brown DPM Work Phone: [facility] CenterFlkvuuyxum87-39-6011 11:07-0500Body tezsjk103.6 cmNicholas Brown DPM Work Phone: [phone] [place], [place] [address]Vrdqomtzhp38-89-4427 11:07-0500Body mass index (BMI) [Ratio]26.09 kg/k5KqwztelrCong Zamarripa DPM Work Phone: [phone] [place], [place] [address]Hfzyudbecs59-79-8478 11:07-0500Body .95 kgNicholdean Zamarripa DPM Work Phone: [phone] [place], [place] [address]Urjjsfmere49-63-4127 11:07-0500Diastolic blood oqcsfxko01 mm[Hg]Cong Zamarripa DPM Work Phone: [phone] [place], [place] [address]Bxgsnmuhnx69-61-4674 11:07-0500Heart rate76 /min Cong Zamarripa DPM Work Phone: [phone] [place], [place] [address]Qcxalkarmj10-09-9875 11:07-0500Systolic blood niyvqcte283 mm[Hg]Cong Zamarripa DPM Work Phone: [phone] [place], [place] [address]Qqvjjkwinz78-10-8228 09:27-0500Body zejozl069.6 cmCong Brown DPM Work Phone: [phone] [place], [place] [address]Trbhhjknoh31-67-5360 09:27-0500Body mass index (BMI) [Ratio]26.09 kg/x4Vbvownrr Brown DPM Work Phone: [phone] [place], [place] [address]Wsavbrevhp66-92-8653 09:27-0500Body .95 kgCong Zamarripa DPM Work Phone: [phone] [place], [place] [address]Dhfuzdowaz25-11-9428 09:27-0500Respiratory rate18 /minCong Zamarripa DPM Work Phone: [phone] [place], [place] [address]Pfwydmsqgm23-82-8281 10:55-0500Body czotbe317.6 cmNicteresa Brown DPM Work Phone: [phone] [place], [place] [address]Fppowfkowz28-59-8975 10:55-0500Body mass index (BMI) [Ratio]26.09 kg/p7Xornohrk Brown DPM Work Phone: [phone] [place], [place] [address]Nohcrowgbh49-44-9193 10:55-0500Body .95 kgNicholas Brown DPM Work Phone: [phone] [place], [place] 458[address]01-09-2025 10:55-0500Respiratory rate18 /minNicholas Brown DPM Work Phone: [phone] [place], [place] [address]12-19-2024 16:34-0500Body stnivd162.6 cmNicholas Brown DPM Work Phone: [phone] [place], [place] [address]12-19-2024 16:34-0500Body mass index (BMI) [Ratio]26.09 kg/g2Mwgshord Brown DPM Work Phone: [phone] [place], [place] [address]12-19-2024 16:34-0500Body nosclh34.95 kgNicholas Brown DPM Work Phone: [phone] [place], [place] [address]12-19-2024 16:34-0500Respiratory rate16 /minNicholas Brown DPM Work Phone: [phone] [place], [place] [address]12-05-2024 16:18-0500Body .6 cmNicholas Brown DPM Work Phone: [phone] [place], [place] 92[address]12-05-2024 16:18-0500Body mass index (BMI) [Ratio]26.09 kg/m6Grtnspwh Brown DPM Work Phone: [phone] [place], [place] [address]12-05-2024 16:18-0500Body tsonwa97.95 kgNicholas Brown DPM Work Phone: [phone] [place], [place] [address]12-05-2024 16:18-0500Respiratory rate18 /minNicholas Brown DPM Work Phone: [phone] [place], [place] [address]11-21-2024 16:36-0500Body qahtqu625.6 cmNicholas Brown DPM Work Phone: [phone] [place], [place] [address]11-21-2024 16:36-0500Body mass index (BMI) [Ratio]26.09 kg/u1Iosgxxgf Brown DPM Work Phone: [phone] [place], [place] [address]11-21-2024 16:36-0500Body qfkicu68.95 kgNicholas Brown DPM Work Phone: [phone] [place] [address]-21-2024 16:36-0500Respiratory rate18 /minElenadean Zamarripa DPM Work Phone: [facility] CenterVyacjninky25-73-9567 15:09-0500Body aftnfw941.6 cmElenadean Zamarripa DPM Work Phone: [facility] CenterYvvhmvhhhm29-94-5230 15:09-0500Body mass index (BMI) [Ratio]26.09 kg/k8Rhlgtuid Brown DPM Work Phone: [place] [address]Ejufoaalci51-31-7409 15:09-0500Body pvteiz66.95 kgElenadean Zamarripa DPM Work Phone: [place] [address]Pidtxenslr69-64-3461 15:09-0500Diastolic blood mm[Hg]Cong Ruben DPM Work Phone: [facility] CenterGskvirtbgy72-83-0849 15:09-0500Heart rate83 /min Cong Zamarripa DPM Work Phone: [place] [address]Levowyywmt21-54-8800 15:09-0500Systolic blood fsctmtue883 mm[Hg]Cong Brown DPM Work Phone: [place] [address]Doljtnxqmr38-10-8262 18:29-0500Body mass index (BMI) [Ratio]26.09 kg/t6IyhdkfMayuri Vasquezepert SPEEDER MACHINE OPERATOR Work Phone: [place] [address]Qcghmnpnez02-08-9487 18:29-0500Body temperature 97.39 [degF]Mayuri Meseretepert SPEEDER MACHINE OPERATOR Work Phone: [place] [address]Vvplodurre05-43-4106 18:29-0500Body qnyofd36.95 kgCarrie Kiepert SPEEDER MACHINE OPERATOR Work Phone: [place] [address]Ioqdvilglz47-52-8378 18:29-0500Diastolic blood fnbojciu83 mm[Hg]Mayuri Kiepert SPEEDER MACHINE OPERATOR Work Phone: [place] [address]Zofbginawy51-55-5054 18:29-0500Heart rate81 /min Mayuri Kiepert SPEEDER MACHINE OPERATOR Work Phone: [place] [address]Fyvnrwruru72-14-5646 18:29-0477MzZ5% (BldA) [Mass fraction]95 %Mayuri Cee SPEEDER MACHINE OPERATOR Work Phone: [facility] CenterBlylzkwgoz62-57-9705 18:29-0500Systolic blood rdazqads280 mm[Hg]Mayuri Cee SPEEDER MACHINE OPERATOR Work Phone: noWestern [facility] CenterBetjeooick03-57-6563 15:52-0400Blood Pressure LocationMichael NILL 110-4021Inpsyt-GibftMer[facility] Health [facility]iff[facility]07-02-2024 15:52-0400Diastolic blood reufeapu67 mm[Hg]Jason NILL 350-1158Zwwtjy-RrhfdMercy Health Tiffin Hospital07-02-2024 15:52-0400Heart rate72 /minMichael NILL 545-6190Bhxsml-WrcxfMercy Health Tiffin Hospital07-02-2024 15:52-0400Respiratory rate16 /minMichael NILL 663-7721Jjejbl-XwypsMercy Health Tiffin Hospital07-02-2024 15:52-0400Systolic blood cvsguive279 mm[Hg]Jason NILL 095-6701Xojorg-XtfbvMercy Health Tiffin Hospital01-24-2022 16:30-0500Body pnckin636.56 cmMattwatson Chavez Other [employer] [facility] Other 01-24-2022 16:30-0500Body mass index (BMI) [Ratio] 27.46 kg/b7Hizekzaqueta Chavez Other [facility] Other 01-24-2022 16:30-0500Body .3 [degF] Kristine Chavez Other [employer] Other 01-24-2022 16:30-0500Body .58 kgMattwatson Chavez Other [facility] Other 01-24-2022 16:30-0500Diastolic blood mm[Hg] Kristine Chavez Other [facility] Other 01-24-2022 16:30-0138VoB1% (BldA) [Mass fraction]98 % Kristine Chavez Other [facility] Other 01-24-2022 16:30-0500Systolic blood olfdcici417 mm[Hg] Kristine Chavez Other [facility] Other 01-10-2022 16:15-0500Body .56 cmMattwatson Chvaez Other [facility] Other 01-10-2022 16:15-0500Body mass index (BMI) [Ratio] 27.46 kg/i1LcghronKristine Chavez Other [facility] Other 01-10-2022 16:15-0500Body .58 kgMattwatson Chavez Other [facility] Other 01-10-2022 16:15-0500Respiratory rate18 /minMattwatson Chavez Other [facility] Other 01-10-2022 16:15-6479AwU0% (BldA) [Mass fraction]98 % Kristine Chavez Other [employer] Other Encounters Encounter DateEncounter TypeCare ProviderFacilityStart: 04-22-2024 End: 65-88-7625Zcihgo flowsheetNicholas A Brown DPM Work Phone: [facility] PODIATRYStart: 04-22-2024 End: 61-21-2118Injety flowsheetNicholas A Brown DPM Work Phone: [facility] CI PODIATRYStart: 04-22-2024 End: 48-05-3765Dfiwyy follow up visit related to original pxNicholas A Brown DPM Work Phone: n[facility] CI PODIATRYComment on above:Hav (hallux abducto valgus), right (Primary Dx); Acquired deformity of right toe; Plantar fasciitisStart: 04-22-2024 End: 28-27-7688buhkrtyhyuXGOEUSFD A BROWNNot AvailableStart: 04-15-2024 End: 50-23-3599Mvkalb flowsheetNicholas A Brown DPM Work Phone: [facility] PODIATRYStart: 04-15-2024 End: 64-47-2411Nzcrno flowsheetNicholas A Brown DPM Work Phone: [facility] PODIATRYStart: 04-15-2024 End: 32-19-0378Gwpsrn follow up visit related to original pxNicholas A Brown DPM Work Phone: noms CI PODIATRYComment on above:Hav (hallux abducto valgus), right (Primary Dx); Acquired deformity of right toe; Plantar fasciitisStart: 04-15-2024 End: 95-34-0051nocxecovmmJJZLRWJX A BROWNNot AvailableStart: 04-01-2024 End: 31-33-0490Ktsxjm flowsheetNicholas A Brown DPM Work Phone: [facility] CI PODIATRYStart: 04-01-2024 End: 49-02-1027Ejoivg flowsheetNicholas A Brown DPM Work Phone: [facility] PODIATRYStart: 04-01-2024 End: 25-03-6228Etsesr follow up visit related to original pxNicholas A Brown DPM Work Phone: noms CI PODIATRYComment on above:Hav (hallux abducto valgus), right (Primary Dx); Acquired deformity of right toe; Plantar fasciitisStart: 04-01-2024 End: 72-60-3092ynmzhnbyvyPLSHHLCZ A BROWNNot AvailableStart: 03-18-2024 End: 52-52-9576Mhzsmd flowsheetNicholas A Brown DPM Work Phone: [facility] PODIATRYStart: 03-18-2024 End: 53-16-9817Eqadbl flowsheetNicholas A Brown DPM Work Phone: [facility] PODIATRYStart: 03-18-2024 End: 70-80-7394jxgcisjkyqXVTVBMMO A BROWNNot AvailableStart: 03-18-2024 End: 65-28-4867Lxfumg follow up visit related to original pxNicholas A Brown DPM Work Phone: [facility] CI PODIATRYComment on above:Hav (hallux abducto valgus), right (Primary Dx); Acquired deformity of right toe; Plantar fasciitisStart: 03-04-2024 End: 75-19-4748Bobofk flowsheetNicholas A Brown DPM Work Phone: [facility] PODIATRYStart: 03-04-2024 End: 94-18-5167Llyxnl flowsheetNicholas A Brown DPM Work Phone: [facility] PODIATRYStart: 03-04-2024 End: 85-61-3380rzxkzsyiwcVUKRBYPN A BROWNNot AvailableStart: 03-04-2024 End: 39-21-4098Hwzedr follow up visit related to original pxNicholas A Brown DPM Work Phone: [facility] CI PODIATRYComment on above:Hav (hallux abducto valgus), right (Primary Dx); Acquired deformity of right toe; Plantar fasciitisStart: 02-19-2024 End: 07-61-4904Azhcnm flowsheetNicholas A Brown DPM Work Phone: [facility] PODIATRYStart: 02-19-2024 End: 99-30-4237Tikgzf Leora Zamarripa DPM Work Phone: [facility] PODIATRYStart: 02-19-2024 End: 28-04-6304Qqlgeo follow up visit related to original Marcelle Zamarripa DPM Work Phone: [facility] CI PODIATRYComment on above:Plantar fasciitis; Acquired deformity of right toe; Hav (hallux abducto valgus), right; Contracture of right ankleStart: 02-19-2024 End: 76-42-6312uqwgxxhsyrATTNSIVI A BROWNNot AvailableStart: 02-02-2024 End: 44-44-4244Vszxvw Lorne Joyce MD Work Phone: [facility] OPHTStart: 02-02-2024 End: 40-22-9602Vjcqzl Lorne Joyce MD Work Phone: [facility] OPHTStart: 02-02-2024 End: 77-12-1798Gffyaz follow up visit related to original Sophy Joyce MD Work Phone: noms NB OPHTComment on above:Postoperative care for cataract (Primary Dx)Start: 02-02-2024 End: 93-01-4196ofzctpeqxnPALRS M ALLENNot AvailableStart: 01-29-2024 End: 08-82-9260jejhrdrofqKSWSEUWU A BROWNNot AvailableStart: 01-29-2024 End: 51-99-1863Qgktcf outpatient visit 25 minutesCong Zamarripa DPM Work Phone: noms CI PODIATRYComment on above:Plantar fasciitis (Primary Dx); Contracture of right ankle; Acquired deformity of right toe; Hav (hallux abducto valgus), right; Contracture of left ankleStart: 01-29-2024 End: 94-07-2410Tfkoms Leora Zamarripa DPM Work Phone: noms CI PODIATRYStart: 01-29-2024 End: 84-32-5090Zzdszz Leora Zamarripa DPM Work Phone: noms CI PODIATRYStart: 01-22-2024 End: 07-65-3527Xaoguih encounter Court Joyce MD Work Phone: noms NB OPHTComment on above:Brow ptosis (Primary Dx) Start: 01-22-2024 End: 43-16-9094ecdogvpljgXSQJN M ALLENNot AvailableStart: 01-15-2024 End: 80-26-4668Gdlqyb outpatient visit 15 minutesCong Zamarripa DPM Work Phone: noms CI PODIATRYComment on above:Plantar fasciitis (Primary Dx); Hematoma of right lower leg; Hav (hallux abducto valgus), right; Acquired deformity of right toeStart: 01-15-2024 End: 02-84-7952uohzojecziZGSNRZGT A BROWNNot AvailableStart: 01-01-2024 End: 69-22-8151wskeyeknulZZYLKZNI A BROWNNot AvailableStart: 01-01-2024 End: 60-81-2786Ahktta outpatient visit 15 minutesCong Zamarripa DPM Work Phone: noms CI PODIATRYComment on above:Hav (hallux abducto valgus), right (Primary Dx); Hematoma of right lower leg; Acquired deformity of right toe; Dog bite of right lower leg, initial encounterStart: 01-01-2024 End: 61-20-1688Ohycha Leora Zamarripa DPM Work Phone: noms CI PODIATRYStart: 01-01-2024 End: 64-81-4847Uhmqan Leora Zamarripa DPM Work Phone: noms CI PODIATRYStart: 12-25-2023 End: 17-07-8817Otzvxs outpatient new 60 minutesCong Zamarripa DPM Work Phone: noms CI PODIATRYComment on above:Hematoma of right lower leg (Primary Dx); Hav (hallux abducto valgus), right; Acquired deformity of right toe; Plantar fasciitis; Contracture of right ankle; Dog bite of right lower leg, initial encounterStart: 12-25-2023 End: 86-32-5469irxbosascaFUAFCFSQ A BROWNNot AvailableStart: 12-25-2023 End: 65-79-0289Aqeyfj flowsheetCong Mata Brown DPM Work Phone: [facility] CI PODIATRYStart: 12-25-2023 End: 14-22-3370Nujaua flowsheetNicteresa A Brown DPM Work Phone: noms CI PODIATRYStart: 12-16-2023 End: 43-49-1650Vkqhjt outpatient visit 15 minutesCarrie A Meseretepert SPEEDER MACHINE OPERATOR Work Phone: NOTO SWS UCComment on above:Dog bite of right lower leg, initial encounter (Primary Dx)Start: 12-16-2023 End: 39-99-7544mzfxbufhocCWTOHO A MESERETEPERTNot AvailableStart: 2023 End: 54-15-5349Iahuxj Lorne Joyce MD Work Phone: NOMS NB OPHTStart: 2023 End: 60-53-6729Zbzedp Lorne Joyce MD Work Phone: NOMS NB OPHTStart: 2023 End: 05-98-5770Uzhqae outpatient visit 25 minutesCharlene Joyce MD Work Phone: NOMS NB OPHTComment on above:Brow ptosis (Primary Dx); Visual field loss; Cortical age-related cataract of both eyesStart: 2023 End: 87-60-2860tcwjwkhtgzOSAYB M ALLENNot AvailableStart: 11-06-2023 End: 53-09-0693QgmzgcBaeeHaim Gomez MD Work Phone: NOMS SWS ALLComment on above:Chronic rhinitisStart: 08-12-2023 End: 41-91-3055dhsqdpzxchMrlvdbf R NILLFacility:GS Bellevtart: 08-12-2023 End: 57-06-4639Yxeosho encounter procedureMichael R NILL [phone]-Xvqbi General Surgery Sania Start: 07-23-2023 End: 05-30-8649ygbqhduggjEQBITE GILLMORNot AvailableStart: 2022 End: 08-20-3854qilvtmczdfHwmkbps R NILLFacility::[id number]: 11-05-2022 End: 61-76-9810punewscbsiJckcrib R NILLFacility:[facility]art: 05-17-2022 ambulatoryDR KRISTINE NAZARIOFacility:A4Aqvqj: 12-14-2021 End: 74-15-2954ojndjjivesKY NICK HOY .Facility:I5Glqev: 12-06-2021 End: 20-52-0486cyuxnliksaHTBTNJ CRAMERFacility:T7Wiiht: 81-57-4191sjztmjcmnyLI NICK HOY .Facility:R8Hmhnb: 10-23-2021 End: 74-91-0805saulhcubnkRS NICK HOY .Facility:T9Ivzzc: 10-18-2021 End: 78-73-6866gotbvxfszzZU NICK HOY .Facility:B4Hnaqf: 10-13-2021 End: 54-39-3652eyeeajrbigHD NICK HOY .Facility:A8Soyrs: 07-06-2021 End: 47-28-3245ztkjkbovuhUP NICK HOY .Facility:C2Ufldc: 06-22-2021 End: 17-14-0408jwciultdcxNT NICK HOY .Facility:F5Afsub: 06-13-2021 End: 86-72-3825xvllhuqsxoNOOAV CHELSEA .Facility:S4Ggell: 06-01-2021 End: 04-14-6346jzmspyyulsMOLBV CHELSEA .Facility:Y4Hgimw: 03-05-2021 End: 73-22-5138fqijfcyvktYlqwbik Langenberg Other [place] [employer] Other Start: 90-82-8641Jhixtk outpatient visit 15 minutes Kristine Young Vascular SurgeryStart: 02-19-2021 End: 83-23-2782prlismbpuaOglitnj Scott Other [facility] [employer] Other Start: 05-36-2712Gflxzj outpatient new 30 minutes Kristine [facility] Procedures DateProcedureProcedure DetailPerforming ClinicianStart: 50-17-9965Ixijd foot complete minimum 3 viewsCong Zamarripa DPM Work Phone: Start: 74-76-8769Ucxnv foot complete minimum 3 views Cong Zamarripa DPM Work Phone: Start: 66-94-5332DicsekqvbpzXiod Patricia TAPIA Work Phone: Start: 03-26-7159HtpfsepkhbaCrgofla NILL Start: 65-87-5101NkisccwrzdqncfsczhqkjtpexnJksjwbi NILL Start: 39-87-3060Rzffehuixkzegtxty with dilation of urethral strictureMichael NILL Start: 80-48-2413WbdhvxntwokDjvdkjy NILL Acquired trigger finger (disorder)Jason NILL Comment on above:rightCesarean sectionMichael NILL Cesarean sectionMichael NILL Decompression of median nerveMichael NILL Endometrial biopsyMichael NILL Ligation of fallopian tubeMichael NILL neck surgery ablationMichael NILL Repair of left inguinal herniaMichael NILL Repair of stress incontinence by suprapubic sling Jason CHERYL Plan of Treatment DateCare ActivityDetailAuthorStart: 44-99-6658Jmadqwztv for malignant neoplasm of colonNOND HealthcareStart: 04-22-2024 End: 46-32-5682Cbjxard encounter dtrouovxk44/13/2025 9:00 AM EDT Office Visit [facility] [address] [facility] [address] [place] [phone] Cong Zamarripa, DPM [address] [address] Hav (hallux abducto valgus), right (Primary Dx); Acquired deformity of right toe; Plantar fasciitisNOMS CI PODIATRYComment on above:Hav (hallux abducto valgus), right (Primary Dx); Acquired deformity of right toe; Plantar fasciitisStart: 04-15-2024 End: 98-33-8728Gfxamec encounter nfdkwausn42/06/2025 9:20 AM EST Office Visit [facility] [address] [place] [phone] Cong Zamarripa, DPM [address] [address] NOMS CI PODIATRYStart: 04-01-2024 End: 05-42-4295Oqrshsf encounter procedureNOMS CI PODIATRYComment on above:Hav (hallux abducto valgus), right (Primary Dx); Acquired deformity of right toe; Plantar fasciitisStart: 03-18-2024 End: 34-02-2269Kmexapg encounter zvegjobbs59/06/2025 9:10 AM EST Office Visit [facility] [address] [facility] [address] [place] [address] Cong Zamarripa, DPM [address] [address] N[facility]S CI PODIATRYStart: 02-19-2024 End: 81-15-3923Okqkrey encounter procedureNOMS CI PODIATRYComment on above: Plantar fasciitis (Primary Dx); Acquired deformity of right toe; Hav (hallux abducto valgus), right; Contracture of right ankleStart: 02-02-2024 End: 37-24-9807Soksvlj encounter procedureNOMS NB OPHTComment on above:Arrived Start: 01-29-2024 End: 79-71-2760Mhwtlla encounter nwflfaljw01/19/2024 4:30 PM EST Office Visit [facility] [address] [place] [address] [place] [address] Cong Zamarripa, DPM [address] [address] N[facility]S CI PODIATRYStart: 01-23-2024 End: 30-86-2850dnfivzanwh30/13/2024 1:00 PM EST Treatment [facility] [address] [place] [address] [place] [address] Parvin Melo, PTISHNA CI PTStart: 01-22-2024 End: 74-79-9336Dcaqzsk encounter xihoukdhy39/12/2024 3:00 PM EST Procedure Visit [facility] [address] [place] [address] [place] [phone] Charlene Joyce MD [address] [place] [address] NOMS NB OPHTStart: 01-15-2024 End: 45-44-7190Xablzho encounter bujrqdinq01/05/2024 4:00 PM EST Office Visit [facility] [address] [place] [address] [place] [address] Cong Zamarripa DPM [address] [address] NOMS CI PODIATRYStart: 12-25-2023 End: 38-42-6270Popqxkj encounter hrabytikf74/14/2024 3:20 PM EST Office Visit [facility] [address] [facility] [address] [place] [address] Cong Zamarripa, DPLuz [address] [facility] [address] [place] [address] NOMS CI PODIATRYStart: 2023 End: 40-20-6117Tilvfhq encounter procedureNOMS NB OPHTComment on above:Arrived Start: 50-76-3973Hsdzjzptq vaccinationInfluenza Vaccine (#1)[facility] Start: 29-90-2047Ehxtbtwnc for malignant neoplasm of breastMammogramNOND HealthcareStart: 97-65-3118Xfpoaivqc for malignant neoplasm of cervixNOMS HealthcareStart: 02-24-4410Sserealrf for malignant neoplasm of cervixPap Smear [facility] HealthcareStart: 12-11-0297Uynrevuqo for malignant neoplasm of colonNOMS HealthcareXR Foot - right 3 ViewsXR foot 3+ views right Imaging Routine Hematoma of right lower leg 12/25/2023 3:56 PM ESTNOND Healthcare Work Phone: Immunizations Immunization DateImmunizationNotesCare NfqmkvgzSsysdhxv56-95-7180iaguspi toxoid, reduced diphtheria toxoid, and acellular pertussis vaccine, adsorbedCarrie Kiepert SPEEDER MACHINE OPERATOR Work Phone: [facility] CenterBfpjgqvicp68-87-9857lahvfc vaccine recombinant Mayuri Kiepert SPEEDER MACHINE OPERATOR Work Phone: [facility] CenterBvwssgusjq44-95-6493sbadfv vaccine recombinant Mayuri Kiepert SPEEDER MACHINE OPERATOR Work Phone: [facility] CenterFbwvdqbyhs07-83-8402KYTJ-FxQ-7 (COVID-19) mRNAMUL.ORD!c52251Ofaurgq NILL [phone]-LezsjDayton [facility]opathic Hospital [facility] [place] 23-14-9692Vnyptklqi, injectable, Madin [place] Canine Kidney, preservative free, quadrivalentCarrie Kiepert SPEEDER MACHINE OPERATOR Work Phone: [facility] CenterFvowlwvcjz81-63-8719ybovhzufm virus vaccine, unspecified formulationToperfecto Gomez MD Work Phone: NOWestern [facility] CenterKvarqssypd24-61-5350ULPG-HeL-7 (COVID-19) mRNA- 1142 vaccineMichael NILL [phone]-CzpkcC[facility] Clinic [facility] Comment on above:Result Comment: 2022-10-28: QUB4117-87-8575Hbitxojmy, injectable, Madin [place] Canine Kidney, preservative free, quadrivalentCarrie Kiepert SPEEDER MACHINE OPERATOR Work Phone: [facility] CenterSszvzixold71-09-3884DYUA-ZjS-0 (COVID-19) mRNA- 6032 vaccineMichael NILL [phone]-WqwwhCleveland Clinic Fairview Hospital 63-80-9913LBGP-CoV-2 (COVID-19) mRNA-6405 vaccineMichael NILL [phone]-RqvniCleveland Clinic Fairview Hospital 44-19-5681guuseuwge, injectable, quadrivalent, preservative freeCarrie Kiepert SPEEDER MACHINE OPERATOR Work Phone: [facility] CenterAltrzsjult07-65-9358ejqyozxyc virus vaccine, live, attenuated, for intranasal useMichael NILL [facility] Medical Centerue12-22-2014zoster vaccine, liveCarrie Kiepert SPEEDER MACHINE OPERATOR Work Phone: [facility] CenterIrtgewayvo99-64-8404pfrgup vaccine, liveCarrie Kiepert SPEEDER MACHINE OPERATOR Work Phone: [facility] CenterObyotvbykf92-93-1869fzbeu afrbcsnli-E2U9-20, preservative-free, injectableCarrie Kiepert SPEEDER MACHINE OPERATOR Work Phone: [facility] Payers DatePayer CategoryPayerPolicy [id number] Health InsuranceHEALTHSCOPE [id number] [employer] BENEFITS [id number] [address] [address] [place] [id number]7-5115 [id number] 2.840.1.971249.3.579.2. Dvkorcv7948504 2.16.840.1.940755.3.57[id number] 2..840.1.516783.3.579.2.12777-96-4002Zduhgrj2472395 2.840.1.126299.3.579.2.25643-74-2014Gknzdlq5507765 2.16.840.1.809085.3.579.[id number] 2.840.1.026082.3.579.2.41955-27-0418Agfjshh9532221 2.16.840.1.560825.3.579.2.43310-43-7129Jprlftq3131241 2.16.840.1.795550.3.579.2.36947-14-1860Ekvyzju2502585 2.16.840.1.193129.3.579.2.57415-38-7921Xptrwcr1460896 2.16.840.1.497408.3.579.2.57811-44-8617Vvwqenx7283726 2.16.840.1.496282.3.579.2.43054-44-2949Bqiwqnt49850532 2..840.1.892022.3.579.2.45227-18-7241Lzuyodg25934388 2..840.1.603338.3.579.2.01825-49-7896Wdeenmz56299100 2..840.1.452913.3.579.2.65871-99-1428Cziicgv0595603 2..840.1.375738.3.579.2.785364-78-5651Njphbsr6374377 2..840.1.364435.3.579.2.422118-54-3957Xggajns1638730 2.840.1.978804.3.579.2.791913-00-3745Orgdvth6739331 2..840.1.701641.3.579.2.822004-50-3290Dpvjjua9056921 2.840.1.613434.3.579.2.694673-10-9315Dcxbpvd8097735 2.840.1.275114.3.579.2.718627-17-5291Vkmzhpy8843859 2..840.1.437733.3.579.2.190568-31-3765Tnzdzhu4498976 2..840.1.447990.3.579.2.258100-10-4745Zcujory3360085 2..840.1.206270.3.579.2.710775-16-6265Mgsykol4807727 2.16.840.1.258029.3.579.2.365068-48-0800Noriahz5905210 2.16.840.1.352545.3.579.2.551586-49-0731Hdjqaom1406255 2.16.840.1.454205.3.579.2.055113-20-2110Oxhrwwr5139506 2.16.840.1.575743.3.579.2.852105-19-3397Ajzfkkm0107489 2.16.840.1.674226.3.579.2.985383-52-2151Iijnltt3041462 2.16.840.1.817047.3.579.2.405520-82-2326Muywsqe0845010 2.16.840.1.464348.3.579.2.631685-77-8820Azhhbqe0889455 2.16.840.1.516876.3.579.2.149045-97-3771Rbbpmyz8057194 2.16.840.1.910894.3.579.2.891523-47-5658Zspk-dko00775002379-54-6417Uhhvleq 806868540 2.16.840.1.863004.19 Social History DateTypeDetailFacilityStart: 07-23-2023 End: 08-34-8006Spe Assigned At [facility]ontart: 09-09-2022 End: 51-54-1803Zwqkvyt smoking statusNever smoked tobacco (finding)[facility] HospitalTobacco smoking statusNeverKindred Hospital Dayton BellueStart: 72-65-7031Epckbyd use and exposureSmokeless tobacco non-userNOMS HealthcareStart: 07-23-2023 End: 21-60-8559Iiplebmnr beverage intakeLifetime non-drinker (finding)[facility]OM[facility] HealthcareStart: 07-23-2023 End: 31-62-5750Rhzulzm of Social functionLDS HOSPITAL HealthcareStart: 49-86-6692Owbpvxs CommentCaffeine intake: 1-2 cups per dayLDS HOSPITAL HealthcareStart: 79-95-1985Who assigned at birthNot on [facility] Functional Status JurpZlzylbccszJsiytsQxcgefth69-92-9247Jrtznrxcmo StatusN/AFisher-[facility] [place] Clinical Notes 02-19-2021 to 04-22-2024 Note Date & OebzTclwCovdlfxc83-68-6774 History of Present illness Narrative* Congrudolph Zamarripa, DPM - 04/22/2024 9:00 AM EDT Patient: Jeanna Zee : 1960 PCP: Nick Flores MD SUBJECTIVE This is a 63 y.o. female that presents today 10 wks s/p right Nicole bunionectomy with right 2nd hammertoe repair and [...] and 4 mg in the evening and 4mg before bedtime., Disp: , Rfl: valACYclovir (Valtrex) [...] digit X-ray: ASSESSMENT 10 wks s/p right Nicole bunionectomy with right 2nd hammertoe repair and [...] today Cong Zamarripa DPM documented in this encounterMissouri Baptist Medical CenterVbetdvzawk68-89-2520 History of Present illness Narrative* Cong Zamarripa DPM - 04/15/2024 9:20 AM EST Patient: Jeanna Zee : 1960 PCP: Nick Flores MD SUBJECTIVE This is a 63 y.o. female that presents today 9 wks s/p right Nicole bunionectomy with right 2nd hammertoe repair and [...] and 4 mg in the evening and 4mg before bedtime., Disp: , Rfl: valACYclovir (Valtrex) [...] digit X-ray: ASSESSMENT 9 wks s/p right Nicole bunionectomy with right 2nd hammertoe repair and right plantar fasciotomy 1. Hav (hallux abducto valgus), right 2. Acquired deformity of right toe 3. Plantar fasciitis PLAN Patient is able to wear tennis shoe although was unable to wear work shoe at this time and is goingto try to move into the work shoes over the next week with follow up to reassess Cong Zamarripa DPM documented in this encounterMissouri Baptist Medical CenterNfvwrjudga23-86-1480 History of Present illness Narrative* Cnog Zamarripa DPM - 04/01/2024 11:10 AM EST Patient: Jeanna Zee : 1960 PCP: Nick Flores MD SUBJECTIVE This is a 63 y.o. female that presents today 7 wks s/p right Nicole bunionectomy with right 2nd hammertoe repair and [...] and 4 mg in the evening and 4mg before bedtime., Disp: , Rfl: valACYclovir (Valtrex) [...] digit X-ray: ASSESSMENT 7 wks s/p right Nicole bunionectomy with right 2nd hammertoe repair and right plantar fasciotomy 1. Hav (hallux abducto valgus), right 2. Acquired deformity of right toe 3. Plantar fasciitis PLAN Pt to take nsaids as needed PRN pain Patient continue with walking boot for the next week and then progress into shoe gear and have additional week off work Cong Zamarripa DPM documented in this [facility]02-06-2025 History of Present illness Narrative* Cong Zamarripa DPM - 03/18/2024 9:10 AM EST Patient: Jeanna Zee : 1960 PCP: Nick Flores MD SUBJECTIVE This is a 63 y.o. female that presents today 5 wks s/p right Nicole bunionectomy with right 2nd hammertoe repair and [...] and 4 mg in the evening and 4mg before bedtime., Disp: , Rfl: valACYclovir (Valtrex) [...] correction noted ASSESSMENT 5 wks s/p right Nicole bunionectomy with right 2nd hammertoe repair and [...] p.r.n. Cong Zamarripa DPM documented in this [facility]01-23-2025 History of Present illness Narrative* Cong Zamarripa DPM - 03/04/2024 9:00 AM EST Patient: Jeanna Zee : 1960 PCP: Nick Flores MD SUBJECTIVE This is a 63 y.o. female that presents today 23 days s/p right Nicole bunionectomy with right 2nd hammertoe repair with [...] and 4 mg in the evening and 4mg before bedtime., Disp: , Rfl: valACYclovir (Valtrex) [...] digit X-ray: ASSESSMENT 23 days s/p right Nicole bunionectomy with right 2nd hammertoe repair with K- wire and right plantarfasciotomy 1. Hav (hallux abducto valgus), right 2. Acquired deformity of right toe 3. Plantar fasciitis PLAN Removal K-wire today under sterile conditions Sutures were removed today to the foot and patient in now able to get foot wet. Continue with walking boot daily Cong Zamarripa DPM documented in this encounterMissouri Baptist Medical CenterPcejqujwmv63-56-2593 NoteImaging Result: Notable Freedman arthroplasty bunionectomy procedure to the right foot with notable 2nd hammertoe repair with K-wire intactMissouri Baptist Medical CenterHulmdxtrjl82-37-9131 History of Present illness Narrative* Cong Zamarripa DPM - 02/19/2024 10:30 AM EST Patient: Jeanna Zee : 1960 PCP: Nick Flores MD SUBJECTIVE This is a 63 y.o. female that presents today 9 days s/p right Nicole bunionectomy with right 2nd hammertoe repair with [...] and 4 mg in the evening and 4mg before bedtime., Disp: , Rfl: valACYclovir (Valtrex) [...] K-wire intact ASSESSMENT 9 days s/p right Nicole bunionectomy with right 2nd hammertoe repair with [...] weeks Cong Zamarripa DPM documented in this [facility]12-23-2024 History of Present illness Narrative* Charlene Joyce MD - 02/02/2024 9:45 AM EST Assessment/Plan documented in this [facility]12-19-2024 History of Present illness Narrative* Cong Zamarripa DPM - 01/29/2024 4:30 PM EST Patient: Jeanna Zee : 1960 PCP: Nick [...] 1-10 scale a 5 Patient has seen assistant to the president in the past and had a total 6 injections over the past 3 years and has used a night splint orthotics as well as steroid injections and anti-inflammatories with minimal improvement Pt also has hx of painful right HAV deformity and right 2nd hammertoe deformity with no relief withwider shoes and inserts. She is scheduled for a right nicole bunionectomy with right 2nd PIPJ arthrodesis with [...] and 4 mg in the evening and 4mg before bedtime., Disp: , Rfl: valACYclovir (Valtrex) [...] degrees with notable right 2nd digital deformity notedand small calcaneal enthesophyte noted to the right [...] to maintain 90 degree foot to ankle position.Pt informed to only remove walker when at [...] to surgery. Pt scheduled for a right nicole bunionectomy with right 2nd PIPJ arthrodesis with kwire and right plantar fasciotomy. Discussed with the patient the nature of condition and operative vs nonoperative care. The surgicalplans, risks, alternatives, benefits, post op complications and half-way expectations were discussed including but not limited to: infection,bone infection,wound dehiscence hardware failure and irritation,wound dehiscence,delay union/mal union/non union of bone. RSDS,neuroma,duty limitations,DVT/PE, AR,nerve damage, scar, loss of sensation, swelling. Pt [...] with an ASA of a 2. Cong Zamarriap DPM, FACFAS H&P up to date and current (date) Date: January 29, 2024 Cong Zamarripa DPM documented in this encounterMissouri Baptist Medical CenterCemqhnmgyx67-70-8221 History of Present illness Narrative* Charlene Joyce MD - 01/22/2024 3:00 PM EST Assessment/Plan OLIVIAON: Charlene Joyce MD PREOPERATIVE BROW PTOSIS POSTOPERATIVE DIAGNOSIS: Same ANESTHESIA: Local PROCEDURE: Brow lift upper lid, right eye The patient was brought to the out-patient operating room and given a local anesthetic injection of2% lidocaine with epinephrine. Approximately 1.5cc was injected across the breadth of the lid at the level of the superior tarsal margin AND into the superior orbital notch. 15 minutes was allowed toelapse for hemostasis purposes. The eyes were then [...] day with intermittant icing of the wound. Charlene Joyce MD documented in this encounterMissouri Baptist Medical CenterPjafvazkbk98-59-2897 History of Present illness Narrative* Cong Zamarripa DPM - 01/15/2024 4:00 PM EST Patient: Jeanna Zee : 1960 PCP: Nick [...] 1-10 scale a 5 Patient has seen assistant to the president in the past and had a total 6 injections over the past 3 years and has used a night splint orthotics as well as steroid injections and anti-inflammatories with minimal improvement Patient also presents today 14 days post I&D of right leg hematoma with sutures. Patient deniesn/f/v/c. Patient also has complaints of the right 2nd digital deformity that is rubbing against her 2nd toe and also her shoes and is painful with ambulation has tried different shoes with minimal improvementwith notable bunion deformity that is painful in [...] and 4 mg in the evening and 4mg before bedtime., Disp: , Rfl: valACYclovir (Valtrex) [...] degrees with notable right 2nd digital deformity notedand small calcaneal enthesophyte noted to the right [...] discuss patient may likely will have right Nicole bunionectomy in the near future with right 2nd hammertoe repair as well as right plantar fasciotomy and will most likely have preoperative visitin the near future if patient like to have [place] for postoperative pain and PCP is Dr. Corcoran. Patient like between the [facility] and day time. Will attempt to scheduled for surgery and will schedule preoperative visit in the near future and would like [place] for postop pain and has crutches and knee crutch trained as well as knee scooter Cong Zamarripa DPM documented in this [facility]11-21-2024 History of Present illness Narrative* Cong Zamarripa DPM - 01/01/2024 4:20 PM EST Patient: Jeanna Zee : 1960 PCP: Nick Flores MD SUBJECTIVE This is a 63 y.o. female that presents today for a 7d follow up of right hss . States pain with 1ststeps in the morning and sharp in nature with treatments consisting of anti-inflammatories and shoegear modifications with negative relief and presents today for treatment. States the pain on a 1-10scale a 5 Patient has seen assistant to the president in the past and had a total [...] ambulation has tried different shoes with minimal improvementwith notable bunion deformity that is painful in [...] and 4 mg in the evening and 4mg before bedtime., Disp: , Rfl: valACYclovir (Valtrex) [...] degrees with notable right 2nd digital deformity notedand small calcaneal enthesophyte noted to the right [...] area of hematoma with minimal blood loss noted.Notable venous blood was expressed with multiple areas [...] discuss patient may likely will have right Nicole bunionectomy in the near future with right 2nd hammertoe repair as well as right plantar fasciotomy and will most likely have preoperative visitin the near future if no improvement Cong Zamarripa DPM documented in this encounterMissouri Baptist Medical [id number] History of Present illness Narrative* Cong Zamarriap DPM - 12/25/2023 3:20 PM EST Patient: Jeanna Zee : 1960 PCP: Nick [...] 1-10 scale a 8 Patient has seen assistant to the president in the past and had a total [...] ambulation has tried different shoes with minimal improvementwith notable bunion deformity that is painful in [...] and 4 mg in the evening and 4mg before bedtime., Disp: , Rfl: valACYclovir (Valtrex) [...] degrees with notable right 2nd digital deformity notedand small calcaneal enthesophyte noted to the right [...] fascia with its origin at the medial plantartuberosity of the calcaneus. The area of thickening [...] Patient may continue with conservative treatments including jenj-jcq-fkpvlmo anti- inflammatories and other treatments suggested today. Patient may want to be s cheduled for surgical intervention in the near future. Discussed possible surgical excision of hematoma and evacuation but did advise warm compresses and placed on oral antibiotics for the next 10 days as she is currently running out in the next 24 hours for prophylaxis Discussed possible right Nicole bunionectomy with right 2nd digit PIPJ arthro diastasis with K-wire. Did also discuss right instep plantar fasciotomy for chronic plantar fasciitis if no improvement in the near future. Patient to follow up in 1 week for unrelated procedure of steroid injection for the suspected hematoma to the lateral right leg Cong Zamarripa DPM documented in this encounterMissouri Baptist Medical [id number] History of Present illness Narrative* Mayuri Cee NP - 12/16/2023 6:10 PM EST Historian of HPI: patient Jeanna Zee is [...] 20 tablet; Refill: 0 documented in this [facility]10-17-2024 History of Present illness Narrative* Charlene Joyce MD - 2023 8:15 AM EDT Assessment/Plan brow ptosis od Symptomatic Rba explained including scarring Visually Significant Cataract, OU: I discussed the risks, benefits, alternatives, and expectations of cataract surgery. A complete ophthalmic exam was performed and it was determined that the cataracts were a primary source of vision decline, affecting activities of daily living, necessitating removal. Limited vision post-surgery may occur with pre-existing conditions affecting other areas of theeye or the brain was explained and the patient displayed an understanding. The overall objective isto improve ADLs, not eliminate glasses or restore vision to 20/20. Tests were reviewed - the different lens options were explained including the jee-tg-kfrhhx fees for any upgrades. Intraocular lens ( IOL) selection may be altered either prior to or during the procedure based on the doctor's discretion including reverting to a traditional intraocular lens (IOL). They understood that there will exist the potential of glasses prescription need post surgery for near, distance or possibly both. The patient stated a full understanding and a desire to proceed with the procedure. The patient receivedcataract measurements and had any additional questions answered. - A complete exam was performed including a physical exam: General: AAOx3 and NAD, Lungs: Clear, Heart: RRR, Abdomen: S/NT/ND, Extremities: no pitting edema. documented in this encounterMissouri Baptist Medical [id number] Telephone encounter Note* Telephone Encounter - Theodore Das - 11/12/2023 9:26 AM EDT L/m again for pt to make an appt 11/12/23 [facility] [id number] Miscellaneous Notes* Telephone Encounter - Theodore Das - 11/12/2023 9:26 AM EDT L/m again for pt to make an appt 11/12/23 * Telephone Encounter - Byron Gomez MD - 11/10/2023 4:57 PM EDT Needs appt documented in this encounterMissouri Baptist Medical CenterZqhxbkjllr96-99-3664 Telephone encounter Note* Telephone Encounter - Byron Gomez MD - 11/10/2023 4:57 PM EDT Needs appt [facility] [id number] NoteGeneral Surgery Office/Clinic Note Chief Complaint consultation for nevus HPI [...] swallowing difficulties, no hearing loss, no ear infection(s),no nose bleeds. Cardiovascular: normal blood pressure, no [...] stricture (02/18/2019), Colonoscopy (05/14/2013), Caesarean section, Carpal tunnelrelease, section, Endometrial biopsy, neck surgery ablation, Repair [...] Immunizations Vaccine Date Status Comments SARS-CoV-2 (COVID-19) [id number] 02/07/2022 Recorded SARS-CoV-2 (COVID-19) mRNA-1273 vaccine 01/03/2021 Recorded 2022-10-28: [id number] SARS-CoV-2 (COVID-19) mRNA-1273 vaccine 05/26/2020 Recorded SARS-CoV-2 (COVID-19) mRNA-1273 vaccine 04/28/2020 Recorded influenza virus vaccine, live, trivalent 11/10/2018 RecordedMer[facility] CenterComment on above:Result Comment: Electronically Signed By: CHERYL TAPIA, Jason Guzman\Date and Time Signed: 08/12/23 16:36 [id number] NoteChief Complaint consultation for positive occult stool HPI [...] swallowing difficulties, no hearing loss, no ear infection(s),no nose bleeds. Cardiovascular: normal blood pressure, no [...] Tab, 40 mg= 1 (more content not included)...[facility] CenterComment on above:Result Comment: Electronically Signed By: CHERYL TAPIA, Jason Guzman\Date and Time Signed: 11/05/22 15:49 [id number] Evaluation note* Encounter Date Diagnosis Assessment Notes Treatment Notes Treatment Clinical Notes Feb, Dizziness (ICD-10 - R42) I did review the carotid duplex with the patient today. The results were normal. There is no disease identified whatsoever. I explained to the patient that an MRI is not usually utilized to evaluate arteries. An MRA could be used for arterial evaluation but not MRI. Therefore, I feel confident thather symptoms of dizziness are not related to extracranial cerebrovascular disease. I suggest that she get a second opinion from ENT. We will help arrange this for her. [facility] Other 01-10-2022 Evaluation note* Encounter Date Diagnosis [...] understands agrees the plan. I did caution herthat only 1% of my patients end up having a surgically correctable cause of dizziness due to vertebral artery stenoses. I did not want to falsely elevate her hopes. She understands and wishes to proceed. [facility] Other Evaluation + Plan note No data available for this section [facility] [place] Evaluation note* Diagnosis Chronic rhinitis documented in [...] leg, initial encounter documented in this encounter [facility]* Diagnosis Hematoma of right lower leg- Primary Hav (hallux abducto valgus), right Acquired deformity of right toe Plantar fasciitis Plantar fascial fibromatosis Contracture of right ankle Dog bite of right lower leg, initial encounter documented in this encounter [facility]* Diagnosis Plantar fasciitis- Primary Plantar fascial fibromatosis Hematoma of right lower leg Hav (hallux abducto valgus), right Acquired deformity of right toe documented in this encounter [facility]* Diagnosis Brow ptosis- Primary documented in this encounter [facility]* Diagnosis Plantar fasciitis- Primary Plantar fascial fibromatosis Contracture of right ankle 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), right Contracture of left ankle [facility]* Diagnosis Postoperative care for cataract- Primary Follow-up examination, following other surgery [facility]* Diagnosis Plantar fasciitis Plantar fascial fibromatosis 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), right Contracture of right ankle [facility]* Diagnosis Hav (hallux abducto valgus), right- Primary Acquired deformity of right toe Plantar fasciitis Plantar fascial fibromatosis documented in this encounter [facility]* Diagnosis Hav (hallux abducto valgus), right- Primary Acquired deformity of right toe Plantar fasciitis Plantar fascial fibromatosis [facility]* Diagnosis Hav (hallux abducto valgus), right- Primary Acquired deformity of right toe Plantar fasciitis Plantar fascial fibromatosis documented [facility] encounter [facility] HealthcareHistory general Narrative - Reported* Type Description Date Medical History arthritis Medical HistoryEar pain, bilateralMedical HistoryIdiopathic peripheral autonomic neuropathyMedical HistoryCervical spondylosis with myelopathyMedical History Acute recurrent frontal sinusitisMedical HistoryHypothyroidismMedical History GERD (gastroesophageal reflux disease)Medical HistoryObstructive sleep apnea Medical HistoryvertigoMedical HistoryHypertensionMedical HistoryDepression Medical HistoryOtitis mediaMedical HistoryPneumoniaMedical Historythyroid Surgical [place]-section [place] [id number], 84Surgical Historyhernia [id number] Historycarpal tunnel [id number] Historytrigger finger [id number] Surgical Historybladder [id number] Historysee sx hx [facility] Other Hospital Discharge instructions No data available for this section [facility] Progress note No data available for this section [facility] Summary Purpose Family History No Family History Records FoundNo Family History Records Found No data available for this section No Family History Records FoundNo Family History Records Found Advance Directives No Advanced Directives Records FoundNo Advanced Directives Records FoundNo Advanced Directives Records FoundNo Advanced Directives Records Found Additional Source Comments INFORMATION SOURCE (unrecogn ized section and content) DATE CREATED AUTHOR 03/26/2021 [facility] DATE CREATED AUTHOR AUTHOR'S ORGANIZ ATION 05/18/2022 [facility] DATE CREATED AUTHOR AUTHOR'S ORGANIZ ATION 08/14/2023 [facility] DATE CREATED AUTHOR AUTHOR'S ORGANIZ ATION 04/25/2024 [facility] EPIC REASON FOR VISIT (unrecogniz ed section and content) ReasonCommentsMed RefillReasonCommentsPtosisBlurred VisionReasonComments Follow-upPf injReasonCommentsHammer ToeRt ft hammer toe/ bunionReasonComments Follow-up2wk- suture removalReasonCommentsProcedureReasonCommentsConsent Or InstructionsPre op/ orthotic pick gnUdagbhHuoakxhdBhrlap-kbHutbugDfqebpexUves-iu 9d s/p rtReasonCommentsPost-op23d s/p rt nicole bunionectomyK wire rmovalpfa ReasonCommentsFoot/ankle Post-opWK 5 post opReasonCommentsPost-opRT IGNACIO BUNIONECTOMYReasonCommentsPost-op9wk s/p rt bunionectomy and hammertoeReason CommentsPost-op9wk s/p Patient Care team informatio n (unrecognized section and content) Team MemberRelationshipSpecialtyStart DateEnd Nick Flores MD [address] [facility] [place] [address] PCP - GeneralFamily Ryzithtr59/28/23 Kell Del Cid DO [address] [place] [address] Referring PhysicianNeurology04/30/23Team MemberRelationshipSpecialtyStart DateEnd Nick Flores MD [address] [facility] [place] [address] PCP - GeneralFamily Fycnwhcv51/28/23 Kell Del Cid DO [address] [place] [address] Referring PhysicianNeurology04/30/23Team MemberRelationshipSpecialtyStart End Nick Flores MD [address] [facility] [place] [address] PCP - GeneralFamily Mdhoqatq20/28/23 Kell Del Cid DO [address] [place] [address] Referring PhysicianNeurology04/30/23Team MemberRelationshipSpecialtyStart DateEnd Nick Flores MD [address] [facility] [place] [address] PCP - GeneralFamily Gevewwxg86/28/23 Kell Del Cid DO [address] [place] [address] Referring PhysicianNeurology04/30/23Team MemberRelationshipSpecialtyStart DateEnd Date Nick Flores MD [address] [facility] [place] [address] PCP - Generalmi Zxbwueoq92/28/23 Kell Del Cid DO [address] [place] [address] Referring PhysicianNeurology04/30/23Team MemberRelationshipSpecialtyStart DateEnd Date Nick Flores MD [address] [facility] [place] [address] PCP - Generalmi Jstdbytg33/28/23 Kell Del Cid DO [address] [place] [address] Referring PhysicianNeurology04/30/23Team MemberRelationshipSpecialtyStart DateEnd Date Nick Flores MD [address] [facility] [place] [address] PCP - GeneralFami Gcyltrxl98/28/23 Kell Del Cid DO [address] [place] [address] Referring PhysicianNeurology04/30/23Team MemberRelationshipSpecialtyStart DateEnd Date Nick Flores MD [address] [facility] [place] [address] PCP - GeneralFamily Erftsvxu58/28/23 Kell Del Cid DO [address] [place] [address] Referring PhysicianNeurology04/30/23Team MemberRelationshipSpecialtyStart DateEnd Date Nick Flores MD [address] [place] [address] PCP - GeneralFamily Vusdagdg65/28/23 Kell Del Cid DO [address] [place] [address] Referring PhysicianNeurology04/30/23Team MemberRelationshipSpecialtyStart DateEnd Date Nick Flores MD [address] [facility] [place] [address] PCP - GeneralFamily Agnzspoo46/28/23 Kell Del Cid DO [address] [place] [address] Referring PhysicianNeurology04/30/23Team MemberRelationshipSpecialtyStart DateEnd Date Nick Flores MD [address] [facility] [place] [address] PCP - GeneralFamily Dgfploii17/28/23 Kell Del Cid DO [address] [place] [address] Referring PhysicianNeurology04/30/23Team MemberRelationshipSpecialtyStart DateEnd Date Nick Flores MD [address] [facility] [place] [address] PCP - GeneralFamily Xgatfofa67/28/23 Kell Del Cid DO [address] [place] [address] Referring PhysicianNeurology04/30/23Team MemberRelationshipSpecialtyStart DateEnd Date Nick Flores MD [address] [facility] [place] [address] [facility] - [facility] Prmpzpfn62/28/23 Kell Del Cid DO [address] [place] [address] Referring PhysicianNeurology04/30/23Team MemberRelationshipSpecialtyStart DateEnd Date Nick Flores MD [address] [facility] [place] [address] PCP - GeneralFamily Oizsbypl73/28/23 Kell Del Cid DO [address] [place] [address] Referring PhysicianNeurology04/30/23Team MemberRelationshipSpecialtyStart DateEnd Date Nick Flores MD [address] [facility] [place] [address] PCP - GeneralFami Imyoizpp62/28/23 Kell Del Cid DO [address] [place] [address] Referring PhysicianNeurology04/30/23Team MemberRelationshipSpecialtyStart DateEnd Date Nick Flores MD [address] [facility] [place] [address] PCP - GeneralFamily Xbogtbwo88/28/23 Kell Del Cid DO [address] [place] [address] Referring PhysicianNeurology04/30/23Team MemberRelationshipSpecialtyStart DateEnd Nick Flores MD [address] [facility] [place] [address] PCP - [facility]02/06/23 Kell Del Cid DO [address] [place] [address] Referring PhysicianNeurology04/30/23Team MemberRelationshipSpecialtyStart End Nick Flores MD [address] [facility] [place] [address] [facility] - [facility]02/06/23 Kell Del Cid DO [address] [place] [address] Referring PhysicianNeurology04/30/23 FOR RECORDS PERTAINING TO PATIENTS WHO ARE [...] BE BASED ON THE PRIMARY CLINICAL RECORDS. [facility] [employer] [facility]. provides no warranty or guarantee of the accuracy or completeness of information in this document.
== END 2024-12-20 12:58 | disposition home or self-care (01) ==
LOC: MAMMO 12:57
PROVIDERS: PCP Family Medicine; Visit Provider Nurse Practitioner Family
DX: Z12.31 Encounter for screening mammogram for malignant neoplasm of breast (principal); Z80.6 Family history of leukemia; Z80.1 Family history of malignant neoplasm of trachea, bronchus and lung
CPT/HCPCS: 77063; 77067